=== PATIENT | female | born 1960 | race Caucasian/White ===

== ENCOUNTER 2016-11-27 16:55 | Emergency (ER) | payer SELFPAY ==
[~2016-11-27] VITALS: Ht 160 cm; Wt 77.1 kg
[~2016-11-27 16:55] MED LIST: CEPH500C PO; CIPR500T4 PO; CLIN300C11 PO; DULO60CA58; DULO60CA6 PO; HYDR1TAB86 PO; HYDR25TA4 PO; KETO-22 PO; LAMO200T14 PO; LAMO25TA13 PO; LISI-552 PO; LISI1TAB10 PO; LORA10TA7; NITR-65 PO; PROM25SU10 PO; VICTOZA
--- OUTSIDE RECORDS SUMMARY | 2016-11-27 17:01 | XMS REPORT | Continuity of Care Document ---
Author Author [facility] Organization [facility] Address Unknown Phone Unavailable Care Team Providers Care Housekeeper Caregiver Name Role Phone Self, Referral PCP Unavailable Source Comments Some departments are not documenting in the electronic medical record. If you do not see the information that you expected, contact Release of Information in the Health Information Management department at [phone] for further assistance in locating additional records.[facility] Active Allergies and Adverse Reactions Allergen Noted Date Severity Reactions Comments Fentanyl 02/09/2012 SEIZURES Anaphylaxis Latex 02/09/2012 RASH Mold 02/09/2012 ANAPHYLAXIS Penicillins 10/23/2007 ANAPHYLAXIS Sulfa (Sulfonamide 10/23/2007 Antibiotics) Current Medications Prescription Sig. Disp. Refills Start End Date Status Date LAMICTAL PO 200 mg daily. 10/23/[address] (CYMBALTA) 10/23/19 Active 60 mg PO CpDR 08 ALBUTEROL IN 10/23/19 Active 08 METFORMIN HCL (METFORMIN Take 1,000 mg by mouth Active PO) twice daily. aspirin 325 mg tablet Take 325 mg by mouth Active daily. lisinopril/hydrochlorothi Take 1 Tab by mouth 02/11/20 Active azide (ZESTORETIC) 20/25 daily. 12 tablet [address](+) Take 1 Cap by mouth 90 Cap 5 02/11/20 Active (NEXIUM) 40 mg capsule daily. 12 Potassium 99 mg Tab Take by mouth. Active fluticasone-salmeterol Inhale 1 Puff by mouth Active (ADVAIR DISKUS) 250-50 every 12 hours. mcg inhalation disk LOPERAMIDE HCL (IMODIUM Take by mouth. Active A-D PO) ibuprofen (MOTRIN) 800 mg Take 1 Tab by mouth every 60 Tab 2 02/27/20 Active tablet 8-12 hours as needed. 12 Active Problems Problem Noted Date Asthma 02/09/2012 DM (diabetes mellitus) (HCC) 02/09/2012 Depression 02/09/2012 Bipolar disorder ([facility]) 02/09/2012 HTN (hypertension) 02/09/2012 GERD (gastroesophageal reflux disease) 02/09/2012 Diverticulitis 02/09/2012 Immunizations Name Dates Previously Given Next Due Tdap Vaccine 02/27/2012 Social History Tobacco Use Types Packs/Day Years Used Date Current Every Day Smoker Cigarettes 0.5 28 Smokeless Tobacco: Never Used Alcohol Use Drinks/Week oz/Week Comments No Last Filed Vital Signs Vital Sign Reading Time Taken Blood Pressure 103/49 02/27/2012 10:31 AM CDT Pulse 75 02/27/2012 10:31 AM CDT Temperature 36.4 C (97.6 F) 02/27/2012 10:31 AM CDT Respiratory Rate 16 02/27/2012 10:31 AM CDT Height 1.619 m (5' 3.75") 02/27/2012 10:31 AM CDT Weight 136.079 kg (300 lb) 02/27/2012 10:31 AM CDT Body Mass Index 51.92 02/27/2012 10:31 AM CDT Oxygen Saturation 98% 02/11/2012 11:53 AM CDT Plan of Care Health Maintenance Due Date Last Done Comments Dilated Eye Exam 1977 Foot Exam 1977 Microalbumin 1977 Pneumonia Vaccine (Dm) 1977 Cervical Cancer Screening 1980 Breast Cancer Screening 1999 Colorectal Cancer 2009 Screening Hba1c 08/11/2012 02/10/2012 Physical (Comprehensive) 02/26/2013 02/27/2012 Exam Influenza Vaccine 06/21/2016 Tetanus Vaccine 02/26/2022 02/27/2012, 02/27/2012 Pertussis Vaccine Completed 02/27/2012 Results from Last 3 Months Not on file
[2016-11-27] MEDS ORDERED: NS IV 1000 ML 1,000 ML IV ONE (17:09)
[2016-11-27] MEDS ORDERED: RT-ALBUTEROL/IPRATROPIUM 3 ML (DUONEB) VIAL INH ONE ×2 (17:15→19:00)
[2016-11-27 18:04] LABS: BASOPHILS # (AUTO) 0.1 10^3/uL (0.0-0.1); BASOPHILS % (AUTO) 1 % (0-10); EOSINOPHILS # (AUTO) 0.2 10^3/uL (0.0-0.3); EOSINOPHILS % (AUTO) 1 % (0-10); LYMPHOCYTES # (AUTO) 3.8 X 10^3 (1.0-4.0); LYMPHOCYTES % (AUTO) 24 % (12-44); MEAN CORPUSCULAR HEMOGLOBIN 30 PG (25-34); MEAN CORPUSCULAR HGB CONC 34 G/DL (32-36); MEAN CORPUSCULAR VOLUME 88 FL (80-99); MEAN PLATELET VOLUME 8.7 FL (7.4-10.4); MONOCYTES # (AUTO) 1.5 X 10^3 (0.0-1.0); MONOCYTES % (AUTO) 9 % (0-12); NEUTROPHILS # (AUTO) 10.1 X 10^3 (1.8-7.8); NEUTROPHILS % (AUTO) 65 % (42-75); PLATELET COUNT 372 10^3/uL (130-400); RED BLOOD COUNT 4.71 10^6/uL (4.35-5.85); WHITE BLOOD COUNT 15.6 10^3/uL (4.3-11.0)
--- NOTE | 2016-11-27 18:17 | Diagnostic Imaging Report ---
INDICATION: Cough and shortness of breath with right rib pain. Two views were obtained. FINDINGS: The heart size, mediastinal configuration, and pulmonary vascularity are within normal limits. There is no pleural effusion, pneumothorax, or pneumonia. The osseous structures are unremarkable. IMPRESSION: No acute cardiopulmonary abnormality. Dictated by: Dictated on workstation # [id number]
--- NOTE | 2016-11-27 18:19 | Diagnostic Imaging Report ---
INDICATION: Rib pain after coughing. Three views were obtained. FINDINGS: The right lung is clear. There is no pleural effusion or pneumothorax. There is no evidence of a displaced rib fracture. IMPRESSION: No displaced rib fractures Dictated by: Dictated on workstation # [id number]
[2016-11-27 18:27] LABS: ALANINE AMINOTRANSFERASE 33 U/L (0-55); ALBUMIN 3.8 G/DL (3.2-4.5); ANION GAP 12 MMOL/L (5-14); ASPARTATE AMINO TRANSFERASE 30 U/L (5-34); BILIRUBIN,TOTAL 0.5 MG/DL (0.1-1.0); BLOOD UREA NITROGEN 6 MG/DL (7-18); BUN/CREATININE RATIO 9; CALCIUM 8.9 MG/DL (8.5-10.1); CARBON DIOXIDE 26 MMOL/L (21-32); CHLORIDE 102 MMOL/L (98-107); GFR ESTIMATED > 60; GLUCOSE 154 MG/DL (70-105); POTASSIUM 3.4 MMOL/L (3.6-5.0); SODIUM 140 MMOL/L (135-145); TOTAL PROTEIN 7.5 G/DL (6.4-8.2)
[2016-11-27 18:44] LABS: BAND NEUTROPHILS 1 %; NEUTROPHILS % (MANUAL) 68 %
[2016-11-27 18:45] LABS: BASOPHILS % (MANUAL) 0 %; EOSINOPHILS % (MANUAL) 4 %; LYMPHOCYTES % (MANUAL) 24 %
--- NOTE | 2016-11-27 18:47 | ED General ---
General Chief Complaint: Respiratory Problems Stated Complaint: SOA Nursing Triage Note: c/o progressive soa. Cough/congestion/fever reported. Hx of asthma. Nursing Sepsis Screen: No Definite Risk Source of Information: Patient Exam Limitations: No Limitations History of Present Illness Time Seen by Provider: 17:00 Initial Comments This 56-year-old woman presents to emergency room with cough, shortness of air, and reported fever for several days. She also has right-sided chest wall pain and tenderness and wonders if she has fractured a rib by coughing. She has had no blunt trauma. Patient has a history of asthma. She also has some erythema and irritation of the left eye with a little bit of drainage. She is afebrile at present. Allergies and Home Medications Allergies Coded Allergies: Penicillins (Unverified Allergy, Mild, 03/03/11) Sulfa (Sulfonamide Antibiotics) (Unverified Allergy, Mild, 03/03/11) fentanyl (Unverified Allergy, Mild, SZ, 03/03/11) latex (Unverified Allergy, Mild, 03/04/11) unsure/thinks a rash Home Medications (Reported) Azithromycin 250 Mg Tablet #4 250 MG PO DAILY Prescribed by: DEBRA GARNICA on 11/27/161901 Clindamycin HCl 300 Mg Capsule #40 300 MG PO QID Prescribed by: MARIVEL CHOI on 06/13/16 2333 Ipratropium/Albuterol Sulfate 3 Ml Ampul.neb #20 3 ML IH Q6H Prescribed by: DEBRA GARNICA on 11/27/161901 Prednisone 20 Mg Tab #3 20 MG PO DAILY Prescribed by: DEBRA GARNICA on 11/27/161901 Constitutional: see HPI EENTM: see HPI Respiratory: see HPI Cardiovascular: no symptoms reported Gastrointestinal: no symptoms reported Genitourinary: no symptoms reported Musculoskeletal: see HPI Skin: no symptoms reported Psychiatric/Neurological: No Symptoms Reported Hematologic/Lymphatic: No Symptoms Reported Past Bjewhkg-Wpalgv-Rmphje Hx Patient Social History Alcohol Use: Denies Use Recreational Drug Use: No Smoking Status: Former Smoker Recent Foreign Travel: No Contact w/Someone Who Travel: No Recent Infectious Disease Expo: No Recent Hopitalizations: No Surgeries HX Surgeries: Yes Surgeries: Gallbladder, Tonsillectomy Respiratory Hx Respiratory Disorders: Yes Respiratory Disorders: Asthma Cardiovascular Hx Cardiac Disorders: Yes Cardiac Disorders: Hypertension Neurological Hx Neurological Disorders: Yes Neurological Disorders: Headaches /Migraines Reproductive System : No Hx Reproductive Disorders: No DIRECT ENTRY MIDWIFE History: Menopausal Genitourinary Hx Genitourinary Disorders: No Gastrointestinal Hx Gastrointestinal Disorders: Yes Gastrointestinal Disorders: Gall Bladder Disease Musculoskeletal Hx Musculoskeletal Disorders: Yes Musculoskeletal Disorders: Arthritis Endocrine Hx Endocrine Disorders: Yes (MORBID OBESITY) Endocrine Disorders: Diabetes, Non-Insulin dep HEENT HX ENT Disorders: Yes (Ludwigs Angina) Cancer Hx Cancer: No Psychosocial Hx Psychiatric Problems: Yes Behavioral Health Disorders: Anxiety, Bipolar, Depression Integumentary HX Skin/Integumentary Disorder: No Blood Transfusions Hx Blood Disorders: No Physical Exam Vital Signs Capillary Refill : Less Than 3 Seconds General Appearance: WD/WN Mild Distress Obese HEENT: PERRL/EOMI Pharynx Normal Other (mild scleral and conjunctival erythema of the left eye) Neck: Normal Inspection Respiratory: No Accessory Muscle Use No Respiratory Distress Wheezing Other ( tenderness over the right lateral chest wall. 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 She has a nebulizer machine at home and DuoNeb was prescribed. Prednisone and azithromycin were initiated. Antibiotics were started due to the leukocytosis, significant symptoms and duration of symptoms. Patient was hydrated well with IV fluids. Chest x-ray revealed no evidence of pneumonia or rib fracture. Diagnostic Imaging Diagonstic Imaging: Xray Comments Rib x-rays viewed by me and report reviewed. See report below: NAME: MOODY DE LEÓN [facility] REC#: [id number] PT STATUS: REG ER : 1960 PHYSICIAN: DEBRA ARGUELLO MD ADMIT DATE: 11/27/16/ER Draft Date of Exam:11/27/16 RIBS, RIGHT 2-3 VIEWS INDICATION: Rib pain after coughing. Three views were obtained. FINDINGS: The right lung is clear. There is no pleural effusion or pneumothorax. There is no evidence of a displaced rib fracture. IMPRESSION: No displaced rib fractures Dictated on workstation # [id number] Dict: 11/27/161813 Trans: 11/27/161817 [facility] [id number] Interpreted by: ESTUARDO HOFFMAN Diagonstic Imaging: Xray Plain Films/CT/US/NM/MRI: chest Comments Chest x-ray viewed by me and report reviewed. See report below: NAME: MOODY DE LEÓN [facility] REC#: [id number] PT STATUS: REG ER : 1960 PHYSICIAN: DEBRA ARGUELLO MD ADMIT DATE: 11/27/16/ER Draft Date of Exam:11/27/16 CHEST PA/LAT (2 VIEW) INDICATION: Cough and shortness of breath with right rib pain. Two views were obtained. FINDINGS: The heart size, mediastinal configuration, and pulmonary vascularity are within normal limits. There is no pleural effusion, pneumothorax, or pneumonia. The osseous structures are unremarkable. IMPRESSION: No acute cardiopulmonary abnormality. Dictated on workstation # [id number] Dict: 11/27/161813 Trans: 11/27/161816 [facility] [id number] Interpreted by: ESTUARDO HOFFMAN Departure Impression Impression: Primary Impression: Acute bronchitis Qualified Code: J20.9 - Acute bronchitis, unspecified Additional Impressions: Leukocytosis Qualified Code: D72.829 - Elevated white blood cell count, unspecified Chest wall pain Conjunctivitis, left eye Qualified Code: H10.9 - Unspecified conjunctivitis Asthma exacerbation Disposition: 01 HOME, SELF-CARE Condition: Improved Departure-Patient Inst. Decision time for Depature: 19:00 Referrals: [facility] (PCP/Family) Primary Care Physician Patient Instructions: Acute Bronchitis, Adult (DC) Add. Discharge Instructions: Use the DuoNeb medication in the nebulizer machine every 6 hours scheduled for the next few days. If this is not affordable, use albuterol scheduled every 4 hours for the next few days. Complete your steroids and antibiotics as prescribed. Follow-up with your primary care provider within the week. Return to care if symptoms worsen. You may take Tylenol and/or ibuprofen for pain. All discharge instructions reviewed with patient and/or family. Voiced understanding. Scripts Ipratropium/Albuterol Sulfate (Iprat-Albut 0.5-3(2.5) mg/3 ml)3 Ml Ampul.neb3 Ml IH Q6H #20 EACH Prov:DEBRA ARGUELLO MD 11/27/16 Azithromycin 250 Mg [id number] Mg PO DAILY #4 TAB Prov:DEBRA ARGUELLO MD 11/27/16 Prednisone 20 Mg Tab20 Mg PO DAILY #3 TAB Prov:DEBRA ARGUELLO MD 11/27/16 Copy Copies To 1: ZHANG DURAN JOSHUA T MD Nov 27, 2016 18:47 Svn Sm Volume Nebulizer Rt-Rfs (11/27/16 18:57) Ketorolac Injection (Toradol Injection) (11/27/16 19:00) Medications Given in ED Current Medications Medications Dose Ordered Sig/Jose Route Start Time Stop Time Status Last Admin Dose Admin Albuterol/ Ipratropium 3 ml ONCE ONCE INH 11/27/16 19:00 11/27/16 19:01 DC 11/27/16 19:03 3 ML Albuterol/ Ipratropium 3 ml 3 ml ONCE ONCE INH 11/27/16 17:15 11/27/16 17:16 DC 11/27/16 17:23 3 ML Sodium Chloride 1,000 ml @ 0 mls/hr Q0M ONCE IV 11/27/16 17:09 11/27/16 17:16 DC 11/27/16 18:04 0 MLS/HR Vital Signs/I&O Vital Sign - Last 12Hours 11/27/16 11/27/16 11/27/16 16:55 17:23 19:03 Temp 97.5 Pulse 70 Resp 16 B/P 180/87 Pulse Ox 97 94 O2 Delivery Room Air O2 Flow Rate 2 2 Blood Pressure Mean: 118 Diagnostic Imaging Diagonstic Imaging: Xray Comments Rib x-rays viewed by me and report reviewed. See report below: NAME: MOODY DE LEÓN [facility] REC#: [id number] PT STATUS: REG ER : 1960 PHYSICIAN: DEBRA ARGUELLO MD ADMIT DATE: 11/27/16/ER Draft Date of Exam:11/27/16 RIBS, RIGHT 2-3 VIEWS INDICATION: Rib pain after coughing. Three views were obtained. FINDINGS: The right lung is clear. There is no pleural effusion or pneumothorax. There is no evidence of a displaced rib fracture. IMPRESSION: No displaced rib fractures Dictated on workstation # [id number] Dict: 11/27/161813 Trans: 11/27/161817 [facility] [id number] Interpreted by: ESTUARDO HOFFMAN Diagonstic Imaging: Xray Plain Films/CT/US/NM/MRI: chest Comments Chest x-ray viewed by me and report reviewed. See report below: NAME: MOODY DE LEÓN [facility] REC#: [id number] PT STATUS: REG ER : 1960 PHYSICIAN: DEBRA ARGUELLO MD ADMIT DATE: 11/27/16/ER Draft Date of Exam:11/27/16 CHEST PA/LAT (2 VIEW) INDICATION: Cough and shortness of breath with right rib pain. Two views were obtained. FINDINGS: The heart size, mediastinal configuration, and pulmonary vascularity are within normal limits. There is no pleural effusion, pneumothorax, or pneumonia. The osseous structures are unremarkable. IMPRESSION: No acute cardiopulmonary abnormality. Dictated on workstation # [id number] Dict: 11/27/161813 Trans: 11/27/161816 [facility] [id number] Interpreted by: ESTUARDO HOFFMAN Departure Impression Impression: Primary Impression: Acute bronchitis Qualified Code: J20.9 - Acute bronchitis, unspecified Additional Impressions: Leukocytosis Qualified Code: D72.829 - Elevated white blood cell count, unspecified Chest wall pain Conjunctivitis, left eye Qualified Code: H10.9 - Unspecified conjunctivitis Asthma exacerbation Disposition: 01 HOME, SELF-CARE Condition: Improved Departure-Patient Inst. Decision time for Depature: 19:00 Referrals: [facility] (PCP/Family) Primary Care Physician Patient Instructions: Acute Bronchitis, Adult (DC) Add. Discharge Instructions: Use the DuoNeb medication in the nebulizer machine every 6 hours scheduled for the next few days. If this is not affordable, use albuterol scheduled every 4 hours for the next few days. Complete your steroids and antibiotics as prescribed. Follow-up with your primary care provider within the week. Return to care if symptoms worsen. You may take Tylenol and/or ibuprofen for pain. All discharge instructions reviewed with patient and/or family. Voiced understanding. Scripts Ipratropium/Albuterol Sulfate (Iprat-Albut 0.5-3(2.5) mg/3 ml)3 Ml Ampul.neb3 Ml IH Q6H #20 EACH Prov:DEBRA ARGUELLO MD 11/27/16 Azithromycin 250 Mg [id number] Mg PO DAILY #4 TAB Prov:DEBRA ARGUELLO MD 11/27/16 Prednisone 20 Mg Tab20 Mg PO DAILY #3 TAB Prov:DEBRA ARGUELLO MD 11/27/16 Copy Copies To 1: ZHANG DURAN JOSHUA T MD Nov 27, 2016 18:47
[2016-11-27] MEDS ORDERED: AZITHROMYCIN 250 MG TAB (ZITHROMAX) PO ONE (19:00)
[2016-11-27] MEDS ORDERED: methylPREDNISolone 125 MG (Solu-MEDROL) VIAL IVP ONE (19:00)
[2016-11-27] MEDS ORDERED: KETOROLAC 30 MG/ML VIAL IVP PRN (19:00)
[2016-11-27] MEDS ORDERED: AZIT250T5 PO (19:02)
[2016-11-27] MEDS ORDERED: PRD20T PO (19:02)
[2016-11-27] MEDS ORDERED: IPRA3AMP IH (19:02)
[2016-11-27 19:39] VITALS: BP 181/81
== END 2016-11-27 19:38 | disposition home or self-care (01) ==
LOC: EDUNIT# 16:55 → ER 16:56
DX: J20.9 Acute bronchitis, unspecified (principal); D72.829 Elevated white blood cell count, unspecified; R07.89 Other chest pain; H10.32 Unspecified acute conjunctivitis, left eye; J45.901 Unspecified asthma with (acute) exacerbation; I10 Essential (primary) hypertension; E11.9 Type 2 diabetes mellitus without complications
CPT/HCPCS: 36415; 71020; 71100; 80053; 85007; 85027; 87804; 94640; 96361; 96374; 96375

== ENCOUNTER → 2019-05-14 | Outpatient (CLI) | payer OTHER ==
[~2019-05-14] MED LIST changes: +AZIT250T12 PO; +IPRA3AMP31 IH; +PRD20T PO
--- NOTE | 2019-05-14 12:46 | Diagnostic Imaging Report ---
Indication: Chronic back pain. 3 views were obtained. Findings: The alignment of the lumbar spine is normal. Vertebral body heights well-maintained. There is no spondylolysis or spondylolisthesis. No fractures are noted. There is multilevel degenerative disc disease most severe at L3-4 and L4-5. Impression: Diffuse lumbar spondylosis and multilevel degenerative disc disease as described. Dictated by: Dictated on workstation # [id number]
--- NOTE | 2019-05-14 12:47 | Diagnostic Imaging Report ---
Indication: Pain. Two views were obtained. Findings: There is moderately severe osteoarthritic change in the left knee particularly the medial knee joint compartment and patellofemoral joint. This is associated with subchondral sclerosis and marginal osteophytosis. There is no fracture or dislocation. Soft tissues are unremarkable. Impression: Moderately severe osteoarthritic change of the left knee as described. Dictated by: Dictated on workstation # [id number]
== END ==
LOC: RAD 09:59
PROVIDERS: ATTEND Family Medicine
DX: M17.12 Unilateral primary osteoarthritis, left knee (principal); M47.816 Spondylosis without myelopathy or radiculopathy, lumbar region; M51.36 Other intervertebral disc degeneration, lumbar region
CPT/HCPCS: 72100; 73560

== ENCOUNTER 2019-12-20 22:10 | Emergency (ER) | payer SELFPAY ==
[~2019-12-20] VITALS: Ht 162.5 cm; Wt 138.0 kg
[~2019-12-20 22:10] MED LIST changes: -DULO60CA58; +DULO60CA59
[2019-12-20] MEDS ORDERED: ONDANSETRON 4 MG/2 ML (SDV) Z0FRAN ONE (22:21)
[2019-12-20] MEDS ORDERED: LACTATED RINGERS 1,000 ML IV ONE (22:21)
[2019-12-20] MEDS ORDERED: FAMOTIDINE 20MG/2ML IV (PEPCID) IV STA (22:21)
[2019-12-20] MEDS ORDERED: ONDANSETRON 4 MG/2 ML (SDV) Z0FRAN IVP ONE (22:30)
[2019-12-20 22:37] LABS: BASOPHILS # (AUTO) 0.1 10^3/uL (0.0-0.1); BASOPHILS % (AUTO) 0 % (0-10); EOSINOPHILS # (AUTO) 0.2 10^3/uL (0.0-0.3); EOSINOPHILS % (AUTO) 1 % (0-10); HEMATOCRIT 46 % (35-52); HEMOGLOBIN 14.9 G/DL (11.5-16.0); LYMPHOCYTES % (AUTO) 16 % (12-44); MEAN CORPUSCULAR HEMOGLOBIN 30 PG (25-34); MEAN CORPUSCULAR HGB CONC 33 G/DL (32-36); MEAN CORPUSCULAR VOLUME 91 FL (80-99); MEAN PLATELET VOLUME 9.1 FL (7.4-10.4); MONOCYTES # (AUTO) 1.4 X 10^3 (0.0-1.0); MONOCYTES % (AUTO) 8 % (0-12); NEUTROPHILS # (AUTO) 13.7 X 10^3 (1.8-7.8); NEUTROPHILS % (AUTO) 75 % (42-75); PLATELET COUNT 438 10^3/uL (130-400); RED CELL DISTRIBUTION WIDTH 13.6 % (10.0-14.5); WHITE BLOOD COUNT 18.2 10^3/uL (4.3-11.0)
--- NOTE | 2019-12-20 23:03 | ED Abdominal Pain ---
General Chief Complaint: Abdominal/GI Problems Stated Complaint: N/V Nursing Triage Note: TO ED ROOM 5 [facility] WITH C/O NAUSEA SINCE YESTERDAY WITH VOMITING, "DRY HEAVES", AND ABDOMINAL PAIN TODAY. HX OF TYPE 2 DM, BLOOD GLUCOSE 160 MG/DL EN ROUTE WITH EMS. Sepsis Screen: No Definite Risk Source of Information: Patient, EMS Exam Limitations: No Limitations History of Present Illness Date Seen by Provider: Dec 20, 2019 Time Seen by Provider: 22:20 Initial Comments Here with report of nausea and vomiting with dry heaves today. Onset yesterday and has been persistent since. She has diabetes type 2 but has not taken any insulin today due to not eating. Complains of abdominal pain especially upper after dry heaving. Denies breathing problems. Does feel weak. Denies dysuria or diarrhea. Timing/Duration: 24 Hours Severity/Quality: Moderate, Aching, Cramping Location: RUQ, LUQ Radiation: RLQ, LLQ Activities at Onset: None Modifying Factors: Worsens With Eating, Worsens With Vomiting Associated Symptoms: No Back Pain, No Chest Pain, No Fever/Chills; Fatigue, Nausea/Vomiting; No Shortness of Air; Weakness Allergies and Home Medications Allergies Coded Allergies: Penicillins (Unverified Allergy, Mild, 03/03/11) Sulfa (Sulfonamide Antibiotics) (Unverified Allergy, Mild, 03/03/11) fentanyl (Unverified Allergy, Mild, SZ, 03/03/11) latex (Unverified Allergy, Mild, 03/04/11) unsure/thinks a rash Home Medications Azithromycin 250 Mg Tablet, 250 MG PO DAILY Prescribed by: DEBRA GARNICA on 11/27/161901 Clindamycin HCl 300 Mg Capsule, 300 MG PO QID Prescribed by: MARIVEL CHOI on 06/13/16 2333 Ipratropium/Albuterol Sulfate 3 Ml Ampul.neb, 3 ML IH Q6H Prescribed by: DEBRA GARNICA on 11/27/161901 Prednisone 20 Mg Tab, 20 MG PO DAILY Prescribed by: DEBRA GARNICA on 11/27/161901 Patient Home Medication List Home Medication List Reviewed: Yes Review of Systems Review of Systems Constitutional: see HPI; No chills, No fever EENTM: No Symptoms Reported Respiratory: No Symptoms Reported Cardiovascular: No Symptoms Reported Gastrointestinal: See HPI Genitourinary: No Symptoms Reported Musculoskeletal: no symptoms reported Skin: no symptoms reported All Other Systems Reviewed Negative Unless Noted: Yes Past Lhifymh-Uvdwis-Tahvly Hx Past Med/Social Hx: Reviewed Nursing Past Med/Soc Hx Patient Social History Alcohol Use: Denies Use Recreational Drug Use: Yes Drug of Choice: MARIJUANA Smoking Status: Current Everyday Smoker Former Smoker, Quit: May 22, 2013 Recent Foreign Travel: No Contact w/Someone Who Travel: No Recent Infectious Disease Expo: No Recent Hopitalizations: No Physical Abuse: No Sexual Abuse: No Mistreated: No Fear: No Immunizations Up To Date Date of Influenza Vaccine: Jun 22, 2019 Past Medical History Surgeries: Yes Gallbladder, Tonsillectomy Respiratory: Yes Asthma Cardiac: Yes Hypertension Neurological: Yes Headaches /Migraines 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 oz. 77.697194id; 52.00 BMI Method:Estimated General Appearance: WD/WN, no apparent distress, obese HEENT: PERRL/EOMI, pharynx normal Neck: full range of motion, supple Respiratory: lungs clear, normal breath sounds Cardiovascular: regular rate, rhythm, no murmur Peripheral Pulses: 2+ Dorsalis Pedis (R), 2+ Left Dors-Pedis (L), 2+ Radial Pulses (R), 2+ Radial Pulses (L) Gastrointestinal: soft; No guarding, No rebound; tenderness (left upper quadrant and to a lesser extent all other quadrants) Extremities: non-tender, normal inspection Back: normal inspection, no CVA tenderness, no vertebral tenderness Neurologic/Psychiatric: alert, oriented x 3 Skin: normal color, warm/dry Progress/Results/Core Measures Results/Orders Lab Results Laboratory Tests Test 12/20/19 22:22 12/20/19 23:51 Range/Units White Blood Count 18.2 H 4.3-11.0 10^3/uL Red Blood Count 5.04 4.35-5.85 10^6/uL Hemoglobin 14.9 11.5-16.0 G/DL Hematocrit 46 35-52 % Mean Corpuscular Volume 91 80-99 FL Mean Corpuscular Hemoglobin 30 25-34 PG Mean Corpuscular Hemoglobin Concent 33 32-36 G/DL Red Cell Distribution Width 13.6 10.0-14.5 % Platelet Count 438 H 130-400 10^3/uL Mean Platelet Volume 9.1 7.4-10.4 FL Neutrophils (%) (Auto) 75 42-75 % Lymphocytes (%) (Auto) 16 12-44 % Monocytes (%) (Auto) 8 0-12 % Eosinophils (%) (Auto) 1 0-10 % Basophils (%) (Auto) 0 0-10 % Neutrophils # (Auto) 13.7 H 1.8-7.8 X 10^3 Lymphocytes # (Auto) 3.0 1.0-4.0 X 10^3 Monocytes # (Auto) 1.4 H 0.0-1.0 X 10^3 Eosinophils # (Auto) 0.2 0.0-0.3 10^3/uL Basophils # (Auto) 0.1 0.0-0.1 10^3/uL Neutrophils % (Manual) 74 % Lymphocytes % (Manual) 17 % Monocytes % (Manual) 6 % Eosinophils % (Manual) 1 % Basophils % (Manual) 0 % Band Neutrophils 0 % Reactive Lymphocytes 2 % Blood Morphology Comment NORMAL Sodium Level 137 135-145 MMOL/L Potassium Level 4.8 3.6-5.0 MMOL/L Chloride Level 103 98-107 MMOL/L Carbon Dioxide Level 20 L 21-32 MMOL/L Anion Gap 14 5-14 MMOL/L Blood Urea Nitrogen 16 7-18 MG/DL Creatinine 1.04 0.60-1.30 MG/DL Estimat Glomerular Filtration Rate 54 BUN/Creatinine Ratio 15 Glucose Level 192 H 70-105 MG/DL Calcium Level 9.5 8.5-10.1 MG/DL Corrected Calcium 9.3 8.5-10.1 MG/DL Total Bilirubin 0.4 0.1-1.0 MG/DL Aspartate Amino Transf (AST/SGOT) 29 5-34 U/L Alanine Aminotransferase (ALT/SGPT) 33 0-55 U/L Alkaline Phosphatase 77 40-136 U/L C-Reactive Protein High Sensitivity 2.71 H 0.00-0.50 MG/DL Total Protein 8.1 6.4-8.2 GM/DL Albumin 4.3 3.2-4.5 GM/DL Urine Color DARK YELLOW Urine Clarity CLEAR Urine pH 5.5 5-9 Urine Specific [place] >=1.030 1.016-1.022 Urine Protein TRACE H NEGATIVE Urine Glucose (UA) NEGATIVE NEGATIVE Urine Ketones 1+ H NEGATIVE Urine Nitrite NEGATIVE NEGATIVE Urine Bilirubin 1+ H NEGATIVE Urine Urobilinogen 0.2 < = 1.0 MG/DL Urine Leukocyte Esterase TRACE H NEGATIVE Urine RBC (Auto) NEGATIVE NEGATIVE Urine RBC 0-2 /HPF Urine WBC 5-10 H /HPF Urine Squamous Epithelial Cells 5-10 /HPF Urine Crystals PRESENT H /LPF Urine Amorphous Sediment FEW NISHA URATES H /LPF Urine Bacteria FEW H /HPF Urine Casts NONE /LPF Urine Mucus MODERATE H /LPF Urine Culture Indicated YES Urine Opiates Screen NEGATIVE NEGATIVE Urine Oxycodone Screen NEGATIVE NEGATIVE Urine Methadone Screen NEGATIVE NEGATIVE Urine Propoxyphene Screen NEGATIVE NEGATIVE Urine Barbiturates Screen NEGATIVE NEGATIVE Ur Tricyclic Antidepressants Screen NEGATIVE NEGATIVE Urine Phencyclidine Screen NEGATIVE NEGATIVE Urine Amphetamines Screen NEGATIVE NEGATIVE Urine Methamphetamines Screen NEGATIVE NEGATIVE Urine Benzodiazepines Screen NEGATIVE NEGATIVE Urine Cocaine Screen NEGATIVE NEGATIVE Urine Cannabinoids Screen NEGATIVE NEGATIVE My Orders Orders - LENNY GREEN MD Cbc With Automated Diff (12/20/19 22:21) Comprehensive Metabolic Panel (12/20/19 22:21) Hs C Reactive Protein (12/20/19 22:21) Ua Culture If Indicated (12/20/19 22:21) Ed Iv/Invasive Line Start (12/20/19 22:21) Lactated Ringers (Lr 1000 Ml Iv Solution (12/20/19 22:21) Ondansetron Injection (Zofran Injectio (12/20/19 22:30) Famotidine Injection (Pepcid Injection) (12/20/19 22:21) Ondansetron Injection (Zofran Injectio (12/20/19 22:21) Manual Differential (12/20/19 22:22) Drug Screen Stat (Urine) (12/20/19 23:55) Urine Culture (12/20/19 23:51) Ketorolac Injection (Toradol Injection) (12/21/19 00:43) Ct Abdomen/Pelvis W (12/21/19 00:56) Iohexol Injection (Omnipaque 350 Mg/Ml 1 (12/21/19 01:30) Received Contrast (Hold Metformin- Contr (12/21/19 01:30) Ns (Ivpb) (Sodium Chloride 0.9% Ivpb Bag (12/21/19 01:30) Ns Iv 500 Ml (Sodium Chloride 0.9%) (12/21/19 01:55) Morphine Injection (Morphine Injection (12/21/19 02:15) Pantoprazole Injection (Protonix Injecti (12/21/19 03:30) Medications Given in ED Current Medications Medications Dose Ordered Sig/Jose Route Start Time Stop Time Status Last Admin Dose Admin Iohexol 100 ml ONCE ONCE IV 12/21/19 01:30 12/21/19 01:32 DC 12/21/19 01:31 100 ML Lactated Ringer's 1,000 ml @ 0 mls/hr Q0M ONCE IV 12/20/19 22:21 12/20/19 22:27 DC 12/20/19 22:30 999 MLS/HR Morphine Sulfate 4 mg ONCE ONCE IVP 12/21/19 02:15 12/21/19 02:16 DC 12/21/19 02:10 4 MG Ondansetron HCl 8 mg ONCE ONCE IVP 12/20/19 22:30 12/20/19 22:31 DC 12/20/19 22:29 8 MG Pantoprazole 40 mg ONCE ONCE IV 12/21/19 03:30 12/21/19 03:31 DC 12/21/19 03:44 40 MG Sodium Chloride 100 ml ONCE ONCE IV 12/21/19 01:30 12/21/19 01:32 DC 12/21/19 01:32 80 ML Sodium Chloride 500 ml @ 0 mls/hr Q0M ONCE IV 12/21/19 01:55 12/21/19 01:56 DC 12/21/19 02:04 999 MLS/HR Vital Signs/I&O 12/20/19 22:10 Temp 36.0 Pulse 56 Resp 18 B/P (MAP) 183/88 (119) O2 Delivery Room Air 12/21/19 00:00 Intake Total 1000 ml Balance 1000 ml Blood Pressure Mean: 119 Progress Progress Note : Progress Note Seen and evaluated. IV, labs, UA, LR 1 L bolus and Zofran 8 mg IV ordered. Monitor patient. CT abdomen pelvis with contrast ordered due to persistence of symptoms. Toradol 30 mg IV. Monitor patient. Normal saline [address] complete. 0250 Patient still reporting discomfort but better after morphine 4 mg IV that was given earlier. 0325: CT scan results noted. Probably acute enteritis based on CT scan. She is doing better now. Protonix 40 mg IV. Patient reports that she does have acid issues. Monitor patient. 0350: Doing better. She is okay with going home and will go home via taxi. Discharged home with return precautions. Patient verbalize understanding instructions and agreement with plan. Diagnostic Imaging Diagonstic Imaging: CT Plain Films/CT/US/NM/MRI: abdomen, pelvis Comments There are no acute findings involving the solid abdominal organs. The ga llbladder is absent. Negative for lower GI tract obstruction or pneumatosis. There are central loops of small bowel demonstrated mild to moderate wall thickening with mild adjacent inflammatory changes in that is icteric. Findings likely reflect acute enteritis. Negative for pneumoperitoneum or abdominal/pelvic fluid collection. Normal appendix. Reviewed: Reviewed Night [facility] Study Departure Impression Primary Impression: Epigastric abdominal pain Additional Impression: Nausea and vomiting Qualified Codes: R11.14 - Bilious vomiting Disposition: 01 HOME, SELF-CARE Condition: Improved Departure-Patient Inst. Decision time for Depature: 03:53 Referrals: [facility] (PCP) Primary Care Physician JOANNE CHUA (Family) Primary Care Physician Patient Instructions: Acute Abdomen (Belly Pain), Adult (DC), Nausea and Vomiting, Adult (DC) Add. Discharge Instructions: All discharge instructions reviewed with patient and/or family. Voiced understanding. Clear liquid or light diet for the next 24 hours and then advance as tolerated. Drink plenty of fluids but taking small sips frequently. You may take Tylenol or ibuprofen as needed for pain per package directions. You may take [id number] Pepcid or the generic famotidine 20 mg once or twice daily for the next several days and then as needed. Follow-up with your doctor and 2-3 days for recheck. Return for worse pain, fever, vomiting, weakness, breathing problems or other concerns as needed. Scripts Promethazine HCl (Promethazine Tablet) 25 Mg Tablet 25 MG PO Q8H PRN for NAUSEA/VOMITING, #14 TAB 0 Refills Prov: LENNY GREEN MD 12/21/19 LENNY GREEN MD Dec 20, 2019 23:03
[2019-12-20 23:08] LABS: BAND NEUTROPHILS 0 %; BASOPHILS % (MANUAL) 0 %; EOSINOPHILS % (MANUAL) 1 %; LYMPHOCYTES % (MANUAL) 17 %; MONOCYTES % (MANUAL) 6 %; NEUTROPHILS % (MANUAL) 74 %; RBC MORPH NORMAL; REACTIVE LYMPHOCYTES 2 %
[2019-12-20 23:09] LABS: ALBUMIN 4.3 GM/DL (3.2-4.5); BILIRUBIN,TOTAL 0.4 MG/DL (0.1-1.0); CALCIUM 9.5 MG/DL (8.5-10.1); CREATININE SERUM 1.04 MG/DL (0.60-1.30); POTASSIUM 4.8 MMOL/L (3.6-5.0); TOTAL PROTEIN 8.1 GM/DL (6.4-8.2)
[2019-12-21 00:15] LABS: CLARITY,URINE CLEAR; COLOR,URINE DARK YELLOW; GLUCOSE, URINE (UA) NEGATIVE (NEGATIVE); KETONES,URINE 1+ (NEGATIVE); LEUKOCYTE ESTERASE ,URINE TRACE (NEGATIVE); NITRITE,URINE NEGATIVE (NEGATIVE); PH,URINE 5.5 (5-9); PROTEIN,URINE TRACE (NEGATIVE)
[2019-12-21 00:28] LABS: AMPHETAMINE SCREEN, URINE NEGATIVE (NEGATIVE); BARBITURATE SCREEN URINE NEGATIVE (NEGATIVE); BENZODIAZEPINES SCREEN URINE NEGATIVE (NEGATIVE); CANNABINOID SCREEN, URINE NEGATIVE (NEGATIVE); COCAINE SCREEN URINE NEGATIVE (NEGATIVE); METHADONE STAT NEGATIVE (NEGATIVE); METHAMPHETAMINE SCREEN URINE S NEGATIVE (NEGATIVE); OPIATE SCREEN URINE NEGATIVE (NEGATIVE); OXYCODONE STAT NEGATIVE (NEGATIVE); PROPOXYPHENE STAT NEGATIVE (NEGATIVE); TRICYCLIC ANTIDEPRESSANTS SCRE NEGATIVE (NEGATIVE)
[2019-12-21 00:32] LABS: BILIRUBIN,URINE 1+ (NEGATIVE)
[2019-12-21 00:34] LABS: AMORPHOUS SEDIMENT,UR FEW AMOR URATES /LPF; BACTERIA,URINE FEW /HPF; RBC,URINE 0-2 /HPF
[2019-12-21] MEDS ORDERED: KETOROLAC 30 MG/ML VIAL IVP STA (00:43)
[2019-12-21] MEDS ORDERED: IOHEXOL 350 MG/ML 100 ML (OMNIPAQUE 350) VIAL IV ONE (01:30)
[2019-12-21] MEDS ORDERED: NS 100 ML (IVPB) BAG IV ONE (01:30)
[2019-12-21] MEDS ORDERED: HOLD METFORMIN - RECEIVED CONTRAST 20 ML VIAL IV SCH (01:30)
[2019-12-21] MEDS ORDERED: NS IV 500 ML 500 ML IV ONE (01:55)
[2019-12-21] MEDS ORDERED: morphine INJ 10 MG/ML 1ML (SYR OR VIAL) IVP ONE (02:15)
[2019-12-21] MEDS ORDERED: PANTOPRAZOLE 40 MG (PROTONIX) VIAL IV ONE (03:30)
[2019-12-21] MEDS ORDERED: PROM25TA14 PO (04:05)
[2019-12-21 04:06] VITALS: BP 183/64
--- NOTE | 2019-12-21 08:26 | Diagnostic Imaging Report ---
PROCEDURE: CT abdomen and pelvis with contrast. TECHNIQUE: Multiple contiguous axial images were obtained through the abdomen and pelvis after administration of intravenous contrast. Auto Exposure Controls were utilized during the CT exam to meet ALARA standards for radiation dose reduction. DATE: December 21, 2019. COMPARISON: None. INDICATION: 59-year-old female, nausea and vomiting. FINDINGS: The visualized portions of the lung bases are clear. The heart is not enlarged. There is no identified pericardial effusion. Liver appears diffusely low in attenuation suggesting diffuse fatty infiltration of the liver. The outer liver contours are not nodular. There is no identified focal liver lesion. The main, right, and left portal veins are patent. The patient is status post cholecystectomy. There is no biliary ductal dilation. The main pancreatic duct is not abnormally dilated. Unremarkable appearance of the pancreatic parenchyma. The spleen is normal in size. The adrenal glands are unremarkable. Unremarkable appearance of the renal parenchyma. The urinary collecting systems are not distended. There is no identified renal or ureteral stone. Urinary bladder is underdistended and not well evaluated. There is diverticulosis without evidence of acute diverticulitis. There is no free intraperitoneal air. There is no drainable fluid collection. There is no free pelvic fluid. There are atherosclerotic calcifications. There is a retroaortic left renal vein. There is no identified abnormally enlarged lymph node in the abdomen or pelvis which meets CT size criteria for adenopathy. There is a peripherally sclerotic lesion involving the right intertrochanteric femur measuring 12 mm in size. There are degenerative changes of the spine. There is no identified acute bony abnormality. IMPRESSION: CT ABDOMEN AND PELVIS. 1. Diffuse fatty infiltration of the liver. 2. No identified acute abnormality in the abdomen or pelvis. 3. Nonspecific sclerotic lesion in the right intertrochanteric femur with nonaggressive imaging appearance. Recommend comparison with earlier prior cross-sectional imaging if available to assess for potential long-term stability. Dictated by: Dictated on workstation # [id number]
== END 2019-12-21 04:06 | disposition home or self-care (01) ==
LOC: EDUNIT# 22:12 → ER 22:13
DX: R10.13 Epigastric pain (principal); R11.2 Nausea with vomiting, unspecified; E11.9 Type 2 diabetes mellitus without complications; J45.909 Unspecified asthma, uncomplicated; E66.01 Morbid (severe) obesity due to excess calories; F17.200 Nicotine dependence, unspecified, uncomplicated; Z91.14 Patient's other noncompliance with medication regimen; Z68.43 Body mass index [BMI] 50.0-59.9, adult; Z88.0 Allergy status to penicillin; Z88.2 Allergy status to sulfonamides; Z88.5 Allergy status to narcotic agent; Z91.040 Latex allergy status; Z79.52 Long term (current) use of systemic steroids
CPT/HCPCS: 36415; 74177; 80053; 80306; 81000; 85007; 85025; 85027; 86141; 87088; 96361; 96374; 96375

== ENCOUNTER 2020-02-01 08:36 | Observation (INO) | payer OTHER ==
[~2020-02-01] VITALS: Ht 162.6 cm; Wt 136.0 kg
[~2020-02-01 08:36] MED LIST changes: +PROM25TA14 PO
[2020-02-01] MEDS ORDERED: KETOROLAC 30 MG/ML VIAL IVP STA (08:54)
[2020-02-01] MEDS ORDERED: FAMOTIDINE 20MG/2ML IV (PEPCID) IV STA (08:54)
[2020-02-01] MEDS ORDERED: LACTATED RINGERS 1,000 ML IV ONE (08:54)
[2020-02-01] MEDS ORDERED: ONDANSETRON 4 MG/2 ML (SDV) Z0FRAN IVP ONE ×2 (09:00→10:00)
[2020-02-01 09:01] LABS: BASOPHILS % (AUTO) 0 % (0-10); EOSINOPHILS % (AUTO) 0 % (0-10); HEMATOCRIT 43 % (35-52); HEMOGLOBIN 14.5 G/DL (11.5-16.0); LYMPHOCYTES # (AUTO) 1.7 X 10^3 (1.0-4.0); LYMPHOCYTES % (AUTO) 5 % (12-44); MEAN CORPUSCULAR HEMOGLOBIN 30 PG (25-34); MEAN CORPUSCULAR HGB CONC 33 G/DL (32-36); MEAN CORPUSCULAR VOLUME 89 FL (80-99); MONOCYTES # (AUTO) 1.6 X 10^3 (0.0-1.0); MONOCYTES % (AUTO) 5 % (0-12); NEUTROPHILS # (AUTO) 28.7 X 10^3 (1.8-7.8); NEUTROPHILS % (AUTO) 90 % (42-75); PLATELET COUNT 543 10^3/uL (130-400); RED CELL DISTRIBUTION WIDTH 13.2 % (10.0-14.5)
[2020-02-01 09:11] LABS: ALBUMIN 4.2 GM/DL (3.2-4.5); POTASSIUM 5.2 MMOL/L (3.6-5.0)
[2020-02-01 09:12] LABS: CALCIUM 9.5 MG/DL (8.5-10.1)
[2020-02-01 09:14] LABS: TOTAL PROTEIN 8.3 GM/DL (6.4-8.2)
[2020-02-01 09:15] LABS: BILIRUBIN,TOTAL 0.3 MG/DL (0.1-1.0)
[2020-02-01] MEDS ORDERED: morphine INJ 10 MG/ML 1ML (SYR OR VIAL) IVP ONE (09:15)
[2020-02-01 09:17] LABS: CREATININE SERUM 1.03 MG/DL (0.60-1.30)
--- NOTE | 2020-02-01 09:17 | ED Abdominal Pain ---
General Chief Complaint: Abdominal/GI Problems Stated Complaint: THROWING UP Nursing Triage Note: Pt c/o abdominal pain and vomiting every 15 minutes since 1700 last night. Pt reports recetnly being treated for a UTI. Sepsis Screen: No Definite Risk Source of Information: Patient Exam Limitations: No Limitations History of Present Illness Date Seen by Provider: Feb 01, 2020 Time Seen by Provider: 08:58 Initial Comments Here with report of epigastric abdominal pain that radiates down towards her belly button and then out to the sides from the epigastric region. Onset at 5 PM last night and has had multiple episodes of nausea and vomiting. Was seen in early December for similar and had urinary tract infection. This was treated and patient did better until now. She does report that she had inpatient psychiatric stay at [facility] last week from Saturday through . They did change some meds at that point. She did not have a bowel movement throughout the psychiatric stay and has had a couple small bowel movements since being home. Reports that she has not been able to eat or drink anything overnight. She does have diabetes and states her blood sugars have been in the low 100s to 190s range. Timing/Duration: 12-24 Hours Severity/Quality: Moderate, Aching, Sharp Location: Epigastric Radiation: RUQ, LUQ, Periumbilical Activities at Onset: None Modifying Factors: Worsens With Eating, Worsens With Movement, Worsens With Palpation Associated Symptoms: Back Pain; No Chest Pain, No Fever/Chills, No Fatigue, No Headache; Heartburn, Nausea/Vomiting; No Shortness of Air; Weakness Allergies and Home Medications Allergies Coded Allergies: Penicillins (Unverified Allergy, Mild, 03/03/11) Sulfa (Sulfonamide Antibiotics) (Unverified Allergy, Mild, 03/03/11) fentanyl (Unverified Allergy, Mild, SZ, 03/03/11) latex (Unverified Allergy, Mild, 03/04/11) unsure/thinks a rash Home Medications Azithromycin 250 Mg Tablet, 250 MG PO DAILY Prescribed by: DEBRA GARNICA on 11/27/161901 Clindamycin HCl 300 Mg Capsule, 300 MG PO QID Prescribed by: MARIVEL CHOI on 06/13/16 2333 Ipratropium/Albuterol Sulfate 3 Ml Ampul.neb, 3 ML IH Q6H Prescribed by: DEBRA GARNICA on 11/27/161901 Prednisone 20 Mg Tab, 20 MG PO DAILY Prescribed by: DEBRA GARNICA on 11/27/161901 Promethazine HCl 25 Mg Tablet, 25 MG PO Q8H PRN for NAUSEA/VOMITING Prescribed by: LENNY GREEN on 12/21/19 0405 Patient Home Medication List Home Medication List Reviewed: Yes Review of Systems Review of Systems Constitutional: see HPI; No chills, No fever EENTM: No Symptoms Reported Respiratory: No Symptoms Reported Cardiovascular: No Symptoms Reported Gastrointestinal: See HPI, Constipated, Nausea, Vomiting Genitourinary: See HPI; Denies Burning, Denies Pain Musculoskeletal: back pain; No muscle pain, No neck pain Skin: no symptoms reported Psychiatric/Neurological: No Symptoms Reported All Other Systems Reviewed Negative Unless Noted: Yes Past Udkpgbv-Zquxsx-Wxqsjw Hx Past Med/Social Hx: Reviewed Nursing Past Med/Soc Hx Patient Social History Alcohol Use: Denies Use Recreational Drug Use: No Drug of Choice: MARIJUANA Smoking Status: Current Everyday Smoker Type Used: Cigarettes Former Smoker, Quit: May 22, 2013 2nd Hand Smoke Exposure: Yes Recent Foreign Travel: No Contact w/Someone Who Travel: No Recent Infectious Disease Expo: No Recent Hopitalizations: No Immunizations Up To Date Date of Influenza Vaccine: Jun 22, 2019 Past Medical History Surgeries: Yes Gallbladder, Tonsillectomy Respiratory: Yes Asthma Cardiac: Yes Hypertension Neurological: Yes Headaches /Migraines 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 oz. 77.738776dc; 52.00 BMI Method:Estimated General Appearance: WD/WN, mild distress HEENT: PERRL/EOMI, TMs normal, pharynx normal Neck: full range of motion, supple Respiratory: lungs clear, normal breath sounds Cardiovascular: regular rate, rhythm, no murmur Peripheral Pulses: 2+ Dorsalis Pedis (R), 2+ Left Dors-Pedis (L) ( without adenopathy), 2+ Radial Pulses (R), 2+ Radial Pulses (L) (of the head without) Gastrointestinal: soft, tenderness (epigastric into the lesser extent the periu mbilical region. Tender bilateral upper along the rib margin that she states is from vomiting so much.) Extremities: non-tender, normal inspection Back: normal inspection, no CVA tenderness, no vertebral tenderness Neurologic/Psychiatric: alert, normal mood/affect Skin: normal color Focused Exam Lactate Level 02/01/20 09:12: Lactic Acid Level 2.10*H Lactic Acid Level Laboratory Tests Test 02/01/20 09:12 Lactic Acid Level 2.10 MMOL/L (0.50-2.00) *H Progress/Results/Core Measures Results/Orders Lab Results Laboratory Tests Test 02/01/20 08:50 02/01/20 09:12 02/01/20 09:49 Range/Units White Blood Count 32.0 *H 4.3-11.0 10^3/uL Red Blood Count 4.88 4.35-5.85 10^6/uL Hemoglobin 14.5 11.5-16.0 G/DL Hematocrit 43 35-52 % Mean Corpuscular Volume 89 80-99 FL Mean Corpuscular Hemoglobin 30 25-34 PG Mean Corpuscular Hemoglobin Concent 33 32-36 G/DL Red Cell Distribution Width 13.2 10.0-14.5 % Platelet Count 543 H 130-400 10^3/uL Mean Platelet Volume 9.0 7.4-10.4 FL Neutrophils (%) (Auto) 90 H 42-75 % Lymphocytes (%) (Auto) 5 L 12-44 % Monocytes (%) (Auto) 5 0-12 % Eosinophils (%) (Auto) 0 0-10 % Basophils (%) (Auto) 0 0-10 % Neutrophils # (Auto) 28.7 H 1.8-7.8 X 10^3 Lymphocytes # (Auto) 1.7 1.0-4.0 X 10^3 Monocytes # (Auto) 1.6 H 0.0-1.0 X 10^3 Eosinophils # (Auto) 0.0 0.0-0.3 10^3/uL Basophils # (Auto) 0.0 0.0-0.1 10^3/uL Neutrophils % (Manual) 84 % Lymphocytes % (Manual) 8 % Monocytes % (Manual) 8 % Eosinophils % (Manual) 0 % Basophils % (Manual) 0 % Band Neutrophils 0 % Blood Morphology Comment NORMAL Prothrombin Time 13.4 12.2-14.7 SEC INR Comment 1.0 0.8-1.4 Activated Partial Thromboplast Time 34 24-35 SEC Sodium Level 135 135-145 MMOL/L Potassium Level 5.2 H 3.6-5.0 MMOL/L Chloride Level 101 98-107 MMOL/L Carbon Dioxide Level 20 L 21-32 MMOL/L Anion Gap 14 5-14 MMOL/L Blood Urea Nitrogen 17 7-18 MG/DL Creatinine 1.03 0.60-1.30 MG/DL Estimat Glomerular Filtration Rate 55 BUN/Creatinine Ratio 17 Glucose Level 234 H 70-105 MG/DL Calcium Level 9.5 8.5-10.1 MG/DL Corrected Calcium 9.3 8.5-10.1 MG/DL Magnesium Level 1.5 L 1.6-2.4 MG/DL Total Bilirubin 0.3 0.1-1.0 MG/DL Aspartate Amino Transf (AST/SGOT) 27 5-34 U/L Alanine Aminotransferase (ALT/SGPT) 28 0-55 U/L Alkaline Phosphatase 73 40-136 U/L C-Reactive Protein High Sensitivity 2.40 H 0.00-0.50 MG/DL Total Protein 8.3 H 6.4-8.2 GM/DL Albumin 4.2 3.2-4.5 GM/DL Lactic Acid Level 2.10 *H 0.50-2.00 MMOL/L Urine Color YELLOW Urine Clarity CLEAR Urine pH 5.5 5-9 Urine Specific [place] >=1.030 1.016-1.022 Urine Protein 2+ H NEGATIVE Urine Glucose (UA) NEGATIVE NEGATIVE Urine Ketones 1+ H NEGATIVE Urine Nitrite NEGATIVE NEGATIVE Urine Bilirubin 1+ H NEGATIVE Urine Urobilinogen 0.2 < = 1.0 MG/DL Urine Leukocyte Esterase NEGATIVE NEGATIVE Urine RBC (Auto) NEGATIVE NEGATIVE Urine RBC NONE /HPF Urine WBC 0-2 /HPF Urine Squamous Epithelial Cells 5-10 /HPF Urine Crystals NONE /LPF Urine Bacteria NEGATIVE /HPF Urine Casts PRESENT /LPF Urine Hyaline Casts 2-5 H /LPF Urine Mucus NEGATIVE /LPF Urine Culture Indicated NO My Orders Orders - LENNY GREEN MD Cbc With Automated Diff (02/01/20 08:54) Comprehensive Metabolic Panel (02/01/20 08:54) Hs C Reactive Protein (02/01/20 08:54) Magnesium (02/01/20 08:54) Ua Culture If Indicated (02/01/20 08:54) Ed Iv/Invasive Line Start (02/01/20 08:54) Lactated Ringers (Lr 1000 Ml Iv Solution (02/01/20 08:54) Famotidine Injection (Pepcid Injection) (02/01/20 08:54) Ketorolac Injection (Toradol Injection) (02/01/20 08:54) Ondansetron Injection (Zofran Injectio (02/01/20 09:00) Manual Differential (02/01/20 08:50) Blood Culture (02/01/20 09:09) Sputum Culture (02/01/20 09:09) Protime With Inr (02/01/20 09:09) Partial Thromboplastin Time (02/01/20 09:09) Chest 1 View, Ap/Pa Only (02/01/20 09:09) Ed Iv/Invasive Line Start (02/01/20 09:09) Vital Signs Adult Sepsis Patie Q15M (02/01/20 09:09) O2 (02/01/20 09:09) Remove Rings In Anticipation O (02/01/20 09:09) Lactic Acid Analyzer (02/01/20 09:09) Morphine Injection (Morphine Injection (02/01/20 09:15) Ct Abdomen/Pelvis W (02/01/20 09:27) Iohexol Injection (Omnipaque 350 Mg/Ml 1 (02/01/20 09:30) Received Contrast (Hold Metformin- Contr (02/01/20 09:30) Ns (Ivpb) (Sodium Chloride 0.9% Ivpb Bag (02/01/20 09:30) Ns Iv 1000 Ml (Sodium Chloride 0.9%) (02/01/20 09:39) Ondansetron Injection (Zofran Injectio (02/01/20 10:00) Promethazine Injection (Phenergan Injec (02/01/20 10:42) Pantoprazole Injection (Protonix Injecti (02/01/20 10:45) Lipase (02/01/20 10:46) Medications Given in ED Current Medications Medications Dose Ordered Sig/Jose Route Start Time Stop Time Status Last Admin Dose Admin Iohexol 100 ml ONCE ONCE IV 02/01/20 09:30 02/01/20 09:49 DC 02/01/20 10:08 100 ML Lactated Ringer's 1,000 ml @ 0 mls/hr Q0M ONCE IV 02/01/20 08:54 02/01/20 08:56 DC 02/01/20 09:14 1,000 MLS/HR Ondansetron HCl 4 mg ONCE ONCE IVP 02/01/20 09:00 02/01/20 09:01 DC 02/01/20 09:14 4 MG Ondansetron HCl 4 mg ONCE ONCE IVP 02/01/20 10:00 02/01/20 10:01 DC 02/01/20 09:49 4 MG Sodium Chloride 100 ml ONCE ONCE IV 02/01/20 09:30 02/01/20 09:49 DC 02/01/20 10:08 80 ML Vital Signs/I&O 02/01/20 08:43 Temp 37.2 Pulse 95 Resp 20 B/P (MAP) 203/95 (131) Pulse Ox 95 O2 Delivery Room Air Blood Pressure Mean: 131 Progress Progress Note : Progress Note Seen and evaluated. IV, labs, UA, LR 1 L bolus, Zofran 4 mg IV, Pepcid 20 mg IV, Toradol 30 mg IV and morphine 4 mg IV ordered. Have reviewed previous records of visit in early December with similar presentation. Monitor patient. 1027: Patient had CT scan ordered and this is now complete and we are awaiting results. Labs reviewed and she does have elevated lactic acid as well as markedly elevated white count. Normal saline 1 L bolus ordered. Patient declined morphine that was ordered earlier but has accepted additional dose of Zofran 4 mg IV for persistent nausea and vomiting. Currently still nauseated. Pending CT results. Monitor patient. 1046: CT complete. Phenergan 12.5 mg IV for persistent nausea and vomiting. I did discuss the case with Dr. Segura and she accepts patient for admission, observation status. This was discussed with the patient as well who agrees with plan. Patient does have a significant leukocytosis and should be monitored and Dr. Segura agrees. Protonix 40 mg IV ordered. We will continue insulin sliding scale. Diagnostic Imaging Diagonstic Imaging: Xray Plain Films/CT/US/NM/MRI: chest Comments [facility] [place] [place] NAME: MOODY DE LEÓN [facility] REC#: [id number] PT STATUS: REG ER : 1960 PHYSICIAN: LENNY GREEN MD ADMIT DATE: 02/01/20/ER Draft Date of Exam:02/01/20 CHEST 1 VIEW, AP/PA ONLY Indication: Abdominal pain and vomiting. Time of exam: 9:29 AM Correlation is made with prior chest from 11/27/2016. The heart size is normal. The pulmonary vascularity is unremarkable. The lungs are clear. No infiltrate, effusion or pneumothorax is detected. Impression: No acute cardiopulmonary process is detected. Dictated on workstation # [id number] Dict: 02/01/20926 Trans: 02/01/20 09 [facility] [id number] Interpreted by: LUANNE REYEZ MD Electronically signed by: Diagonstic Imaging: CT Plain Films/CT/US/NM/MRI: abdomen, pelvis Comments [facility] [place] NAME: MOODY DE LEÓN [facility] REC#: [id number] PT STATUS: REG ER : 1960 PHYSICIAN: LENNY GREEN MD ADMIT DATE: 02/01/20/ER Draft Date of Exam:02/01/20 CT ABDOMEN/PELVIS W PROCEDURE: CT abdomen and pelvis with contrast. TECHNIQUE: Multiple contiguous axial images were obtained through the abdomen and pelvis after administration of intravenous contrast. Auto Exposure Controls were utilized during the CT exam to meet ALARA standards for radiation dose reduction. INDICATION: Upper and mid abdominal pain with nausea and vomiting. Comparison made with prior examination of 12/21/2019. FINDINGS: The heart size is normal. Lung bases are clear. No pleural or pericardial fluid. The liver is normal in size without focal lesions. Gallbladder surgically absent. No biliary duct dilatation. Spleen is normal. Pancreas and adrenal glands are unremarkable. Kidneys normal in appearance. Aorta is nonaneurysmal. Bowel gas pattern is nonspecific. There is some diverticular disease without overt evidence of diverticulitis. Uterus is unremarkable. There is no free air. No ascites. There are no focal inflammatory changes. There is an unchanged benign-appearing sclerotic focus in the proximal femur. Otherwise mild degenerative changes in the spine. IMPRESSION: Mild fatty infiltration of liver unchanged. Diverticular disease without evidence of diverticulitis. No other acute abnormality in the abdomen or pelvis Dictated on workstation # [id number] Dict: 02/01/20 1022 Trans: 02/01/20 1027 [facility] [id number] Interpreted by: ESTUARDO HOFFMAN MD Electronically signed by: Departure Communication (Admissions) Time/Spoke to Admitting Phy: 10:46 Impression Primary Impression: Epigastric abdominal pain Additional Impressions: Nausea and vomiting Leukocytosis Disposition: ADMITTED INPATIENT Condition: Stable Admissions Decision to Admit Reason: Admit from ER (General) Decision to Admit/Date: Feb 01, 2020 Time/Decision to Admit Time: 10:46 Departure-Patient Inst. Referrals: [facility] (PCP) Primary Care Physician JOANNE CHUA (Family) Primary Care Physician LENNY GREEN MD Feb 01, 2020 09:17
[2020-02-01 09:20] LABS: MAGNESIUM 1.5 MG/DL (1.6-2.4)
[2020-02-01 09:21] LABS: PROTHROMBIN TIME PATIENT 13.4 SEC (12.2-14.7)
[2020-02-01 09:28] LABS: BAND NEUTROPHILS 0 %; BASOPHILS % (MANUAL) 0 %; EOSINOPHILS % (MANUAL) 0 %; LYMPHOCYTES % (MANUAL) 8 %; MONOCYTES % (MANUAL) 8 %; NEUTROPHILS % (MANUAL) 84 %; RBC MORPH NORMAL
[2020-02-01] MEDS ORDERED: IOHEXOL 350 MG/ML 100 ML (OMNIPAQUE 350) VIAL IV ONE (09:30)
[2020-02-01] MEDS ORDERED: NS 100 ML (IVPB) BAG IV ONE (09:30)
[2020-02-01] MEDS ORDERED: HOLD METFORMIN - RECEIVED CONTRAST 20 ML VIAL IV SCH (09:30)
--- NOTE | 2020-02-01 09:30 | Diagnostic Imaging Report ---
Indication: Abdominal pain and vomiting. Time of exam: 9:29 AM Correlation is made with prior chest from 11/27/2016. The heart size is normal. The pulmonary vascularity is unremarkable. The lungs are clear. No infiltrate, effusion or pneumothorax is detected. Impression: No acute cardiopulmonary process is detected. Dictated by: Dictated on workstation # [id number]
--- NOTE | 2020-02-01 09:32 | NUR ---
Pt wants to hold off on morphine at this time. Will continue to monitor pt's pain.
[2020-02-01] MEDS ORDERED: NS IV 1000 ML 1,000 ML IV SCH (09:39)
[2020-02-01 09:54] LABS: CLARITY,URINE CLEAR; COLOR,URINE YELLOW; GLUCOSE, URINE (UA) NEGATIVE (NEGATIVE); KETONES,URINE 1+ (NEGATIVE); LEUKOCYTE ESTERASE ,URINE NEGATIVE (NEGATIVE); NITRITE,URINE NEGATIVE (NEGATIVE); PH,URINE 5.5 (5-9); PROTEIN,URINE 2+ (NEGATIVE)
[2020-02-01 10:15] LABS: BACTERIA,URINE NEGATIVE /HPF; BILIRUBIN,URINE 1+ (NEGATIVE); WBC,URINE 0-2 /HPF
--- NOTE | 2020-02-01 10:28 | Diagnostic Imaging Report ---
PROCEDURE: CT abdomen and pelvis with contrast. TECHNIQUE: Multiple contiguous axial images were obtained through the abdomen and pelvis after administration of intravenous contrast. Auto Exposure Controls were utilized during the CT exam to meet ALARA standards for radiation dose reduction. INDICATION: Upper and mid abdominal pain with nausea and vomiting. Comparison made with prior examination of 12/21/2019. FINDINGS: The heart size is normal. Lung bases are clear. No pleural or pericardial fluid. The liver is normal in size without focal lesions. Gallbladder surgically absent. No biliary duct dilatation. Spleen is normal. Pancreas and adrenal glands are unremarkable. Kidneys normal in appearance. Aorta is nonaneurysmal. Bowel gas pattern is nonspecific. There is some diverticular disease without overt evidence of diverticulitis. Uterus is unremarkable. There is no free air. No ascites. There are no focal inflammatory changes. There is an unchanged benign-appearing sclerotic focus in the proximal femur. Otherwise mild degenerative changes in the spine. IMPRESSION: Mild fatty infiltration of liver unchanged. Diverticular disease without evidence of diverticulitis. No other acute abnormality in the abdomen or pelvis Dictated by: Dictated on workstation # [id number]
--- NOTE | 2020-02-01 10:30 | NUR ---
Taye from CT reports pt's left AC IV blew and Taye started 22g IV in R hand.
[2020-02-01] MEDS ORDERED: PROMETHAZINE INJ 25 MG/ML (PHENERGAN) AMP IVP STA (10:42)
[2020-02-01] MEDS ORDERED: PANTOPRAZOLE 40 MG (PROTONIX) VIAL IV ONE (10:45)
--- NOTE | 2020-02-01 11:28 | NUR ---
attempted to call for report. nurse to call when available.
--- NOTE | 2020-02-01 12:15 | NUR ---
MOODY DE LEÓN admitted to room 406-1, with an admitting diagnosis of NAUSEA , VOMITING, APIGASTRIC PAIN, on 02/01/20 from ER, accompanied by STAFF.MOODY DE LEÓN introduced to surroundings, call light, bed controls, phone, TV, temperature control, lights, meal times, smoking policy, visitor policy, side rail policy, bathrooms and showers. Patient Rights given to patient in the handbook. MOODY DE LEÓN verbalizes understanding that [facility] is not responsible for the loss or damage to any personal effects or valuables that are kept in the patients posession during their hospitalization. The following Patient Care Plans were discussed with the : Discharge Planning, DEHYDRATION,ELECTROLYTE IMBALANCE, and PAIN. MOODY DE LEÓN verbalizes understanding of Interdisciplinary Patient Education.
[2020-02-01] MEDS ORDERED: CATHETER FLUSH 10 ML SYR IV PRN (12:30)
[2020-02-01 13:38] VITALS: BP 146/65
[2020-02-01] MEDS: NS IV 1000 ML 1,000 ML IV SCH (13:43)
[2020-02-01] MEDS ORDERED: INSU100V5 SQ (14:01)
[2020-02-01] MEDS ORDERED: PANT40TA2 PO (14:01)
[2020-02-01 15:30] VITALS: BP_SYST 190; BP_SYST 200; BP_DIAS 76; BP_DIAS 84
--- NOTE | 2020-02-01 15:30 | NUR ---
NO I&OS WERE GIVEN ME BY PCT FOR THIS PATIENT
[2020-02-01] MEDS: ONDANSETRON 4 MG/2 ML (SDV) Z0FRAN IV PRN ×2 (16:13→20:33)
--- NOTE | 2020-02-01 16:38 | NUR ---
NOTIFIED PT'S SYSTOLIC BP WAS 190. PT'S MEDS BEING VERIFIED BY PHARMACY NOW.
[2020-02-01] MEDS ORDERED: LORA10TA76 PO ×2 (16:47→16:59)
[2020-02-01] MEDS ORDERED: DULO60CA6 PO (16:47)
[2020-02-01] MEDS ORDERED: LISI1TAB26 PO (16:47)
[2020-02-01] MEDS ORDERED: FLUT1DIS26 IH (16:47)
[2020-02-01] MEDS ORDERED: LAMO150T3 PO (16:47)
[2020-02-01] MEDS ORDERED: OLAN5TAB3 PO (16:51)
[2020-02-01] MEDS ORDERED: LORA-404 PO (16:51)
[2020-02-01] MEDS ORDERED: ASPI-789 PO (16:51)
[2020-02-01] MEDS ORDERED: METF-478 PO (16:51)
[2020-02-01] MEDS ORDERED: INSU100V SQ (16:52)
--- NOTE | 2020-02-01 16:53 | NUR ---
SPOKE WITH THE PT, WENT THRU THE EXT MED HISTORY, CALLED [facility] AND CALLED [facility] TO COMPLETE THE MED REC THE FOLLOWING ARE FILL DATES: 11-05-2019 LEVEMIR VIALS #5/90DS 11-05-2019 CYMBALTA 60MG #180/90DS 12-11-2019 ADVAIR 250/50 #3/90DS 01-04-2020 LAMICTAL 150MG #90/90DS 01-15-2020 LISINOPRIL/HCTZ 20/25MG #90/90DS 01-21-2020 PROTONIX 40MG #30/30DS ZYPREXA 5MG AND LORAZEPAM 0.5MG WERE GIVEN THRU A VOUCHER PROGRAM AT [facility]- WHEN I CALLED THE ART HISTORY INSTRUCTOR WAS ALREADY GONE FOR THE DAY. THE NURSE WAS ABLE TO VERIFY THE STRENGTH AND DIRECTIONS BUT THE ART HISTORY INSTRUCTOR WILL HAVE TO TELL ME WHAT DATE SHE GOT THEM AND A QTY( PT WAS IN [facility] LAST WEEK) HUMALOG VIAL- [facility] DOES HAVE A RECORD OF THIS BUT DOES NOT HAVE A SPECIFIC DATE OF WHEN IT WAS GIVEN THRU THE PALS PROGRAM (THE NURSE DOES THINK IT WAS "RECENT") ZOMIG SPRAY IS LISTED ON THE PTS MED LIST AND SHE SAID SHE GOT IT FROM [facility]- THEY DO HAVE HAVE AN ACTIVE RECORD OF THIS MED OTC MEDS: EXCEDRIN
[2020-02-01] MEDS: inSUlin ASPART (NovoLOG) 1 UNIT/0.01 ML (CHARGE PER UNIT) SC SCH (17:47)
[2020-02-01] MEDS ORDERED: morphine INJ 10 MG/ML 1ML (SYR OR VIAL) IVP PRN (18:00)
[2020-02-01] MEDS ORDERED: hydrALAZINE (APESOLINE) 20 MG/ML VIAL IV NR (18:15)
[2020-02-01] MEDS: PROMETHAZINE INJ 25 MG/ML (PHENERGAN) AMP IV PRN (18:33)
[2020-02-01 19:58] VITALS: BP 189/79
[2020-02-01] MEDS: morphine INJ 4 MG/ML 1 ML (VIAL/SYRINGE) IV PRN (20:33)
[2020-02-02] VITALS (7 sets, daily range): BP systolic 150–186; BP diastolic 69–92
[2020-02-02] MEDS: inSUlin ASPART (NovoLOG) 1 UNIT/0.01 ML (CHARGE PER UNIT) SC SCH ×4 (00:20→17:31)
[2020-02-02] MEDS: lisINopril 20 MG (PRINIVIL) TABLET PO SCH ×2 (01:24→09:20)
[2020-02-02] MEDS: HYDROCHLOROTHIAZIDE 25 MG (HCTZ) TAB PO SCH ×2 (01:24→09:20)
[2020-02-02] MEDS: ACETAMINOPHEN 500 MG TAB (TYLENOL) PO PRN ×2 (01:25→19:28)
--- NOTE | 2020-02-02 01:31 | NUR ---
0106-pt b/p 186/74- hr 89, pt complains about headache requesting Tylenol, pt states that she takes Lisinopril-Hydrochlorothiazide 20-25mg daily at home for HTN but vomited shortly after taking it on 02/01/[address] Segura notified-new orders received & read back-she agreed to the orders.
[2020-02-02 05:01] LABS: BASOPHILS % (AUTO) 0 % (0-10); EOSINOPHILS # (AUTO) 0.1 10^3/uL (0.0-0.3); EOSINOPHILS % (AUTO) 0 % (0-10); HEMATOCRIT 40 % (35-52); HEMOGLOBIN 13.3 G/DL (11.5-16.0); LYMPHOCYTES # (AUTO) 2.9 X 10^3 (1.0-4.0); LYMPHOCYTES % (AUTO) 15 % (12-44); MEAN CORPUSCULAR HEMOGLOBIN 30 PG (25-34); MEAN CORPUSCULAR HGB CONC 33 G/DL (32-36); MEAN CORPUSCULAR VOLUME 90 FL (80-99); MEAN PLATELET VOLUME 9.8 FL (7.4-10.4); MONOCYTES # (AUTO) 1.7 X 10^3 (0.0-1.0); MONOCYTES % (AUTO) 9 % (0-12); NEUTROPHILS # (AUTO) 15.4 X 10^3 (1.8-7.8); NEUTROPHILS % (AUTO) 76 % (42-75); PLATELET COUNT 329 10^3/uL (130-400); RED CELL DISTRIBUTION WIDTH 13.4 % (10.0-14.5); WHITE BLOOD COUNT 20.2 10^3/uL (4.3-11.0)
[2020-02-02 05:22] LABS: ALBUMIN 3.7 GM/DL (3.2-4.5); POTASSIUM 4.7 MMOL/L (3.6-5.0)
[2020-02-02 05:23] LABS: CALCIUM 8.1 MG/DL (8.5-10.1)
[2020-02-02 05:25] LABS: TOTAL PROTEIN 6.7 GM/DL (6.4-8.2)
[2020-02-02 05:26] LABS: BILIRUBIN,TOTAL 0.3 MG/DL (0.1-1.0)
[2020-02-02 05:28] LABS: CREATININE SERUM 0.98 MG/DL (0.60-1.30)
[2020-02-02] MEDS: ONDANSETRON 4 MG/2 ML (SDV) Z0FRAN IV PRN ×2 (05:55→13:56)
--- NOTE | 2020-02-02 06:07 | NUR ---
0550-pt reports nausea requesting prn zofran 0555-prn zofran given see mar
--- NOTE | 2020-02-02 07:26 | NUR ---
This RN discussed with Dinah vang RN the need to check vital signs & contact Dr. Segura prior to giving this (02/02/20) AM dose of lisinopril & hydrochlorothiazide because pt was started on lisinopril & hydrochlorothiazide around 0100. Dinah HENDRIX verbalized understanding of this order from Dr. Segura.
[2020-02-02] MEDS: PROMETHAZINE INJ 25 MG/ML (PHENERGAN) AMP IV PRN ×2 (07:46→23:58)
[2020-02-02] MEDS: morphine INJ 4 MG/ML 1 ML (VIAL/SYRINGE) IV PRN ×3 (07:46→22:00)
--- NOTE | 2020-02-02 09:00 | NUR ---
PJ=231/[id number] P-88 DR. COLEMAN NOTIFIED. BP MEDS GIVEN ORDERED.
[2020-02-02] MEDS: NS IV 1000 ML 1,000 ML IV SCH ×2 (09:08)
--- NOTE | 2020-02-02 09:10 | NUR ---
PT UNABLE TO TAKE SOLID FOOD BECAUSE NAUSEA. PT. PUT ON CLEAR LIQ DIET PER DR. COLEMAN ORDERS. IV SALINE LOCKED PER ORDER'S. MEDICATED FOR PAIN AND NAUSEA.
[2020-02-02] MEDS: CATHETER FLUSH 10 ML SYR IV SCH ×2 (12:10→21:05)
--- NOTE | 2020-02-02 12:13 | History & Physical ---
HPI History of Present Illness: 59 yo F that presented to ER with worsening epigastric abdominal pain and N/V. Patient states that nothing that she has tried at home has improved her pain. She has not had a bowel movement since last saturday and she has not tolerated much PO in the last 3-4 days. Denies any blood in her vomit. States that she is dry heaving mostly. Normal CT scan. Patient found to have leukocytosis in the ER w/o any signs of acute infection. 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 Patients Allergies have been reviewed. Allergies Coded Allergies: Penicillins (Unverified Allergy, Mild, 03/03/11) Sulfa (Sulfonamide Antibiotics) (Unverified Allergy, Mild, 03/03/11) fentanyl (Unverified Allergy, Mild, SZ, 03/03/11) latex (Unverified Allergy, Mild, 03/04/11) unsure/thinks a rash AGA-Ryfbrb-Cfkjtn Hx Patient Social History Alcohol Use: Denies Use Recreational Drug Use: No Drug of Choice: MARIJUANA Smoking Status: Current Everyday Smoker Type Used: Cigarettes 2nd Hand Smoke Exposure: Yes Recent Foreign Travel: No Contact w/other who traveled: No Recent Hopitalizations: Yes (psych) Recent Infectious Disease Expo: No Immunizations Up To Date Date of Pneumonia Vaccine: Jan 31, 2017 Date of Influenza Vaccine: Jun 22, 2019 Past Medical History IDDM Morbid Obesity HTN Review of Systems (CHC) Constitutional: No chills, No fever; malaise, weakness EENTM: mouth pain, throat pain; No nose congestion, No nose pain Respiratory: no symptoms reported; No cough, No dyspnea on exertion, No short of breath Cardiovascular: no symptoms reported; No chest pain, No edema, No palpitations Gastrointestinal: abdominal pain, loss of appetite, nausea, vomiting Genitourinary: no symptoms reported; No dysuria, No frequency, No hematuria Musculoskeletal: no symptoms reported; No back pain, No joint pain, No muscle pain Skin: no symptoms reported; No lesions, No rash Psychiatric/Neurological: Headache; Denies Weakness Reviewed Test Results Reviewed Test Results Lab Laboratory Tests Test 02/01/20 13:41 02/01/20 13:48 02/01/20 15:50 02/01/20 17:30 Range/Units Lactic Acid Level 2.69 *H 1.95 0.50-2.00 MMOL/L Glucometer 213 H 225 H 70-110 MG/DL Test 02/01/20 23:55 02/02/20 04:08 02/02/20 11:46 Range/Units Glucometer 149 H 163 H 70-110 MG/DL White Blood Count 20.2 H 4.3-11.0 10^3/uL Red Blood Count 4.44 4.35-5.85 10^6/uL Hemoglobin 13.3 11.5-16.0 G/DL Hematocrit 40 35-52 % Mean Corpuscular Volume 90 80-99 FL Mean Corpuscular Hemoglobin 30 25-34 PG Mean Corpuscular Hemoglobin Concent 33 32-36 G/DL Red Cell Distribution Width 13.4 10.0-14.5 % Platelet Count 329 130-400 10^3/uL Mean Platelet Volume 9.8 7.4-10.4 FL Neutrophils (%) (Auto) 76 H 42-75 % Lymphocytes (%) (Auto) 15 12-44 % Monocytes (%) (Auto) 9 0-12 % Eosinophils (%) (Auto) 0 0-10 % Basophils (%) (Auto) 0 0-10 % Neutrophils # (Auto) 15.4 H 1.8-7.8 X 10^3 Lymphocytes # (Auto) 2.9 1.0-4.0 X 10^3 Monocytes # (Auto) 1.7 H 0.0-1.0 X 10^3 Eosinophils # (Auto) 0.1 0.0-0.3 10^3/uL Basophils # (Auto) 0.0 0.0-0.1 10^3/uL Sodium Level 135 135-145 MMOL/L Potassium Level 4.7 3.6-5.0 MMOL/L Chloride Level 103 98-107 MMOL/L Carbon Dioxide Level 18 L 21-32 MMOL/L Anion Gap 14 5-14 MMOL/L Blood Urea Nitrogen 19 H 7-18 MG/DL Creatinine 0.98 0.60-1.30 MG/DL Estimat Glomerular Filtration Rate 58 BUN/Creatinine Ratio 19 Glucose Level 149 H 70-105 MG/DL Calcium Level 8.1 L 8.5-10.1 MG/DL Corrected Calcium 8.3 L 8.5-10.1 MG/DL Total Bilirubin 0.3 0.1-1.0 MG/DL Aspartate Amino Transf (AST/SGOT) 19 5-34 U/L Alanine Aminotransferase (ALT/SGPT) 23 0-55 U/L Alkaline Phosphatase 65 40-136 U/L Total Protein 6.7 6.4-8.2 GM/DL Albumin 3.7 3.2-4.5 GM/DL Physical Exam-(CHC) Physical Exam Vital Signs VS - Last 72 Hours, by Label 02/01/20 02/01/20 02/01/20 02/01/20 08:43 12:08 13:38 15:30 Temp 37.2 37.2 36.0 37.2 Pulse 95 89 80 82 Resp 20 18 20 20 B/P (MAP) 203/95 (131) 193/94 (131) 146/65 190/76 (114) Pulse Ox 95 95 98 96 O2 Delivery Room Air Room Air Room Air Room Air 02/01/20 02/01/20 02/02/20 02/02/20 19:58 20:30 00:00 04:13 Temp 37.2 37.6 36.8 Pulse 84 89 86 Resp 20 18 20 B/P (MAP) 189/79 (115) 186/74 (111) 150/78 (102) Pulse Ox 100 97 95 O2 Delivery Room Air Room Air Room Air Room Air 02/02/20 02/02/20 02/02/20 07:30 08:00 11:13 Temp 37.0 36.9 Pulse 77 74 Resp 20 20 B/P (MAP) 161/69 (99) 172/69 (103) Pulse Ox 96 99 O2 Delivery Room Air Room Air Room Air Capillary Refill : Less Than 3 SecondsLess Than 3 Seconds General Appearance: WD/WN, no apparent distress, obese HEENT: PERRL/EOMI Neck: non-tender, full range of motion, supple, normal inspection Respiratory: chest non-tender, lungs clear, normal breath sounds, no respiratory distress, no accessory muscle use Cardiovascular: normal peripheral pulses, regular rate, rhythm, no edema, no murmur Gastrointestinal: normal bowel sounds, soft, tenderness (epigastric ttp) Back: no CVA tenderness, no vertebral tenderness Extremities: normal range of motion, non-tender, normal inspection, no pedal edema, no calf tenderness, normal capillary refill Neurologic/Psychiatric: piecer up II-XII nml as tested, no motor/sensory deficits, alert, normal mood/affect, oriented x 3 Skin: normal color, warm/dry Lymphatic: no adenopathy Assessment/Plan Assessment/Plan Admission Status: Observation (1) Epigastric abdominal pain Status: Acute Assessment & Plan: - Mild improvement in pain, limit opiate medications due to constipation, consider surgery consult if not improving (2) Leukocytosis Status: Acute Qualifiers: Qualified Codes: D72.829 - Elevated white blood cell count, unspecified (3) Nausea and vomiting Status: Acute Assessment & Plan: - Zofran and Phenergen, CLD Qualifiers: Qualified Codes: R11.2 - Nausea with vomiting, unspecified (4) Insulin dependent diabetes mellitus with complications Status: Chronic Assessment & Plan: - Accuchecks q 6hrs, SSI (5) HTN (hypertension) Status: Chronic Assessment & Plan: - Continue home meds, added norvasc 5 mg daily due to elevated blood pressure Qualifiers: Qualified Codes: I10 - Essential (primary) hypertension (6) Morbid obesity with BMI of 50.0-59.9, adult Clinical Quality Measures DVT/VTE Risk/Contraindication: Risk Factor Score Per Nursin RFS Level Per Nursing on Admit: 4+=Very High RASHEEDA SEGURA MD Feb 02, 2020 12:13
[2020-02-02] MEDS: PANTOPRAZOLE 40 MG (PROTONIX) TAB PO SCH (13:50)
[2020-02-02] MEDS: amLODIPine 5 MG (NORVASC) TAB PO SCH (13:50)
[2020-02-02] MEDS: polyethylene glycoL POWDER 17 GM (MIRALAX) PACK PO SCH ×2 (13:54→21:04)
[2020-02-02] MEDS ORDERED: ENOXAPARIN 40 MG/0.4 ML (LOVENOX) SYR SQ SCH (16:00)
[2020-02-02] MEDS: ENOXAPARIN 60 MG/0.6 ML (LOVENOX) SYR SC SCH (17:11)
[2020-02-02] MEDS: ANTACID SUSP 30 ML UDC (MYLANTA) PO PRN (17:31)
[2020-02-02] MEDS: ADVAIR HFA 115/21 MCG INHALER 8 GM IH SCH (18:15)
[2020-02-02] MEDS ORDERED: NON-FORMULARY MEDICATION 1 EA EA (Duloxetine HCl (Cymbalta) 60 MG) PO SCH (21:00)
[2020-02-02] MEDS ORDERED: NON-FORMULARY MEDICATION 1 EA EA (Fluticasone/Salmeterol (Advair 250-50 Diskus) 1 EACH) IH SCH (21:00)
[2020-02-02] MEDS: OLANZapine 5 MG (ZyPREXA) TAB PO SCH (21:04)
[2020-02-02] MEDS: DULoxetine 30 MG (CYMBALTA) CAP PO SCH (21:05)
[2020-02-03] VITALS (8 sets, daily range): BP systolic 161–178; BP diastolic 72–80
[2020-02-03] MEDS: inSUlin ASPART (NovoLOG) 1 UNIT/0.01 ML (CHARGE PER UNIT) SC SCH ×4 (00:22→17:51)
[2020-02-03] MEDS: morphine INJ 4 MG/ML 1 ML (VIAL/SYRINGE) IV PRN ×2 (04:19→10:20)
[2020-02-03] MEDS: CATHETER FLUSH 10 ML SYR IV SCH ×3 (05:36→22:09)
[2020-02-03] MEDS: ENOXAPARIN 60 MG/0.6 ML (LOVENOX) SYR SC SCH ×2 (05:39→17:51)
[2020-02-03 05:48] LABS: BASOPHILS % (AUTO) 0 % (0-10); EOSINOPHILS # (AUTO) 0.3 10^3/uL (0.0-0.3); EOSINOPHILS % (AUTO) 2 % (0-10); HEMATOCRIT 39 % (35-52); LYMPHOCYTES # (AUTO) 2.7 X 10^3 (1.0-4.0); LYMPHOCYTES % (AUTO) 20 % (12-44); MEAN CORPUSCULAR HEMOGLOBIN 30 PG (25-34); MEAN CORPUSCULAR HGB CONC 34 G/DL (32-36); MEAN CORPUSCULAR VOLUME 89 FL (80-99); MEAN PLATELET VOLUME 9.5 FL (7.4-10.4); MONOCYTES # (AUTO) 1.8 X 10^3 (0.0-1.0); MONOCYTES % (AUTO) 13 % (0-12); NEUTROPHILS % (AUTO) 65 % (42-75); PLATELET COUNT 392 10^3/uL (130-400); RED CELL DISTRIBUTION WIDTH 13.2 % (10.0-14.5); WHITE BLOOD COUNT 13.8 10^3/uL (4.3-11.0)
[2020-02-03 06:02] LABS: CHLORIDE 99 MMOL/L (98-107); POTASSIUM 3.7 MMOL/L (3.6-5.0); SODIUM 135 MMOL/L (135-145)
[2020-02-03 06:03] LABS: CALCIUM 8.6 MG/DL (8.5-10.1); GLUCOSE 164 MG/DL (70-105)
[2020-02-03 06:05] LABS: CARBON DIOXIDE 22 MMOL/L (21-32)
[2020-02-03 06:07] LABS: CREATININE SERUM 0.79 MG/DL (0.60-1.30); GFR ESTIMATED > 60
[2020-02-03 06:08] LABS: BUN/CREATININE RATIO 10
[2020-02-03] MEDS: ADVAIR HFA 115/21 MCG INHALER 8 GM IH SCH ×2 (06:58→18:49)
[2020-02-03] MEDS ORDERED: LAMOTRIGINE 150 MG PO SCH (09:00)
[2020-02-03] MEDS: lisINopril 20 MG (PRINIVIL) TABLET PO SCH (10:18)
[2020-02-03] MEDS: PANTOPRAZOLE 40 MG (PROTONIX) TAB PO SCH (10:18)
[2020-02-03] MEDS: DULoxetine 30 MG (CYMBALTA) CAP PO SCH ×2 (10:18→22:08)
[2020-02-03] MEDS: ANTACID SUSP 30 ML UDC (MYLANTA) PO PRN (10:19)
[2020-02-03] MEDS: amLODIPine 5 MG (NORVASC) TAB PO SCH (10:19)
[2020-02-03] MEDS: polyethylene glycoL POWDER 17 GM (MIRALAX) PACK PO SCH ×2 (10:19→22:09)
[2020-02-03] MEDS: HYDROCHLOROTHIAZIDE 25 MG (HCTZ) TAB PO SCH (10:19)
--- NOTE | 2020-02-03 12:19 | Progress Note ---
Subjective Subjective/Events-last exam Patient states that she is keeping some CL down. She has still not had BM. She has not been up out of bed much since arriving. Review of Systems Pulmonary: No Dyspnea, No Cough Cardiovascular: No: Chest Pain Gastrointestinal: Abdominal Pain, Constipation; No: Nausea, Vomiting Genitourinary: No Dysuria; Frequency Neurological: Other (DIAZ) Focused Exam Lactate Level 02/01/20 11:10: Lactic Acid Level 3.00*H 02/01/20 13:41: Lactic Acid Level 2.69*H 02/01/20 15:50: Lactic Acid Level 1.95 Objective Exam Last Set of Vital Signs Vital Signs Date Time Temp Pulse Resp B/P (MAP) Pulse Ox O2 Delivery O2 Flow Rate FiO2 02/03/20 08:00 36.6 80 18 170/78 (108) 99 Room Air Capillary Refill : Less Than 3 SecondsLess Than 3 Seconds I&O Intake and Output 02/03/20 00:00 Intake Total 3380 ml Output Total 2550 ml Balance 830 ml Intake Oral 1380 ml IV Total 2000 ml Output Urine Total 2550 ml # Voids 1 General: Alert, Oriented X3, Cooperative, No Acute Distress HEENT: Mucous Memb Moist/[place] Lungs: Clear to Auscultation, Normal Air Movement Heart: Regular Rate, No Murmurs Abdomen: Normal Bowel Sounds, Other (LLQ ttp, mild distention with tympany) Extremities: No Edema, No Tenderness/Swelling Skin: No Rashes Neuro: Normal Speech Results/Procedures Lab Laboratory Tests 02/02/20 17:23: Glucometer 136H 02/03/20 00:02: Glucometer 167H 02/03/20 04:50: White Blood Count 13.8H, Red Blood Count 4.33L, Hemoglobin 13.0, Hematocrit 39, Mean Corpuscular Volume 89, Mean Corpuscular Hemoglobin 30, Mean Corpuscular Hemoglobin Concent 34, Red Cell Distribution Width 13.2, Platelet Count 392, Mean Platelet Volume 9.5, Neutrophils (%) (Auto) 65, Lymphocytes (%) (Auto) 20, Monocytes (%) (Auto) 13H, Eosinophils (%) (Auto) 2, Basophils (%) (Auto) 0, Neutrophils # (Auto) 9.0H, Lymphocytes # (Auto) 2.7, Monocytes # (Auto) 1.8H, Eosinophils # (Auto) 0.3, Basophils # (Auto) 0.0, Sodium Level 135, Potassium Level 3.7, Chloride Level 99, Carbon Dioxide Level 22, Anion Gap 14, Blood Urea Nitrogen 8, Creatinine 0.79, Estimat Glomerular Filtration Rate > 60, BUN/Creatinine Ratio 10, Glucose Level 164H, Calcium Level 8.6 02/03/20 05:31: Glucometer 189H Microbiology 02/01/20 Blood Culture - Preliminary, Resulted No growth Assessment/Plan Assessment/Plan (1) Epigastric abdominal pain Status: Acute Assessment & Plan: - Mild improvement in pain, limit opiate medications due to constipation, consider surgery consult if not improving 02/02: Leukocytosis trending down, pain improving slightly, start on bowel regimind as she has not had a BM since last saturday, encourage OOB (2) Leukocytosis Status: Acute Assessment & Plan: 02/02: Improving Qualifiers: Qualified Codes: D72.829 - Elevated white blood cell count, unspecified (3) Nausea and vomiting Status: Resolved Assessment & Plan: - Zofran and Phenergen, CLD Qualifiers: Qualified Codes: R11.2 - Nausea with vomiting, unspecified (4) Insulin dependent diabetes mellitus with complications Status: Chronic Assessment & Plan: - Accuchecks q 6hrs, SSI (5) HTN (hypertension) Status: Chronic Assessment & Plan: - Continue home meds, added norvasc 5 mg daily due to elevated blood pressure Qualifiers: Qualified Codes: I10 - Essential (primary) hypertension (6) Morbid obesity with BMI of 50.0-59.9, adult (7) Constipation Status: Acute Assessment & Plan: - Miralax BID and Glycerin Suppository today, encourage ambulation Clinical Quality Measures DVT/VTE Risk/Contraindication: Risk Factor Score Per Nursin RFS Level Per Nursing on Admit: 4+=Very High RASHEEDA COLEMAN MD Feb 03, 2020 12:19
[2020-02-03] MEDS ORDERED: GLYCERIN ADULT SUPPOSITORY PR NR (12:30)
--- NOTE | 2020-02-03 13:20 | NUR ---
RD ASSESSMENT PMHx: DM; HTN; obesity PT INTERACTION: Pt was awake and pleasant during nutrition assessment. Pt states current appetite is so-so and has been for the last 2w. Note avg PO intake of 38% x2d, per chart review. Pt states following a diabetic diet at home, and has no issues with chewing/swallowing food. Pt states recent issues with nausea/vomiting beginning on 01/28. Pt states recent issues with constipation and that her last BM was "about 3 weeks ago." Note no BM has been recorded and pt currently on bowel regimen of Miralax BID, per chart review. Pt states no recent wt changes. Note recent 4# wt loss x6w, per chart review. Pt states current DM management is pretty good, but she is unsure what her average blood glucose levels are. Note unable to determine recent HbA1c, per chart review. ABNORMAL NUTRITION-RELATED LAB VALUES LOW: HIGH: glu 164 Est. kcal needs: 7092-0877 kcal | 25-30 kcal/kg IBW, based on IBW of 54.5 kg (120#) Est. Pro needs: 55-65 g Pro | 1.0-1.2 g Pro/kg IBW, based on IBW of 54.5 kg (120#) PES STATEMENT: Inadequate oral intake (NI-2.1) related to loss of appetite | nausea | vomiting | constipation as evidenced by pt interview | avg PO intake 38% x2d INTERVENTION: Continue with current diet order of Clear Liquid diet. Would recommend advancing to consistent CHO diet when medically able and as tolerated. Pt may benefit from more aggressive bowel regimen as pt states not having a BM in 3 weeks. Will continue to follow and reassess as pt needs, intake, and status change. MONITOR/EVALUATE: PO Intake; Plan of Care; Hydration Status; Weight Status; Lab Values Tanesha Nathan, MS, RD, LD
--- NOTE | 2020-02-03 13:45 | NUR ---
CM/SS: Visited with pt as to her plan for discharge Plan: Pt reports she will return home after her hospital stay Summary: Pt reports she does not have family as she is the only one left, and just friends that check on her from time to time. Pt reports she lives at her home and does not have help in the home at this time. Pt reports having applied for disability and was denied once. Pt reports her disability to be having issues with her knees - bone on bone, and that she has other health issues as well as mental health issues, pt reports being Bipolar and on medications, and is medication compliant and they are monitored through [facility]. Pt reports have gotten out of [facility] until a day or two before coming here. Pt was feeling depressed and hopeless. She is feeling better at this time. Pt just needs to be able to have a bowel movement and she can return home. Pt does acknowledge that she does not have insurance and that she has not applied for [facility] Medicaid. Pt will be here at least one more day until she is able to have a bowel movement. This worker will follow up.
[2020-02-03] MEDS: PROMETHAZINE INJ 25 MG/ML (PHENERGAN) AMP IV PRN ×2 (14:01→22:14)
[2020-02-03] MEDS: OLANZapine 5 MG (ZyPREXA) TAB PO SCH (22:08)
[2020-02-04] MEDS: inSUlin ASPART (NovoLOG) 1 UNIT/0.01 ML (CHARGE PER UNIT) SC SCH ×3 (01:10→12:09)
[2020-02-04 04:58] VITALS: BP 168/71
[2020-02-04] MEDS: CATHETER FLUSH 10 ML SYR IV SCH (05:55)
[2020-02-04] MEDS: ENOXAPARIN 60 MG/0.6 ML (LOVENOX) SYR SC SCH (05:55)
[2020-02-04 05:59] LABS: BASOPHILS % (AUTO) 0 % (0-10); EOSINOPHILS # (AUTO) 0.3 10^3/uL (0.0-0.3); EOSINOPHILS % (AUTO) 2 % (0-10); HEMATOCRIT 41 % (35-52); HEMOGLOBIN 13.6 G/DL (11.5-16.0); LYMPHOCYTES # (AUTO) 2.9 X 10^3 (1.0-4.0); LYMPHOCYTES % (AUTO) 20 % (12-44); MEAN CORPUSCULAR HEMOGLOBIN 30 PG (25-34); MEAN CORPUSCULAR HGB CONC 33 G/DL (32-36); MEAN CORPUSCULAR VOLUME 89 FL (80-99); MEAN PLATELET VOLUME 8.9 FL (7.4-10.4); MONOCYTES # (AUTO) 1.9 X 10^3 (0.0-1.0); MONOCYTES % (AUTO) 13 % (0-12); NEUTROPHILS # (AUTO) 9.7 X 10^3 (1.8-7.8); NEUTROPHILS % (AUTO) 66 % (42-75); PLATELET COUNT 383 10^3/uL (130-400); RED CELL DISTRIBUTION WIDTH 12.9 % (10.0-14.5); WHITE BLOOD COUNT 14.8 10^3/uL (4.3-11.0)
[2020-02-04 06:13] LABS: CHLORIDE 94 MMOL/L (98-107); POTASSIUM 4.6 MMOL/L (3.6-5.0); SODIUM 131 MMOL/L (135-145)
[2020-02-04 06:14] LABS: CALCIUM 9.2 MG/DL (8.5-10.1); GLUCOSE 155 MG/DL (70-105)
[2020-02-04 06:16] LABS: CARBON DIOXIDE 25 MMOL/L (21-32)
[2020-02-04 06:18] LABS: CREATININE SERUM 0.83 MG/DL (0.60-1.30); GFR ESTIMATED > 60
[2020-02-04 06:19] LABS: BUN/CREATININE RATIO 7
[2020-02-04 08:00] VITALS: BP 180/90
[2020-02-04] MEDS: ADVAIR HFA 115/21 MCG INHALER 8 GM IH SCH (08:08)
[2020-02-04] MEDS: amLODIPine 5 MG (NORVASC) TAB PO SCH (08:42)
[2020-02-04] MEDS: PANTOPRAZOLE 40 MG (PROTONIX) TAB PO SCH (08:42)
[2020-02-04] MEDS: lisINopril 20 MG (PRINIVIL) TABLET PO SCH (08:42)
[2020-02-04] MEDS: DULoxetine 30 MG (CYMBALTA) CAP PO SCH (08:42)
[2020-02-04] MEDS: HYDROCHLOROTHIAZIDE 25 MG (HCTZ) TAB PO SCH (08:42)
[2020-02-04] MEDS: polyethylene glycoL POWDER 17 GM (MIRALAX) PACK PO SCH (08:42)
--- NOTE | 2020-02-04 11:42 | Discharge Summary ---
Diagnosis/Chief Complaint Date of Admission Feb 01, 2020 at 10:52 Date of Discharge 02/04/2020 Admission Diagnosis Admission Diagnosis See problem list Discharge Diagnosis See below Problems/Diagnosis: (1) Epigastric abdominal pain Assessment & Plan: - Mild improvement in pain, limit opiate medications due to constipation, consider surgery consult if not improving 02/02: Leukocytosis trending down, pain improving slightly, start on bowel regimind as she has not had a BM since last saturday, encourage OOB 02/03: Several BM O/N and this AM, pain is improving, if pain returns would recommend scope vs gastric emptying study given uncontrolled DM Status: Acute (2) Leukocytosis Assessment & Plan: 02/02: Improving Qualifiers: Qualified Codes: D72.829 - Elevated white blood cell count, unspecified Status: Resolved Resolution Date/Time: 02/04/20 @ 21:56 (3) Nausea and vomiting Assessment & Plan: - Zofran and Phenergen, CLD Qualifiers: Qualified Codes: R11.2 - Nausea with vomiting, unspecified Status: Resolved Resolution Date/Time: 02/03/20 @ 12:18 (4) Insulin dependent diabetes mellitus with complications Assessment & Plan: - Accuchecks q 6hrs, SSI Status: Chronic (5) HTN (hypertension) Assessment & Plan: - Continue home meds, added norvasc 5 mg daily due to elevated blood pressure Qualifiers: Qualified Codes: I10 - Essential (primary) hypertension Status: Chronic (6) Morbid obesity with BMI of 50.0-59.9, adult (7) Constipation Assessment & Plan: - Miralax BID and Glycerin Suppository today, encourage ambulation Status: Acute Chief Complaint/HPI Chief Complaint/HPI 59 yo F that presented to ER with worsening epigastric abdominal pain and N/V. Patient states that nothing that she has tried at home has improved her pain. She has not had a bowel movement since last saturday and she has not tolerated much PO in the last 3-4 days. Denies any blood in her vomit. States that she is dry heaving mostly. Normal CT scan. Patient found to have leukocytosis in the ER w/o any signs of acute infection. Discharge Summary-Simple/Stand Consultations Discharge Physical Examination Allergies: Coded Allergies: Penicillins (Unverified Allergy, Mild, 03/03/11) Sulfa (Sulfonamide Antibiotics) (Unverified Allergy, Mild, 03/03/11) fentanyl (Unverified Allergy, Mild, SZ, 03/03/11) latex (Unverified Allergy, Mild, 03/04/11) unsure/thinks a rash Vitals & I&Os Vital Sign - Last 12Hours Date Time Temp Pulse Resp B/P (MAP) Pulse Ox O2 Delivery O2 Flow Rate FiO2 02/04/20 08:47 Room Air 02/04/20 08:08 96 02/04/20 08:00 36.3 113 20 180/90 (120) Intake and Output 02/04/20 00:00 Intake Total 2220 ml Balance 2220 ml General Appearance: Alert, Oriented X3, Cooperative, No Acute Distress, Other (morbidly obese adult female) HEENT: Mucous Memb Moist/[place] Respiratory: Clear to Auscultation, Normal Air Movement Cardiovascular: Regular Rate, No Murmurs Abdominal: Normal Bowel Sounds, Soft, Other (mild LLQ ttp, no rebound or guarding) Extremities: No Edema, No Tenderness/Swelling Skin: No Rashes, No Breakdown Neuro: Normal Speech, Strength at 5/5 X4 Ext, Sensation Intact, Cranial Nerves 3-12 NL Psych/Mental Status: Mental Status NL, Mood NL Hospital Course Was the Problem List Reviewed?: Yes See final discharge diagnosis. Discussion & Recommendations 59 yo F with IDDM that presented with N/V and abdominal pain. Patient did not have any signs of DKA. Patient had not had a BM in over a week. She was started on aggressive bowel regimen and had several BMs and pain improved. Patient to continue bowel clean out at home. If pain returns would recommend colonoscopy vs gastric emptying study depending on symptoms. Patient to continue bland and easy to digest diet for 1 week post discharge. Will have close f.u with PCP Piedad Verduzco. Discharge Condition at discharge stable Instructions to patient/family Please see electronic discharge instructions given to patient. Discharge Medications Reviewed and agree with Discharge Medication list on patient's Discharge Instruction sheet Clinical Quality Measures DVT/VTE Risk/Contraindication: Risk Factor Score Per Nursin RFS Level Per Nursing on Admit: 4+=Very High Copy Copies To 1: SCOUT Crook HOLLY R MD Feb 04, 2020 11:42
[2020-02-04] MEDS ORDERED: ONDA8TAB6 PO (11:48)
[2020-02-04] MEDS ORDERED: AMLO5TAB9 PO (11:48)
[2020-02-04] MEDS ORDERED: POLY17PO31 PO (11:48)
--- NOTE | 2020-02-04 11:54 | Discharge Summary ---
Discharge [facility] Reconcile Patient Problems Problems Reviewed?: Yes Discharge Medications New, Converted or Re-Newed RX: Call to Patients Pharmacy New Medications: Ondansetron HCl (Zofran) 8 Mg Tablet 8 MG PO TID, #30 TAB Amlodipine Besylate (Amlodipine Besylate) 5 Mg Tablet 5 MG PO DAILY, #30 TAB Polyethylene Glycol 3350 (Polyethylene Glycol 3350) 17 Gm Powd.pack 17 GM PO TID for 14 Days, Continued Medications: Aspirin/Acetaminophen/Caffeine (Excedrin Migraine Caplet) 1 Each Tablet 2 EACH PO Q6-8HR PRN for Headache, TAB Duloxetine HCl (Cymbalta) 60 Mg Capsule.dr 60 MG PO BID, CAP Fluticasone/Salmeterol (Advair 250-50 Diskus) 1 Each Blst.w.dev 1 EACH IH BID Insulin Determir (Levemir) 1,000 Units/10 Ml Soln 20 UNITS SQ BID, EA Insulin Lispro (Humalog) 100 Unit/1 Ml Vial 20 UNIT SQ TID PRN for HYPERGLYCEMIA, VIAL Lamotrigine (Lamictal) 150 Mg Tablet 150 MG PO DAILY, TAB Lisinopril/Hydrochlorothiazide (Lisinopril-Hctz 20-25 mg Tab) 1 Each Tablet 1 EACH PO DAILY, TAB Loratadine (Claritin) 10 Mg Tablet 10 MG PO DAILY, TAB Lorazepam (Ativan) 0.5 Mg Tablet 0.5 MG PO DAILY PRN for ANXIETY, TAB MED WAS GIVEN THRU A VOUCHER PROGRAM Metformin HCl (Metformin HCl ER) 500 Mg Tab.er.24 1000 MG PO BID, TAB Olanzapine (Zyprexa) 5 Mg Tablet 5 MG PO HS, TAB WAS GIVEN THRU A VOUCHER PROGRAM Pantoprazole Sodium (Protonix) 40 Mg Tablet.dr 40 MG PO DAILY, TAB Patient Instructions Goal/Follow Up Appt: F.u with Piedad Verduzco on February 08 @ 1PM Activity & Diet Discharge Diet: ADA Diet, Cardiac Diet Activity as Tolerated: Yes Copy Copies To 1: [facility] RASHEEDA Arrington MD Feb 04, 2020 11:54
[2020-02-04 12:00] VITALS: BP 152/80
[2020-02-04 13:31] VITALS: BP 168/72
== END 2020-02-04 13:36 | disposition home or self-care (01) ==
LOC: EDUNIT# 08:36 → ER 08:38 → 4TH 10:52
PROVIDERS: ADMIT Family Medicine; ATTEND Family Medicine
DX: R10.13 Epigastric pain (principal); R11.2 Nausea with vomiting, unspecified; K59.00 Constipation, unspecified; E11.9 Type 2 diabetes mellitus without complications; J45.909 Unspecified asthma, uncomplicated; G43.909 Migraine, unspecified, not intractable, without status migrainosus; M19.90 Unspecified osteoarthritis, unspecified site; D72.829 Elevated white blood cell count, unspecified; I10 Essential (primary) hypertension; E66.01 Morbid (severe) obesity due to excess calories; F17.210 Nicotine dependence, cigarettes, uncomplicated; F41.9 Anxiety disorder, unspecified; F31.9 Bipolar disorder, unspecified; Z88.0 Allergy status to penicillin; Z88.8 Allergy status to other drugs, medicaments and biological substances; Z91.040 Latex allergy status; Z88.2 Allergy status to sulfonamides; Z79.899 Other long term (current) drug therapy; Z90.89 Acquired absence of other organs; Z68.43 Body mass index [BMI] 50.0-59.9, adult; Z79.4 Long term (current) use of insulin
CPT/HCPCS: 36415; 71045; 74177; 80048; 80053; 81000; 82962; 83605; 83690; 83735; 85007; 85025; 85027; 85610; 85730; 86141; 87040; 94640; 94760; 96361; 96374; 96375; 96376; G0378

== ENCOUNTER 2020-02-20 08:12 | Emergency (ER) | payer SELFPAY ==
[~2020-02-20] VITALS: Ht 162 cm; Wt 137.4 kg
[~2020-02-20 08:12] MED LIST changes: +AMLO5TAB9 PO; +ASPI-789 PO; +FLUT1DIS26 IH; +HYOS0.1283 SL; +INSU100V SQ; +INSU100V5 SQ; +LAMO150T3 PO; +LEVO500T2 PO; +LISI1TAB26 PO; +LORA-404 PO; +LORA10TA76 PO; +METF-478 PO; +OLAN5TAB3 PO; +ONDA8TAB6 PO; +PANT40TA2 PO; +POLY17PO31 PO; +PRED10TA22 PO
[2020-02-20] MEDS ORDERED: LACTATED RINGERS 1,000 ML IV ONE (08:23)
[2020-02-20] MEDS ORDERED: ONDANSETRON 4 MG/2 ML (SDV) Z0FRAN IVP ONE ×2 (08:30→11:30)
[2020-02-20] MEDS ORDERED: SCOPOLAMINE 1.5 MG (TRANSDERM-SCOP) PATCH ONE (08:36)
[2020-02-20] MEDS ORDERED: SCOPOLAMINE 1.5 MG (TRANSDERM-SCOP) PATCH TD ONE (08:45)
[2020-02-20] MEDS ORDERED: NS IV 1000 ML 1,000 ML IV SCH (08:57)
--- NOTE | 2020-02-20 08:57 | ED GI ---
General Chief Complaint: Abdominal/GI Problems Stated Complaint: VOMITING / DIARRHEA Nursing Triage Note: ARRIVED VIA WC TO ROOM 08. COMPLAINS OF N/V/D STARTING YESTERDAY. RECENT DISHCHARGE FROM HOSPITAL WITH DIVERTICULITIS. Sepsis Screen: No Definite Risk Source of Information: Patient, Old Records History of Present Illness Date Seen by Provider: February 20, 2020 Time Seen by Provider: 08:23 Initial Comments PT ARRIVES VIA POV FROM HOME C/O ABDOMINAL PAIN WITH NAUSEA/VOMITING AND DIARRHEA SINCE YESTERDAY AFTERNOON STATES SHE HAS VOMITED "BILE" AT LEAST 10 TIMES AND NOW IS JUST DRY HEAVES--NO HEMATEMESIS OR COFFEE-GROUND EMESIS HAS HAD 4-5 EPISODES OF DIARRHEA--NO BLACK/BLOODY/TARRY STOOLS PAIN IS ALL OVER ABDOMEN BUT IS WORST IN EPIGASTRIC AREA NO PROBLEMS URINATING AND VOIDED JUST PRIOR TO ARRIVAL NO FEVER--HAS NOT CHECKED TEMP, BUT HAS HAD SWEATS AND CHILLS PT HAS CONTINUED TO EAT AND DRINK--LAST FOOD INTAKE WAS AT 2230 LAST PM--ATE B OWL OF OATMEAL AND A BOWL OF CHEX CEREAL. PT IS INSULIN DEPENDENT DIABETIC, HAS NOT CHECKED HER BLOOD SUGAR RECENTLY AND HAS NOT TAKEN HER MORNING MEDICATIONS PT HAS HAD MULTIPLE RECENT ADMITS/ER VISITS FOR SAME 12/20/19--TREATED IN ER AND SENT HOME, ALSO DX WITH UTI AT THAT TIME ADMITTED 02/01/20-02/04/20 FOR SAME-N/V/D/ABDOMINAL PAIN ADMITTED AGAIN 02/05/20-02/11/20 FOR SAME AND DX WITH DIVERTICULITIS HAS NOT HAD EGD OR COLONOSCOPY PT ALSO HAS LONGSTANDING HISTORY OF CONSTIPATION WITH IMPACTIONS PCP: [facility], [facility]-HAS APPOINTMENT 02/23/20 Allergies and Home Medications Allergies Coded Allergies: Penicillins (Unverified Allergy, Mild, 03/03/11) Sulfa (Sulfonamide Antibiotics) (Unverified Allergy, Mild, 03/03/11) fentanyl (Unverified Allergy, Mild, SZ, 03/03/11) latex (Unverified Allergy, Mild, 03/04/11) unsure/thinks a rash Home Medications Amlodipine Besylate 5 Mg Tablet, 5 MG PO DAILY Prescribed by: FRANSISCO ALVAREZ on 02/11/20 1218 Aspirin/Acetaminophen/Caffeine 1 Each Tablet, 2 EACH PO Q6-8HR PRN for Headache, (Reported) Ciprofloxacin HCl 500 Mg Tablet, 500 MG PO BID Prescribed by: MARIVEL CHOI on 02/20/20 112 Duloxetine HCl 60 Mg Capsule.dr, 60 MG PO BID, (Reported) Fluticasone/Salmeterol 1 Each Blst.w.dev, 1 EACH IH BID, (Reported) Hyoscyamine Sulfate 0.125 Mg Tab.subl, 0.125 MG SL Q4H PRN for abdominal pain Prescribed by: FRANSISCO ALVAREZ on 02/11/20 1219 Hyoscyamine Sulfate 0.125 Mg Tab.subl, 0.25 MG SL Q4H Prescribed by: MARIVEL CHOI on 02/20/20 112 Insulin Determir 1,000 Units/10 Ml Soln, 20 UNITS SQ BID, (Reported) Insulin Lispro 100 Unit/1 Ml Vial, 20 UNIT SQ TID PRN for HYPERGLYCEMIA, (Reported) L. Acidophilus/Pectin, [place] 1 Each Capsule, 2 EACH PO QID Prescribed by: MARIVEL CHOI on 02/20/201126 Lamotrigine 150 Mg Tablet, 150 MG PO DAILY, (Reported) Levofloxacin 500 Mg Tablet, 500 MG PO DAILY Prescribed by: FRANSISCO ALVAREZ on 02/11/20 121 Lisinopril/Hydrochlorothiazide 1 Each Tablet, 1 EACH PO DAILY, (Reported) Loratadine 10 Mg Tablet, 10 MG PO DAILY, (Reported) Lorazepam 0.5 Mg Tablet, 0.5 MG PO DAILY PRN for ANXIETY, (Reported) MED WAS GIVEN THRU A VOUCHER PROGRAM Metformin HCl 500 Mg Tab.er.24, 1,000 MG PO BID, (Reported) Metronidazole 500 Mg Tablet, 500 MG PO QID Prescribed by: MARIVEL CHOI on 02/20/20 112 Olanzapine 5 Mg Tablet, 5 MG PO HS, (Reported) WAS GIVEN THRU A VOUCHER PROGRAM Ondansetron 8 Mg Tab.rapdis, 8 MG PO Q4H PRN for NAUSEA/VOMITING Prescribed by: MARIVEL CHOI on 02/20/20 112 Ondansetron HCl 8 Mg Tablet, 8 MG PO TID Prescribed by: RASHEEDA COLEMAN on 02/04/20 1148 Pantoprazole Sodium 40 Mg Tablet.dr, 40 MG PO DAILY, (Reported) Polyethylene Glycol 3350 17 Gm Powd.pack, 17 GM PO TID Prescribed by: RASHEEDA COLEMAN on 02/04/20 1148 Prednisone 10 Mg Tab.ds.pk, 10 MG PO DAILY Prescribed by: FRANSISCO ALVAREZ on 02/11/20 1218 Promethazine HCl 25 Mg Tablet, 25 MG PO Q6H PRN for NAUSEA/VOMITING Prescribed by: FRANSISCO ALVAREZ on 02/11/20 1219 Scopolamine 1 Each Patch.td72, 1 EACH TD Q72H Prescribed by: MARIVEL CHOI on 02/20/20 1127 Patient Home Medication List Home Medication List Reviewed: Yes Review of Systems Review of Systems Constitutional: see HPI, chills, diaphoresis; No dizziness EENTM: No Symptoms Reported Respiratory: No Symptoms Reported; Denies Cough, Denies Shortness of Air Cardiovascular: No Symptoms Reported Gastrointestinal: See HPI, Abdominal Pain, Diarrhea, Nausea, Vomiting Genitourinary: No Symptoms Reported Musculoskeletal: no symptoms reported Skin: no symptoms reported Psychiatric/Neurological: No Symptoms Reported Endocrine: See HPI Hematologic/Lymphatic: No Symptoms Reported Past Hdvtwbh-Wxmxvt-Zpusde Hx Past Med/Social Hx: Reviewed and Corrections made Patient Social History Alcohol Use: Denies Use Recreational Drug Use: Yes (THC) Drug of Choice: MARIJUANA Smoking Status: Current Everyday Smoker Type Used: Cigarettes 2nd Hand Smoke Exposure: Yes Recent Foreign Travel: No Contact w/Someone Who Travel: No Recent Infectious Disease Expo: No Recent Hopitalizations: Yes Immunizations Up To Date Date of Pneumonia Vaccine: Jan 31, 2017 Date of Influenza Vaccine: Jun 22, 2019 Past Medical History Surgeries: Yes Gallbladder, Tonsillectomy Respiratory: Yes Asthma Cardiac: Yes Hypertension Neurological: Yes Headaches /Migraines Reproductive Disorders: No [employer] History: Menopausal Genitourinary: No Gastrointestinal: Yes Gastrointestinal Bleed, Chronic Constipation, Diverticulosis, Gall Bladder Disease Musculoskeletal: Yes Arthritis Endocrine: Yes (MORBID OBESITY) Diabetes, Insulin dep HEENT: No Cancer: No Psychosocial: Yes (EXTENSIVE PSYCH ISSUES) Anxiety, Bipolar, Depression Integumentary: No Blood Disorders: No Physical Exam Vital Signs Vital Signs - First Documented 02/20/20 08:15 Temp 36.4 Pulse 78 Resp 16 B/P (MAP) 199/81 (120) Pulse Ox 97 O2 Delivery Room Air Capillary Refill : Less Than 3 Seconds Height/Weight/BMI Height: 5'3" Weight: 170lbs. oz. 77.584561zm; 52.00 BMI Method:Estimated General Appearance: no apparent distress, obese (MORBIDLY OBESE) HEENT: PERRL/EOMI, other (POOR DENTITION, MULTIPLE MISSING TEETH) Respiratory: normal breath sounds, no respiratory distress, no accessory muscle use Cardiovascular: regular rate, rhythm, no murmur Gastrointestinal: soft; No guarding, No rebound; tenderness (EPIGASTRIC AND INFRA-UMBILICAL TENDERNESS.), other (EXTENSIVE BRUISING ABDOMEN-RECENT ADMITS WITH LOVENOX INJECTIONS, WELL INSULIN INJECTIONS--NO SIGNS OF INFECTION TO SITES) Extremities: normal capillary refill, pedal edema (1+ BILATERALLY) Back: no CVA tenderness Neurologic/Psychiatric: processing lead II-XII nml as tested, no motor/sensory deficits, alert, normal mood/affect, oriented x 3 Skin: normal color, warm/dry, ecchymosis ( ABOVE) Progress/Results/Core Measures Results/Orders Lab Results Laboratory Tests Test 02/20/20 08:50 02/20/20 08:51 02/20/20 10:30 02/20/20 11:30 Range/Units White Blood Count 17.1 H 4.3-11.0 10^3/uL Red Blood Count 4.45 4.35-5.85 10^6/uL Hemoglobin 13.2 11.5-16.0 G/DL Hematocrit 40 35-52 % Mean Corpuscular Volume 90 80-99 FL Mean Corpuscular Hemoglobin 30 25-34 PG Mean Corpuscular Hemoglobin Concent 33 32-36 G/DL Red Cell Distribution Width 13.7 10.0-14.5 % Platelet Count 411 H 130-400 10^3/uL Mean Platelet Volume 8.4 7.4-10.4 FL Neutrophils (%) (Auto) 86 H 42-75 % Lymphocytes (%) (Auto) 8 L 12-44 % Monocytes (%) (Auto) 5 0-12 % Eosinophils (%) (Auto) 1 0-10 % Basophils (%) (Auto) 0 0-10 % Neutrophils # (Auto) 14.7 H 1.8-7.8 X 10^3 Lymphocytes # (Auto) 1.4 1.0-4.0 X 10^3 Monocytes # (Auto) 0.8 0.0-1.0 X 10^3 Eosinophils # (Auto) 0.1 0.0-0.3 10^3/uL Basophils # (Auto) 0.0 0.0-0.1 10^3/uL Neutrophils % (Manual) 82 % Lymphocytes % (Manual) 7 % Monocytes % (Manual) 10 % Band Neutrophils 1 % Blood Morphology Comment NORMAL Sodium Level 136 135-145 MMOL/L Potassium Level 4.2 3.6-5.0 MMOL/L Chloride Level 102 98-107 MMOL/L Carbon Dioxide Level 20 L 21-32 MMOL/L Anion Gap 14 5-14 MMOL/L Blood Urea Nitrogen 13 7-18 MG/DL Creatinine 0.88 0.60-1.30 MG/DL Estimat Glomerular Filtration Rate > 60 BUN/Creatinine Ratio 15 Glucose Level 218 H 70-105 MG/DL Calcium Level 9.4 8.5-10.1 MG/DL Corrected Calcium 9.5 8.5-10.1 MG/DL Magnesium Level 1.3 L 1.6-2.4 MG/DL Total Bilirubin 0.3 0.1-1.0 MG/DL Aspartate Amino Transf (AST/SGOT) 15 5-34 U/L Alanine Aminotransferase (ALT/SGPT) 17 0-55 U/L Alkaline Phosphatase 79 40-136 U/L Total Protein 7.4 6.4-8.2 GM/DL Albumin 3.9 3.2-4.5 GM/DL Amylase Level 68 25-125 U/L Lipase 20 8-78 U/L Serum Alcohol < 10 <10 MG/DL Glucometer 216 H 70-110 MG/DL Urine Color YELLOW Urine Clarity CLEAR Urine pH 7.0 5-9 Urine Specific [place] 1.010 L 1.016-1.022 Urine Protein NEGATIVE NEGATIVE Urine Glucose (UA) 1+ H NEGATIVE Urine Ketones NEGATIVE NEGATIVE Urine Nitrite NEGATIVE NEGATIVE Urine Bilirubin NEGATIVE NEGATIVE Urine Urobilinogen 0.2 < = 1.0 MG/DL Urine Leukocyte Esterase NEGATIVE NEGATIVE Urine RBC (Auto) TRACE-I NEGATIVE Urine RBC 0-2 /HPF Urine WBC NONE /HPF Urine Squamous Epithelial Cells 0-2 /HPF Urine Crystals NONE /LPF Urine Bacteria NEGATIVE /HPF Urine Casts NONE /LPF Urine Mucus NEGATIVE /LPF Urine Culture Indicated NO Urine Opiates Screen NEGATIVE NEGATIVE Urine Oxycodone Screen NEGATIVE NEGATIVE Urine Methadone Screen NEGATIVE NEGATIVE Urine Propoxyphene Screen NEGATIVE NEGATIVE Urine Barbiturates Screen NEGATIVE NEGATIVE Ur Tricyclic Antidepressants Screen NEGATIVE NEGATIVE Urine Phencyclidine Screen NEGATIVE NEGATIVE Urine Amphetamines Screen NEGATIVE NEGATIVE Urine Methamphetamines Screen NEGATIVE NEGATIVE Urine Benzodiazepines Screen NEGATIVE NEGATIVE Urine Cocaine Screen NEGATIVE NEGATIVE Urine Cannabinoids Screen NEGATIVE NEGATIVE Stool Occult Blood Immunoassay POSITIVE H NEGATIVE Micro Results Microbiology 02/20/20 C. difficile GDH Antigen & Toxins - Final, Complete My Orders Orders - MARIVEL CHOI DO Ed Iv/Invasive Line Start (02/20/20 08:23) Monitor-Rhythm Ecg Trace Only (02/20/20 08:23) Amylase (02/20/20 08:23) Cbc With Automated Diff (02/20/20 08:23) Comprehensive Metabolic Panel (02/20/20 08:23) Lipase (02/20/20 08:23) Magnesium (02/20/20 08:23) Ua Culture If Indicated (02/20/20 08:23) Ed Iv/Invasive Line Start (02/20/20 08:23) Lactated Ringers (Lr 1000 Ml Iv Solution (02/20/20 08:23) Ondansetron Injection (Zofran Injectio (02/20/20 08:30) Scopolamine Patch (Transderm-Scop Patch) (02/20/20 08:45) Scopolamine Patch (Transderm-Scop Patch) (02/20/20 08:36) Accucheck Stat ONCE (02/20/20 08:43) Ed Iv/Invasive Line Start (02/20/20 08:57) Ns Iv 1000 Ml (Sodium Chloride 0.9%) (02/20/20 08:57) Manual Differential (02/20/20 08:50) Alcohol (02/20/20 09:08) Drug Screen Stat (Urine) (02/20/20 09:08) Ct Abdomen/Pelvis W (02/20/20 09:26) Acute Abd Series (02/20/20 09:26) Iohexol Injection (Omnipaque 350 Mg/Ml 1 (02/20/20 10:00) Received Contrast (Hold Metformin- Contr (02/20/20 10:00) Ns (Ivpb) (Sodium Chloride 0.9% Ivpb Bag (02/20/20 10:00) Ondansetron Injection (Zofran Injectio (02/20/20 11:30) Hyoscyamine Sl Tablet (Levsin Sl Tablet) (02/20/20 11:30) Stool Culture (02/20/20 11:33) Fecal Wbc (02/20/20 11:33) C Difficile Ag + Toxin A/B. (02/20/20 11:33) Parasite Scrn Stool Giard Cryp (02/20/20 11:33) Parasite Complete Exam Stool (02/20/20 11:33) Isolation Central Supply Req (02/20/20 11:33) Occult Blood Stool (02/20/20 11:33) Medications Given in ED Current Medications Medications Dose Ordered Sig/Jose Route Start Time Stop Time Status Last Admin Dose Admin Hyoscyamine Sulfate 0.25 mg ONCE ONCE PO 02/20/20 11:30 02/20/20 11:31 DC 02/20/20 11:34 0.25 MG Iohexol 100 ml ONCE ONCE IV 02/20/20 10:00 02/20/20 10:01 DC 02/20/20 10:16 100 ML Ondansetron HCl 4 mg ONCE ONCE IVP 02/20/20 08:30 02/20/20 08:31 DC 02/20/20 08:58 4 MG Ondansetron HCl 8 mg ONCE ONCE IVP 02/20/20 11:30 02/20/20 11:31 DC 02/20/20 11:34 8 MG Scopolamine 1.5 mg ONCE ONCE TD 02/20/20 08:45 02/20/20 08:46 DC 02/20/20 08:58 1.5 MG Sodium Chloride 100 ml ONCE ONCE IV 02/20/20 10:00 02/20/20 10:01 DC 02/20/20 10:17 80 ML Vital Signs/I&O 02/20/20 02/20/20 08:15 11:51 Temp 36.4 Pulse 78 71 Resp 16 18 B/P (MAP) 199/81 (120) 191/78 Pulse Ox 97 97 O2 Delivery Room Air Room Air Blood Pressure Mean: 120 FSBG Bedside Testing Finger Stick Blood Glucose: 216 Progress Progress Note : Progress Note NO VOMITING DURING ER STAY DID PASS SMALL AMOUNT OF SOFT FORMED STOOL X 2 DURING ER STAY,SENT TO LAB FOR ANALYSIS. UNEVENTFUL ER STAY Diagnostic Imaging Comments CT ABDOMEN/PELVIS--PER RADIOLOGIST REPORT AT 1054 FINDINGS: Limited views of the lower thorax are unremarkable. The liver is normal without focal lesion. There is no biliary ductal dilation. Gallbladder is absent. Pancreas is normal. Spleen is normal. Adrenal glands are normal. The kidneys are normal. There is no hydronephrosis. Urinary bladder is normal. Visualized bowel is normal in caliber without obstruction or inflammation. There is diverticulosis without diverticulitis. No free fluid or air. No abdominal or pelvic lymphadenopathy. Aorta is normal in caliber without aneurysm. There are no suspicious osseus lesions. IMPRESSION: 1. No acute abnormality in the abdomen or pelvis. Reviewed: Reviewed by Me Departure Impression Primary Impression: Nausea vomiting and diarrhea Additional Impressions: Epigastric abdominal pain Leukocytosis HEMOCCULT POSITIVE STOOL Disposition: 01 HOME, SELF-CARE Condition: Stable Departure-Patient Inst. Referrals: [facility] Patient Instructions: Acute Abdomen (Belly Pain), Adult (DC), Viral Gastroenteritis, Adult (DC) Add. Discharge Instructions: CLEAR LIQUIDS--WATER, BROTH, JELLO, GATORADE TOMORROW IF YOU ARE BETTER, ADD BRATS DIET TO CLEAR LIQUIDS--BANANAS, RICE, APPLESAUCE, TOAST, SALTINES. LEAVE SCOPOLAMINE PATCH IN PLACE FOR 3 DAYS AND REPLACE WITH A NEW ONE, IF NAUSEA PERSISTS TAKE YOUR REGULAR MEDICATIONS PRESCRIBED FOLLOW UP WITH [facility] IN 2-3 DAYS FOR FURTHER CARE All discharge instructions reviewed with patient and/or family. Voiced understanding. Scripts L. Acidophilus/Pectin, [place] (Acidophilus Capsule) 1 Each Capsule 2 EACH PO QID, #40 CAP Prov: JIMBO,MARIVEL K DO 5/2/20 Hyoscyamine Sulfate (Levsin-Sl) 0.125 Mg Tab.subl 0.25 MG SL Q4H, #20 TAB Prov: JIMBO,MARIVEL K DO 5/2/20 Ondansetron (Ondansetron Odt) 8 Mg Tab.rapdis 8 MG PO Q4H PRN for NAUSEA/VOMITING, #20 TAB Prov: JIMBO,MARIVEL K DO 5/2/20 Scopolamine (Transderm-Scop) 1 Each Patch.td72 1 EACH TD Q72H, #3 PATCH Prov: JIMBO,MARIVEL K DO 5/2/20 Metronidazole (Flagyl) 500 Mg Tablet 500 MG PO QID, #40 TAB Prov: JIMBO,MARIVEL K DO 5/2/20 Ciprofloxacin HCl (Ciprofloxacin HCl) 500 Mg Tablet 500 MG PO BID, #14 TAB Prov: MARIVEL CHOI DO 02/20/20 MARIVEL CHOI DO February 20, 2020 08:57
[2020-02-20 09:04] LABS: BASOPHILS % (AUTO) 0 % (0-10); EOSINOPHILS # (AUTO) 0.1 10^3/uL (0.0-0.3); EOSINOPHILS % (AUTO) 1 % (0-10); HEMATOCRIT 40 % (35-52); HEMOGLOBIN 13.2 G/DL (11.5-16.0); LYMPHOCYTES # (AUTO) 1.4 X 10^3 (1.0-4.0); LYMPHOCYTES % (AUTO) 8 % (12-44); MEAN CORPUSCULAR HEMOGLOBIN 30 PG (25-34); MEAN CORPUSCULAR HGB CONC 33 G/DL (32-36); MEAN CORPUSCULAR VOLUME 90 FL (80-99); MEAN PLATELET VOLUME 8.4 FL (7.4-10.4); MONOCYTES # (AUTO) 0.8 X 10^3 (0.0-1.0); MONOCYTES % (AUTO) 5 % (0-12); NEUTROPHILS # (AUTO) 14.7 X 10^3 (1.8-7.8); NEUTROPHILS % (AUTO) 86 % (42-75); PLATELET COUNT 411 10^3/uL (130-400); RED CELL DISTRIBUTION WIDTH 13.7 % (10.0-14.5); WHITE BLOOD COUNT 17.1 10^3/uL (4.3-11.0)
[2020-02-20 09:23] LABS: ALANINE AMINOTRANSFERASE 17 U/L (0-55); ALBUMIN 3.9 GM/DL (3.2-4.5); ALKALINE PHOSPHATASE 79 U/L (40-136); AMYLASE 68 U/L (25-125); BILIRUBIN,TOTAL 0.3 MG/DL (0.1-1.0); BUN/CREATININE RATIO 15; CALCIUM 9.4 MG/DL (8.5-10.1); CARBON DIOXIDE 20 MMOL/L (21-32); CHLORIDE 102 MMOL/L (98-107); CREATININE SERUM 0.88 MG/DL (0.60-1.30); GFR ESTIMATED > 60; GLUCOSE 218 MG/DL (70-105); LIPASE 20 U/L (8-78); MAGNESIUM 1.3 MG/DL (1.6-2.4); POTASSIUM 4.2 MMOL/L (3.6-5.0); SODIUM 136 MMOL/L (135-145); TOTAL PROTEIN 7.4 GM/DL (6.4-8.2)
[2020-02-20 09:49] LABS: BAND NEUTROPHILS 1 %; LYMPHOCYTES % (MANUAL) 7 %; MONOCYTES % (MANUAL) 10 %; NEUTROPHILS % (MANUAL) 82 %; RBC MORPH NORMAL
[2020-02-20] MEDS ORDERED: HOLD METFORMIN - RECEIVED CONTRAST 20 ML VIAL IV SCH (10:00)
[2020-02-20] MEDS ORDERED: IOHEXOL 350 MG/ML 100 ML (OMNIPAQUE 350) VIAL IV ONE (10:00)
[2020-02-20] MEDS ORDERED: NS 100 ML (IVPB) BAG IV ONE (10:00)
[2020-02-20 10:36] LABS: BILIRUBIN,URINE NEGATIVE (NEGATIVE); CLARITY,URINE CLEAR; COLOR,URINE YELLOW; GLUCOSE, URINE (UA) 1+ (NEGATIVE); KETONES,URINE NEGATIVE (NEGATIVE); LEUKOCYTE ESTERASE ,URINE NEGATIVE (NEGATIVE); NITRITE,URINE NEGATIVE (NEGATIVE); PROTEIN,URINE NEGATIVE (NEGATIVE)
--- NOTE | 2020-02-20 10:41 | Diagnostic Imaging Report ---
EXAMINATION: CT Abdomen and Pelvis with intravenous contrast. TECHNIQUE: Multiple contiguous axial images were obtained through the abdomen and pelvis after the uneventful administration of intravenous contrast. All CT scans use one or more of the following dose optimizing techniques: automated exposure control, MA and/or KvP adjustment based on a patient size and exam type, or iterative reconstruction. HISTORY: Nausea and vomiting COMPARISON: 02/09/2020 FINDINGS: Limited views of the lower thorax are unremarkable. The liver is normal without focal lesion. There is no biliary ductal dilation. Gallbladder is absent. Pancreas is normal. Spleen is normal. Adrenal glands are normal. The kidneys are normal. There is no hydronephrosis. Urinary bladder is normal. Visualized bowel is normal in caliber without obstruction or inflammation. There is diverticulosis without diverticulitis. No free fluid or air. No abdominal or pelvic lymphadenopathy. Aorta is normal in caliber without aneurysm. There are no suspicious osseus lesions. IMPRESSION: 1. No acute abnormality in the abdomen or pelvis. Dictated by: Dictated on workstation # [id number]
--- NOTE | 2020-02-20 10:42 | Diagnostic Imaging Report ---
EXAM: Acute abdomen series INDICATION: Abdominal pain FINDINGS: The accompanying PA chest shows the heart size to be within normal limits and stable when compared to 02/05/2020. The lungs are clear. The long-standing displaced fracture left clavicle seen previously is again evident and no different.. There is no sign of a pneumoperitoneum. Supine and erect views of the abdomen were obtained. There is some gas in both the large and small bowel in a nonspecific fashion. There is no evidence for a bowel obstruction. There is no mass, organomegaly or pathological calcification evident. Surgical clips are again seen in the right upper quadrant. The osseous structures are intact. IMPRESSION: 1. The bowel gas pattern is nonspecific. There is no acute abnormality identified. 2. Reportedly, CT of the abdomen and pelvis is pending for further study. Dictated by: Dictated on workstation # [id number]
[2020-02-20 10:51] LABS: AMPHETAMINE SCREEN, URINE NEGATIVE (NEGATIVE); BARBITURATE SCREEN URINE NEGATIVE (NEGATIVE); BENZODIAZEPINES SCREEN URINE NEGATIVE (NEGATIVE); CANNABINOID SCREEN, URINE NEGATIVE (NEGATIVE); COCAINE SCREEN URINE NEGATIVE (NEGATIVE); METHADONE STAT NEGATIVE (NEGATIVE); METHAMPHETAMINE SCREEN URINE S NEGATIVE (NEGATIVE); OPIATE SCREEN URINE NEGATIVE (NEGATIVE); OXYCODONE STAT NEGATIVE (NEGATIVE); PROPOXYPHENE STAT NEGATIVE (NEGATIVE); TRICYCLIC ANTIDEPRESSANTS SCRE NEGATIVE (NEGATIVE)
[2020-02-20 11:19] LABS: BACTERIA,URINE NEGATIVE /HPF; RBC,URINE 0-2 /HPF; SQUAMOUS EPITHELIAL CELL,UR 0-2 /HPF
[2020-02-20] MEDS ORDERED: METR500T PO (11:26)
[2020-02-20] MEDS ORDERED: CIPR500T4 PO (11:26)
[2020-02-20] MEDS ORDERED: ONDA8TAB13 PO (11:27)
[2020-02-20] MEDS ORDERED: SCOP1PAT11 TD (11:27)
[2020-02-20] MEDS ORDERED: HYOS0.1283 SL (11:27)
[2020-02-20] MEDS ORDERED: L. A1CAP11 PO (11:27)
[2020-02-20] MEDS ORDERED: HYOSCYAMINE 0.125 MG (LEVSIN) TAB PO ONE (11:30)
[2020-02-20 11:51] VITALS: BP 191/78
== END 2020-02-20 11:50 | disposition home or self-care (01) ==
LOC: EDUNIT# 08:12 → ER 08:13
DX: R11.2 Nausea with vomiting, unspecified (principal); R19.7 Diarrhea, unspecified; R10.13 Epigastric pain; D72.829 Elevated white blood cell count, unspecified; R19.5 Other fecal abnormalities; E11.9 Type 2 diabetes mellitus without complications; J45.909 Unspecified asthma, uncomplicated; I10 Essential (primary) hypertension; G43.909 Migraine, unspecified, not intractable, without status migrainosus; K59.09 Other constipation; E66.01 Morbid (severe) obesity due to excess calories; F31.9 Bipolar disorder, unspecified; F41.9 Anxiety disorder, unspecified; F17.210 Nicotine dependence, cigarettes, uncomplicated; Z79.4 Long term (current) use of insulin; Z88.0 Allergy status to penicillin; Z88.2 Allergy status to sulfonamides; Z91.040 Latex allergy status; Z88.5 Allergy status to narcotic agent; Z79.82 Long term (current) use of aspirin; Z68.43 Body mass index [BMI] 50.0-59.9, adult
CPT/HCPCS: 36415; 74022; 74177; 80053; 80306; 80320; 81000; 82150; 82274; 82962; 83690; 83735; 85007; 85027; 87015; 87045; 87046; 87177; 87324; 87328; 87329; 87449; 87899

== ENCOUNTER 2020-03-14 16:15 | Emergency (ER) | payer MEDICAID, OTHER ==
[~2020-03-14] VITALS: Ht 162.6 cm; Wt 139.7 kg
[~2020-03-14 16:15] MED LIST changes: +L. A1CAP11 PO; +METR500T PO; +ONDA8TAB13 PO; +SCOP1PAT11 TD
--- OUTSIDE RECORDS SUMMARY | 2020-03-14 16:22 | XMS REPORT | Clinical Summary ---
Author Author [facility] Organization [facility] Address Unknown Phone Unavailable Care Team Providers Care Can Tender Name Role Phone PCP Unavailable Allergies Not on File Medications Not on file Active Problems Not on file Social History Date Tobacco Use Types Packs/Day Years Used Never Assessed Sex Assigned at Date Recorded Not on file Industry Job Start Date Occupation Not on file Not on file Not on file Travel End Travel History Travel Start No recent travel history available. Last Filed Vital Signs Not on file Plan of Treatment Not on file Results Not on filefrom Last 3 Months
--- OUTSIDE RECORDS SUMMARY | 2020-03-14 16:22 | XMS REPORT | Encounter Summary ---
Author Author [facility] Address Unknown Phone Unavailable Care Team Providers Care Supervisor [employer] Name Role Phone PCP Unavailable Encounter Details Care Team Description Date Type Department Lawrence Izaguirre DO [address] [place] [address] [phone] 01/18/2003 [facility] Social History Date Tobacco Use Types Packs/Day Years Used Never Assessed Sex Assigned at Date Recorded Not on file Industry Job Start Date Occupation Not on file Not on file Not on file Travel End Travel History Travel Start No recent travel history available. documented as of this encounter Plan of Treatment Not on filedocumented as of this encounter Visit Diagnoses Not on filedocumented in this encounter
--- OUTSIDE RECORDS SUMMARY | 2020-03-14 16:22 | XMS REPORT | Clinical Summary ---
Author Author [facility] Organization [facility] Address Unknown Phone Unavailable Care Team Providers Care Extraction Machine Operator Name Role Phone Juanis Fontenot RN Unavailable Unavailable Brittany Resendez RN Unavailable Unavailable Supriya Flores SMOKING PIPE MOUNTER Unavailable Self, Referral PCP Unavailable Jairon Martinez MD Unavailable Source Comments Some departments are not documenting in the electronic medical record. 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 [address] (CYMBALTA) 0 60 mg PO CpDR 8 Active ALBUTEROL IN 0 8 Active METFORMIN HCL (METFORMIN Take 1,000 mg 0 PO) by mouth twice daily. Active aspirin 325 mg tablet Take 325 mg 0 by mouth daily. Active lisinopril/hydrochlorothi Take 1 Tab by 0 01/20 azide (ZESTORETIC) 20/25 mouth daily. 2 tablet [address] Tab [address]omep[address]ole DR(+) Take 1 Cap by 90 Cap 5 02/10 (NEXIUM) 40 mg capsule mouth daily. 2 Active Potassium 99 mg Tab Take by 0 mouth. Active fluticasone-salmeterol Inhale 1 Puff 0 (ADVAIR DISKUS) 250-50 by mouth mcg inhalation disk every 12 hours. Active LOPERAMIDE HCL (IMODIUM Take by 0 A-D PO) mouth. Active ibuprofen (MOTRIN) 800 mg Take 1 Tab by 60 Tab 2 tablet mouth every 2 8-12 hours as needed. Active Problems Problem Noted Date Asthma 02/09/2012 DM (diabetes mellitus) 02/09/2012 Depression 02/09/2012 Bipolar disorder 02/09/2012 HTN (hypertension) 02/09/2012 GERD (gastroesophageal reflux disease) 02/09/2012 Diverticulitis 02/09/2012 Immunizations Name Administration Dates Next Due Tdap Vaccine 02/27/2012 Family History Medical History Relation Name Comments Cancer Father Diabetes Father Heart Disease Father Hypertension Father Stroke Father COPD Maternal Grandfather Hypertension Maternal Grandfather Arthritis Maternal Grandmother Heart Disease Maternal Grandmother Hypertension Maternal Grandmother Stroke Maternal Grandmother Arthritis Mother Vision Loss Mother Relation Name Status Comments Father Maternal Grandfather Maternal Grandmother Mother Social History Date Tobacco Use Types Packs/Day Years Used Current Every Day Smoker Cigarettes 0.5 28 Smokeless Tobacco: Never Used Drinks/Week oz/Week Comments Alcohol Use No Sex Assigned at Date Recorded Not on file Industry Job Start Date Occupation Not on file Not on file Not on file Travel End Travel History Travel Start No recent travel history available. Last Filed Vital Signs Reading Time Taken Comments Vital Sign 103/49 02/27/2012 10:31 AM CDT Blood Pressure 75 02/27/2012 10:31 AM CDT Pulse 36.4 C (97.6 F) 02/27/2012 10:31 AM CDT Temperature 16 02/27/2012 10:31 AM CDT Respiratory Rate 98% 02/11/2012 11:53 AM CDT Oxygen Saturation - - Inhaled Oxygen Concentration 136.1 kg (300 lb) 02/27/2012 10:31 AM CDT Weight 161.9 cm (5' 3.75") 02/27/2012 10:31 AM CDT Height 51.9 02/27/2012 10:31 AM CDT Body Mass Index Plan of Treatment Health Maintenance Due Date Last Done Comments HIV SCREENING 1974 DILATED EYE EXAM 1977 FOOT EXAM 1977 HEPATITIS C SCREENING 1977 MICROALBUMIN 1977 PNEUMONIA VACCINE (DM) 1977 CERVICAL CANCER SCREENING 1980 BREAST CANCER SCREENING 1999 COLORECTAL CANCER 2009 SCREENING SHINGLES RECOMBINANT 2009 VACCINE (1 of 2) HBA1C 08/11/2012 02/10/2012 PHYSICAL (COMPREHENSIVE) 02/26/2013 02/27/2012 EXAM INFLUENZA VACCINE 07/21/2020 DTAP/TDAP VACCINES (2 - 02/26/2022 02/27/2012 Td) Results Not on filefrom Last 3 Months Advance Directives Date Inactivated Comments Code Status Date Activated 02/11/2012 11:27 PM Full Code 02/09/2012 8:57 PM Provider has discussed Code Status Yes w/Patient or Family?
--- OUTSIDE RECORDS SUMMARY | 2020-03-14 16:25 | XMS REPORT ---
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 12 Active 566004069 Problem Compulsive skin picking L98.1 Active 155271879 Problem Body mass index (BMI) of 50-59.9 in adult Z68.43 Active 732306323 Problem Gastroesophageal reflux disease, esophagitis pre sence not specified K21.9 Active 396075948 Problem Morbid (severe) obesity due to excess calories E66 .01 Active 508318725 Problem Morbid obesity E66.01 Active 00683 6002 Problem Psychophysiological insomnia F51.04 A ctive 042797399 Problem Type 2 diabetes mellitus wit h complication, without long-term current use of insulin E11.8 Active 06362279 Problem Seasonal allergic rhinitis due to pollen J30.1 Active 00629160 Problem Rhinosinusitis J32.9 Active 73580 4004 Problem Mixed hyperlipidemia E78.2 Active 198124138 ALLERGIES No Information ENCOUNTERS Encounter Location Date Diagnosis [facility] [address] [facility] [id number] [address] [place] [phone] Apr, [facility] [address] [facility] [id number] [address] [place] [id number] Mar, [facility] [address] [id number] [address] [place] [phone] February, [facility] [address] [facility] [id number] [address] [place] [phone] February, [facility] [address] [facility] [id number] [address] [place] [phone] February, [facility] [address] [facility] [id number] [address] [place] [id number] 14 Feb, 2020 Gastroesophageal reflux dise ase, esophagitis presence not specified K21.9 [facility] [address] [facility] [id number] [address] [place] [id number] 30 Jan, 2020 Bipolar disorder with depres kirsten F31.30 ; Chronic post-traumatic stress disorder (PTSD) F43.12 ; Morbid obesity E66.01 and Compulsive skin picking L98.1 [facility] [address] [facility] [id number] [address] [place] [phone] Jan, [facility] [address] [facility] [id number] [address] [place] [phone] Jan, [facility] [address] [facility] [id number] [address] [place] [id number] 16 Jan, 2020 [facility] [address] [facility] [id number] [address] [place] [phone] 13 Jan, 2020 [facility] [address] [facility] [id number] [address] [place] [phone] Jan, Non-intractable vomiting wit h nausea, unspecified vomiting type R11.2 [facility] [address] [facility] [id number] [address] [place] [id number] 10 Jan, 2020 [facility] [address] [facility] [id number] [address] [place] [id number] 07 Jan, 2020 [facility] [address] [facility] [id number] [address] [place] [id number] 06 Jan, 2020 [facility] [address] [facility] [id number] [address] [place] [id number] 06 Jan, 2020 [facility] [id number] [place] [id number] 04 Jan, 2020 Type 2 diabetes mellitus wit hout complications E11.9 [facility] [address] [facility] [id number] [address] [place] [id number] 02 Jan, 2020 Dog scratch W54.8XXA [facility] [address] [address] 27 Dec, 2019 Essential hypertension I10 [facility] [address] [place] [address] 16 Dec, 2019 Bipolar disorder with depres kirsten F31.30 [place] [address] [address] 12 Dec, 2019 [facility] [address] [address] 10 Dec, 2019 Bipolar disorder with depres kirsten F31.30 ; Chronic post-traumatic stress disorder (PTSD) F43.12 ; Morbid obesity E66.01 and Compulsive skin picking L98.1 [facility] [address] [address] 05 Dec, 2019 [place] [address] [address] 03 Dec, 2019 Gastroesophageal reflux dise ase, esophagitis presence not specified K21.9 and Epigastric abdominal pain R10.13 [facility] [address] [address] 02 Dec, 2019 Mixed hyperlipidemia E78.2 a nd Serum potassium elevated E87.5 [place] [address] [address] Nov, Mild persistent asthma witho ut complication J45.30 [place] [address] [place] [id number] [address] [place] [address] Nov, Mild persistent asthma witho ut complication J45.30 ; Essential hypertension I10 ; Migraine without aura and without status migrainosus, not intractable G43.009 ; Type 2 diabetes mellitus with complication, without long- term current use of insulin E11.8 and Rhinosinusitis J32.9 [facility] [address] [place] [id number] [address] [place] [id number] 14 Oct, 2019 [facility] [address] [place] [id number] [address] [place] [id number] 07 Oct, 2019 Bipolar disorder with depres kirsten F31.30 ; Chronic post-traumatic stress disorder (PTSD) F43.12 ; Morbid obesity E66.01 and Compulsive skin picking L98.1 [place] [address] [address] 06 Oct, 2019 [facility] [address] [place] [id number] [address] [place] [id number] Sep, Simple chronic bronchitis J4 1.0 [facility] [address] [place] [id number] [place] [phone] Sep, Bronchitis J40 [facility] [address] [place] [address] Aug, Bronchitis J40 [facility] [address] [place] [id number] [address] [place] [phone] Jul, [place] [address] [place] [id number] [address] [place] [phone] Jul, [facility] [address] [place] [id number] [address] [place] [phone] Jul, [place] [address] [place] [id number] [address] [place] [id number] 25 Jun, 2019 Compulsive skin picking L98. 1 and Essential hypertension I10 [place] [address] [place] [id number] [address] [place] [id number] 24 Jun, 2019 Encounter for immunization Z 23 [place] [address] [place] [id number] [place] [phone] 18 Jun, 2019 [place] [address] [address] 05 Jun, 2019 Psychophysiological insomnia F51.04 ; Bipolar disorder with depression F31.30 ; Chronic post-traumatic stress disorder (PTSD) F43.12 and Morbid obesity E66.01 [place] [address] [address] 04 Jun, 2019 Psychophysiological insomnia F51.04 [place] [address] [place] [id number] [place] [address] 15 May, 2019 Migraine without aura and wi thout status migrainosus, not intractable G43.009 [place] [address] [address] May, Migraine without aura and wi thout status migrainosus, not intractable G43.009 [place] [address] [address] Apr, Daily headache R51 ; Seasona l allergic rhinitis due to pollen J30.1 ; Type 2 diabetes mellitus without complications E11.9 and Morbid obesity E66.01 [place] [address] [address] Apr, [place] [address] [address] Apr, [facility] [place] [address] [address] Mar, Encounter for immunization Z 23 [facility] [address] [place], [place] [id number] [place] [address] Mar, Skin infection L08.9 and Mor bid obesity E66.01 [facility] [place] [address] [place] [id number] [place] [address] Mar, Morbid obesity E66.01 [place] [address] [address] Mar, [facility] [address] [id number] [address] [place] [id number] Mar, Type 2 diabetes mellitus wit h complication, without long-term current use of insulin E11.8 [facility] [address] [id number] [address] [place] [id number] 18 Mar, 2019 [facility] [address] [id number] [address] [place] [phone] Mar, [facility] [address] [id number] [address] [place] [id number] Mar, [facility] [address] [id number] [address] [place] [address] Mar, Essential hypertension I10 [facility] [address] [facility] [id number] [address] [place] [address] Mar, Migraine without aura and wi thout status migrainosus, not intractable G43.009 [facility] [address] [id number] [address] [place] [address] 12 Mar, 2019 [facility] [address] [id number] [address] [place] [address] Mar, Psychophysiological insomnia F51.04 [facility] [address] [facility] [id number] [address] [place] [id number] February, [facility] [address] [id number] [address] [place] [phone] February, Type 2 diabetes mellitus wit hout complications E11.9 [facility] [address] [id number] [address] [place] [address] February, Migraine without aura and wi thout status migrainosus, not intractable G43.009 [facility] [address] [id number] [address] [place] [address] February, Type 2 diabetes mellitus wit hout complications E11.9 [facility] [address] [id number] [address] [place] [id number] February, Bipolar disorder with depres kirsten F31.30 ; Compulsive skin picking L98.1 ; Chronic post-traumatic stress disorder (PTSD) F43.12 and Morbid obesity E66.01 [facility] [address] [facility] [id number] [address] [place] [address] February, Mild persistent asthma witho ut complication J45.30 and Bipolar disorder with depression F31.30 [place] [address] [facility] [id number] [address] [place] [phone] Jan, [place] [address] [facility] [id number] [address] [place] [phone] Jan, Type 2 diabetes mellitus wit hout complications E11.9 ; Essential hypertension I10 ; Hyperglycemia R73.9 and Morbid obesity E66.01 [place] [address] [place] [id number] [address] [place] [address] Jan, Bipolar disorder with depres kirsten F31.30 ; Compulsive skin picking L98.1 ; Chronic post-traumatic stress disorder (PTSD) F43.12 ; Body mass index (BMI) of 50-59.9 in adult Z68.43 and Morbid (severe) obesity due to excess calories E66.01 [place] [address] [facility] [id number] [address] [place] [address] Dec, [facility] [address] [facility] [id number] [address] [place] [phone] 18 Nov, 2018 Type 2 diabetes mellitus wit hout complications E11.9 [facility] [address] [facility] [id number] [address] [place] [phone] Nov, [place] [address] [facility] [id number] [address] [place] [address] 13 Nov, 2018 Type 2 diabetes mellitus wit hout complications E11.9 [facility] [address] [facility] [id number] [address] [place] [phone] 06 Nov, 2018 [facility] [address] [facility] [id number] [address] [place] [address] Nov, Type 2 diabetes mellitus wit hout complications E11.9 ; Depression, unspecified depression type F32.9 ; Essential hypertension I10 ; Hyperglycemia R73.9 ; Psychophysiological insomnia F51.04 and BMI 50.0-59.9, adult Z68.43 [facility] [address] [place] [id number] [place] [address] Sep, [facility] [address] [address] Aug, [facility] [address] [place] [id number] [place] [address] Jul, [place] [address] [address] Jul, Type 2 diabetes mellitus wit hout complications E11.9 ; Hyperglycemia R73.9 ; History of venomous spider bite Z91.89 and BMI 50.0-59.9, adult Z68.43 [facility] [address] [place] [id number] [address] [place] [phone] Jun, [facility] [address] [place] [id number] [place] [address] Apr, Migraine without aura and wi thout status migrainosus, not intractable G43.009 [facility] [address] [place] [id number] [address] [place] [address] Apr, Essential hypertension I10 [facility] [address] [place] [id number] [place] [address] Apr, Type 2 diabetes mellitus wit hout complications E11.9 and Migraine without aura and without status migrainosus, not intractable G43.009 [facility] [address] [place] [id number] [address] [place] [phone] Mar, [facility] [address] [place] [id number] [address] [place] [id number] Mar, [facility] [address] [place] [id number] [address] [place] [address] February, [facility] [address] [address] February, Intractable migraine with au ra with status migrainosus G43.111 and BMI 50.0-59.9, adult Z68.43 [facility] [address] [address] Jan, Type 2 diabetes mellitus wit hout complications E11.9 ; Mild persistent asthma without complication J45.30 ; Depression, unspecified depression type F32.9 and Bipolar disorder with depression F31.30 [place] [address] [address] Jan, [place] [address] [address] Jan, Type 2 diabetes mellitus wit hout complications E11.9 ; Essential hypertension I10 ; Depression, unspecified depression type F32.9 ; Mild persistent asthma without complication J45.30 and BMI 50.0-59.9, adult Z68.43 [facility] [address] [address] Nov, Viral illness B34.9 and BMI 50.0-59.9, adult Z68.43 [place] [address] [place] [id number] [address] [place] [address] Mar, Depression, unspecified depr ession type F32.9 ; Type 2 diabetes mellitus without complications E11.9 ; Essential hypertension I10 and Seasonal allergies J30.2 [place] [address] [place] [id number] [address] [place] [address] Mar, Uncontrolled type 2 diabetes mellitus with hypoglycemia and coma, without long-term current use of insulin E11.641 ; Type 2 diabetes mellitus without complications E11.9 and Depression, unspecified depression type F32.9 [facility] [address] [address] February, [place] [address] [id number] [address] [place] [address] February, [facility] [address] [facility] [id number] [address] [place] [id number] February, [facility] [address] [id number] [address] [place] [address] February, [facility] [address] [facility] [id number] [address] [place] [phone] February, Depression, unspecified depr ession type F32.9 and Bipolar disorder with depression F31.30 [facility] [address] [facility] [id number] [address] [place] [address] February, Dysthymia 300.4 and Type 2 d iabetes mellitus without complications E11.9 [place] [address] [facility] [id number] [address] [place] [address] February, [facility] [address] [facility] [id number] [address] [place] [address] February, Type 2 diabetes mellitus wit hout complications E11.9 and Pain of right hip joint M25.551 [place] [address] [facility] [id number] [address] [place] [address] February, [facility] [address] [facility] [id number] [address] [place] [address] Jan, Uncontrolled type 2 diabetes mellitus with hypoglycemia and coma, without long-term current use of insulin E11.641 ; Essential hypertension I10 and Depression, unspecified depression type F32.9 [facility] [address] [facility] [id number] [address] [place] [address] 14 Nov, 2016 Mild persistent asthma witho ut complication J45.30 [facility] [address] [facility] [id number] [address] [place] [address] Aug, [facility] [address] [facility] [id number] [address] [place] [phone] Aug, Essential hypertension I10 [place] [address] [facility] [id number] [address] [place] [phone] Jun, [place] [address] [facility] [id number] [address] [place] [address] Jun, [place] [address] [facility] [id number] [address] [place] [phone] Jun, Type 2 diabetes mellitus wit h complication, without long-term current use of insulin E11.8 and Diarrhea, unspecified type R19.7 [place] [address] [facility] [id number] [address] [place] [address] Jun, [place] [address] [facility] [id number] [address] [place] [phone] Jun, [place] [address] [facility] [id number] [address] [place] [id number] Jun, Type 2 diabetes mellitus wit hout complications E11.9 and Mild persistent asthma without complication J45.30 [place] [address] [facility] [id number] [address] [place] [address] May, Mild persistent asthma witho ut complication J45.30 and Uncontrolled type 2 diabetes mellitus with hypoglycemia and coma, without long-term current use of insulin E11.641 [place] [address] [facility] [id number] [address] [place] [address] May, [place] [address] [facility] [id number] [address] [place] [phone] May, [place] [address] [facility] [id number] [address] [place] [address] May, Uncontrolled type 2 diabetes mellitus with hypoglycemia and coma, without long-term current use of insulin E11.641 ; Headache, unspecified headache type R51 ; Hypoglycemia E16.2 ; Hyperglycemia R73.9 ; Urinary tract infection without hematuria, site unspecified N39.0 and Financial difficulties Z59.8 [facility] [address] [id number] [address] [place] [id number] Apr, Dental examination Z01.20 [place] [address] [address] 21 Mar, 2016 Type 2 diabetes mellitus wit hout complication, without long-term current use of insulin E11.9 ; Rash R21 ; Mild persistent asthma without complication J45.30 ; Seasonal allergies J30.2 ; Depression, unspecified depression type F32.9 ; GERD with esophagitis K21.0 ; Financial difficulties Z59.8 and Essential hypertension I10 [address] [address] Mar, Bipolar affective disorder 2 96.80 and No condition on [place] V71.[address] [address] Mar, [address] [address] Mar, Screening for tuberculosis V 74.1 ; Type 2 diabetes mellitus 250.00 ; Hypertension 401.9 ; Arthralgia 719.40 ; Dysthymia 300.4 ; GERD (gastroesophageal reflux disease) 530.81 and Exposure to viral disease V01.[address] [address] Mar, [place] [address] [address] Jan, [address] [address] Jan, [place] [address] [address] Sep, [place] [address] [address] Sep, [place] [address] [address] Sep, [place] [address] [address] Sep, [facility] [address] [id number] [address] [place] [address], [place] [address] Aug, [facility] [address] [id number] [address] [place] [address], [place] [address] Aug, [facility] [address] [id number] [address] [place] [address], [place] [address] Apr, [facility] [address] [id number] [address] [place] [address], [place] [address] Apr, [facility] [address] [id number] [address] [place] [address], [place] [address] Apr, [facility] [address] [id number] [address] [place] [address], [place] [address] Apr, [facility] [address] [id number] [address] [place] [address], [place] [address] Mar, [facility] [address] [id number] [address] [place] [address], [place] [address] Mar, [facility] [address] [id number] [address] [place] [address], [place] [address] Oct, [facility] [address] [id number] [address] [place] [address], [place] [address] Oct, [facility] [address] [id number] [address] [place] [address], [place] [address] Sep, [facility] [address] [id number] [address] [place] [address], [place] [address] Sep, [facility] [address] [id number] [address] [place] [address], [place] [address] Jul, [facility] [address] [id number] [address] [place] [address], [place] [address] Jul, [facility] [address] [id number] [address] [place] [address], [place] [address] Jul, [facility] [address] [id number] [address] [place] [address], [place] [id number] Jul, [facility] [address] [id number] [address] [place] [address], [place] [id number] Jul, [facility] [address] [id number] [address] [place] [address], [place] [address] Jun, [facility] [address] [id number] [address] [place] [address], [place] [address] May, [facility] [address] [id number] [address] [place] [address], [place] [id number] Mar, [facility] [address] [id number] [address] [place] [address], [place] [address] Mar, [facility] [address] [id number] [address] [place] [address], [place] [address] Mar, [facility] [address] [id number] [address] [place] [address] [place] [address] February, [facility] [address] [id number] [address] [place] [address], [place] [address] February, [facility] [address] [id number] [address] [place] [address], [place] [address] February, [facility] [address] [id number] [address] [place] [address], [place] [address] February, [facility] [address] [id number] [address] [place] [address], [place] [address] February, [facility] [address] [id number] [address] [place] [address], [place] [address] February, [facility] [address] [id number] [address] [place] [address], [place] [address] February, [facility] [address] [id number] [address] [place] [address], [place] [address] February, [facility] [address] [id number] [address] [place] [address], [place] [address] February, [facility] [address] [id number] [address] [place] [address], [place] [address] February, [facility] [address] [id number] [address] [place] [address], [place] [address] February, [facility] [address] [id number] [address] [place] [address], [place] [address] 18 Nov, 2012 [facility] [address] [id number] [address] [place] [address], [place] [address] 08 Nov, 2012 [facility] [address] [id number] [address] [place] [address], [place] [address] Nov, [facility] [address] [id number] [address] [place] [address], [place] [address] Sep, [facility] [address] [id number] [address] [place] [address], [place] [address] Sep, [facility] [address] [id number] [address] [place] [address], [place] [address] Sep, [facility] [address] [id number] [address] [place] [address], [place] [address] Sep, [facility] [address] [id number] [address] [place] [address], [place] [address] Sep, [facility] [address] [id number] [address] [place] [address], [place] [address] Sep, [facility] [address] [id number] [address] [place] [address], [place] [address] Aug, [facility] [address] [id number] [address] [place] [address], [place] [address] Aug, [facility] [address] [id number] [address] [place] [address], [place] [address] Aug, [facility] [address] [id number] [address] [place] [address], [place] [address] Aug, [facility] [address] [id number] [address] [place] [address], [place] [address] Jul, [facility] [address] [id number] [address] [place] [address], [place] [address] Jul, [facility] [address] [id number] [address] [place] [address], [place] [address] Jul, [facility] [address] [id number] [address] [place] [address], [place] [address] Jul, [facility] [address] [id number] [address] [place] [address], [place] [address] Jul, [facility] [address] [id number] [address] [place] [address], [place] [address] Jul, [facility] [address] [id number] [address] [place] [address], [place] [address] Jul, [facility] [address] [id number] [address] [place] [address], [place] [address] Jul, [facility] [address] [id number] [address] [place] [address], [place] [address] Jun, [facility] [address] [id number] [address] [place] [address], [place] [address] Apr, [facility] [address] [id number] [address] [place] [address], [place] [address] Apr, [facility] [address] [id number] [address] [place] [address], [place] [address] Apr, [facility] [address] [id number] [address] [place] [address], [place] [address] Apr, [facility] [address] [id number] [address] [place] [address], [place] [address] Mar, [facility] [address] [id number] [address] [place] [address], [place] [address] Mar, [facility] [address] [id number] [address] [place] [address], [place] [address] Mar, [facility] [address] [id number] [address] [place] [id number] Mar, [facility] [address] [id number] [address] [place] [id number] Mar, [facility] [address] [id number] [address] [place] [id number] February, [facility] [address] [id number] [address] [place] [id number] Oct, [facility] [address] [id number] [address] [place] [id number] Oct, [facility] [address] [id number] [address] [place] [id number] Aug, [facility] [address] [facility] [id number] [address] [place] [id number] Aug, [facility] [address] [facility] [id number] [address] [place] [id number] Jul, [facility] [address] [facility] [id number] [address] [place] [id number] Mar, [facility] [address] [facility] [id number] [address] [place] [id number] Sep, IMMUNIZATIONS No Known Immunizations SOCIAL HISTORY Never Assessed REASON FOR VISIT PLAN OF CARE VITAL SIGNS MEDICATIONS Unknown Medications RESULTS No Results PROCEDURES No Known procedures INSTRUCTIONS MEDICATIONS ADMINISTERED No Known Medications MEDICAL (GENERAL) HISTORY Type Description Date Medical History hypertension Medical History chronic bronchitis Medical History asthma-triggers are heat and pet dander, pollens, mold Medical History diverticulitis Medical History irritable bowel syndrome Medical History urinary tract infection Medical History Arthritis Medical History headache Medical History depression Medical History gallbladder disease Medical History backache Medical History Type II diabetes Medical History Miscarriages - 9 pregnancies ; 2 pregnancies carried to 6 months. Medical History Diverticulitis / Diverticulosis Medical History PTSD Surgical History tonsillectomy Surgical History cholecystectomy Hospitalization History Hospitalization for surgery only Hospitalization History ER visit for headache. She had a 40 0 blood sugar. 05/2016 Hospitalization History [facility] 01/25/2020-2019 Hospitalization History Via January 2020 Hospitalization History via February 2020
--- OUTSIDE RECORDS SUMMARY | 2020-03-14 16:26 | XMS REPORT ---
Author Author Estefani Vincent Doctor Organization [facility] Address Unknown Phone Unavailable Care Team Providers Care Nitriles Lab Technician Name Role Phone Migration, Doctor Unavailable Unavailable PROBLEMS Type Condition ICD9-CM Code EAW49-[place] Code Onset Dates Condition S tatus SNOMED Code Problem Mild persistent asthma without complication J45.30 Active 148459919 Problem Essential hypertension I10 Active 40586404 Problem Bipolar disorder with depression F31.30 Active 47844641 Problem Migraine without aura and without status migrain osus, not intractable G43.009 Active 828011847 Problem GERD with esophagitis K21.0 Active 533604086 Problem Chronic post-traumatic stress disorder (PTSD) F43. 12 Active 988845562 Problem Compulsive skin picking L98.1 Active 983353861 Problem Body mass index (BMI) of 50-59.9 in adult Z68.43 Active 217367432 Problem Gastroesophageal reflux disease, esophagitis pre sence not specified K21.9 Active 373891416 Problem Morbid (severe) obesity due to excess calories E66 .01 Active 074674291 Problem Morbid obesity E66.01 Active 34175 6002 Problem Psychophysiological insomnia F51.04 A ctive 174050822 Problem Type 2 diabetes mellitus wit h complication, without long-term current use of insulin E11.8 Active 75935646 Problem Seasonal allergic rhinitis due to pollen J30.1 Active 61264192 Problem Rhinosinusitis J32.9 Active 89543 4004 Problem Mixed hyperlipidemia E78.2 Active 053262475 ALLERGIES No Information ENCOUNTERS Encounter Location Date Diagnosis [facility] [address] [facility] [id number] [address] [place] [address] Apr, [facility] [address] [facility] [id number] [address] [place] [address] Mar, [facility] [address] [facility] [id number] [address] [place] [address] February, [facility] [address] [address] 14 Feb, 2020 Gastroesophageal reflux dise ase, esophagitis presence not specified K21.9 [facility] [address] [address] 30 Jan, 2020 Bipolar disorder with depres kirsten F31.30 ; Chronic post-traumatic stress disorder (PTSD) F43.12 ; Morbid obesity E66.01 and Compulsive skin picking L98.1 [facility] [address] [address] 29 Jan, 2020 [facility] [address] [address] 20 Jan, 2020 [place] [address] [address] 16 Jan, 2020 [place] [address] [address] 13 Jan, 2020 [facility] [address] [address] 12 Jan, 2020 Non-intractable vomiting wit h nausea, unspecified vomiting type R11.2 [facility] [address] [address] 10 Jan, 2020 [facility] [address] [address] 07 Jan, 2020 [facility] [address] [address] Jan, [facility] [address] [address] Jan, [facility] [address] [address] 04 Jan, 2020 Type 2 diabetes mellitus wit hout complications E11.9 [facility] [address] [address] 02 Jan, 2020 Dog scratch W54.8XXA [place] [id number] [place] [address] 27 Dec, 2019 Essential hypertension I10 [place] [address] [address] 16 Dec, 2019 Bipolar disorder with depres kirsten F31.30 [place] [address] [place] [id number] [place] [address] 12 Dec, 2019 [place] [address] [address] 10 Dec, 2019 Bipolar disorder with depres kirsten F31.30 ; Chronic post-traumatic stress disorder (PTSD) F43.12 ; Morbid obesity E66.01 and Compulsive skin picking L98.1 [place] [address] [address] 05 Dec, 2019 [place] [address] [address] 03 Dec, 2019 Gastroesophageal reflux dise ase, esophagitis presence not specified K21.9 and Epigastric abdominal pain R10.13 [place] [address] [address] 02 Dec, 2019 Mixed hyperlipidemia E78.2 a nd Serum potassium elevated E87.5 [place] [address] [address] Nov, Mild persistent asthma witho ut complication J45.30 [place] [address] [place] [id number] [place] [address] 21 Nov, 2019 Mild persistent asthma witho ut complication J45.30 ; Essential hypertension I10 ; Migraine without aura and without status migrainosus, not intractable G43.009 ; Type 2 diabetes mellitus with complication, without long- term current use of insulin E11.8 and Rhinosinusitis J32.9 [place] [address] [place] [id number] [address] [place] [address] 14 Oct, 2019 [place] [address] [place] [address] [place] [address] Oct, Bipolar disorder with depres kirsten F31.30 ; Chronic post-traumatic stress disorder (PTSD) F43.12 ; Morbid obesity E66.01 and Compulsive skin picking L98.1 [facility] [address] [facility] [id number] [address] [place] [address] Oct, [facility] [address] [facility] [id number] [address] [place] [address] Sep, Simple chronic bronchitis J4 1.0 [facility] [address] [facility] [id number] [address] [place] [address] Sep, Bronchitis J40 [facility] [address] [facility] [id number] [address] [place] [address] Aug, Bronchitis J40 [facility] [address] [place] [id number] [address] [place] [address] Jul, [facility] [address] [place] [id number] [address] [place] [address] Jul, [facility] [address] [address] Jul, [facility] [address] [place] [id number] [address] [place] [address] Jun, Compulsive skin picking L98. 1 and Essential hypertension I10 [facility] [address] [facility] [id number] [address] [place] [address] Jun, Encounter for immunization Z 23 [facility] [address] [facility] [id number] [address] [place] [address] Jun, [facility] [address] [place] [id number] [address] [place] [address] 05 Jun, 2019 Psychophysiological insomnia F51.04 ; Bipolar disorder with depression F31.30 ; Chronic post-traumatic stress disorder (PTSD) F43.12 and Morbid obesity E66.01 [facility] [address] [place] [id number] [address] [place] [address] 04 Jun, 2019 Psychophysiological insomnia F51.04 [place] [address] [place] [id number] [place] [address] 15 May, 2019 Migraine without aura and wi thout status migrainosus, not intractable G43.009 [facility] [address] [place] [id number] [place] [address] 02 May, 2019 Migraine without aura and wi thout status migrainosus, not intractable G43.009 [place] [address] [place] [id number] [place] [address] Apr, Daily headache R51 ; Seasona l allergic rhinitis due to pollen J30.1 ; Type 2 diabetes mellitus without complications E11.9 and Morbid obesity E66.01 [place] [address] [address] Apr, [place] [address] [address] Apr, [facility] [address] [address] Mar, Encounter for immunization Z 23 [facility] [address] [address] Mar, Skin infection L08.9 and Mor bid obesity E66.01 [facility] [address] [address] Mar, Morbid obesity E66.01 [place] [address] [address] Mar, [place] [address] [address] Mar, Type 2 diabetes mellitus wit h complication, without long-term current use of insulin E11.8 [place] [address] [address] Mar, [place] [address] [id number] [address] [place] [address] 18 Mar, 2019 [facility] [address] [id number] [address] [place] [address] Mar, [facility] [address] [id number] [address] [place] [address] Mar, Essential hypertension I10 [facility] [address] [id number] [address] [place] [address] 13 Mar, 2019 Migraine without aura and wi thout status migrainosus, not intractable G43.009 [facility] [address] [id number] [address] [place] [address] Mar, [facility] [address] [id number] [address] [place] [address] Mar, Psychophysiological insomnia F51.04 [facility] [address] [facility] [id number] [address] [place] [address] February, [facility] [address] [id number] [address] [place] [address] February, Type 2 diabetes mellitus wit hout complications E11.9 [facility] [address] [facility] [id number] [address] [place] [address] February, Migraine without aura and wi thout status migrainosus, not intractable G43.009 [facility] [address] [facility] [id number] [address] [place] [address] February, Type 2 diabetes mellitus wit hout complications E11.9 [facility] [address] [facility] [id number] [address] [place] [address] February, Bipolar disorder with depres kirsten F31.30 ; Compulsive skin picking L98.1 ; Chronic post-traumatic stress disorder (PTSD) F43.12 and Morbid obesity E66.01 [facility] [address] [facility] [id number] [address] [place] [address] February, Mild persistent asthma witho ut complication J45.30 and Bipolar disorder with depression F31.30 [facility] [address] [address] Jan, [place] [address] [address] Jan, Type 2 diabetes mellitus wit hout complications E11.9 ; Essential hypertension I10 ; Hyperglycemia R73.9 and Morbid obesity E66.01 [place] [address] [address] 09 Jan, 2019 Bipolar disorder with depres kirsten F31.30 ; Compulsive skin picking L98.1 ; Chronic post-traumatic stress disorder (PTSD) F43.12 ; Body mass index (BMI) of 50-59.9 in adult Z68.43 and Morbid (severe) obesity due to excess calories E66.01 [place] [address] [address] Dec, [place] [address] [address] 18 Nov, 2018 Type 2 diabetes mellitus wit hout complications E11.9 [place] [address] [address] 14 Nov, 2018 [place] [address] [address] 13 Nov, 2018 Type 2 diabetes mellitus wit hout complications E11.9 [place] [address] [place] [id number] [place] [address] 06 Nov, 2018 [place] [address] [address] 06 Nov, 2018 Type 2 diabetes mellitus wit hout complications E11.9 ; Depression, unspecified depression type F32.9 ; Essential hypertension I10 ; Hyperglycemia R73.9 ; Psychophysiological insomnia F51.04 and BMI 50.0-59.9, adult Z68.43 [place] [address] [address] Sep, [facility] [address] [facility] [id number] [address] [place] [address] Aug, [facility] [address] [facility] [id number] [address] [place] [address] Jul, [facility] [address] [place] [id number] [address] [place] [address] Jul, Type 2 diabetes mellitus wit hout complications E11.9 ; Hyperglycemia R73.9 ; History of venomous spider bite Z91.89 and BMI 50.0-59.9, adult Z68.43 [facility] [address] [place] [id number] [address] [place] [address] Jun, [facility] [address] [place] [id number] [address] [place] [address] Apr, Migraine without aura and wi thout status migrainosus, not intractable G43.009 [facility] [address] [place] [id number] [address] [place] [address] Apr, Essential hypertension I10 [facility] [address] [facility] [id number] [address] [place] [address] Apr, Type 2 diabetes mellitus wit hout complications E11.9 and Migraine without aura and without status migrainosus, not intractable G43.009 [facility] [address] [place] [id number] [address] [place] [address] Mar, [facility] [address] [place] [id number] [address] [place] [address] Mar, [facility] [address] [facility] [id number] [address] [place] [address] February, [facility] [address] [place] [id number] [address] [place] [address] February, Intractable migraine with au ra with status migrainosus G43.111 and BMI 50.0-59.9, adult Z68.43 [facility] [address] [place] [id number] [address] [place] [address] Jan, Type 2 diabetes mellitus wit hout complications E11.9 ; Mild persistent asthma without complication J45.30 ; Depression, unspecified depression type F32.9 and Bipolar disorder with depression F31.30 [facility] [address] [address] Jan, [facility] [address] [address] Jan, Type 2 diabetes mellitus wit hout complications E11.9 ; Essential hypertension I10 ; Depression, unspecified depression type F32.9 ; Mild persistent asthma without complication J45.30 and BMI 50.0-59.9, adult Z68.43 [facility] [address] [address] Nov, Viral illness B34.9 and BMI 50.0-59.9, adult Z68.43 [facility] [address] [address] Mar, Depression, unspecified depr ession type F32.9 ; Type 2 diabetes mellitus without complications E11.9 ; Essential hypertension I10 and Seasonal allergies J30.2 [place] [address] [address] Mar, Uncontrolled type 2 diabetes mellitus with hypoglycemia and coma, without long-term current use of insulin E11.641 ; Type 2 diabetes mellitus without complications E11.9 and Depression, unspecified depression type F32.9 [facility] [address] [place] [id number] [address] [place] [address] February, [place] [address] [address] February, [place] [address] [address] February, [facility] [address] [address] February, [facility] [address] [id number] [address] [place] [address] February, Depression, unspecified depr ession type F32.9 and Bipolar disorder with depression F31.30 [facility] [address] [id number] [address] [place] [address] February, Dysthymia 300.4 and Type 2 d iabetes mellitus without complications E11.9 [place] [address] [facility] [id number] [address] [place] [address] February, [place] [address] [facility] [id number] [address] [place] [address] February, Type 2 diabetes mellitus wit hout complications E11.9 and Pain of right hip joint M25.551 [place] [address] [place] [id number] [address] [place] [address] February, [place] [address] [facility] [id number] [address] [place] [address] Jan, Uncontrolled type 2 diabetes mellitus with hypoglycemia and coma, without long-term current use of insulin E11.641 ; Essential hypertension I10 and Depression, unspecified depression type F32.9 [place] [address] [facility] [id number] [address] [place] [address] 14 Nov, 2016 Mild persistent asthma witho ut complication J45.30 [place] [address] [facility] [id number] [address] [place] [address] Aug, [place] [address] [facility] [id number] [address] [place] [address] Aug, Essential hypertension I10 [place] [address] [facility] [id number] [address] [place] [address] Jun, [place] [address] [facility] [id number] [address] [place] [address] Jun, [place] [address] [facility] [id number] [address] [place] [address] Jun, Type 2 diabetes mellitus wit h complication, without long-term current use of insulin E11.8 and Diarrhea, unspecified type R19.7 [place] [address] [facility] [id number] [address] [place] [address] Jun, [place] [address] [facility] [id number] [address] [place] [address] Jun, [place] [address] [address] Jun, Type 2 diabetes mellitus wit hout complications E11.9 and Mild persistent asthma without complication J45.30 [place] [address] [facility] [id number] [address] [place] [address] May, Mild persistent asthma witho ut complication J45.30 and Uncontrolled type 2 diabetes mellitus with hypoglycemia and coma, without long-term current use of insulin E11.641 [place] [address] [place] [id number] [address] [place] [address] May, [place] [address] [place] [id number] [address] [place] [address] May, [place] [address] [address] May, Uncontrolled type 2 diabetes mellitus with hypoglycemia and coma, without long-term current use of insulin E11.641 ; Headache, unspecified headache type R51 ; Hypoglycemia E16.2 ; Hyperglycemia R73.9 ; Urinary tract infection without hematuria, site unspecified N39.0 and Financial difficulties Z59.8 [facility] [address] [place] [id number] [address] [place] [id number] Apr, Dental examination Z01.20 [facility] [address] [facility] [id number] [address] [place] [address] Mar, Type 2 diabetes mellitus wit hout complication, without long-term current use of insulin E11.9 ; Rash R21 ; Mild persistent asthma without complication J45.30 ; Seasonal allergies J30.2 ; Depression, unspecified depression type F32.9 ; GERD with esophagitis K21.0 ; Financial difficulties Z59.8 and Essential hypertension I10 [facility] [address] [address] Mar, Bipolar affective disorder 2 96.80 and No condition on Gordon II V71.09 [facility] [address] [address] Mar, [facility] [address] [address] Mar, Screening for tuberculosis V 74.1 ; Type 2 diabetes mellitus 250.00 ; Hypertension 401.9 ; Arthralgia 719.40 ; Dysthymia 300.4 ; GERD (gastroesophageal reflux disease) 530.81 and Exposure to viral disease V01.79 [facility] [address] [address] 16 Mar, 2015 [facility] [address] [address] Jan, [facility] [address] [address] Jan, [facility] [address] [address] Sep, [facility] [address] [address] Sep, [facility] [address] [address] Sep, [facility] [address] [place] [id number] [address] [place] [address] Sep, [facility] [address] [address] Aug, [facility] [address] [place] [id number] [address] [place] [address] Aug, [facility] [address] [address] Apr, [facility] [place] [facility] [address] [id number] [address] [place] [address], [place] [address] Apr, 2013 [facility] [address] [id number] [address] [place] [address], [place] [address] Apr, [facility] [address] [id number] [address] [place] [address], [place] [address] Apr, [facility] [address] [id number] [address] [place] [address], [place] [address] Mar, [facility] [address] [id number] [address] [place] [address], [place] [address] Mar, [facility] [address] [id number] [address] [place] [address], [place] [address] Oct, [facility] [address] [id number] [address] [place] [address], [place] [address] Oct, [facility] [address] [id number] [address] [place] [address], [place] [address] Sep, [facility] [address] [id number] [address] [place] [address], [place] [address] Sep, [facility] [address] [id number] [address] [place] [address], [place] [address] Jul, [facility] [address] [id number] [address] [place] [address], [place] [address] Jul, [facility] [address] [id number] [address] [place] [address], [place] [address] Jul, [facility] [address] [id number] [address] [place] [address], [place] [address] Jul, [facility] [address] [id number] [address] [place] [address], [place] [address] Jul, [facility] [address] [id number] [address] [place] [address], [place] [address] Jun, [facility] [address] [id number] [address] [place] [address], [place] [address] May, [facility] [address] [id number] [address] [place] [address], [place] [address] Mar, [facility] [address] [id number] [address] [place] [address], [place] [address] Mar, [facility] [address] [id number] [address] [place] [address], [place] [address] Mar, [facility] [address] [id number] [address] [place] [address], [place] [address] February, [facility] [address] [id number] [address] [place] [address], [place] [address] February, [facility] [address] [id number] [address] [place] [address], [place] [address] February, [facility] [address] [id number] [address] [place] [address], [place] [address] February, [facility] [address] [id number] [address] [place] [address], [place] [address] February, [facility] [address] [id number] [address] [place] [address], [place] [address] February, [facility] [address] [id number] [address] [place] [address], [place] [address] February, [facility] [address] [id number] [address] [place] [address], [place] [address] February, [facility] [address] [id number] [address] [place] [address], [place] [address] February, [facility] [address] [id number] [address] [place] [address], [place] [address] February, [facility] [address] [id number] [address] [place] [address], [place] [address] February, [facility] [address] [id number] [address] [place] [address], [place] [address] Nov, [facility] [address] [id number] [address] [place] [address], [place] [address] 08 Nov, 2012 [facility] [address] [id number] [address] [place] [address], [place] [address] 07 Nov, 2012 [facility] [address] [id number] [address] [place] [address], [place] [address] Sep, [facility] [address] [id number] [address] [place] [address], [place] [address] Sep, [facility] [address] [id number] [address] [place] [address], [place] [address] Sep, [facility] [address] [id number] [address] [place] [address], [place] [address] Sep, [facility] [address] [id number] [address] [place] [address], [place] [address] Sep, [facility] [address] [id number] [address] [place] [address], [place] [address] Sep, [facility] [address] [id number] [address] [place] [address], [place] [address] Aug, [facility] [address] [id number] [address] [place] [address], [place] [address] Aug, [facility] [address] [id number] [address] [place] [address], [place] [address] Aug, [facility] [address] [id number] [address] [place] [address], [place] [address] Aug, [facility] [address] [id number] [address] [place] [address], [place] [address] Jul, [facility] [address] [id number] [address] [place] [address], [place] [address] Jul, [facility] [address] [id number] [address] [place] [address], [place] [address] Jul, [facility] [address] [id number] [address] [place] [address], [place] [address] Jul, [facility] [address] [id number] [address] [place] [address], [place] [address] Jul, [facility] [address] [id number] [address] [place] [address], [place] [address] Jul, [facility] [address] [id number] [address] [place] [address], [place] [address] Jul, [facility] [address] [id number] [address] [place] [address], [place] [address] Jul, [facility] [address] [id number] [address] [place] [address], [place] [address] Jun, [facility] [address] [id number] [address] [place] [address], [place] [address] Apr, [facility] [address] [id number] [address] [place] [address], [place] [address] Apr, [facility] [address] [id number] [address] [place] [address], [place] [address] Apr, [facility] [address] [id number] [address] [place] [address], [place] [address] Apr, [facility] [address] [id number] [address] [place] [address], [place] [address] Mar, [facility] [address] [id number] [address] [place] [address], [place] [address] Mar, [facility] [address] [id number] [address] [place] [address] Mar, [facility] [address] [id number] [address] [place] [address], [place] [address] Mar, [facility] [address] [id number] [address] [place] [address], [place] [address] Mar, [facility] [address] [id number] [address] [place] [address], [place] [address] February, [facility] [address] [id number] [address] [place] [address] Oct, [facility] [address] [facility] [id number] [address] [place] [address] Oct, [facility] [address] [facility] [id number] [address] [place] [address] Aug, [facility] [address] [facility] [id number] [address] [place] [address] Aug, [facility] [address] [facility] [id number] [address] [place] [address] Jul, [facility] [address] [facility] [id number] [address] [place] [address] Mar, [facility] [address] [facility] [id number] [address] [place] [address] Sep, IMMUNIZATIONS No Known Immunizations SOCIAL HISTORY [...] 40 0 blood sugar. 05/2016 Hospitalization History [facility] 01/25/2020-2019 Hospitalization History Via January 2020 Hospitalization History via February 2020
--- OUTSIDE RECORDS SUMMARY | 2020-03-14 16:26 | XMS REPORT ---
Author Author Estefani CHUA Organization [facility] Address [address] [place] [address] Care Team Providers Care Patient Resource Coordinator Name Role Phone JOANNE CHUA Unavailable PROBLEMS Type Condition ICD9-CM Code [id number] Code Onset Dates Condition S tatus SNOMED Code Problem Mild persistent asthma without complication J45.30 Active 672865908 Problem Essential hypertension I10 Active 58956769 Problem Bipolar disorder with depression F31.30 Active 97243230 Problem Migraine without aura and without status migrain osus, not intractable G43.009 Active 952418012 Problem GERD with esophagitis K21.0 Active 312914127 Problem Chronic post-traumatic stress disorder (PTSD) F43. 12 Active 520339035 Problem Compulsive skin picking L98.1 Active 334867541 Problem Body mass index (BMI) of 50-59.9 in adult Z68.43 Active 662690574 Problem Gastroesophageal reflux disease, esophagitis pre sence not specified K21.9 Active 861946416 Problem Morbid (severe) obesity due to excess calories E66 .01 Active 667772333 Problem Morbid obesity E66.01 Active 01355 6002 Problem Psychophysiological insomnia F51.04 A ctive 392892123 Problem Type 2 diabetes mellitus wit h complication, without long-term current use of insulin E11.8 Active 14577758 Problem Seasonal allergic rhinitis due to pollen J30.1 Active 89432818 Problem Rhinosinusitis J32.9 Active 68380 4004 Problem Mixed hyperlipidemia E78.2 Active 887931656 ALLERGIES No Information ENCOUNTERS Encounter Location Date Diagnosis [facility] [address] [facility] [id number] [address] [place] [phone] Apr, [facility] [address] [facility] [id number] [address] [place] [address] February, [facility] [address] [facility] [id number] [address] [place] [phone] 14 Feb, 2020 [facility] [address] [facility] [id number] [address] [place] [address] February, [facility] [address] [facility] [id number] [address] [place] [address] 30 Jan, 2020 Bipolar disorder with depres kirsten F31.30 ; Chronic post-traumatic stress disorder (PTSD) F43.12 ; Morbid obesity E66.01 and Compulsive skin picking L98.1 [facility] [address] [facility] [id number] [address] [place] [address] 29 Jan, 2020 [facility] [address] [facility] [id number] [address] [place] [phone] 20 Jan, 2020 [facility] [address] [place] [id number] [address] [place] [phone] 16 Jan, 2020 [facility] [address] [facility] [id number] [address] [place] [address] 13 Jan, 2020 [facility] [address] [facility] [id number] [address] [place] [phone] 12 Jan, 2020 Non-intractable vomiting wit h nausea, unspecified vomiting type R11.2 [facility] [address] [facility] [id number] [address] [place] [address] 10 Jan, 2020 [facility] [address] [facility] [id number] [address] [place] [phone] 07 Jan, 2020 [facility] [address] [facility] [id number] [address] [place] [address] Jan, [facility] [address] [facility] [id number] [address] [place] [phone] 06 Jan, 2020 [facility] [address] [facility] [id number] [address] [place] [id number] 04 Jan, 2020 Type 2 diabetes mellitus wit hout complications E11.9 [facility] [address] [facility] [id number] [address] [place] [address] Jan, Dog scratch W54.8XXA [place] [address] [id number] 27 Dec, 2019 Essential hypertension I10 [place] [address] [place] [id number] 16 Dec, 2019 Bipolar disorder with depres kirsten F31.30 [place] [address] [place] [id number] 12 Dec, 2019 [place] [address] [address] 10 Dec, 2019 Bipolar disorder with depres kirsten F31.30 ; Chronic post-traumatic stress disorder (PTSD) F43.12 ; Morbid obesity E66.01 and Compulsive skin picking L98.1 [place] [address] [address] 05 Dec, 2019 [place] [address] [id number] 03 Dec, 2019 Gastroesophageal reflux dise ase, esophagitis presence not specified K21.9 and Epigastric abdominal pain R10.[address] [address] 02 Dec, 2019 Mixed hyperlipidemia E78.2 a nd Serum potassium elevated E87.[address] [address] Nov, Mild persistent asthma witho ut complication J45.30 [place] [address] [address] 21 Nov, 2019 Mild persistent asthma witho ut complication J45.30 ; Essential hypertension I10 ; Migraine without aura and without status migrainosus, not intractable G43.009 ; Type 2 diabetes mellitus with complication, without long- term current use of insulin E11.8 and Rhinosinusitis J32.[address] [address] Oct, [facility] [address] [facility] [id number] [address] [place] [address] 07 Oct, 2019 Bipolar disorder with depres kirsten F31.30 ; Chronic post-traumatic stress disorder (PTSD) F43.12 ; Morbid obesity E66.01 and Compulsive skin picking L98.1 [facility] [address] [facility] [id number] [address] [place] [address] 06 Oct, 2019 [facility] [address] [facility] [id number] [address] [place] [address] Sep, Simple chronic bronchitis J4 1.0 [facility] [address] [place] [id number] [place] [address] Sep, Bronchitis J40 [facility] [address] [facility] [id number] [address] [place] [address] Aug, Bronchitis J40 [facility] [address] [place] [id number] [address] [place] [address] Jul, [facility] [id number] [place] [address] Jul, [facility] [address] [place] [id number] [address] [place] [address] Jul, [facility] [address] [place] [id number] [address] [place] [address] Jun, Compulsive skin picking L98. 1 and Essential hypertension I10 [facility] [address] [facility] [id number] [address] [place] [address] 24 Jun, 2019 Encounter for immunization Z 23 [place] [address] [facility] [id number] [address] [place] [address] 18 Jun, 2019 [facility] [address] [facility] [id number] [address] [place] [address] 05 Jun, 2019 Psychophysiological insomnia F51.04 ; Bipolar disorder with depression F31.30 ; Chronic post-traumatic stress disorder (PTSD) F43.12 and Morbid obesity E66.01 [place] [address] [facility] [id number] [address] [place] [id number] 04 Jun, 2019 Psychophysiological insomnia F51.04 [place] [address] [facility] [id number] [address] [place] [address] 15 May, 2019 Migraine without aura and wi thout status migrainosus, not intractable G43.009 [place] [address] [place] [id number] [address] [place] [address] May, Migraine without aura and wi thout status migrainosus, not intractable G43.009 [place] [address] [facility] [id number] [address] [place] [address] Apr, Daily headache R51 ; Seasona l allergic rhinitis due to pollen J30.1 ; Type 2 diabetes mellitus without complications E11.9 and Morbid obesity E66.01 [place] [address] [place] [address] Apr, [place] [address] [address] Apr, [facility] [address] [address] Mar, Encounter for immunization Z 23 [facility] [address] [place] [id number] [place] [address] Mar, Skin infection L08.9 and Mor bid obesity E66.01 [facility] [address] [place] [id number] [address] [place] [address] Mar, Morbid obesity E66.01 [place] [address] [place] [id number] [address] [place] [address] Mar, [place] [address] [place] [id number] [place] [address] Mar, Type 2 diabetes mellitus wit h complication, without long-term current use of insulin E11.8 [place] [address] [place] [id number] [place] [address] Mar, [facility] [address] [id number] [address] [place] [address] Mar, [facility] [address] [facility] [id number] [address] [place] [address] Mar, [facility] [address] [facility] [id number] [address] [place] [address] 18 Mar, 2019 Essential hypertension I10 [facility] [address] [id number] [address] [place] [address] 13 Mar, 2019 Migraine without aura and wi thout status migrainosus, not intractable G43.009 [facility] [address] [facility] [id number] [address] [place] [address] Mar, [facility] [address] [facility] [id number] [address] [place] [address] Mar, Psychophysiological insomnia F51.04 [facility] [address] [facility] [id number] [address] [place] [address] February, [facility] [address] [facility] [id number] [address] [place] [phone] February, Type 2 diabetes mellitus wit hout complications E11.9 [facility] [address] [facility] [id number] [address] [place] [address] February, Migraine without aura and wi thout status migrainosus, not intractable G43.009 [facility] [address] [facility] [id number] [address] [place] [address] February, Type 2 diabetes mellitus wit hout complications E11.9 [facility] [address] [facility] [id number] [address] [place] [address] February, Bipolar disorder with depres kirsten F31.30 ; Compulsive skin picking L98.1 ; Chronic post-traumatic stress disorder (PTSD) F43.12 and Morbid obesity E66.01 [facility] [address] [facility] [id number] [address] [place] [address] February, Mild persistent asthma witho ut complication J45.30 and Bipolar disorder with depression F31.30 [place] [address] [address] Jan, [place] [address] [address] Jan, Type 2 diabetes mellitus wit hout complications E11.9 ; Essential hypertension I10 ; Hyperglycemia R73.9 and Morbid obesity E66.01 [place] [address] [address] Jan, Bipolar disorder with depres kirsten F31.30 ; Compulsive skin picking L98.1 ; Chronic post-traumatic stress disorder (PTSD) F43.12 ; Body mass index (BMI) of 50-59.9 in adult Z68.43 and Morbid (severe) obesity due to excess calories E66.01 [place] [address] [address] Dec, [place] [address] [address] Nov, Type 2 diabetes mellitus wit hout complications E11.9 [place] [address] [address] Nov, [place] [address] [address] Nov, Type 2 diabetes mellitus wit hout complications E11.9 [place] [address] [place] [id number] [address] [place] [address] Nov, [place] [address] [address] Nov, Type 2 diabetes mellitus wit hout complications E11.9 ; Depression, unspecified depression type F32.9 ; Essential hypertension I10 ; Hyperglycemia R73.9 ; Psychophysiological insomnia F51.04 and BMI 50.0-59.9, adult Z68.43 [place] [address] [facility] [id number] [address] [place] [address] Sep, [facility] [address] [facility] [id number] [address] [place] [address] Aug, [facility] [address] [facility] [id number] [address] [place] [address] Jul, [facility] [address] [place] [id number] [place] [address] Jul, Type 2 diabetes mellitus wit hout complications E11.9 ; Hyperglycemia R73.9 ; History of venomous spider bite Z91.89 and BMI 50.0-59.9, adult Z68.43 [facility] [address] [facility] [id number] [address] [place] [address] Jun, [facility] [address] [place] [id number] [address] [place] [address] Apr, Migraine without aura and wi thout status migrainosus, not intractable G43.009 [facility] [address] [facility] [id number] [address] [place] [address] Apr, Essential hypertension I10 [facility] [address] [facility] [id number] [address] [place] [address] Apr, Type 2 diabetes mellitus wit hout complications E11.9 and Migraine without aura and without status migrainosus, not intractable G43.009 [facility] [address] [facility] [id number] [address] [place] [address] Mar, [facility] [address] [facility] [id number] [address] [place] [address] Mar, [facility] [address] [facility] [id number] [address] [place] [phone] February, [facility] [address] [facility] [id number] [address] [place] [address] February, Intractable migraine with au ra with status migrainosus G43.111 and BMI 50.0-59.9, adult Z68.43 [facility] [address] [place] [id number] [address] [place] [address] Jan, Type 2 diabetes mellitus wit hout complications E11.9 ; Mild persistent asthma without complication J45.30 ; Depression, unspecified depression type F32.9 and Bipolar disorder with depression F31.30 [facility] [address] [place] [id number] [address] [place] [address] Jan, [facility] [address] [address] Jan, Type 2 diabetes mellitus wit hout complications E11.9 ; Essential hypertension I10 ; Depression, unspecified depression type F32.9 ; Mild persistent asthma without complication J45.30 and BMI 50.0-59.9, adult Z68.43 [facility] [address] [address] Nov, 2018 Viral illness B34.9 and BMI 50.0-59.9, adult Z68.43 [facility] [address] [address] Mar, Depression, unspecified depr ession type F32.9 ; Type 2 diabetes mellitus without complications E11.9 ; Essential hypertension I10 and Seasonal allergies J30.2 [place] [address] [address] Mar, Uncontrolled type 2 diabetes mellitus with hypoglycemia and coma, without long-term current use of insulin E11.641 ; Type 2 diabetes mellitus without complications E11.9 and Depression, unspecified depression type F32.9 [facility] [address] [place] [id number] [address] [place] [address] February, [facility] [address] [place] [address] February, [place] [address] [place] [id number] [address] [place] [address] February, [facility] [address] [address] February, [facility] [address] [id number] [address] [place] [address] February, Depression, unspecified depr ession type F32.9 and Bipolar disorder with depression F31.30 [place] [address] [facility] [id number] [address] [place] [address] February, Dysthymia 300.4 and Type 2 d iabetes mellitus without complications E11.9 [facility] [address] [facility] [id number] [address] [place] [address] February, [place] [address] [facility] [id number] [address] [place] [address] February, Type 2 diabetes mellitus wit hout complications E11.9 and Pain of right hip joint M25.551 [place] [address] [facility] [id number] [address] [place] [address] February, [place] [address] [facility] [id number] [address] [place] [address] Jan, Uncontrolled type 2 diabetes mellitus with hypoglycemia and coma, without long-term current use of insulin E11.641 ; Essential hypertension I10 and Depression, unspecified depression type F32.9 [place] [address] [facility] [id number] [address] [place] [address] 14 Nov, 2016 Mild persistent asthma witho ut complication J45.30 [place] [address] [facility] [id number] [address] [place] [address] Aug, [place] [address] [facility] [id number] [address] [place] [address] Aug, Essential hypertension I10 [place] [address] [facility] [id number] [address] [place] [address] Jun, [place] [address] [facility] [id number] [address] [place] [address] Jun, [place] [address] [facility] [id number] [address] [place] [address] Jun, Type 2 diabetes mellitus wit h complication, without long-term current use of insulin E11.8 and Diarrhea, unspecified type R19.7 [place] [address] [place] [address] Jun, [place] [address] [address] Jun, [place] [address] [address] Jun, Type 2 diabetes mellitus wit hout complications E11.9 and Mild persistent asthma without complication J45.30 [place] [address] [address] May, Mild persistent asthma witho ut complication J45.30 and Uncontrolled type 2 diabetes mellitus with hypoglycemia and coma, without long-term current use of insulin E11.641 [place] [address] [place] [id number] [address] [place] [address] May, [place] [address] [place] [id number] [address] [place] [address] May, [place] [address] [place] [id number] [address] [place] [address] May, Uncontrolled type 2 diabetes mellitus with hypoglycemia and coma, without long-term current use of insulin E11.641 ; Headache, unspecified headache type R51 ; Hypoglycemia E16.2 ; Hyperglycemia R73.9 ; Urinary tract infection without hematuria, site unspecified N39.0 and Financial difficulties Z59.8 [facility] [address] [facility] [id number] [address] [place] [id number] Apr, Dental examination Z01.20 [place] [address] [place] [id number] [address] [place] [address] Mar, Type 2 diabetes mellitus wit hout complication, without long-term current use of insulin E11.9 ; Rash R21 ; Mild persistent asthma without complication J45.30 ; Seasonal allergies J30.2 ; Depression, unspecified depression type F32.9 ; GERD with esophagitis K21.0 ; Financial difficulties Z59.8 and Essential hypertension I10 [facility] [address] [address] Mar, Bipolar affective disorder 2 96.80 and No condition on [place] II V71.09 [facility] [address] [address] Mar, [facility] [address] [address] Mar, Screening for tuberculosis V 74.1 ; Type 2 diabetes mellitus 250.00 ; Hypertension 401.9 ; Arthralgia 719.40 ; Dysthymia 300.4 ; GERD (gastroesophageal reflux disease) 530.81 and Exposure to viral disease V01.79 [facility] [address] [address] Mar, [facility] [address] [address] Jan, [facility] [address] [address] Jan, [facility] [address] [address] Sep, [facility] [address] [place] [id number] [address] [place] [address] Sep, [facility] [address] [place] [id number] [address] [place] [address] Sep, [facility] [address] [place] [id number] [address] [place] [address] Sep, [facility] [address] [address] Aug, [facility] [address] [place] [id number] [address] [place] [address] Aug, [facility] [address] [address] 07 Apr, 2014 [facility] [address] [id number] [address] [place] [address], [place] [address] Apr, 2013 [facility] [address] [id number] [address] [place] [address], [place] [address] Apr, [facility] [address] [id number] [address] [place] [address], [place] [address] Apr, [facility] [address] [id number] [address] [place] [address], [place] [address] Mar, [facility] [address] [id number] [address] [place] [address], [place] [address] Mar, [facility] [address] [id number] [address] [place] [address], [place] [address] Oct, [facility] [address] [id number] [address] [place] [address], [place] [address] Oct, [facility] [address] [id number] [address] [place] [address], [place] [address] Sep, [facility] [address] [id number] [address] [place] [address] Sep, [facility] [address] [id number] [address] [place] [address] Jul, [facility] [address] [id number] [address] [place] [address] Jul, [facility] [address] [id number] [address] [place] [id number] Jul, [facility] [address] [id number] [address] [place] [id number] Jul, [facility] [address] [id number] [address] [place] [id number] Jul, [facility] [address] [id number] [address] [place] [address], [place] [id number] Jun, [facility] [address] [id number] [address] [place] [address], [place] [id number] May, [facility] [address] [id number] [address] [place] [address], [place] [id number] Mar, [facility] [address] [id number] [address] [place] [address], [place] [id number] Mar, [facility] [address] [id number] [address] [place] [address], [place] [id number] Mar, [facility] [address] [id number] [address] [place] [address], [place] [id number] February, [facility] [facility] [address] [id number] [address] [place] [address], [place] [address] February, [facility] [address] [id number] [address] [place] [address], [place] [address] February, [facility] [address] [id number] [address] [place] [address], [place] [address] February, [facility] [address] [id number] [address] [place] [address], [place] [address] February, [facility] [address] [id number] [address] [place] [address], [place] [address] February, [facility] [address] [id number] [address] [place] [address], [place] [address] February, [facility] [address] [id number] [address] [place] [address], [place] [address] February, [facility] [address] [id number] [address] [place] [address], [place] [address] February, [facility] [address] [id number] [address] [place] [address], [place] [address] February, [facility] [address] [id number] [address] [place] [address], [place] [address] February, [facility] [address] [id number] [address] [place] [address], [place] [address] 18 Nov, 2012 [facility] [address] [id number] [address] [place] [address], [place] [address] 08 Nov, 2012 [facility] [address] [id number] [address] [place] [address], [place] [address] Nov, [facility] [address] [id number] [address] [place] [address], [place] [address] Sep, [facility] [address] [id number] [address] [place] [address], [place] [address] Sep, [facility] [address] [id number] [address] [place] [address], [place] [address] Sep, [facility] [address] [id number] [address] [place] [address], [place] [address] Sep, [facility] [address] [id number] [address] [place] [address], [place] [address] Sep, [facility] [address] [id number] [address] [place] [address], [place] [address] Sep, [facility] [address] [id number] [address] [place] [address], [place] [address] Aug, [facility] [address] [id number] [address] [place] [address], [place] [address] Aug, [facility] [address] [id number] [address] [place] [address], [place] [address] Aug, [facility] [address] [id number] [address] [place] [address], [place] [address] Aug, [facility] [address] [id number] [address] [place] [address], [place] [address] Jul, [facility] [address] [id number] [address] [place] [address], [place] [address] Jul, [facility] [address] [id number] [address] [place] [address], [place] [address] Jul, [facility] [address] [id number] [address] [place] [address], [place] [address] 17 Jul, 2012 [facility] [address] [id number] [address] [place] [address], [place] [address] Jul, [facility] [address] [id number] [address] [place] [address], [place] [address] 16 Jul, 2012 [facility] [address] [id number] [address] [place] [address], [place] [address] Jul, [facility] [address] [id number] [address] [place] [address], [place] [address] Jul, [facility] [address] [id number] [address] [place] [address], [place] [address] Jun, [facility] [address] [id number] [address] [place] [address], [place] [address] Apr, [facility] [address] [id number] [address] [place] [address], [place] [address] Apr, [facility] [address] [id number] [address] [place] [address], [place] [address] Apr, [facility] [address] [id number] [address] [place] [address], [place] [address] Apr, [facility] [address] [id number] [address] [place] [address], [place] [address] Mar, [facility] [address] [id number] [address] [place] [address], [place] [address] Mar, [facility] [address] [id number] [address] [place] [address], [place] [address] Mar, [facility] [address] [id number] [address] [place] [address], [place] [address] Mar, [facility] [address] [id number] [address] [place] [address], [place] [address] Mar, [facility] [address] [id number] [address] [place] [address], [place] [address] February, [facility] [address] [facility] [id number] [address] [place] [address] Oct, [facility] [address] [facility] [id number] [address] [place] [address] Oct, [facility] [address] [facility] [id number] [address] [place] [address] Aug, [facility] [address] [facility] [id number] [address] [place] [address] Aug, [facility] [address] [facility] [id number] [address] [place] [address] Jul, [facility] [address] [facility] [id number] [address] [place] [address] Mar, [facility] [address] [facility] [id number] [address] [place] [address] Sep, IMMUNIZATIONS No Known Immunizations SOCIAL HISTORY [...] 6 months. Medical History Diverticulitis / Diverticulosis Surgical History tonsillectomy Surgical History cholecystectomy Hospitalization History Hospitalization for surgery only Hospitalization History ER visit for headache. She had a 40 0 blood sugar. 05/2016 Hospitalization History [facility] 01/25/2020-2019 Hospitalization History [facility] January 2020
--- OUTSIDE RECORDS SUMMARY | 2020-03-14 16:26 | XMS REPORT ---
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 12 Active 438646941 Problem Compulsive skin picking L98.1 Active 582978889 Problem Body mass index (BMI) of 50-59.9 in adult Z68.43 Active 499564598 Problem Gastroesophageal reflux disease, esophagitis pre sence not specified K21.9 Active 957765998 Problem Morbid (severe) obesity due to excess calories E66 .01 Active 267588489 Problem Morbid obesity E66.01 Active 78094 6002 Problem Psychophysiological insomnia F51.04 A ctive 477573346 Problem Type 2 diabetes mellitus wit h complication, without long-term current use of insulin E11.8 Active 48923978 Problem Seasonal allergic rhinitis due to pollen J30.1 Active 93002187 Problem Rhinosinusitis J32.9 Active 57653 4004 Problem Mixed hyperlipidemia E78.2 Active 810819594 ALLERGIES No Information ENCOUNTERS Encounter Location Date Diagnosis [facility] [address] [facility] [id number] [address] [place] [address] Apr, [facility] [address] [facility] [id number] [address] [place] [address] Mar, [facility] [address] [facility] [id number] [address] [place] [address] February, [facility] [address] [facility] [id number] [address] [place] [phone] 14 Feb, 2020 Gastroesophageal reflux dise ase, esophagitis presence not specified K21.9 [facility] [address] [facility] [id number] [address] [place] [phone] 30 Jan, 2020 Bipolar disorder with depres kirsten F31.30 ; Chronic post-traumatic stress disorder (PTSD) F43.12 ; Morbid obesity E66.01 and Compulsive skin picking L98.1 [facility] [address] [facility] [id number] [address] [place] [address] 29 Jan, 2020 [facility] [address] [facility] [id number] [address] [place] [address] 20 Jan, 2020 [facility] [address] [place] [id number] [address] [place] [phone] 16 Jan, 2020 [facility] [address] [facility] [id number] [address] [place] [phone] 13 Jan, 2020 [facility] [address] [place] [id number] [address] [place] [address] 12 Jan, 2020 Non-intractable vomiting wit h nausea, unspecified vomiting type R11.2 [facility] [address] [place] [id number] [address] [place] [address] 10 Jan, 2020 [facility] [address] [facility] [id number] [address] [place] [address] 07 Jan, 2020 [facility] [address] [facility] [id number] [address] [place] [address] 06 Jan, 2020 [facility] [address] [facility] [id number] [address] [place] [address] 06 Jan, 2020 [facility] [address] [facility] [id number] [address] [place] [address] 04 Jan, 2020 Type 2 diabetes mellitus wit hout complications E11.9 [facility] [address] [address] 02 Jan, 2020 Dog scratch W54.8XXA [place] [address] [place] [id number] 27 Dec, 2019 Essential hypertension I10 [place] [address] [address] 16 Dec, 2019 Bipolar disorder with depres kirsten F31.30 [place] [address] [address] 12 Dec, 2019 [place] [address] [address] 10 Dec, 2019 Bipolar disorder with depres kirsten F31.30 ; Chronic post-traumatic stress disorder (PTSD) F43.12 ; Morbid obesity E66.01 and Compulsive skin picking L98.1 [place] [address] [address] 05 Dec, 2019 [place] [address] [address] 03 Dec, 2019 Gastroesophageal reflux dise ase, esophagitis presence not specified K21.9 and Epigastric abdominal pain R10.13 [place] [address] [address] 02 Dec, 2019 Mixed hyperlipidemia E78.2 a nd Serum potassium elevated E87.5 [place] [address] [address] Nov, Mild persistent asthma witho ut complication J45.30 [place] [address] [address] Nov, Mild persistent asthma witho ut complication J45.30 ; Essential hypertension I10 ; Migraine without aura and without status migrainosus, not intractable G43.009 ; Type 2 diabetes mellitus with complication, without long- term current use of insulin E11.8 and Rhinosinusitis J32.9 [place] [address] [place] [address] 14 Oct, 2019 [facility] [address] [facility] [id number] [address] [place] [address] 07 Oct, 2019 Bipolar disorder with depres kirsten F31.30 ; Chronic post-traumatic stress disorder (PTSD) F43.12 ; Morbid obesity E66.01 and Compulsive skin picking L98.1 [facility] [address] [place] [id number] [address] [place] [address] 06 Oct, 2019 [facility] [address] [facility] [id number] [address] [place] [phone] Sep, Simple chronic bronchitis J4 1.0 [facility] [address] [place] [id number] [place] [address] Sep, Bronchitis J40 [facility] [address] [place] [id number] [place] [phone] Aug, Bronchitis J40 [facility] [address] [place] [id number] [place] [address] Jul, [facility] [address] [address] Jul, [facility] [address] [place] [id number] [place] [address] Jul, [facility] [address] [place] [id number] [place] [address] Jun, Compulsive skin picking L98. 1 and Essential hypertension I10 [facility] [address] [facility] [id number] [address] [place] [phone] 24 Jun, 2019 Encounter for immunization Z 23 [facility] [address] [place] [id number] [address] [place] [phone] 18 Jun, 2019 [facility] [address] [place] [id number] [address] [place] [address] 05 Jun, 2019 Psychophysiological insomnia F51.04 ; Bipolar disorder with depression F31.30 ; Chronic post-traumatic stress disorder (PTSD) F43.12 and Morbid obesity E66.01 [facility] [address] [facility] [id number] [address] [place] [phone] 04 Jun, 2019 Psychophysiological insomnia F51.04 [facility] [address] [facility] [id number] [address] [place] [address] 15 May, 2019 Migraine without aura and wi thout status migrainosus, not intractable G43.009 [place] [address] [facility] [id number] [address] [place] [address] May, Migraine without aura and wi thout status migrainosus, not intractable G43.009 [place] [address] [facility] [id number] [address] [place] [address] Apr, Daily headache R51 ; Seasona l allergic rhinitis due to pollen J30.1 ; Type 2 diabetes mellitus without complications E11.9 and Morbid obesity E66.01 [place] [id number] [place] [address] Apr, [place] [address] [place] [id number] [address] [place] [address] Apr, [facility] [address] [address] Mar, Encounter for immunization Z 23 [facility] [address] [place] [id number] [address] [place] [address] Mar, Skin infection L08.9 and Mor bid obesity E66.01 [facility] [address] [facility] [id number] [address] [place] [address] Mar, Morbid obesity E66.01 [place] [address] [place] [id number] [address] [place] [phone] Mar, [place] [address] [place] [id number] [address] [place] [address] Mar, Type 2 diabetes mellitus wit h complication, without long-term current use of insulin E11.8 [place] [address] [id number] [address] [place] [phone] 18 Mar, 2019 [facility] [address] [id number] [address] [place] [address] Mar, [facility] [address] [facility] [id number] [address] [place] [address] Mar, [facility] [address] [facility] [id number] [address] [place] [address] Mar, Essential hypertension I10 [facility] [address] [id number] [address] [place] [phone] 13 Mar, 2019 Migraine without aura and wi thout status migrainosus, not intractable G43.009 [facility] [address] [facility] [id number] [address] [place] [phone] Mar, [facility] [address] [facility] [id number] [address] [place] [address] Mar, Psychophysiological insomnia F51.04 [facility] [address] [id number] [address] [place] [phone] February, [facility] [address] [facility] [id number] [address] [place] [phone] February, Type 2 diabetes mellitus wit hout complications E11.9 [facility] [address] [facility] [id number] [address] [place] [address] February, Migraine without aura and wi thout status migrainosus, not intractable G43.009 [facility] [address] [facility] [id number] [address] [place] [address] February, Type 2 diabetes mellitus wit hout complications E11.9 [facility] [address] [facility] [id number] [address] [place] [address] February, Bipolar disorder with depres kirsten F31.30 ; Compulsive skin picking L98.1 ; Chronic post-traumatic stress disorder (PTSD) F43.12 and Morbid obesity E66.01 [facility] [address] [place] [id number] [address] [place] [address] February, Mild persistent asthma witho ut complication J45.30 and Bipolar disorder with depression F31.30 [place] [address] [address] Jan, [place] [address] [address] Jan, Type 2 diabetes mellitus wit hout complications E11.9 ; Essential hypertension I10 ; Hyperglycemia R73.9 and Morbid obesity E66.01 [place] [address] [address] Jan, Bipolar disorder with depres kirsten F31.30 ; Compulsive skin picking L98.1 ; Chronic post-traumatic stress disorder (PTSD) F43.12 ; Body mass index (BMI) of 50-59.9 in adult Z68.43 and Morbid (severe) obesity due to excess calories E66.01 [place] [address] [place] [id number] [address] [place] [address] Dec, [place] [address] [address] 18 Nov, 2018 Type 2 diabetes mellitus wit hout complications E11.9 [place] [address] [place] [id number] [address] [place] [address] 14 Nov, 2018 [place] [address] [place] [id number] [address] [place] [address] Nov, Type 2 diabetes mellitus wit hout complications E11.9 [place] [address] [place] [id number] [address] [place] [phone] Nov, [place] [address] [place] [id number] [address] [place] [address] 06 Nov, 2018 Type 2 diabetes mellitus wit hout complications E11.9 ; Depression, unspecified depression type F32.9 ; Essential hypertension I10 ; Hyperglycemia R73.9 ; Psychophysiological insomnia F51.04 and BMI 50.0-59.9, adult Z68.43 [facility] [address] [facility] [id number] [address] [place] [address] Sep, [facility] [address] [facility] [id number] [address] [place] [address] Aug, [facility] [address] [facility] [id number] [address] [place] [address] Jul, [facility] [address] [facility] [id number] [address] [place] [address] Jul, Type 2 diabetes mellitus wit hout complications E11.9 ; Hyperglycemia R73.9 ; History of venomous spider bite Z91.89 and BMI 50.0-59.9, adult Z68.43 [facility] [address] [facility] [id number] [address] [place] [phone] Jun, [facility] [address] [place] [id number] [address] [place] [address] Apr, Migraine without aura and wi thout status migrainosus, not intractable G43.009 [facility] [address] [facility] [id number] [address] [place] [address] Apr, Essential hypertension I10 [facility] [address] [facility] [id number] [address] [place] [phone] Apr, Type 2 diabetes mellitus wit hout complications E11.9 and Migraine without aura and without status migrainosus, not intractable G43.009 [facility] [address] [facility] [id number] [address] [place] [phone] Mar, [facility] [address] [facility] [id number] [address] [place] [address] Mar, [facility] [address] [facility] [id number] [address] [place] [phone] February, [facility] [address] [facility] [id number] [address] [place] [address] February, Intractable migraine with au ra with status migrainosus G43.111 and BMI 50.0-59.9, adult Z68.43 [facility] [address] [place] [id number] [address] [place] [address] Jan, Type 2 diabetes mellitus wit hout complications E11.9 ; Mild persistent asthma without complication J45.30 ; Depression, unspecified depression type F32.9 and Bipolar disorder with depression F31.30 [place] [address] [address] Jan, [facility] [address] [address] Jan, Type 2 diabetes mellitus wit hout complications E11.9 ; Essential hypertension I10 ; Depression, unspecified depression type F32.9 ; Mild persistent asthma without complication J45.30 and BMI 50.0-59.9, adult Z68.43 [facility] [address] [address] Nov, Viral illness B34.9 and BMI 50.0-59.9, adult Z68.43 [place] [address] [address] Mar, Depression, unspecified depr ession type F32.9 ; Type 2 diabetes mellitus without complications E11.9 ; Essential hypertension I10 and Seasonal allergies J30.2 [place] [address] [place] [id number] [place] [address] Mar, Uncontrolled type 2 diabetes mellitus with hypoglycemia and coma, without long-term current use of insulin E11.641 ; Type 2 diabetes mellitus without complications E11.9 and Depression, unspecified depression type F32.9 [place] [address] [place] [id number] [place] [address] February, [place] [address] [place] [id number] [place] [address] February, [place] [address] [address] February, [place] [id number] [id number] [address] [place] [address] February, [facility] [address] [facility] [id number] [address] [place] [address] February, Depression, unspecified depr ession type F32.9 and Bipolar disorder with depression F31.30 [place] [address] [facility] [id number] [address] [place] [address] February, Dysthymia 300.4 and Type 2 d iabetes mellitus without complications E11.9 [place] [address] [facility] [id number] [address] [place] [address] February, [place] [address] [facility] [id number] [address] [place] [address] February, Type 2 diabetes mellitus wit hout complications E11.9 and Pain of right hip joint M25.551 [place] [address] [place] [id number] [address] [place] [id number] February, [place] [address] [place] [id number] [address] [place] [address] Jan, Uncontrolled type 2 diabetes mellitus with hypoglycemia and coma, without long-term current use of insulin E11.641 ; Essential hypertension I10 and Depression, unspecified depression type F32.9 [place] [address] [facility] [id number] [address] [place] [address] 14 Nov, 2016 Mild persistent asthma witho ut complication J45.30 [place] [address] [facility] [id number] [address] [place] [address] Aug, [place] [address] [facility] [id number] [address] [place] [address] Aug, Essential hypertension I10 [place] [address] [facility] [id number] [address] [place] [address] Jun, [place] [address] [facility] [id number] [address] [place] [address] Jun, [place] [address] [facility] [id number] [address] [place] [address] Jun, Type 2 diabetes mellitus wit h complication, without long-term current use of insulin E11.8 and Diarrhea, unspecified type R19.7 [place] [address] [facility] [id number] [address] [place] [address] Jun, [place] [id number] [place] [address] Jun, [place] [address] [facility] [id number] [address] [place] [address] Jun, Type 2 diabetes mellitus wit hout complications E11.9 and Mild persistent asthma without complication J45.30 [place] [address] [facility] [id number] [address] [place] [address] May, Mild persistent asthma witho ut complication J45.30 and Uncontrolled type 2 diabetes mellitus with hypoglycemia and coma, without long-term current use of insulin E11.641 [place] [address] [facility] [id number] [address] [place] [address] May, [place] [address] [place] [id number] [address] [place] [address] May, [place] [address] [facility] [id number] [address] [place] [address] May, Uncontrolled type 2 diabetes mellitus with hypoglycemia and coma, without long-term current use of insulin E11.641 ; Headache, unspecified headache type R51 ; Hypoglycemia E16.2 ; Hyperglycemia R73.9 ; Urinary tract infection without hematuria, site unspecified N39.0 and Financial difficulties Z59.8 [facility] [address] [facility] [id number] [address] [place] [id number] Apr, Dental examination Z01.20 [facility] [address] [facility] [id number] [address] [place] [address] Mar, Type 2 diabetes mellitus wit hout complication, without long-term current use of insulin E11.9 ; Rash R21 ; Mild persistent asthma without complication J45.30 ; Seasonal allergies J30.2 ; Depression, unspecified depression type F32.9 ; GERD with esophagitis K21.0 ; Financial difficulties Z59.8 and Essential hypertension I10 [place] [address] [address] Mar, Bipolar affective disorder 2 96.80 and No condition on [place] V71.[address] [address] Mar, [facility] [address] [address] Mar, Screening for tuberculosis V 74.1 ; Type 2 diabetes mellitus 250.00 ; Hypertension 401.9 ; Arthralgia 719.40 ; Dysthymia 300.4 ; GERD (gastroesophageal reflux disease) 530.81 and Exposure to viral disease V01.[address] [address] Mar, [facility] [address] [address] Jan, [place] [address] [address] Jan, [facility] [address] [address] Sep, [place] [address] [address] Sep, [facility] [address] [address] Sep, [facility] [address] [address] Sep, [facility] [address] [address] Aug, [facility] [address] [address] Aug, [facility] [address] [id number] [address] [place] [address], [place] [address] Apr, 2013 [facility] [address] [id number] [address] [place] [address], [place] [address] Apr, 2013 [facility] [address] [id number] [address] [place] [address], [place] [address] Apr, 2013 [facility] [address] [id number] [address] [place] [address], [place] [address] Apr, [facility] [address] [id number] [address] [place] [address], [place] [address] Mar, [facility] [address] [id number] [address] [place] [address], [place] [address] Mar, [facility] [address] [id number] [address] [place] [address], [place] [address] Oct, [facility] [address] [id number] [address] [place] [address], [place] [address] Oct, [facility] [address] [id number] [address] [place] [address], [place] [address] Sep, [facility] [address] [id number] [address] [place] [address], [place] [address] Sep, [facility] [address] [id number] [address] [place] [address], [place] [address] Jul, [facility] [address] [id number] [address] [place] [address], [place] [address] Jul, [facility] [address] [id number] [address] [place] [address], [place] [address] Jul, [facility] [address] [id number] [address] [place] [address], [place] [address] Jul, [facility] [address] [id number] [address] [place] [address], [place] [address] Jul, [facility] [address] [id number] [address] [place] [address], [place] [id number] Jun, [facility] [address] [id number] [address] [place] [address], [place] [address] May, [facility] [address] [id number] [address] [place] [address], [place] [address] Mar, [facility] [address] [id number] [address] [place] [address], [place] [address] Mar, [facility] [address] [id number] [address] [place] [address], [place] [address] Mar, [facility] [address] [id number] [address] [place] [address], [place] [address] February, [facility] [address] [id number] [address] [place] [address], [place] [address] February, [facility] [address] [id number] [address] [place] [address], [place] [address] February, [facility] [address] [id number] [address] [place] [address], [place] [address] February, [facility] [address] [id number] [address] [place] [address], [place] [address] February, [facility] [address] [id number] [address] [place] [address], [place] [address] February, [facility] [address] [id number] [address] [place] [address], [place] [address] February, [facility] [address] [id number] [address] [place] [address], [place] [address] February, [facility] [address] [id number] [address] [place] [address], [place] [address] February, [facility] [address] [id number] [address] [place] [address], [place] [address] February, [facility] [address] [id number] [address] [place] [address], [place] [address] February, [facility] [address] [id number] [address] [place] [address], [place] [address] 18 Nov, 2012 [facility] [address] [id number] [address] [place] [address], [place] [address] 08 Nov, 2012 [facility] [address] [id number] [address] [place] [address], [place] [address] 07 Nov, 2012 [facility] [address] [id number] [address] [place] [address], [place] [address] Sep, [facility] [address] [id number] [address] [place] [address], [place] [address] Sep, [facility] [address] [id number] [address] [place] [address], [place] [address] Sep, [facility] [address] [id number] [address] [place] [address], [place] [address] Sep, [facility] [address] [id number] [address] [place] [address], [place] [address] Sep, [facility] [address] [id number] [address] [place] [address], [place] [address] Sep, [facility] [address] [id number] [address] [place] [address], [place] [address] Aug, [facility] [address] [id number] [address] [place] [address], [place] [address] Aug, [facility] [address] [id number] [address] [place] [address], [place] [address] Aug, [facility] [address] [id number] [address] [place] [address], [place] [address] Aug, [facility] [address] [id number] [address] [place] [address], [place] [address] Jul, [facility] [address] [id number] [address] [place] [address], [place] [address] Jul, [facility] [address] [id number] [address] [place] [address], [place] [address] Jul, [facility] [address] [id number] [address] [place] [address], [place] [address] 17 Jul, 2012 [facility] [address] [id number] [address] [place] [address], [place] [address] Jul, [facility] [address] [id number] [address] [place] [address], [place] [address] Jul, [facility] [address] [id number] [address] [place] [address], [place] [address] Jul, [facility] [address] [id number] [address] [place] [address], [place] [address] Jul, [facility] [address] [id number] [address] [place] [address], [place] [address] Jun, [facility] [address] [id number] [address] [place] [address], [place] [address] Apr, [facility] [address] [id number] [address] [place] [address], [place] [address] Apr, [facility] [address] [id number] [address] [place] [address], [place] [address] Apr, [facility] [address] [id number] [address] [place] [address], [place] [address] Apr, [facility] [address] [id number] [address] [place] [address], [place] [address] Mar, [facility] [address] [id number] [address] [place] [address], [place] [address] Mar, [facility] [address] [id number] [address] [place] [address], [place] [address] Mar, [facility] [address] [id number] [address] [place] [address], [place] [address] Mar, [facility] [address] [id number] [address] [place] [address], [place] [address] Mar, [facility] [address] [id number] [address] [place] [address] February, [facility] [address] [facility] [id number] [address] [place] [address] Oct, [facility] [address] [facility] [id number] [address] [place] [address] Oct, [facility] [address] [facility] [id number] [address] [place] [address] Aug, [facility] [address] [facility] [id number] [address] [place] [address] Aug, [facility] [address] [facility] [id number] [address] [place] [address] Jul, [facility] [address] [facility] [id number] [address] [place] [address] Mar, [facility] [address] [facility] [id number] [address] [place] [address] Sep, IMMUNIZATIONS Vaccine Route Administration Date Status influenza IIV3 (history) Unknown Jul 27, 2013 Adminis tered SOCIAL HISTORY Never Assessed REASON FOR VISIT [...] 40 0 blood sugar. 05/2016 Hospitalization History [facility] 01/25/2020-2019 Hospitalization History Via January 2020 Hospitalization History via February 2020
--- OUTSIDE RECORDS SUMMARY | 2020-03-14 16:26 | XMS REPORT ---
Author Author Estefani CHUA Organization [facility] Address [address] [place] [address] Care Team Providers Care Instructor Programmable Controllers Name Role Phone JOANNE CHUA Unavailable PROBLEMS Type Condition ICD9-CM Code URI32-WK Code Onset Dates Condition S tatus SNOMED Code Problem Mild persistent asthma without complication J45.30 Active 088409999 Problem Essential hypertension I10 Active 62608443 Problem Bipolar disorder with depression F31.30 Active 09041678 Problem Migraine without aura and without status migrain osus, not intractable G43.009 Active 627524400 Problem GERD with esophagitis K21.0 Active 849236566 Problem Chronic post-traumatic stress disorder (PTSD) F43. 12 Active 914646083 Problem Compulsive skin picking L98.1 Active 281763547 Problem Body mass index (BMI) of 50-59.9 in adult Z68.43 Active 892173235 Problem Gastroesophageal reflux disease, esophagitis pre sence not specified K21.9 Active 188081558 Problem Morbid (severe) obesity due to excess calories E66 .01 Active 331327275 Problem Morbid obesity E66.01 Active 87834 6002 Problem Psychophysiological insomnia F51.04 A ctive 999756498 Problem Type 2 diabetes mellitus wit h complication, without long-term current use of insulin E11.8 Active 14298456 Problem Seasonal allergic rhinitis due to pollen J30.1 Active 97509652 Problem Rhinosinusitis J32.9 Active 97635 4004 Problem Mixed hyperlipidemia E78.2 Active 528285950 ALLERGIES No Information ENCOUNTERS Encounter Location Date Diagnosis [facility] [address] [facility] [id number] [address] [place] [address] Apr, [facility] [address] [facility] [id number] [address] [place] [phone] February, [facility] [address] [facility] [id number] [address] [place] [id number] 14 Feb, 2020 [facility] [address] [facility] [id number] [address] [place] [phone] February, [facility] [address] [facility] [id number] [address] [place] [address] 30 Jan, 2020 Bipolar disorder with depres kirsten F31.30 ; Chronic post-traumatic stress disorder (PTSD) F43.12 ; Morbid obesity E66.01 and Compulsive skin picking L98.1 [facility] [address] [facility] [id number] [address] [place] [phone] 29 Jan, 2020 [facility] [address] [facility] [id number] [address] [place] [phone] 20 Jan, 2020 [facility] [address] [place] [id number] [address] [place] [phone] 16 Jan, 2020 [facility] [address] [facility] [id number] [address] [place] [phone] 13 Jan, 2020 [facility] [address] [facility] [id number] [address] [place] [phone] 12 Jan, 2020 Non-intractable vomiting wit h nausea, unspecified vomiting type R11.2 [facility] [address] [facility] [id number] [address] [place] [phone] 10 Jan, 2020 [facility] [address] [facility] [id number] [address] [place] [phone] 07 Jan, 2020 [facility] [address] [facility] [id number] [address] [place] [phone] Jan, [facility] [address] [facility] [id number] [address] [place] [phone] 06 Jan, 2020 [facility] [address] [facility] [id number] [address] [place] [phone] 04 Jan, 2020 Type 2 diabetes mellitus wit hout complications E11.9 [facility] [address] [facility] [id number] [address] [place] [address] Jan, Dog scratch W54.8XXA [place] [address] [address] 27 Dec, 2019 Essential hypertension I10 [place] [address] [place] [id number] 16 Dec, 2019 Bipolar disorder with depres kirsten F31.30 [place] [address] [place] [id number] 12 Dec, 2019 [place] [address] [address] 10 Dec, 2019 Bipolar disorder with depres kirsten F31.30 ; Chronic post-traumatic stress disorder (PTSD) F43.12 ; Morbid obesity E66.01 and Compulsive skin picking L98.1 [place] [address] [address] 05 Dec, 2019 [place] [address] [address] 03 Dec, 2019 Gastroesophageal reflux dise ase, esophagitis presence not specified K21.9 and Epigastric abdominal pain R10.[address] [address] 02 Dec, 2019 Mixed hyperlipidemia E78.2 a nd Serum potassium elevated E87.[address] [address] Nov, Mild persistent asthma witho ut complication J45.30 [place] [address] [address] 21 Nov, 2019 Mild persistent asthma witho ut complication J45.30 ; Essential hypertension I10 ; Migraine without aura and without status migrainosus, not intractable G43.009 ; Type 2 diabetes mellitus with complication, without long- term current use of insulin E11.8 and Rhinosinusitis J32.[address] [address] Oct, [facility] [address] [facility] [id number] [address] [place] [address] 07 Oct, 2019 Bipolar disorder with depres kirsten F31.30 ; Chronic post-traumatic stress disorder (PTSD) F43.12 ; Morbid obesity E66.01 and Compulsive skin picking L98.1 [facility] [address] [facility] [id number] [address] [place] [id number] 06 Oct, 2019 [facility] [address] [facility] [id number] [address] [place] [address] Sep, Simple chronic bronchitis J4 1.0 [facility] [address] [place] [id number] [place] [phone] Sep, Bronchitis J40 [facility] [address] [facility] [id number] [address] [place] [address] Aug, Bronchitis J40 [facility] [address] [place] [id number] [address] [place] [address] Jul, [facility] [id number] [place] [phone] Jul, [facility] [address] [place] [id number] [address] [place] [phone] Jul, [facility] [address] [place] [id number] [address] [place] [phone] Jun, Compulsive skin picking L98. 1 and Essential hypertension I10 [facility] [address] [facility] [id number] [address] [place] [id number] 24 Jun, 2019 Encounter for immunization Z 23 [place] [address] [facility] [id number] [address] [place] [phone] 18 Jun, 2019 [facility] [address] [facility] [id number] [address] [place] [address] 05 Jun, 2019 Psychophysiological insomnia F51.04 ; Bipolar disorder with depression F31.30 ; Chronic post-traumatic stress disorder (PTSD) F43.12 and Morbid obesity E66.01 [place] [address] [facility] [id number] [address] [place] [phone] 04 Jun, 2019 Psychophysiological insomnia F51.04 [place] [address] [facility] [id number] [address] [place] [address] 15 May, 2019 Migraine without aura and wi thout status migrainosus, not intractable G43.009 [place] [address] [place] [id number] [address] [place] [address] May, Migraine without aura and wi thout status migrainosus, not intractable G43.009 [place] [address] [facility] [id number] [address] [place] [phone] Apr, Daily headache R51 ; Seasona l allergic rhinitis due to pollen J30.1 ; Type 2 diabetes mellitus without complications E11.9 and Morbid obesity E66.01 [place] [address] [place] [address] Apr, [place] [address] [address] Apr, [facility] [address] [address] Mar, Encounter for immunization Z 23 [facility] [address] [place] [id number] [place] [phone] Mar, Skin infection L08.9 and Mor bid obesity E66.01 [facility] [address] [place] [id number] [address] [place] [address] Mar, Morbid obesity E66.01 [place] [address] [place] [id number] [address] [place] [address] Mar, [place] [address] [place] [id number] [place] [phone] Mar, Type 2 diabetes mellitus wit h complication, without long-term current use of insulin E11.8 [place] [address] [place] [id number] [place] [phone] Mar, [facility] [address] [id number] [address] [place] [id number] Mar, [facility] [address] [facility] [id number] [address] [place] [address] Mar, [facility] [address] [facility] [id number] [address] [place] [phone] 18 Mar, 2019 Essential hypertension I10 [facility] [address] [id number] [address] [place] [address] 13 Mar, 2019 Migraine without aura and wi thout status migrainosus, not intractable G43.009 [facility] [address] [facility] [id number] [address] [place] [address] Mar, [facility] [address] [facility] [id number] [address] [place] [id number] Mar, Psychophysiological insomnia F51.04 [facility] [address] [facility] [id number] [address] [place] [phone] February, [facility] [address] [facility] [id number] [address] [place] [address] February, Type 2 diabetes mellitus wit hout complications E11.9 [facility] [address] [facility] [id number] [address] [place] [address] February, Migraine without aura and wi thout status migrainosus, not intractable G43.009 [facility] [address] [facility] [id number] [address] [place] [address] February, Type 2 diabetes mellitus wit hout complications E11.9 [facility] [address] [facility] [id number] [address] [place] [address] February, Bipolar disorder with depres kirsten F31.30 ; Compulsive skin picking L98.1 ; Chronic post-traumatic stress disorder (PTSD) F43.12 and Morbid obesity E66.01 [facility] [address] [facility] [id number] [address] [place] [phone] February, Mild persistent asthma witho ut complication J45.30 and Bipolar disorder with depression F31.30 [place] [address] [address] Jan, [place] [address] [address] Jan, Type 2 diabetes mellitus wit hout complications E11.9 ; Essential hypertension I10 ; Hyperglycemia R73.9 and Morbid obesity E66.01 [place] [address] [address] Jan, Bipolar disorder with depres kirsten F31.30 ; Compulsive skin picking L98.1 ; Chronic post-traumatic stress disorder (PTSD) F43.12 ; Body mass index (BMI) of 50-59.9 in adult Z68.43 and Morbid (severe) obesity due to excess calories E66.01 [place] [address] [address] Dec, [place] [address] [address] Nov, Type 2 diabetes mellitus wit hout complications E11.9 [place] [address] [address] Nov, [place] [address] [address] Nov, Type 2 diabetes mellitus wit hout complications E11.9 [place] [address] [place] [id number] [address] [place] [address] Nov, [place] [address] [address] Nov, Type 2 diabetes mellitus wit hout complications E11.9 ; Depression, unspecified depression type F32.9 ; Essential hypertension I10 ; Hyperglycemia R73.9 ; Psychophysiological insomnia F51.04 and BMI 50.0-59.9, adult Z68.43 [place] [address] [facility] [id number] [address] [place] [address] Sep, [facility] [address] [facility] [id number] [address] [place] [phone] Aug, [facility] [address] [facility] [id number] [address] [place] [address] Jul, [facility] [address] [place] [id number] [place] [id number] Jul, Type 2 diabetes mellitus wit hout complications E11.9 ; Hyperglycemia R73.9 ; History of venomous spider bite Z91.89 and BMI 50.0-59.9, adult Z68.43 [facility] [address] [facility] [id number] [address] [place] [id number] Jun, [facility] [address] [place] [id number] [address] [place] [address] Apr, Migraine without aura and wi thout status migrainosus, not intractable G43.009 [facility] [address] [facility] [id number] [address] [place] [address] Apr, Essential hypertension I10 [facility] [address] [facility] [id number] [address] [place] [address] Apr, Type 2 diabetes mellitus wit hout complications E11.9 and Migraine without aura and without status migrainosus, not intractable G43.009 [facility] [address] [facility] [id number] [address] [place] [phone] Mar, [facility] [address] [facility] [id number] [address] [place] [id number] Mar, [facility] [address] [facility] [id number] [address] [place] [address] February, [facility] [address] [facility] [id number] [address] [place] [address] February, Intractable migraine with au ra with status migrainosus G43.111 and BMI 50.0-59.9, adult Z68.43 [facility] [address] [place] [id number] [address] [place] [address] Jan, Type 2 diabetes mellitus wit hout complications E11.9 ; Mild persistent asthma without complication J45.30 ; Depression, unspecified depression type F32.9 and Bipolar disorder with depression F31.30 [facility] [address] [place] [id number] [address] [place] [address] Jan, [facility] [address] [address] Jan, Type 2 diabetes mellitus wit hout complications E11.9 ; Essential hypertension I10 ; Depression, unspecified depression type F32.9 ; Mild persistent asthma without complication J45.30 and BMI 50.0-59.9, adult Z68.43 [facility] [address] [address] Nov, 2018 Viral illness B34.9 and BMI 50.0-59.9, adult Z68.43 [facility] [address] [address] Mar, Depression, unspecified depr ession type F32.9 ; Type 2 diabetes mellitus without complications E11.9 ; Essential hypertension I10 and Seasonal allergies J30.2 [place] [address] [address] Mar, Uncontrolled type 2 diabetes mellitus with hypoglycemia and coma, without long-term current use of insulin E11.641 ; Type 2 diabetes mellitus without complications E11.9 and Depression, unspecified depression type F32.9 [facility] [address] [place] [id number] [address] [place] [address] February, [facility] [address] [place] [address] February, [place] [address] [place] [id number] [address] [place] [address] February, [facility] [address] [address] February, [facility] [address] [id number] [address] [place] [address] February, Depression, unspecified depr ession type F32.9 and Bipolar disorder with depression F31.30 [place] [id number] [facility] [id number] [address] [place] [address] February, Dysthymia 300.4 and Type 2 d iabetes mellitus without complications E11.9 [facility] [address] [facility] [id number] [address] [place] [address] February, [place] [address] [address] [facility] [id number] [address] [place] [address] February, Type 2 diabetes mellitus wit hout complications E11.9 and Pain of right hip joint M25.551 [place] [address] [address] [facility] [id number] [address] [place] [address] February, [place] [address] [facility] [id number] [address] [place] [address] Jan, Uncontrolled type 2 diabetes mellitus with hypoglycemia and coma, without long-term current use of insulin E11.641 ; Essential hypertension I10 and Depression, unspecified depression type F32.9 [place] [id number] [facility] [id number] [address] [place] [address] 14 Nov, 2016 Mild persistent asthma witho ut complication J45.30 [place] [address] [facility] [id number] [address] [place] [address] Aug, [place] [address] [facility] [id number] [address] [place] [address] Aug, Essential hypertension I10 [place] [address] [facility] [id number] [address] [place] [address] Jun, [place] [address] [facility] [id number] [address] [place] [address] Jun, [place] [address] [address] [facility] [id number] [address] [place] [address] Jun, Type 2 diabetes mellitus wit h complication, without long-term current use of insulin E11.8 and Diarrhea, unspecified type R19.7 [place] [address] [place] [address] Jun, [place] [address] [address] Jun, [place] [address] [address] Jun, Type 2 diabetes mellitus wit hout complications E11.9 and Mild persistent asthma without complication J45.30 [place] [address] [address] May, Mild persistent asthma witho ut complication J45.30 and Uncontrolled type 2 diabetes mellitus with hypoglycemia and coma, without long-term current use of insulin E11.641 [place] [address] [place] [id number] [address] [place] [address] May, [place] [address] [place] [id number] [address] [place] [address] May, [place] [address] [address] [place] [id number] [address] [place] [address] May, Uncontrolled type 2 diabetes mellitus with hypoglycemia and coma, without long-term current use of insulin E11.641 ; Headache, unspecified headache type R51 ; Hypoglycemia E16.2 ; Hyperglycemia R73.9 ; Urinary tract infection without hematuria, site unspecified N39.0 and Financial difficulties Z59.8 [facility] [address] [facility] [id number] [address] [place] [id number] Apr, Dental examination Z01.20 [place] [address] [address] [place] [id number] [address] [place] [address] Mar, Type 2 diabetes mellitus wit hout complication, without long-term current use of insulin E11.9 ; Rash R21 ; Mild persistent asthma without complication J45.30 ; Seasonal allergies J30.2 ; Depression, unspecified depression type F32.9 ; GERD with esophagitis K21.0 ; Financial difficulties Z59.8 and Essential hypertension I10 [facility] [address] [address] Mar, Bipolar affective disorder 2 96.80 and No condition on [place] II V71.09 [facility] [address] [address] Mar, [facility] [address] [address] Mar, Screening for tuberculosis V 74.1 ; Type 2 diabetes mellitus 250.00 ; Hypertension 401.9 ; Arthralgia 719.40 ; Dysthymia 300.4 ; GERD (gastroesophageal reflux disease) 530.81 and Exposure to viral disease V01.79 [facility] [address] [address] Mar, [facility] [address] [address] Jan, [facility] [address] [address] Jan, [facility] [address] [id number] Sep, [facility] [address] [place] [id number] [address] [place] [id number] Sep, [facility] [address] [place] [address] [id number] [address] [place] [id number] Sep, [facility] [address] [place] [id number] [address] [place] [id number] Sep, [facility] [address] [id number] Aug, [facility] [address] [place] [id number] [address] [place] [id number] Aug, [facility] [address] [id number] 07 Apr, 2014 [facility] [address] [id number] [address] [place] [address], [place] [id number] Apr, 2013 [facility] [address] [id number] [address] [place] [address], [place] [address] Apr, [facility] [address] [id number] [address] [place] [address], [place] [id number] Apr, [facility] [address] [id number] [address] [place] [address], [place] [id number] Mar, [facility] [address] [id number] [address] [place] [address], [place] [id number] Mar, [facility] [address] [id number] [address] [place] [address], [place] [id number] Oct, [facility] [address] [id number] [address] [place] [address], [place] [address] Oct, [facility] [address] [id number] [address] [place] [address], [place] [address] Sep, [facility] [address] [id number] [address] [place] [id number] Sep, [facility] [address] [id number] [address] [place] [id number] Jul, [facility] [address] [id number] [address] [place] [id number] Jul, [facility] [address] [id number] [address] [place] [id number] Jul, [facility] [address] [id number] [address] [place] [id number] Jul, [facility] [address] [id number] [address] [place] [id number] Jul, [facility] [address] [id number] [address] [place] [address], [place] [address] Jun, [facility] [address] [id number] [address] [place] [address], [place] [address] May, [facility] [address] [id number] [address] [place] [address], [place] [address] Mar, [facility] [address] [id number] [address] [place] [address], [place] [address] Mar, [facility] [address] [id number] [address] [place] [address], [place] [address] Mar, [facility] [address] [id number] [address] [place] [address], [place] [address] February, [facility] [address] [id number] [address] [place] [address], [place] [address] February, [facility] [address] [id number] [address] [place] [address], [place] [address] February, [facility] [address] [id number] [address] [place] [address], [place] [address] February, [facility] [address] [id number] [address] [place] [address], [place] [address] February, [facility] [address] [id number] [address] [place] [address], [place] [address] February, [facility] [address] [id number] [address] [place] [address], [place] [address] February, [facility] [address] [id number] [address] [place] [address], [place] [address] February, [facility] [address] [id number] [address] [place] [address], [place] [address] February, [facility] [address] [id number] [address] [place] [address], [place] [address] February, [facility] [address] [id number] [address] [place] [address], [place] [address] February, [facility] [address] [id number] [address] [place] [address], [place] [address] 18 Nov, 2012 [facility] [address] [id number] [address] [place] [address], [place] [address] 08 Nov, 2012 [facility] [address] [id number] [address] [place] [address], [place] [address] Nov, [facility] [address] [id number] [address] [place] [address], [place] [address] Sep, [facility] [address] [id number] [address] [place] [address], [place] [address] Sep, [facility] [address] [id number] [address] [place] [address], [place] [address] Sep, [facility] [address] [id number] [address] [place] [address], [place] [address] Sep, [facility] [address] [id number] [address] [place] [address], [place] [address] Sep, [facility] [address] [id number] [address] [place] [address], [place] [address] Sep, [facility] [address] [id number] [address] [place] [address], [place] [address] Aug, [facility] [address] [id number] [address] [place] [address], [place] [address] Aug, [facility] [address] [id number] [address] [place] [address], [place] [address] Aug, [facility] [address] [id number] [address] [place] [address], [place] [address] Aug, [facility] [address] [id number] [address] [place] [address], [place] [address] Jul, [facility] [address] [id number] [address] [place] [address], [place] [address] Jul, [facility] [address] [id number] [address] [place] [address], [place] [address] Jul, [facility] [address] [id number] [address] [place] [address], [place] [address] 17 Jul, 2012 [facility] [address] [id number] [address] [place] [address], [place] [address] Jul, [facility] [address] [id number] [address] [place] [address], [place] [address] 16 Jul, 2012 [facility] [address] [id number] [address] [place] [address], [place] [address] Jul, [facility] [address] [id number] [address] [place] [address], [place] [address] Jul, [facility] [address] [id number] [address] [place] [address], [place] [address] Jun, [facility] [address] [id number] [address] [place] [address], [place] [address] Apr, [facility] [address] [id number] [address] [place] [address], [place] [address] Apr, [facility] [address] [id number] [address] [place] [address], [place] [address] Apr, [facility] [address] [id number] [address] [place] [address], [place] [address] Apr, [facility] [address] [id number] [address] [place] [address], [place] [address] Mar, [facility] [address] [id number] [address] [place] [address], [place] [address] Mar, [facility] [address] [id number] [address] [place] [address], [place] [address] Mar, [facility] [address] [id number] [address] [place] [address], [place] [address] Mar, [facility] [address] [id number] [address] [place] [address], [place] [address] Mar, [facility] [address] [id number] [address] [place] [address], [place] [address] February, [facility] [address] [id number] [address] [place] [id number] Oct, [facility] [address] [facility] [id number] [address] [place] [id number] Oct, [facility] [address] [id number] [address] [place] [id number] Aug, [facility] [address] [facility] [id number] [address] [place] [id number] Aug, [facility] [address] [facility] [id number] [address] [place] [address] Jul, [facility] [address] [facility] [id number] [address] [place] [id number] Mar, [facility] [address] [facility] [id number] [address] [place] [id number] Sep, IMMUNIZATIONS No Known Immunizations SOCIAL HISTORY Never Assessed REASON FOR VISIT PLAN OF CARE VITAL SIGNS Height 64 in 2012-04-08 Weight 303.1 lbs 2012-04-08 Temperature 98.4 degrees Fahrenheit 2012-04-08 Heart Rate 88 bpm 2012-04-08 Respiratory Rate 18 2012-04-08 Blood pressure systolic 123 mmHg 2012-04-08 Blood pressure diastolic 70 mmHg 2012-04-08 MEDICATIONS Unknown Medications RESULTS No Results PROCEDURES Procedure Date Ordered Result Body Site GLYCATED HEMOGLOBIN TEST April 08, 2012 INSTRUCTIONS MEDICATIONS ADMINISTERED No Known Medications MEDICAL [...] 40 0 blood sugar. 05/2016 Hospitalization History [facility] 01/25/2020-2019 Hospitalization History [facility] January 2020
--- OUTSIDE RECORDS SUMMARY | 2020-03-14 16:27 | XMS REPORT ---
Author Author Estefani CHUA Organization [facility] Address [address] [place] [address] Care Team Providers Care Tire Service Technician Name Role Phone JOANNE CHUA Unavailable PROBLEMS Type Condition ICD9-CM Code UAS96-IP Code Onset Dates Condition S tatus SNOMED Code Problem Bipolar disorder with depression F31.30 Active 49674393 Problem Mild persistent asthma without complication J45.30 Active 897451550 Problem GERD with esophagitis K21.0 Active 510951155 Problem Essential hypertension I10 Active 69458963 Problem Morbid (severe) obesity due to excess calories E66 .01 Active 187216795 Problem Chronic post-traumatic stress disorder (PTSD) F43. 12 Active 547423849 Problem Compulsive skin picking L98.1 Active 606911862 Problem Mixed hyperlipidemia E78.2 Active 100031077 Problem Psychophysiological insomnia F51.04 A ctive 006034990 Problem Gastroesophageal reflux disease, esophagitis pre sence not specified K21.9 Active 042613704 Problem Migraine without aura and without status migrain osus, not intractable G43.009 Active 919085895 Problem Body mass index (BMI) of 50-59.9 in adult Z68.43 Active 479848065 Problem Type 2 diabetes mellitus wit h complication, without long-term current use of insulin E11.8 Active 04467010 Problem Seasonal allergic rhinitis due to pollen J30.1 Active 13330767 Problem Rhinosinusitis J32.9 Active 09972 4004 ALLERGIES No Information ENCOUNTERS Encounter Location Date Diagnosis [facility] [address] [facility] [id number] [place] [phone] Apr, [facility] [address] [facility] [id number] [place] [address] February, [facility] [address] [facility] [id number] [place] [id number] 20 Jan, 2020 [facility] [address] [facility] [id number] [place] [id number] 16 Jan, 2020 [facility] [address] [facility] [id number] [place] [id number] 13 Jan, 2020 [facility] [address] [facility] [id number] [place] [id number] 12 Jan, 2020 Non-intractable vomiting wit h nausea, unspecified vomiting type R11.2 [facility] [address] [facility] [id number] [place] [phone] 10 Jan, 2020 [facility] [address] [facility] [id number] [place] [id number] 07 Jan, 2020 [facility] [address] [facility] [id number] [place] [id number] 06 Jan, 2020 [facility] [address] [facility] [id number] [place] [id number] 06 Jan, 2020 [facility] [address] [facility] [id number] [place] [id number] 04 Jan, 2020 Type 2 diabetes mellitus wit hout complications E11.9 [facility] [address] [facility] [id number] [place] [address] 02 Jan, 2020 Dog scratch W54.8XXA [facility] [address] [facility] [id number] [place] [id number] 27 Dec, 2019 Essential hypertension I10 [facility] [address] [facility] [id number] [place] [id number] 16 Dec, 2019 Bipolar disorder with depres kirsten F31.30 [facility] [address] [facility] [id number] [place] [address] Dec, [facility] [address] [facility] [id number] [place] [address] 10 Dec, 2019 Bipolar disorder with depres kirsten F31.30 ; Chronic post-traumatic stress disorder (PTSD) F43.12 ; Morbid obesity E66.01 and Compulsive skin picking L98.1 [place] [address] [address] 05 Dec, 2019 [place] [address] [address] 03 Dec, 2019 Gastroesophageal reflux dise ase, esophagitis presence not specified K21.9 and Epigastric abdominal pain R10.13 [place] [address] [address] 02 Dec, 2019 Mixed hyperlipidemia E78.2 a nd Serum potassium elevated E87.[address] [address] Nov, Mild persistent asthma witho ut complication J45.30 [place] [address] [address] Nov, Mild persistent asthma witho ut complication J45.30 ; Essential hypertension I10 ; Migraine without aura and without status migrainosus, not intractable G43.009 ; Type 2 diabetes mellitus with complication, without long- term current use of insulin E11.8 and Rhinosinusitis J32.9 [place] [address] [address] 14 Oct, 2019 [place] [address] [address] 07 Oct, 2019 Bipolar disorder with depres kirsten F31.30 ; Chronic post-traumatic stress disorder (PTSD) F43.12 ; Morbid obesity E66.01 and Compulsive skin picking L98.1 [place] [address] [address] 06 Oct, 2019 [facility] [place] [address] [address] Sep, Simple chronic bronchitis J4 1.0 [facility] [place] [address] [address] Sep, Bronchitis J40 [facility] [address] [facility] [id number] [place] [address] Aug, Bronchitis J40 [facility] [address] [facility] [id number] [place] [phone] Jul, [facility] [address] [place] [id number] [address] [place] [phone] Jul, [facility] [address] [facility] [id number] [place] [phone] Jul, [facility] [address] [facility] [id number] [place] [id number] 25 Jun, 2019 Compulsive skin picking L98. 1 and Essential hypertension I10 [facility] [address] [facility] [id number] [place] [id number] 24 Jun, 2019 Encounter for immunization Z 23 [facility] [address] [place] [id number] [address] [place] [address] 18 Jun, 2019 [facility] [address] [place] [id number] [address] [place] [address] 05 Jun, 2019 Psychophysiological insomnia F51.04 ; Bipolar disorder with depression F31.30 ; Chronic post-traumatic stress disorder (PTSD) F43.12 and Morbid obesity E66.01 [facility] [address] [place] [address] Jun, Psychophysiological insomnia F51.04 [facility] [address] [place] [id number] [address] [place] [address] May, Migraine without aura and wi thout status migrainosus, not intractable G43.009 [facility] [address] [place] [id number] [address] [place] [address] May, Migraine without aura and wi thout status migrainosus, not intractable G43.009 [facility] [address] [place] [id number] [address] [place] [address] Apr, Daily headache R51 ; Seasona l allergic rhinitis due to pollen J30.1 ; Type 2 diabetes mellitus without complications E11.9 and Morbid obesity E66.01 [facility] [address] [address] Apr, [place] [address] [place] [id number] [place] [address] Apr, [facility] [address] [address] Mar, Encounter for immunization Z 23 [facility] [address] [address] Mar, Skin infection L08.9 and Mor bid obesity E66.01 [facility] [address] [address] Mar, Morbid obesity E66.01 [place] [address] [address] Mar, [place] [address] [address] Mar, Type 2 diabetes mellitus wit h complication, without long-term current use of insulin E11.8 [place] [address] [address] Mar, [place] [address] [address] Mar, [place] [address] [address] Mar, [place] [address] [address] Mar, Essential hypertension I10 [place] [address] [place] [id number] [place] [address] 13 Mar, 2019 Migraine without aura and wi thout status migrainosus, not intractable G43.009 [place] [address] [place] [id number] [address] [place] [address] Mar, [place] [address] [facility] [id number] [place] [address] Mar, Psychophysiological insomnia F51.04 [place] [address] [facility] [id number] [place] [address] February, [place] [address] [place] [id number] [address] [place] [address] February, Type 2 diabetes mellitus wit hout complications E11.9 [place] [address] [place] [id number] [address] [place] [address] February, Migraine without aura and wi thout status migrainosus, not intractable G43.009 [place] [address] [place] [id number] [address] [place] [address] February, Type 2 diabetes mellitus wit hout complications E11.9 [place] [address] [place] [address] February, Bipolar disorder with depres kirsten F31.30 ; Compulsive skin picking L98.1 ; Chronic post-traumatic stress disorder (PTSD) F43.12 and Morbid obesity E66.01 [place] [address] [place] [address] February, Mild persistent asthma witho ut complication J45.30 and Bipolar disorder with depression F31.30 [place] [address] [place] [address] Jan, [place] [address] [place] [id number] [address] [place] [address] Jan, Type 2 diabetes mellitus wit hout complications E11.9 ; Essential hypertension I10 ; Hyperglycemia R73.9 and Morbid obesity E66.01 [place] [address] [facility] [id number] [place] [address] Jan, Bipolar disorder with depres kirsten F31.30 ; Compulsive skin picking L98.1 ; Chronic post-traumatic stress disorder (PTSD) F43.12 ; Body mass index (BMI) of 50-59.9 in adult Z68.43 and Morbid (severe) obesity due to excess calories E66.01 [place] [address] [address] Dec, [place] [address] [address] 18 Nov, 2018 Type 2 diabetes mellitus wit hout complications E11.9 [place] [address] [address] 14 Nov, 2018 [place] [address] [address] Nov, Type 2 diabetes mellitus wit hout complications E11.9 [place] [address] [address] Nov, [place] [address] [address] Nov, Type 2 diabetes mellitus wit hout complications E11.9 ; Depression, unspecified depression type F32.9 ; Essential hypertension I10 ; Hyperglycemia R73.9 ; Psychophysiological insomnia F51.04 and BMI 50.0-59.9, adult Z68.43 [place] [address] [address] 18 Sep, 2018 [place] [address] [address] Aug, [place] [address] [address] Jul, [place] [address] [address] Jul, Type 2 diabetes mellitus wit hout complications E11.9 ; Hyperglycemia R73.9 ; History of venomous spider bite Z91.89 and BMI 50.0-59.9, adult Z68.43 [place] [address] [place] [address] Jun, [facility] [address] [facility] [id number] [place] [address] Apr, Migraine without aura and wi thout status migrainosus, not intractable G43.009 [facility] [address] [facility] [id number] [place] [address] Apr, Essential hypertension I10 [place] [address] [place] [id number] [place] [address] Apr, Type 2 diabetes mellitus wit hout complications E11.9 and Migraine without aura and without status migrainosus, not intractable G43.009 [place] [address] [facility] [id number] [place] [address] Mar, [place] [address] [place] [id number] [place] [address] Mar, [place] [address] [place] [id number] [place] [address] February, [place] [address] [place] [id number] [place] [address] February, Intractable migraine with au ra with status migrainosus G43.111 and BMI 50.0-59.9, adult Z68.43 [place] [address] [place] [id number] [address] [place] [address] Jan, Type 2 diabetes mellitus wit hout complications E11.9 ; Mild persistent asthma without complication J45.30 ; Depression, unspecified depression type F32.9 and Bipolar disorder with depression F31.30 [place] [address] [place] [id number] [address] [place] [address] Jan, [place] [address] [place] [id number] [place] [address] Jan, Type 2 diabetes mellitus wit hout complications E11.9 ; Essential hypertension I10 ; Depression, unspecified depression type F32.9 ; Mild persistent asthma without complication J45.30 and BMI 50.0-59.9, adult Z68.43 [facility] [address] [facility] [id number] [place] [address] 20 Nov, 2017 Viral illness B34.9 and BMI 50.0-59.9, adult Z68.43 [facility] [address] [facility] [id number] [place] [address] 14 Mar, 2017 Depression, unspecified depr ession type F32.9 ; Type 2 diabetes mellitus without complications E11.9 ; Essential hypertension I10 and Seasonal allergies J30.2 [facility] [address] [facility] [id number] [place] [address] 09 Mar, 2017 Uncontrolled type 2 diabetes mellitus with hypoglycemia and coma, without long-term current use of insulin E11.641 ; Type 2 diabetes mellitus without complications E11.9 and Depression, unspecified depression type F32.9 [facility] [address] [facility] [id number] [place] [address] February, [facility] [address] [facility] [id number] [place] [address] February, [facility] [address] [facility] [id number] [place] [address] February, [facility] [address] [facility] [id number] [place] [address] February, [facility] [address] [facility] [id number] [place] [address] February, Depression, unspecified depr ession type F32.9 and Bipolar disorder with depression F31.30 [facility] [address] [facility] [id number] [place] [address] February, Dysthymia 300.4 and Type 2 d iabetes mellitus without complications E11.9 [facility] [address] [facility] [id number] [place] [address] February, [facility] [address] [place] [id number] [address] [place] [address] February, Type 2 diabetes mellitus wit hout complications E11.9 and Pain of right hip joint M25.551 [facility] [address] [facility] [id number] [place] [address] February, [facility] [address] [facility] [id number] [place] [address] Jan, Uncontrolled type 2 diabetes mellitus with hypoglycemia and coma, without long-term current use of insulin E11.641 ; Essential hypertension I10 and Depression, unspecified depression type F32.9 [place] [address] [id number] [address] [place] [address] 14 Nov, 2016 Mild persistent asthma witho ut complication J45.30 [place] [address] [facility] [id number] [place] [address] Aug, [place] [address] [place] [id number] [address] [place] [address] Aug, Essential hypertension I10 [place] [address] [facility] [id number] [place] [address] Jun, [facility] [address] [facility] [id number] [place] [address] Jun, [place] [address] [facility] [id number] [place] [address] 08 Jun, 2016 Type 2 diabetes mellitus wit h complication, without long-term current use of insulin E11.8 and Diarrhea, unspecified type R19.7 [place] [address] [facility] [id number] [place] [address] Jun, [facility] [address] [facility] [id number] [place] [address] Jun, [place] [address] [facility] [id number] [place] [address] Jun, Type 2 diabetes mellitus wit hout complications E11.9 and Mild persistent asthma without complication J45.30 [place] [address] [facility] [id number] [place] [address] May, Mild persistent asthma witho ut complication J45.30 and Uncontrolled type 2 diabetes mellitus with hypoglycemia and coma, without long-term current use of insulin E11.641 [place] [address] [place] [id number] [address] [place] [address] May, [place] [address] [address] May, [place] [address] [address] May, Uncontrolled type 2 diabetes mellitus with hypoglycemia and coma, without long-term current use of insulin E11.641 ; Headache, unspecified headache type R51 ; Hypoglycemia E16.2 ; Hyperglycemia R73.9 ; Urinary tract infection without hematuria, site unspecified N39.0 and Financial difficulties Z59.8 [facility] [address] [place] [id number] [place] [id number] Apr, Dental examination Z01.20 [place] [id number] [address] [place] [address] Mar, Type 2 diabetes mellitus wit hout complication, without long-term current use of insulin E11.9 ; Rash R21 ; Mild persistent asthma without complication J45.30 ; Seasonal allergies J30.2 ; Depression, unspecified depression type F32.9 ; GERD with esophagitis K21.0 ; Financial difficulties Z59.8 and Essential hypertension I10 [address] [address] Mar, Bipolar affective disorder 2 96.80 and No condition on [place] V71.[address] [address] Mar, [address] [address] Mar, Screening for tuberculosis V 74.1 ; Type 2 diabetes mellitus 250.00 ; Hypertension 401.9 ; Arthralgia 719.40 ; Dysthymia 300.4 ; GERD (gastroesophageal reflux disease) 530.81 and Exposure to viral disease V01.79 [facility] [address] [id number] [address] [place] [address], [place] [address] 16 Mar, 2015 [facility] [address] [id number] [address] [place] [address] 14 Jan, 2015 [facility] [address] [id number] [address] [place] [address], [place] [address] Jan, [facility] [address] [id number] [address] [place] [address] Sep, [facility] [address] [id number] [address] [place] [address], [place] [address] Sep, [facility] [address] [id number] [address] [place] [address], [place] [address] Sep, [facility] [address] [id number] [address] [place] [address] Sep, [facility] [address] [id number] [address] [place] [phone] Aug, [facility] [address] [id number] [address] [place] [address] Aug, [facility] [address] [id number] [address] [place] [address] Apr, [facility] [address] [id number] [address] [place] [phone] Apr, [facility] [address] [id number] [address] [place] [address] Apr, [facility] [address] [id number] [address] [place] [address] Apr, [facility] [address] [id number] [address] [place] [address] Mar, [facility] [address] [id number] [address] [place] [address] Mar, [facility] [address] [id number] [address] [place] [address], [place] [address] Oct, [facility] [address] [id number] [address] [place] [address], [place] [address] Oct, [facility] [address] [id number] [address] [place] [address], [place] [address] Sep, [facility] [address] [id number] [address] [place] [address], [place] [address] Sep, [facility] [address] [id number] [address] [place] [address], [place] [address] Jul, [facility] [address] [id number] [address] [place] [address], [place] [address] Jul, [facility] [address] [id number] [address] [place] [address], [place] [address] Jul, [facility] [address] [id number] [address] [place] [address], [place] [address] Jul, [facility] [address] [id number] [address] [place] [address], [place] [address] Jul, [facility] [address] [id number] [address] [place] [address], [place] [address] Jun, [facility] [address] [id number] [address] [place] [address], [place] [address] May, [facility] [address] [id number] [address] [place] [address], [place] [address] Mar, [facility] [address] [id number] [address] [place] [address], [place] [address] Mar, [facility] [address] [id number] [address] [place] [address], [place] [address] Mar, [facility] [address] [id number] [address] [place] [address], [place] [address] February, [facility] [address] [id number] [address] [place] [address], [place] [address] February, [facility] [address] [id number] [address] [place] [address], [place] [address] February, [facility] [address] [id number] [address] [place] [address], [place] [address] February, [facility] [address] [id number] [address] [place] [address], [place] [address] February, [facility] [address] [id number] [address] [place] [address], [place] [address] February, [facility] [address] [id number] [address] [place] [address], [place] [address] February, [facility] [address] [id number] [address] [place] [address], [place] [address] February, [facility] [address] [id number] [address] [place] [address], [place] [address] February, [facility] [address] [id number] [address] [place] [address], [place] [address] February, [facility] [address] [id number] [address] [place] [address], [place] [address] February, [facility] [address] [id number] [address] [place] [address], [place] [address] Nov, [facility] [address] [id number] [address] [place] [address], [place] [address] 08 Nov, 2012 [facility] [address] [id number] [address] [place] [address], [place] [address] Nov, [facility] [address] [id number] [address] [place] [address], [place] [address] Sep, [facility] [address] [id number] [address] [place] [address], [place] [address] Sep, [facility] [address] [id number] [address] [place] [address], [place] [address] Sep, [facility] [address] [id number] [address] [place] [address], [place] [address] Sep, [facility] [address] [id number] [address] [place] [address], [place] [address] Sep, [facility] [address] [id number] [address] [place] [address], [place] [address] Sep, [facility] [address] [id number] [address] [place] [address], [place] [address] Aug, [facility] [address] [id number] [address] [place] [address], [place] [address] Aug, [facility] [address] [id number] [address] [place] [address], [place] [address] Aug, [facility] [address] [id number] [address] [place] [address], [place] [address] Aug, [facility] [address] [id number] [address] [place] [address], [place] [address] Jul, [facility] [address] [id number] [address] [place] [address], [place] [address] Jul, [facility] [address] [id number] [address] [place] [address], [place] [address] Jul, [facility] [address] [id number] [address] [place] [address], [place] [address] Jul, [facility] [address] [id number] [address] [place] [address], [place] [address] Jul, [facility] [address] [id number] [address] [place] [address], [place] [address] Jul, [facility] [address] [id number] [address] [place] [address], [place] [address] Jul, [facility] [address] [id number] [address] [place] [address], [place] [address] Jul, [facility] [address] [id number] [address] [place] [address], [place] [address] Jun, [facility] [address] [id number] [address] [place] [address], [place] [address] Apr, [facility] [address] [id number] [address] [place] [address], [place] [address] Apr, [facility] [address] [id number] [address] [place] [address], [place] [address] Apr, [facility] [address] [id number] [address] [place] [address], [place] [address] Apr, [facility] [address] [id number] [address] [place] [address], [place] [address] Mar, [facility] [address] [id number] [address] [place] [address], [place] [address] Mar, [facility] [address] [id number] [address] [place] [address], [place] [address] Mar, [facility] [address] [id number] [address] [place] [address], [place] [address] Mar, [facility] [address] [id number] [address] [place] [address], [place] [address] Mar, [facility] [address] [id number] [address] [place] [address], [place] [address] February, [facility] [address] [id number] [address] [place] [address], [place] [address] Oct, [facility] [address] [id number] [address] [place] [address] Oct, [facility] [address] [id number] [address] [place] [address], [place] [address] Aug, [facility] [address] [id number] [address] [place] [address], [place] [address] Aug, [facility] [address] [id number] [address] [place] [address], [place] [address] Jul, [facility] [address] [id number] [address] [place] [address] Mar, [facility] [address] [facility] [id number] [place] [address] Sep, IMMUNIZATIONS No Known Immunizations SOCIAL HISTORY Never Assessed REASON FOR VISIT PLAN OF CARE VITAL SIGNS Height 64 in 2014-09-20 Weight 303.4 lbs 2014-09-20 Temperature 97.1 degrees Fahrenheit 2014-09-20 Heart Rate 88 bpm 2014-09-20 Respiratory Rate 18 2014-09-20 Blood pressure systolic 120 mmHg 2014-09-20 Blood pressure diastolic 70 mmHg 2014-09-20 MEDICATIONS Unknown Medications RESULTS No Results PROCEDURES Procedure Date Ordered Result Body Site GLYCATED HEMOGLOBIN TEST Sep 20, 2014 LIPID PANEL Sep 20, 2014 COMPREHEN METABOLIC PANEL Sep 20, 2014 VENIPUNCT, ROUTINE* Sep 20, 2014 INSTRUCTIONS MEDICATIONS ADMINISTERED No Known Medications MEDICAL [...] ; 2 pregnancies carried to 6 months. Surgical History tonsillectomy Surgical History cholecystectomy Hospitalization History Hospitalization for surgery only Hospitalization History ER visit for headache. She had a 40 0 blood sugar. 05/2016
--- OUTSIDE RECORDS SUMMARY | 2020-03-14 16:27 | XMS REPORT ---
Author Author Estefani CHUA Organization [facility] Address [address] [place] [address] Care Team Providers Care Garment Liner Name Role Phone JOANNE CHUA Unavailable PROBLEMS Type Condition ICD9-CM Code ZBB84-LU Code Onset Dates Condition S tatus SNOMED Code Problem Mild persistent asthma without complication J45.30 Active 859151027 Problem Essential hypertension I10 Active 20106731 Problem Bipolar disorder with depression F31.30 Active 48188990 Problem Migraine without aura and without status migrain osus, not intractable G43.009 Active 771958601 Problem GERD with esophagitis K21.0 Active 195930866 Problem Chronic post-traumatic stress disorder (PTSD) F43. 12 Active 012433232 Problem Compulsive skin picking L98.1 Active 217599625 Problem Body mass index (BMI) of 50-59.9 in adult Z68.43 Active 797596654 Problem Gastroesophageal reflux disease, esophagitis pre sence not specified K21.9 Active 891630979 Problem Morbid (severe) obesity due to excess calories E66 .01 Active 562490004 Problem Morbid obesity E66.01 Active 66797 6002 Problem Psychophysiological insomnia F51.04 A ctive 832325332 Problem Type 2 diabetes mellitus wit h complication, without long-term current use of insulin E11.8 Active 16071310 Problem Seasonal allergic rhinitis due to pollen J30.1 Active 06286552 Problem Rhinosinusitis J32.9 Active 05569 4004 Problem Mixed hyperlipidemia E78.2 Active 284625469 ALLERGIES No Information ENCOUNTERS Encounter Location Date Diagnosis [facility] [address] [facility] [id number] [address] [place] [phone] Apr, [facility] [address] [facility] [id number] [address] [place] [phone] February, [facility] [address] [facility] [id number] [address] [place] [id number] 14 Feb, 2020 [facility] [address] [facility] [id number] [address] [place] [phone] February, [facility] [address] [facility] [id number] [address] [place] [id number] 30 Jan, 2020 Bipolar disorder with depres kirsten F31.30 ; Chronic post-traumatic stress disorder (PTSD) F43.12 ; Morbid obesity E66.01 and Compulsive skin picking L98.1 [facility] [address] [facility] [id number] [address] [place] [id number] 29 Jan, 2020 [facility] [address] [facility] [id number] [address] [place] [id number] 20 Jan, 2020 [facility] [address] [place] [id number] [address] [place] [phone] 16 Jan, 2020 [facility] [address] [facility] [id number] [address] [place] [phone] 13 Jan, 2020 [facility] [address] [facility] [id number] [address] [place] [id number] 12 Jan, 2020 Non-intractable vomiting wit h nausea, unspecified vomiting type R11.2 [facility] [address] [facility] [id number] [address] [place] [id number] 10 Jan, 2020 [facility] [address] [facility] [id number] [address] [place] [id number] 07 Jan, 2020 [facility] [address] [facility] [id number] [address] [place] [phone] Jan, [facility] [address] [facility] [id number] [address] [place] [id number] 06 Jan, 2020 [facility] [address] [facility] [id number] [address] [place] [id number] 04 Jan, 2020 Type 2 diabetes mellitus wit hout complications E11.9 [facility] [address] [facility] [id number] [address] [place] [address] Jan, Dog scratch W54.8XXA [place] [address] [address] 27 Dec, 2019 Essential hypertension I10 [place] [address] [place] [id number] 16 Dec, 2019 Bipolar disorder with depres kirsten F31.30 [place] [address] [place] [id number] 12 Dec, 2019 [place] [address] [address] 10 Dec, 2019 Bipolar disorder with depres kirsten F31.30 ; Chronic post-traumatic stress disorder (PTSD) F43.12 ; Morbid obesity E66.01 and Compulsive skin picking L98.1 [place] [address] [address] 05 Dec, 2019 [place] [address] [address] 03 Dec, 2019 Gastroesophageal reflux dise ase, esophagitis presence not specified K21.9 and Epigastric abdominal pain R10.[address] [address] 02 Dec, 2019 Mixed hyperlipidemia E78.2 a nd Serum potassium elevated E87.[address] [address] Nov, Mild persistent asthma witho ut complication J45.30 [place] [address] [address] 21 Nov, 2019 Mild persistent asthma witho ut complication J45.30 ; Essential hypertension I10 ; Migraine without aura and without status migrainosus, not intractable G43.009 ; Type 2 diabetes mellitus with complication, without long- term current use of insulin E11.8 and Rhinosinusitis J32.[address] [address] Oct, [facility] [address] [facility] [id number] [address] [place] [id number] 07 Oct, 2019 Bipolar disorder with depres kirsten F31.30 ; Chronic post-traumatic stress disorder (PTSD) F43.12 ; Morbid obesity E66.01 and Compulsive skin picking L98.1 [facility] [address] [facility] [id number] [address] [place] [id number] 06 Oct, 2019 [facility] [address] [facility] [id number] [address] [place] [phone] Sep, Simple chronic bronchitis J4 1.0 [facility] [address] [place] [id number] [place] [phone] Sep, Bronchitis J40 [facility] [address] [facility] [id number] [address] [place] [phone] Aug, Bronchitis J40 [facility] [address] [place] [id number] [address] [place] [phone] Jul, [facility] [id number] [place] [address] Jul, [facility] [address] [place] [id number] [address] [place] [phone] Jul, [facility] [address] [place] [id number] [address] [place] [phone] Jun, Compulsive skin picking L98. 1 and Essential hypertension I10 [facility] [address] [facility] [id number] [address] [place] [phone] 24 Jun, 2019 Encounter for immunization Z 23 [place] [address] [facility] [id number] [address] [place] [id number] 18 Jun, 2019 [facility] [address] [facility] [id number] [address] [place] [id number] 05 Jun, 2019 Psychophysiological insomnia F51.04 ; Bipolar disorder with depression F31.30 ; Chronic post-traumatic stress disorder (PTSD) F43.12 and Morbid obesity E66.01 [place] [address] [facility] [id number] [address] [place] [id number] 04 Jun, 2019 Psychophysiological insomnia F51.04 [place] [address] [facility] [id number] [address] [place] [id number] 15 May, 2019 Migraine without aura and wi thout status migrainosus, not intractable G43.009 [place] [address] [place] [id number] [address] [place] [phone] May, Migraine without aura and wi thout status migrainosus, not intractable G43.009 [place] [address] [facility] [id number] [address] [place] [phone] Apr, Daily headache R51 ; Seasona l allergic rhinitis due to pollen J30.1 ; Type 2 diabetes mellitus without complications E11.9 and Morbid obesity E66.01 [place] [address] [place] [phone] Apr, [place] [address] [address] Apr, [facility] [address] [address] Mar, Encounter for immunization Z 23 [facility] [address] [place] [id number] [place] [address] Mar, Skin infection L08.9 and Mor bid obesity E66.01 [facility] [address] [place] [id number] [address] [place] [phone] Mar, Morbid obesity E66.01 [place] [address] [place] [id number] [address] [place] [id number] Mar, [place] [address] [place] [id number] [place] [address] Mar, Type 2 diabetes mellitus wit h complication, without long-term current use of insulin E11.8 [place] [address] [place] [id number] [place] [address] Mar, [facility] [address] [id number] [address] [place] [phone] Mar, [facility] [address] [facility] [id number] [address] [place] [phone] Mar, [facility] [address] [facility] [id number] [address] [place] [phone] 18 Mar, 2019 Essential hypertension I10 [facility] [address] [id number] [address] [place] [phone] 13 Mar, 2019 Migraine without aura and wi thout status migrainosus, not intractable G43.009 [facility] [address] [facility] [id number] [address] [place] [address] Mar, [facility] [address] [facility] [id number] [address] [place] [id number] Mar, Psychophysiological insomnia F51.04 [facility] [address] [facility] [id number] [address] [place] [phone] February, [facility] [address] [facility] [id number] [address] [place] [phone] February, Type 2 diabetes mellitus wit hout complications E11.9 [facility] [address] [facility] [id number] [address] [place] [address] February, Migraine without aura and wi thout status migrainosus, not intractable G43.009 [facility] [address] [facility] [id number] [address] [place] [phone] February, Type 2 diabetes mellitus wit hout complications E11.9 [facility] [address] [facility] [id number] [address] [place] [phone] February, Bipolar disorder with depres kirsten F31.30 ; Compulsive skin picking L98.1 ; Chronic post-traumatic stress disorder (PTSD) F43.12 and Morbid obesity E66.01 [facility] [address] [facility] [id number] [address] [place] [address] February, Mild persistent asthma witho ut complication J45.30 and Bipolar disorder with depression F31.30 [place] [address] [address] Jan, [place] [address] [address] Jan, Type 2 diabetes mellitus wit hout complications E11.9 ; Essential hypertension I10 ; Hyperglycemia R73.9 and Morbid obesity E66.01 [place] [address] [address] Jan, Bipolar disorder with depres kirsten F31.30 ; Compulsive skin picking L98.1 ; Chronic post-traumatic stress disorder (PTSD) F43.12 ; Body mass index (BMI) of 50-59.9 in adult Z68.43 and Morbid (severe) obesity due to excess calories E66.01 [place] [address] [address] Dec, [place] [address] [address] Nov, Type 2 diabetes mellitus wit hout complications E11.9 [place] [address] [address] Nov, [place] [address] [address] Nov, Type 2 diabetes mellitus wit hout complications E11.9 [place] [address] [place] [id number] [address] [place] [address] Nov, [place] [address] [address] Nov, Type 2 diabetes mellitus wit hout complications E11.9 ; Depression, unspecified depression type F32.9 ; Essential hypertension I10 ; Hyperglycemia R73.9 ; Psychophysiological insomnia F51.04 and BMI 50.0-59.9, adult Z68.43 [place] [address] [facility] [id number] [address] [place] [phone] Sep, [facility] [address] [facility] [id number] [address] [place] [phone] Aug, [facility] [address] [facility] [id number] [address] [place] [phone] Jul, [facility] [address] [place] [id number] [place] [address] Jul, Type 2 diabetes mellitus wit hout complications E11.9 ; Hyperglycemia R73.9 ; History of venomous spider bite Z91.89 and BMI 50.0-59.9, adult Z68.43 [facility] [address] [facility] [id number] [address] [place] [address] Jun, [facility] [address] [place] [id number] [address] [place] [id number] Apr, Migraine without aura and wi thout status migrainosus, not intractable G43.009 [facility] [address] [facility] [id number] [address] [place] [phone] Apr, Essential hypertension I10 [facility] [address] [facility] [id number] [address] [place] [address] Apr, Type 2 diabetes mellitus wit hout complications E11.9 and Migraine without aura and without status migrainosus, not intractable G43.009 [facility] [address] [facility] [id number] [address] [place] [id number] Mar, [facility] [address] [facility] [id number] [address] [place] [phone] Mar, [facility] [address] [facility] [id number] [address] [place] [id number] February, [facility] [address] [facility] [id number] [address] [place] [phone] February, Intractable migraine with au ra with status migrainosus G43.111 and BMI 50.0-59.9, adult Z68.43 [facility] [address] [place] [id number] [address] [place] [phone] Jan, Type 2 diabetes mellitus wit hout complications E11.9 ; Mild persistent asthma without complication J45.30 ; Depression, unspecified depression type F32.9 and Bipolar disorder with depression F31.30 [facility] [address] [place] [id number] [address] [place] [address] Jan, [facility] [address] [address] Jan, Type 2 diabetes mellitus wit hout complications E11.9 ; Essential hypertension I10 ; Depression, unspecified depression type F32.9 ; Mild persistent asthma without complication J45.30 and BMI 50.0-59.9, adult Z68.43 [facility] [address] [address] Nov, 2018 Viral illness B34.9 and BMI 50.0-59.9, adult Z68.43 [facility] [address] [address] Mar, Depression, unspecified depr ession type F32.9 ; Type 2 diabetes mellitus without complications E11.9 ; Essential hypertension I10 and Seasonal allergies J30.2 [place] [address] [address] Mar, Uncontrolled type 2 diabetes mellitus with hypoglycemia and coma, without long-term current use of insulin E11.641 ; Type 2 diabetes mellitus without complications E11.9 and Depression, unspecified depression type F32.9 [facility] [address] [place] [id number] [address] [place] [address] February, [facility] [address] [place] [address] February, [place] [address] [place] [id number] [address] [place] [address] February, [facility] [address] [address] February, [facility] [address] [id number] [address] [place] [address] February, Depression, unspecified depr ession type F32.9 and Bipolar disorder with depression F31.30 [place] [address] [facility] [id number] [address] [place] [address] February, Dysthymia 300.4 and Type 2 d iabetes mellitus without complications E11.9 [facility] [address] [facility] [id number] [address] [place] [address] February, [place] [address] [facility] [id number] [address] [place] [address] February, Type 2 diabetes mellitus wit hout complications E11.9 and Pain of right hip joint M25.551 [place] [address] [facility] [id number] [address] [place] [address] February, [place] [address] [facility] [id number] [address] [place] [address] Jan, Uncontrolled type 2 diabetes mellitus with hypoglycemia and coma, without long-term current use of insulin E11.641 ; Essential hypertension I10 and Depression, unspecified depression type F32.9 [place] [id number] [facility] [id number] [address] [place] [address] 14 Nov, 2016 Mild persistent asthma witho ut complication J45.30 [place] [address] [facility] [id number] [address] [place] [address] Aug, [place] [address] [facility] [id number] [address] [place] [address] Aug, Essential hypertension I10 [place] [address] [facility] [id number] [address] [place] [phone] Jun, [place] [address] [facility] [id number] [address] [place] [phone] Jun, [place] [address] [facility] [id number] [address] [place] [address] Jun, Type 2 diabetes mellitus wit h complication, without long-term current use of insulin E11.8 and Diarrhea, unspecified type R19.7 [place] [address] [place] [phone] Jun, [place] [address] [address] Jun, [place] [address] [address] Jun, Type 2 diabetes mellitus wit hout complications E11.9 and Mild persistent asthma without complication J45.30 [place] [address] [address] May, Mild persistent asthma witho ut complication J45.30 and Uncontrolled type 2 diabetes mellitus with hypoglycemia and coma, without long-term current use of insulin E11.641 [place] [address] [place] [id number] [address] [place] [address] May, [place] [address] [place] [id number] [address] [place] [address] May, [place] [address] [place] [id number] [address] [place] [address] May, Uncontrolled type 2 diabetes mellitus with hypoglycemia and coma, without long-term current use of insulin E11.641 ; Headache, unspecified headache type R51 ; Hypoglycemia E16.2 ; Hyperglycemia R73.9 ; Urinary tract infection without hematuria, site unspecified N39.0 and Financial difficulties Z59.8 [facility] [address] [facility] [id number] [address] [place] [id number] Apr, Dental examination Z01.20 [place] [address] [place] [id number] [address] [place] [address] Mar, Type 2 diabetes mellitus wit hout complication, without long-term current use of insulin E11.9 ; Rash R21 ; Mild persistent asthma without complication J45.30 ; Seasonal allergies J30.2 ; Depression, unspecified depression type F32.9 ; GERD with esophagitis K21.0 ; Financial difficulties Z59.8 and Essential hypertension I10 [facility] [address] [address] Mar, Bipolar affective disorder 2 96.80 and No condition on Center II V71.09 [facility] [address] [address] Mar, [facility] [address] [address] Mar, Screening for tuberculosis V 74.1 ; Type 2 diabetes mellitus 250.00 ; Hypertension 401.9 ; Arthralgia 719.40 ; Dysthymia 300.4 ; GERD (gastroesophageal reflux disease) 530.81 and Exposure to viral disease V01.79 [facility] [address] [address] Mar, [facility] [address] [address] Jan, [facility] [address] [address] Jan, [facility] [address] [address] Sep, [facility] [address] [place] [id number] [address] [place] [address] Sep, [facility] [address] [place] [id number] [address] [place] [phone] Sep, [facility] [address] [place] [id number] [address] [place] [phone] Sep, [facility] [address] [address] Aug, [facility] [address] [place] [id number] [address] [place] [address] Aug, [facility] [address] [address] 07 Apr, 2014 [facility] [address] [id number] [address] [place] [address], [place] [address] Apr, 2013 [facility] [address] [id number] [address] [place] [address], [place] [address] Apr, [facility] [address] [id number] [address] [place] [address], [place] [address] Apr, [facility] [address] [id number] [address] [place] [address], [place] [address] Mar, [facility] [address] [id number] [address] [place] [address], [place] [address] Mar, [facility] [address] [id number] [address] [place] [address], [place] [address] Oct, [facility] [address] [id number] [address] [place] [address], [place] [address] Oct, [facility] [address] [id number] [address] [place] [address], [place] [address] Sep, [facility] [address] [id number] [address] [place] [phone] Sep, [facility] [address] [id number] [address] [place] [id number] Jul, [facility] [address] [id number] [address] [place] [id number] Jul, [facility] [address] [id number] [address] [place] [id number] Jul, [facility] [address] [id number] [address] [place] [id number] Jul, [facility] [address] [id number] [address] [place] [id number] Jul, [facility] [address] [id number] [address] [place] [address], [place] [id number] Jun, [facility] [address] [id number] [address] [place] [address], [place] [id number] May, [facility] [address] [id number] [address] [place] [address], [place] [id number] Mar, [facility] [address] [id number] [address] [place] [address], [place] [id number] Mar, [facility] [address] [id number] [address] [place] [address], [place] [id number] Mar, [facility] [address] [id number] [address] [place] [address], [place] [id number] February, [facility] [address] [id number] [address] [place] [address], [place] [id number] February, [facility] [facility] [address] [id number] [address] [place] [address], [place] [address] February, [facility] [address] [id number] [address] [place] [address], [place] [address] February, [facility] [address] [id number] [address] [place] [address], [place] [address] February, [facility] [address] [id number] [address] [place] [address], [place] [address] February, [facility] [address] [id number] [address] [place] [address], [place] [address] February, [facility] [address] [id number] [address] [place] [address], [place] [address] February, [facility] [address] [id number] [address] [place] [address], [place] [address] February, [facility] [address] [id number] [address] [place] [address], [place] [address] February, [facility] [address] [id number] [address] [place] [address], [place] [address] February, [facility] [address] [id number] [address] [place] [address], [place] [address] 18 Nov, 2012 [facility] [address] [id number] [address] [place] [address], [place] [address] 08 Nov, 2012 [facility] [address] [id number] [address] [place] [address], [place] [address] Nov, [facility] [address] [id number] [address] [place] [address], [place] [address] Sep, [facility] [address] [id number] [address] [place] [address], [place] [address] Sep, [facility] [address] [id number] [address] [place] [address], [place] [address] Sep, [facility] [address] [id number] [address] [place] [address], [place] [address] Sep, [facility] [address] [id number] [address] [place] [address], [place] [address] Sep, [facility] [address] [id number] [address] [place] [address], [place] [address] Sep, [facility] [address] [id number] [address] [place] [address], [place] [address] Aug, [facility] [address] [id number] [address] [place] [address], [place] [address] Aug, [facility] [address] [id number] [address] [place] [address], [place] [address] Aug, [facility] [address] [id number] [address] [place] [address], [place] [address] Aug, [facility] [address] [id number] [address] [place] [address], [place] [address] Jul, [facility] [address] [id number] [address] [place] [address], [place] [address] Jul, [facility] [address] [id number] [address] [place] [address], [place] [address] Jul, [facility] [address] [id number] [address] [place] [address], [place] [address] 17 Jul, 2012 [facility] [address] [id number] [address] [place] [address], [place] [address] Jul, [facility] [address] [id number] [address] [place] [address], [place] [address] 16 Jul, 2012 [facility] [address] [id number] [address] [place] [address], [place] [address] Jul, [facility] [address] [id number] [address] [place] [address], [place] [address] Jul, [facility] [address] [id number] [address] [place] [address], [place] [address] Jun, [facility] [address] [id number] [address] [place] [address], [place] [address] Apr, [facility] [address] [id number] [address] [place] [address], [place] [address] Apr, [facility] [address] [id number] [address] [place] [address], [place] [address] Apr, [facility] [address] [id number] [address] [place] [address], [place] [address] Apr, [facility] [address] [id number] [address] [place] [address], [place] [address] Mar, [facility] [address] [id number] [address] [place] [address], [place] [address] Mar, [facility] [address] [id number] [address] [place] [address], [place] [address] Mar, [facility] [address] [id number] [address] [place] [address], [place] [address] Mar, [facility] [address] [id number] [address] [place] [address], [place] [address] Mar, [facility] [address] [id number] [address] [place] [address], [place] [address] February, [facility] [address] [facility] [id number] [address] [place] [id number] Oct, [facility] [address] [facility] [id number] [address] [place] [id number] Oct, [facility] [address] [facility] [id number] [address] [place] [id number] Aug, [facility] [address] [facility] [id number] [address] [place] [id number] Aug, [facility] [address] [facility] [id number] [address] [place] [id number] Jul, [facility] [address] [facility] [id number] [address] [place] [id number] Mar, [facility] [address] [facility] [id number] [address] [place] [id number] Sep, IMMUNIZATIONS No Known Immunizations SOCIAL HISTORY [...] 40 0 blood sugar. 05/2016 Hospitalization History [facility] 01/25/2020-2019 Hospitalization History [facility] January 2020
--- OUTSIDE RECORDS SUMMARY | 2020-03-14 16:27 | XMS REPORT ---
Author Author Estefani Vincent Doctor Organization [facility] Address Unknown Phone Unavailable Care Team Providers Care Spike Machine Heater Name Role Phone Migration, Doctor Unavailable Unavailable PROBLEMS Type Condition ICD9-CM Code [id number] Code Onset Dates Condition S tatus SNOMED Code Problem Mild persistent asthma without complication J45.30 Active 249441783 Problem Essential hypertension I10 Active 62701191 Problem Bipolar disorder with depression F31.30 Active 32043355 Problem Migraine without aura and without status migrain osus, not intractable G43.009 Active 586998921 Problem GERD with esophagitis K21.0 Active 298231953 Problem Chronic post-traumatic stress disorder (PTSD) F43. 12 Active 282940502 Problem Compulsive skin picking L98.1 Active 872758295 Problem Body mass index (BMI) of 50-59.9 in adult Z68.43 Active 681796453 Problem Gastroesophageal reflux disease, esophagitis pre sence not specified K21.9 Active 446952061 Problem Morbid (severe) obesity due to excess calories E66 .01 Active 267884865 Problem Morbid obesity E66.01 Active 30238 6002 Problem Psychophysiological insomnia F51.04 A ctive 296830453 Problem Type 2 diabetes mellitus wit h complication, without long-term current use of insulin E11.8 Active 58200212 Problem Seasonal allergic rhinitis due to pollen J30.1 Active 45507028 Problem Rhinosinusitis J32.9 Active 81340 4004 Problem Mixed hyperlipidemia E78.2 Active 043261273 ALLERGIES No Information ENCOUNTERS Encounter Location Date Diagnosis [facility] [address] [facility] [id number] [address] [place] [phone] Apr, [facility] [address] [facility] [id number] [address] [place] [phone] February, [facility] [address] [facility] [id number] [address] [place] [phone] February, [facility] [address] [address] February, [facility] [address] [address] Jan, Bipolar disorder with depres kirsten F31.30 ; Chronic post-traumatic stress disorder (PTSD) F43.12 ; Morbid obesity E66.01 and Compulsive skin picking L98.1 [facility] [address] [address] Jan, [facility] [address] [place] [id number] [place] [address] Jan, [facility] [address] [address] Jan, [facility] [address] [address] Jan, [facility] [address] [address] Jan, Non-intractable vomiting wit h nausea, unspecified vomiting type R11.2 [facility] [address] [address] Jan, [facility] [address] [address] Jan, [facility] [address] [address] Jan, [facility] [address] [place] [id number] [place] [address] Jan, [facility] [address] [address] 04 Jan, 2020 Type 2 diabetes mellitus wit hout complications E11.9 [facility] [address] [place] [id number] [address] [place] [address] 02 Jan, 2020 Dog scratch W54.8XXA [facility] [address] [address] 27 Dec, 2019 Essential hypertension I10 [place] [address] [address] 16 Dec, 2019 Bipolar disorder with depres kirsten F31.30 [place] [address] [address] 12 Dec, 2019 [place] [address] [address] 10 Dec, 2019 Bipolar disorder with depres kirsten F31.30 ; Chronic post-traumatic stress disorder (PTSD) F43.12 ; Morbid obesity E66.01 and Compulsive skin picking L98.1 [place] [address] [address] 05 Dec, 2019 [place] [address] [address] 03 Dec, 2019 Gastroesophageal reflux dise ase, esophagitis presence not specified K21.9 and Epigastric abdominal pain R10.13 [place] [address] [address] 02 Dec, 2019 Mixed hyperlipidemia E78.2 a nd Serum potassium elevated E87.5 [place] [address] [address] Nov, Mild persistent asthma witho ut complication J45.30 [place] [address] [address] 21 Nov, 2019 Mild persistent asthma witho ut complication J45.30 ; Essential hypertension I10 ; Migraine without aura and without status migrainosus, not intractable G43.009 ; Type 2 diabetes mellitus with complication, without long- term current use of insulin E11.8 and Rhinosinusitis J32.9 [place] [address] [address] 14 Oct, 2019 [place] [address] [address] Oct, Bipolar disorder with depres kirsten F31.30 ; Chronic post-traumatic stress disorder (PTSD) F43.12 ; Morbid obesity E66.01 and Compulsive skin picking L98.1 [facility] [address] [facility] [id number] [address] [place] [phone] Oct, [facility] [address] [facility] [id number] [address] [place] [phone] Sep, Simple chronic bronchitis J4 1.0 [facility] [address] [facility] [id number] [address] [place] [phone] Sep, Bronchitis J40 [facility] [address] [facility] [id number] [place] [address] Aug, Bronchitis J40 [facility] [address] [facility] [id number] [address] [place] [phone] Jul, [facility] [address] [facility] [id number] [address] [place] [address] Jul, [facility] [address] [place] [id number] [address] [place] [phone] Jul, [place] [address] [place] [id number] [place] [address] Jun, Compulsive skin picking L98. 1 and Essential hypertension I10 [place] [address] [facility] [id number] [address] [place] [phone] Jun, Encounter for immunization Z 23 [facility] [address] [facility] [id number] [address] [place] [address] Jun, [place] [address] [facility] [id number] [address] [place] [id number] 05 Jun, 2019 Psychophysiological insomnia F51.04 ; Bipolar disorder with depression F31.30 ; Chronic post-traumatic stress disorder (PTSD) F43.12 and Morbid obesity E66.01 [place] [address] [place] [id number] [place] [address] Jun, Psychophysiological insomnia F51.04 [facility] [address] [facility] [id number] [address] [place] [address] 15 May, 2019 Migraine without aura and wi thout status migrainosus, not intractable G43.009 [facility] [address] [facility] [id number] [address] [place] [address] 02 May, 2019 Migraine without aura and wi thout status migrainosus, not intractable G43.009 [facility] [address] [facility] [id number] [address] [place] [phone] Apr, Daily headache R51 ; Seasona l allergic rhinitis due to pollen J30.1 ; Type 2 diabetes mellitus without complications E11.9 and Morbid obesity E66.01 [place] [address] [facility] [id number] [address] [place] [phone] Apr, [place] [address] [address] Apr, [facility] [address] [place] [id number] [address] [place] [id number] Mar, Encounter for immunization Z 23 [facility] [address] [place] [id number] [place] [address] Mar, Skin infection L08.9 and Mor bid obesity E66.01 [facility] [id number] [place] [address] Mar, Morbid obesity E66.01 [facility] [address] [place] [id number] [address] [place] [phone] Mar, [place] [address] [address] Mar, Type 2 diabetes mellitus wit h complication, without long-term current use of insulin E11.8 [facility] [address] [place] [id number] [address] [place] [address] Mar, [facility] [address] [address] Mar, [facility] [address] [id number] [address] [place] [phone] Mar, [facility] [address] [id number] [address] [place] [address] Mar, Essential hypertension I10 [facility] [address] [id number] [address] [place] [id number] 13 Mar, 2019 Migraine without aura and wi thout status migrainosus, not intractable G43.009 [facility] [address] [id number] [address] [place] [id number] 12 Mar, 2019 [facility] [address] [id number] [address] [place] [id number] Mar, Psychophysiological insomnia F51.04 [facility] [address] [facility] [id number] [address] [place] [phone] February, [facility] [address] [id number] [address] [place] [phone] February, Type 2 diabetes mellitus wit hout complications E11.9 [facility] [address] [facility] [id number] [address] [place] [address] February, Migraine without aura and wi thout status migrainosus, not intractable G43.009 [facility] [address] [facility] [id number] [address] [place] [phone] February, Type 2 diabetes mellitus wit hout complications E11.9 [facility] [address] [id number] [address] [place] [phone] February, Bipolar disorder with depres kirsten F31.30 ; Compulsive skin picking L98.1 ; Chronic post-traumatic stress disorder (PTSD) F43.12 and Morbid obesity E66.01 [facility] [address] [facility] [id number] [address] [place] [phone] February, Mild persistent asthma witho ut complication J45.30 and Bipolar disorder with depression F31.30 [place] [id number] [place] [id number] [place] [id number] 17 Jan, 2019 [place] [address] [id number] 17 Jan, 2019 Type 2 diabetes mellitus wit hout complications E11.9 ; Essential hypertension I10 ; Hyperglycemia R73.9 and Morbid obesity E66.01 [place] [address] [address] 09 Jan, 2019 Bipolar disorder with depres kirsten F31.30 ; Compulsive skin picking L98.1 ; Chronic post-traumatic stress disorder (PTSD) F43.12 ; Body mass index (BMI) of 50-59.9 in adult Z68.43 and Morbid (severe) obesity due to excess calories E66.01 [place] [address] [place] [id number] [address] [place] [phone] Dec, [place] [address] [address] 18 Nov, 2018 Type 2 diabetes mellitus wit hout complications E11.9 [place] [address] [id number] 14 Nov, 2018 [place] [address] [place] [id number] [address] [place] [phone] 13 Nov, 2018 Type 2 diabetes mellitus wit hout complications E11.9 [place] [address] [place] [id number] [address] [place] [id number] 06 Nov, 2018 [place] [address] [place] [id number] [place] [id number] 06 Nov, 2018 Type 2 diabetes mellitus wit hout complications E11.9 ; Depression, unspecified depression type F32.9 ; Essential hypertension I10 ; Hyperglycemia R73.9 ; Psychophysiological insomnia F51.04 and BMI 50.0-59.9, adult Z68.43 [facility] [address] [place] [id number] [place] [id number] Sep, [place] [address] [facility] [id number] [address] [place] [phone] Aug, [facility] [address] [facility] [id number] [address] [place] [phone] Jul, [facility] [address] [facility] [id number] [address] [place] [phone] Jul, Type 2 diabetes mellitus wit hout complications E11.9 ; Hyperglycemia R73.9 ; History of venomous spider bite Z91.89 and BMI 50.0-59.9, adult Z68.43 [facility] [address] [place] [id number] [address] [place] [phone] Jun, [facility] [address] [place] [id number] [address] [place] [phone] Apr, Migraine without aura and wi thout status migrainosus, not intractable G43.009 [facility] [address] [place] [id number] [address] [place] [address] Apr, Essential hypertension I10 [facility] [address] [place] [id number] [place] [address] Apr, Type 2 diabetes mellitus wit hout complications E11.9 and Migraine without aura and without status migrainosus, not intractable G43.009 [facility] [address] [place] [id number] [address] [place] [id number] Mar, [facility] [address] [place] [id number] [place] [phone] Mar, [facility] [address] [place] [id number] [place] [phone] February, [facility] [address] [place] [id number] [place] [phone] February, Intractable migraine with au ra with status migrainosus G43.111 and BMI 50.0-59.9, adult Z68.43 [facility] [address] [place] [id number] [place] [address] Jan, Type 2 diabetes mellitus wit hout complications E11.9 ; Mild persistent asthma without complication J45.30 ; Depression, unspecified depression type F32.9 and Bipolar disorder with depression F31.30 [facility] [address] [place] [id number] [address] [place] [address] Jan, [facility] [address] [place] [id number] [address] [place] [address] Jan, Type 2 diabetes mellitus wit hout complications E11.9 ; Essential hypertension I10 ; Depression, unspecified depression type F32.9 ; Mild persistent asthma without complication J45.30 and BMI 50.0-59.9, adult Z68.43 [facility] [address] [address] Nov, Viral illness B34.9 and BMI 50.0-59.9, adult Z68.43 [place] [address] [address] Mar, Depression, unspecified depr ession type F32.9 ; Type 2 diabetes mellitus without complications E11.9 ; Essential hypertension I10 and Seasonal allergies J30.2 [place] [address] [address] Mar, Uncontrolled type 2 diabetes mellitus with hypoglycemia and coma, without long-term current use of insulin E11.641 ; Type 2 diabetes mellitus without complications E11.9 and Depression, unspecified depression type F32.9 [facility] [id number] [place] [phone] February, [place] [address] [place] [id number] [place] [id number] February, [place] [address] [address] February, [facility] [address] [place] [id number] [address] [place] [address] February, [place] [address] [place] [address] February, Depression, unspecified depr ession type F32.9 and Bipolar disorder with depression F31.30 [place] [address] [place] [id number] [place] [id number] February, Dysthymia 300.4 and Type 2 d iabetes mellitus without complications E11.9 [place] [address] [address] February, [place] [address] [address] February, Type 2 diabetes mellitus wit hout complications E11.9 and Pain of right hip joint M25.551 [place] [address] [place] [id number] [place] [address] February, [place] [address] [address] Jan, Uncontrolled type 2 diabetes mellitus with hypoglycemia and coma, without long-term current use of insulin E11.641 ; Essential hypertension I10 and Depression, unspecified depression type F32.9 [place] [address] [place] [id number] [place] [address] 14 Nov, 2016 Mild persistent asthma witho ut complication J45.30 [place] [address] [place] [id number] [place] [address] Aug, [place] [address] [place] [id number] [place] [address] Aug, Essential hypertension I10 [place] [address] [place] [id number] [place] [phone] Jun, [place] [address] [place] [id number] [place] [address] Jun, [place] [address] [place] [id number] [place] [address] Jun, Type 2 diabetes mellitus wit h complication, without long-term current use of insulin E11.8 and Diarrhea, unspecified type R19.7 [place] [id number] [facility] [id number] [address] [place] [phone] Jun, [place] [address] [facility] [id number] [address] [place] [phone] Jun, [place] [address] [facility] [id number] [address] [place] [phone] Jun, Type 2 diabetes mellitus wit hout complications E11.9 and Mild persistent asthma without complication J45.30 [place] [address] [facility] [id number] [address] [place] [address] May, Mild persistent asthma witho ut complication J45.30 and Uncontrolled type 2 diabetes mellitus with hypoglycemia and coma, without long-term current use of insulin E11.641 [place] [address] [place] [id number] [place] [address] May, [place] [address] [place] [id number] [address] [place] [address] May, [place] [address] [facility] [id number] [address] [place] [address] May, Uncontrolled type 2 diabetes mellitus with hypoglycemia and coma, without long-term current use of insulin E11.641 ; Headache, unspecified headache type R51 ; Hypoglycemia E16.2 ; Hyperglycemia R73.9 ; Urinary tract infection without hematuria, site unspecified N39.0 and Financial difficulties Z59.8 [facility] [address] [facility] [id number] [address] [place] [id number] Apr, Dental examination Z01.20 [facility] [address] [facility] [id number] [address] [place] [id number] Mar, Type 2 diabetes mellitus wit hout complication, without long-term current use of insulin E11.9 ; Rash R21 ; Mild persistent asthma without complication J45.30 ; Seasonal allergies J30.2 ; Depression, unspecified depression type F32.9 ; GERD with esophagitis K21.0 ; Financial difficulties Z59.8 and Essential hypertension I10 [facility] [address] [facility] [id number] [address] [place] [phone] Mar, Bipolar affective disorder 2 96.80 and No condition on [place] II V71.09 [facility] [address] [facility] [id number] [address] [place] [address] Mar, [facility] [address] [place] [id number] [place] [address] Mar, Screening for tuberculosis V 74.1 ; Type 2 diabetes mellitus 250.00 ; Hypertension 401.9 ; Arthralgia 719.40 ; Dysthymia 300.4 ; GERD (gastroesophageal reflux disease) 530.81 and Exposure to viral disease V01.79 [facility] [address] [facility] [id number] [address] [place] [id number] 16 Mar, 2015 [facility] [address] [place] [id number] [place] [address] Jan, [facility] [address] [place] [id number] [address] [place] [phone] Jan, [facility] [address] [facility] [id number] [address] [place] [id number] Sep, [facility] [address] [place] [id number] [address] [place] [phone] Sep, [facility] [address] [facility] [id number] [address] [place] [phone] Sep, [facility] [address] [facility] [id number] [address] [place] [id number] Sep, [facility] [address] [facility] [id number] [address] [place] [phone] Aug, [facility] [address] [facility] [id number] [address] [place] [phone] Aug, [facility] [address] [facility] [id number] [address] [place] [phone] Apr, [facility] [address] [id number] [address] [place] [address], [place] [address] 07 Apr, 2014 [facility] [address] [id number] [address] [place] [address], [place] [address] Apr, [facility] [address] [id number] [address] [place] [address], [place] [address] Apr, [facility] [address] [id number] [address] [place] [address], [place] [address] Mar, [facility] [address] [id number] [address] [place] [address], [place] [address] Mar, [facility] [address] [id number] [address] [place] [address], [place] [address] Oct, [facility] [address] [id number] [address] [place] [address], [place] [address] Oct, [facility] [address] [id number] [address] [place] [address], [place] [address] Sep, [facility] [address] [id number] [address] [place] [address], [place] [address] Sep, [facility] [address] [id number] [address] [place] [address], [place] [address] Jul, [facility] [address] [id number] [address] [place] [address], [place] [address] Jul, [facility] [address] [id number] [address] [place] [address], [place] [address] Jul, [facility] [address] [id number] [address] [place] [address], [place] [address] Jul, [facility] [address] [id number] [address] [place] [address], [place] [address] Jul, [facility] [address] [id number] [address] [place] [address], [place] [address] Jun, [facility] [address] [id number] [address] [place] [address], [place] [address] May, [facility] [address] [id number] [address] [place] [address], [place] [address] Mar, [facility] [address] [id number] [address] [place] [address], [place] [address] Mar, [facility] [address] [id number] [address] [place] [address], [place] [address] Mar, [facility] [address] [id number] [address] [place] [address], [place] [address] February, [facility] [address] [id number] [address] [place] [address], [place] [address] February, [facility] [address] [id number] [address] [place] [address], [place] [address] February, [facility] [address] [id number] [address] [place] [address], [place] [address] February, [facility] [address] [id number] [address] [place] [address], [place] [address] February, [facility] [address] [id number] [address] [place] [address], [place] [address] February, [facility] [address] [id number] [address] [place] [address], [place] [address] February, [facility] [address] [id number] [address] [place] [address], [place] [address] February, [facility] [address] [id number] [address] [place] [address], [place] [address] February, [facility] [address] [id number] [address] [place] [address], [place] [address] February, [facility] [address] [id number] [address] [place] [address], [place] [address] February, [facility] [address] [id number] [address] [place] [address], [place] [address] Nov, [facility] [address] [id number] [address] [place] [address], [place] [address] 08 Nov, 2012 [facility] [address] [id number] [address] [place] [address], [place] [address] Nov, [facility] [address] [id number] [address] [place] [address], [place] [address] Sep, [facility] [address] [id number] [address] [place] [address], [place] [address] Sep, [facility] [address] [id number] [address] [place] [address], [place] [address] Sep, [facility] [address] [id number] [address] [place] [address], [place] [address] Sep, [facility] [address] [id number] [address] [place] [address], [place] [address] Sep, [facility] [address] [id number] [address] [place] [address], [place] [address] Sep, [facility] [address] [id number] [address] [place] [address], [place] [address] Aug, [facility] [address] [id number] [address] [place] [address], [place] [address] Aug, [facility] [address] [id number] [address] [place] [address], [place] [address] Aug, [facility] [address] [id number] [address] [place] [address], [place] [address] Aug, [facility] [address] [id number] [address] [place] [address], [place] [address] Jul, [facility] [address] [id number] [address] [place] [address], [place] [address] Jul, [facility] [address] [id number] [address] [place] [address], [place] [address] Jul, [facility] [address] [id number] [address] [place] [address], [place] [address] Jul, [facility] [address] [id number] [address] [place] [address], [place] [address] 16 Jul, 2012 [facility] [address] [id number] [address] [place] [address], [place] [address] 16 Jul, 2012 [facility] [address] [id number] [address] [place] [address], [place] [address] Jul, [facility] [address] [id number] [address] [place] [address], [place] [address] Jul, [facility] [address] [id number] [address] [place] [address], [place] [address] Jun, [facility] [address] [id number] [address] [place] [address], [place] [address] Apr, [facility] [address] [id number] [address] [place] [address], [place] [address] Apr, [facility] [address] [id number] [address] [place] [address], [place] [address] Apr, [facility] [address] [id number] [address] [place] [address], [place] [address] Apr, [facility] [address] [id number] [address] [place] [address], [place] [address] Mar, [facility] [address] [id number] [address] [place] [address], [place] [address] Mar, [facility] [address] [id number] [address] [place] [address], [place] [address] Mar, [facility] [address] [id number] [address] [place] [address], [place] [address] Mar, [facility] [address] [id number] [address] [place] [address], [place] [address] Mar, [facility] [address] [id number] [address] [place] [address], [place] [address] February, [facility] [address] [id number] [address] [place] [address], [place] [address] Oct, [facility] [address] [facility] [id number] [address] [place] [id number] Oct, [facility] [address] [facility] [id number] [address] [place] [id number] Aug, [facility] [address] [facility] [id number] [address] [place] [phone] Aug, [facility] [address] [facility] [id number] [address] [place] [address] Jul, [facility] [address] [facility] [id number] [address] [place] [id number] Mar, [facility] [address] [facility] [id number] [address] [place] [id number] Sep, IMMUNIZATIONS No Known Immunizations SOCIAL HISTORY [...] 40 0 blood sugar. 05/2016 Hospitalization History [facility] 01/25/2020-2019 Hospitalization History [facility] January 2020
--- OUTSIDE RECORDS SUMMARY | 2020-03-14 16:31 | XMS REPORT | Continuity of Care Document ---
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 ALVAREZ DO, FRANSISCO Ot F31.9 BIPOLAR DISORDER, UNSPECIFIED 02/11/2020 ALVAREZ DO, FRANSISCO Ot F41.9 ANXIETY DISORDER, UNSPECIFIED 02/11/2020 ALVAREZ DO, FRANSISCO Ot G43.90 9 MIGRAINE, UNSP, NOT INTRACTABLE, WITHOUT 02/11/2020 ALVAREZ DO, FRANSISCO Ot I10 ESSENTIAL (PRIMARY) HYPERTENSION 02/11/2020 ALVAREZ DO, FRANSISCO Ot I95.9 HYPOTENSION, UNSPECIFIED 02/11/2020 ALVAREZ DO, FRANSISCO Ot J45.90 9 UNSPECIFIED ASTHMA, UNCOMPLICATED 02/11/2020 ALVAREZ DO, FRANSISCO Ot K57.32 DVTRCLI OF LG INT W/O PERFORATION OR ABS 02/11/2020 ALVAREZ DO, FRANSISCO Ot K59.00 CONSTIPATION, UNSPECIFIED 02/11/2020 ALVAREZ DO, FRANSISCO Ot K76.0 FATTY (CHANGE OF) LIVER, NOT ELSEWHERE C 02/11/2020 ALVAREZ DO, FRANSISCO Ot M10.9 GOUT, UNSPECIFIED 02/11/2020 ALVAREZ DO, FRANSISCO Ot M19.91 PRIMARY OSTEOARTHRITIS, UNSPECIFIED SITE 02/11/2020 ALVAREZ DO, FRANSISCO Ot N17.9 ACUTE KIDNEY FAILURE, UNSPECIFIED 02/11/2020 ALVAREZ DO, FRANSISCO Ot R53.1 WEAKNESS 02/11/2020 ALVAREZ DO, FRANSISCO Ot R74.0 NONSPEC ELEV OF LEVELS OF TRANSAMNS LA 02/11/2020 ALVAREZ DO, FRANSISCO Ot W19.XX XA UNSPECIFIED FALL, INITIAL ENCOUNTER 02/11/2020 KIM DO, FRANSISCO Ot Z68.43 BODY MASS INDEX (BMI) 50.0-59.9, ADULT 02/11/2020 ALVAREZ DO, FRANSISCO Ot Z79.84 COT ASSEMBLER (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) USE OF ORAL HYPOGLYC 02/11/2020 ALVAREZ DO, FRANSISCO Ot Z87.89 1 PERSONAL HISTORY OF NICOTINE DEPENDENCE 02/11/2020 KIM DO, FRANSISCO Ot Z90.49 ACQUIRED ABSENCE OF OTHER SPECIFIED PART 02/11/2020 ALVAREZ DO, FRANSISCO Ot A41.9 SEPSIS, UNSPECIFIED ORGANISM 02/11/2020 ALVAREZ DO, FRANSISCO Ot E11.9 TYPE 2 DIABETES MELLITUS WITHOUT COMPLIC 02/11/2020 ALVAREZ DO, FRANSISCO Ot E66.01 MORBID (SEVERE) OBESITY DUE TO EXCESS CA 02/11/2020 ALVAREZ DO, FRANSISCO Ot F31.9 BIPOLAR DISORDER, UNSPECIFIED 02/11/2020 ALVAREZ DO, FRANSISCO Ot F41.9 ANXIETY DISORDER, UNSPECIFIED 02/11/2020 ALVAREZ DO, FRANSISCO Ot G43.90 9 MIGRAINE, UNSP, NOT INTRACTABLE, WITHOUT 02/11/2020 ALVAREZ DO, FRANSISCO Ot I10 ESSENTIAL (PRIMARY) HYPERTENSION 02/11/2020 ALVAREZ DO, FRANSISCO Ot I95.9 HYPOTENSION, UNSPECIFIED 02/11/2020 ALVAREZ DO, FRANSISCO Ot J45.90 9 UNSPECIFIED ASTHMA, UNCOMPLICATED 02/11/2020 ALVAREZ DO, FRANSISCO Ot K57.32 DVTRCLI OF LG INT W/O PERFORATION OR ABS 02/11/2020 ALVAREZ DO, FRANSISCO Ot K59.00 CONSTIPATION, UNSPECIFIED 02/11/2020 ALVAREZ DO, FRANSISCO Ot K76.0 FATTY (CHANGE OF) LIVER, NOT ELSEWHERE C 02/11/2020 ALVAREZ DO, FRANSISCO Ot M10.9 GOUT, UNSPECIFIED 02/11/2020 ALVAREZ DO, FRANSISCO Ot M19.91 PRIMARY OSTEOARTHRITIS, UNSPECIFIED SITE 02/11/2020 KIM CHAUHAN FRANSISCO Ot N17.9 ACUTE KIDNEY FAILURE, UNSPECIFIED 02/11/2020 ALVAREZ DO FRANSISCO Ot R53.1 WEAKNESS 02/11/2020 KIM CHAUHAN FRANSISCO Ot R74.0 NONSPEC ELEV OF LEVELS OF TRANSAMNS LA 02/11/2020 KIM CHAUHAN FRANSISCO Ot W19.XX XA UNSPECIFIED FALL, INITIAL ENCOUNTER 02/11/2020 ALVAREZLENADRO CHAUHAN FRANSISCO Ot Z68.43 BODY MASS INDEX (BMI) 50.0-59.9, ADULT 02/11/2020 KIM CHAUHAN FRANSISCO Ot Z79.84 COT 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 (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) USE OF ORAL 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 02/11/2020 ALVAREZLEANDRO CHAUHAN FRANSISCO Ot Z87.89 1 PERSONAL HISTORY OF NICOTINE DEPENDENCE 02/11/2020 ALVAREZLEANDRO CHAUHAN FRANSISCO Ot Z90.49 ACQUIRED ABSENCE OF OTHER SPECIFIED PART 02/20/2020 JIMBO DO MARIVEL K Ot D72.829 ELEVATED WHITE BLOOD CELL COUNT, UNSPECI 02/20/2020 JIMBO DO, MARIVEL K Ot E11.9 TYPE 2 DIABETES MELLITUS WITHOUT COMPLIC 02/20/2020 JIMBO DO, MARIVEL K Ot E66.01 MORBID (SEVERE) OBESITY DUE TO EXCESS CA 02/20/2020 JIMBO DO, MARIVEL K Ot F17.210 NICOTINE DEPENDENCE, CIGARETTES, UNCOMPL 02/20/2020 JIMBO DO, MARIVEL K Ot F31.9 BIPOLAR DISORDER, UNSPECIFIED 02/20/2020 JIMBO DO, MARIVEL K Ot F41.9 ANXIETY DISORDER, UNSPECIFIED 02/20/2020 JIMBO DO, MARIVEL K Ot G43.909 MIGRAINE, UNSP, NOT INTRACTABLE, WITHOUT 02/20/2020 JIMBO DO, MARIVEL K Ot I10 ESSENTIAL (PRIMARY) HYPERTENSION 02/20/2020 JIMBO DO, MARIVEL K Ot J45.909 UNSPECIFIED ASTHMA, UNCOMPLICATED 02/20/2020 JIMBO DO, MARIVEL K Ot K59.09 OTHER CONSTIPATION 02/20/2020 JIMBO DO, MARIVEL K Ot R10.13 EPIGASTRIC PAIN 02/20/2020 JIMBO DO, MARIVEL K Ot R11.2 NAUSEA WITH VOMITING, UNSPECIFIED 02/20/2020 JIMBO DO, MARIVEL K Ot R19.5 OTHER FECAL ABNORMALITIES 02/20/2020 JIMBO DO, MARIVEL K Ot R19.7 DIARRHEA, UNSPECIFIED 02/20/2020 JIMBO DO, MARIVEL K Ot Z68.43 BODY MASS INDEX (BMI) 50.0-59.9, ADULT 02/20/2020 JIMBO DO, MARIVEL K Ot Z79.4 COT ASSEMBLER (CURRENT) USE OF INSULIN 02/20/2020 JIMBO DO, MARIVEL K Ot Z79.82 HALFWAY (CURRENT) USE OF ASPIRIN 02/20/2020 JIMBO DO, MARIVEL K Ot Z88.0 ALLERGY STATUS TO PENICILLIN 02/20/2020 JIMBO DO, MARIVEL K Ot Z88.2 ALLERGY STATUS TO SULFONAMIDES STATUS 02/20/2020 JIMBO DO, MARIVEL K Ot Z88.5 ALLERGY STATUS TO NARCOTIC AGENT STATUS 02/20/2020 JIMBO DO, MARIVEL K Ot Z91.040 LATEX ALLERGY STATUS 02/22/2020 JIMBO DO, MARIVEL K Ot D72.829 ELEVATED WHITE BLOOD CELL COUNT, UNSPECI 02/22/2020 JIMBO DO, MARIVEL K Ot E11.9 TYPE 2 DIABETES MELLITUS WITHOUT COMPLIC 02/22/2020 JIMBO DO, MARIVEL K Ot E66.01 MORBID (SEVERE) OBESITY DUE TO EXCESS CA 02/22/2020 JIMBO DO, MARIVEL K Ot F17.210 NICOTINE DEPENDENCE, CIGARETTES, UNCOMPL 02/22/2020 JIMBO DO, MARIVEL K Ot F31.9 BIPOLAR DISORDER, UNSPECIFIED 02/22/2020 JIMBO DO, MARIVEL K Ot F41.9 ANXIETY DISORDER, UNSPECIFIED 02/22/2020 JIMBO DO, MARIVEL K Ot G43.909 MIGRAINE, UNSP, NOT INTRACTABLE, WITHOUT 02/22/2020 JIMBO DO, MARIVEL K Ot I10 ESSENTIAL (PRIMARY) HYPERTENSION 02/22/2020 JIMBO DO, MARIVEL K Ot J45.909 UNSPECIFIED ASTHMA, UNCOMPLICATED 02/22/2020 JIMBO DO, MARIVEL K Ot K59.09 OTHER CONSTIPATION 02/22/2020 JIMBO DO, MARIVEL K Ot R10.13 EPIGASTRIC PAIN 02/22/2020 JIMBO DO, MARIVEL K Ot R11.2 NAUSEA WITH VOMITING, UNSPECIFIED 02/22/2020 JIMBO DO, MARIVEL K Ot R19.5 OTHER FECAL ABNORMALITIES 02/22/2020 JIMBO DO, MARIVEL K Ot R19.7 DIARRHEA, UNSPECIFIED 02/22/2020 JIMBO , MARIVEL K Ot Z68.43 BODY MASS INDEX (BMI) 50.0-59.9, ADULT 02/22/2020 JIMBO , MARIVEL K Ot Z79.4 COT ASSEMBLER (CURRENT) USE OF INSULIN 02/22/2020 JIMBO , MARIVEL K Ot Z79.82 HALFWAY (CURRENT) USE OF ASPIRIN 02/22/2020 JIMBO DO, MARIVEL K Ot Z88.0 ALLERGY STATUS TO PENICILLIN 02/22/2020 JIMBO DO, MARIVEL K Ot Z88.2 ALLERGY STATUS TO SULFONAMIDES STATUS 02/22/2020 JIMBO DO, MARIVEL K Ot Z88.5 ALLERGY STATUS TO NARCOTIC AGENT STATUS 02/22/2020 JIMBO , MARIVEL K Ot Z91.040 LATEX ALLERGY STATUS 03/01/2020 DONNAARIC ISRRAEL CHAUHAN Ot M17.1 2 UNILATERAL PRIMARY OSTEOARTHRITIS, LEFT 03/01/2020 ISRRAEL ALBERTO DO Ot 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 03/01/2020 ISRRAEL ALBERTO DO Ot 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, Procedures Code Description [place] [address] ROUT INE VENIPUNCTURE 08/05/2012 00915 A1C (IN-HOUSE) 08/05/2012 54244 MICR O ALBUMIN-IN HOUSE 08/05/2012 24664 CMP 08/05/2012 50042 LIPI D PANEL 08/05/2012 [id number] GF R CALC (RESULT ONLY) 08/05/2012 29729 MICR OALBUMIN 08/06/2012 11781 A1C (IN-HOUSE) 03/18/2013 98995 MICR O ALBUMIN-IN HOUSE 03/18/2013 62979 ROUT INE VENIPUNCTURE 07/27/2013 02655 MICR O ALBUMIN-IN HOUSE 07/27/2013 46559 A1C (IN-HOUSE) 07/27/2013 92233 CBC 07/27/2013 93151 MICR OALBUMIN 07/27/2013 12224 CMP 07/27/2013 84713 LIPI D PANEL 07/27/2013 [id number] GF R CALC (RESULT ONLY) 07/27/2013 56300 A1C (IN-HOUSE) 11/17/2013 23322 ROUT INE VENIPUNCTURE 04/21/2014 34787 A1C (IN-HOUSE) 04/21/2014 20484 CBC 04/21/[id number] GF R CALC (RESULT ONLY) 04/21/2014 47228 BMP 04/21/2014 53851 MAGNESIUM 04/21/2014 89281 ROUT INE VENIPUNCTURE 09/20/2014 89711 A1C (IN-HOUSE) 09/20/[id number] GF R CALC (RESULT ONLY) 09/20/2014 85039 CMP 09/20/2014 62920 LIPI D PANEL 09/20/[id number] SPTYPE 09/20/2014 Results Test Result Range Complete blood count (CBC) with automate d white blood cell (WBC) differential - 05/30/16 16:49 Blood leukocytes automated count (number/volume) 14.9 10*3/uL 4.3-11.0 Blood erythrocytes automated count (number/volume) 4.92 10*6/uL 4.35-5.85 Venous blood hemoglobin measurement (mass/volume) 14.7 g/dL 11.5-16.0 Blood hematocrit (volume fraction) 43 % 35-52 Automated erythrocyte mean corpuscular volume 88 [ foz_us] 80-99 Automated erythrocyte mean corpuscular h emoglobin (mass per erythrocyte) 30 pg 25-34 Automated erythrocyte mean corpuscular h emoglobin concentration measurement (mass/volume) 34 g/dL 32-36 Automated erythrocyte distribution width ratio 13. 2 % 10.0- 14.5 Automated blood platelet count (count/volume) 339 10*3/uL 130-400 Automated blood platelet mean volume measurement 9.6 [foz_us] 7.4-10.4 Automated blood neutrophils/100 leukocytes 71 % 42-75 Automated blood lymphocytes/100 leukocytes 20 % 12-44 Blood monocytes/100 leukocytes 7 % 0-12 Automated blood eosinophils/100 leukocytes 2 % 0-10 Automated blood basophils/100 leukocytes 0 % 0-10 Blood neutrophils automated count (number/volume) 10.5 10*3 1.8-7.8 Blood lymphocytes automated count (number/volume) 3.0 10*3 1.0-4.0 Blood monocytes automated count (number/volume) 1. 0 10*3 0.0-1.0 Automated eosinophil count 0.4 10*3/uL 0 .0-0.3 Automated blood basophil count (count/volume) 0.1 10*3/uL 0.0-0.1 Complete urinalysis with reflex to cultu re - 05/30/16 16:49 Urine color determination JOSE NRG Urine clarity determination SLIGHTLY CLOUDY NRG Urine pH measurement by test strip 5 5-9 Specific gravity of urine by test strip 1.020 1.016-1.022 Urine protein assay by test strip, semi-quantitative 2+ NEGATIVE Urine glucose detection by automated test strip 3+ NEGATIVE Erythrocytes detection in urine sediment by light micr oscopy 2+ NEGATIVE Urine ketones detection by automated test strip 1+ NEGATIVE Urine nitrite detection by test strip NEGATIVE NEGATIVE Urine total bilirubin detection by test strip NEGA TIVE NEGATIVE Urine urobilinogen measurement by automated test strip (mass/volume) 1 mg/dL NORMAL Urine leukocyte esterase detection by dipstick 2+ NEGATIVE Automated urine sediment erythrocyte cou nt by microscopy (number/high power field) NONE NRG Automated urine sediment leukocyte count by microscopy (number/high power field) [HPF] NRG Bacteria detection in urine sediment by light microsco py FEW NRG Squamous epithelial cells detection in u rine sediment by light microscopy 5-10 NRG Crystals detection in urine sediment by light microsco py NONE NRG Casts detection in urine sediment by light microscopy NONE NRG Mucus detection in urine sediment by light microscopy NEGATIVE NRG Complete urinalysis with reflex to culture YES NRG Blood manual differential performed dete ction - 05/30/16 16:49 Blood monocytes/100 leukocytes 0 % NRG Manual blood segmented neutrophils/100 leukocytes 68 % NRG Blood band neutrophils/100 leukocytes 0 % NRG Manual blood lymphocytes/100 leukocytes 26 % NRG Manual eosinophils/100 leukocytes in nose 5 % NRG Manual blood basophils/100 leukocytes 1 % NRG Blood erythrocyte morphology finding identification NORMAL NRG Comprehensive metabolic panel - 05/30/16 16:49 Serum or plasma sodium measurement (moles/volume) 138 mmol/L 135-145 Serum or plasma potassium measurement (moles/volume) 4.6 mmol/L 3.6-5.0 Serum or plasma chloride measurement (moles/volume) 103 mmol/L 98-107 Carbon dioxide 25 mmol/L 21-32 Serum or plasma anion gap determination (moles/volume) 10 mmol/L 5-14 Serum or plasma urea nitrogen measurement (mass/volume ) 10 mg/dL 7-18 Serum or plasma creatinine measurement (mass/volume) 0.77 mg/dL 0.60-1.30 Serum or plasma urea nitrogen/creatinine mass ratio 13 NRG Serum or plasma creatinine measurement w ith calculation of estimated glomerular filtration rate > NRG Serum or plasma glucose measurement (mass/volume) 280 mg/dL 70-105 Serum or plasma calcium measurement (mass/volume) 9.2 mg/dL 8.5-10.1 Serum or plasma total bilirubin measurement (mass/volu me) 0.6 mg/dL 0.1-1.0 Serum or plasma alkaline phosphatase shin surement (enzymatic activity/volume) 101 U/L 40-136 Serum or plasma aspartate aminotransfera se measurement (enzymatic activity/volume) 80 U/L 5-34 Serum or plasma alanine aminotransferase measurement (enzymatic activity/volume) 116 U/L 0-55 Serum or plasma protein measurement (mass/volume) 7.4 g/dL 6.4-8.2 Serum or plasma albumin measurement (mass/volume) 3.9 g/dL 3.2-4.5 Bacterial urine culture - 05/30/16 16:49 URINE CULTURE RESULTS <10,000/ML NRG Capillary blood glucose measurement by g lucometer (mass/volume) - 05/30/16 17:16 Capillary blood glucose measurement by glucometer (mas s/volume) 252 mg/dL 70-110 Capillary blood glucose measurement by g lucometer (mass/volume) - 06/13/16 22:24 Capillary blood glucose measurement by glucometer (mas s/volume) 249 mg/dL 70-110 Complete urinalysis with reflex to cultu re - 06/13/16 22:25 Urine color determination YELLOW NRG Urine clarity determination CLEAR NR G Urine pH measurement by test strip 6 5-9 Specific gravity of urine by test strip 1.015 1.016-1.022 Urine protein assay by test strip, semi-quantitative 1+ NEGATIVE Urine glucose detection by automated test strip 1+ NEGATIVE Erythrocytes detection in urine sediment by light micr oscopy 1+ NEGATIVE Urine ketones detection by automated test strip NE GATIVE NEGATIVE Urine nitrite detection by test strip NEGATIVE NEGATIVE Urine total bilirubin detection by test strip NEGA TIVE NEGATIVE Urine urobilinogen measurement by automated test strip (mass/volume) NORMAL NORMAL Urine leukocyte esterase detection by dipstick 2+ NEGATIVE Automated urine sediment erythrocyte cou nt by microscopy (number/high power field) [HPF] NRG Automated urine sediment leukocyte count by microscopy (number/high power field) [HPF] NRG Bacteria detection in urine sediment by light microsco py FEW NRG Squamous epithelial cells detection in u rine sediment by light microscopy 5-10 NRG Crystals detection in urine sediment by light microsco py NONE NRG Casts detection in urine sediment by light microscopy NONE NRG Mucus detection in urine sediment by light microscopy NEGATIVE NRG Complete urinalysis with reflex to culture YES NRG Bacterial urine culture - 06/13/16 22:25 URINE CULTURE RESULTS <10,000/ML NRG Complete blood count (CBC) with automate d white blood cell (WBC) differential - 06/13/16 22:30 Blood leukocytes automated count (number/volume) 13.7 10*3/uL 4.3-11.0 Blood erythrocytes automated count (number/volume) 4.84 10*6/uL 4.35-5.85 Venous blood hemoglobin measurement (mass/volume) 14.3 g/dL 11.5-16.0 Blood hematocrit (volume fraction) 42 % 35-52 Automated erythrocyte mean corpuscular volume 87 [ foz_us] 80-99 Automated erythrocyte mean corpuscular h emoglobin (mass per erythrocyte) 30 pg 25-34 Automated erythrocyte mean corpuscular h emoglobin concentration measurement (mass/volume) 34 g/dL 32-36 Automated erythrocyte distribution width ratio 13. 2 % 10.0- 14.5 Automated blood platelet count (count/volume) 357 10*3/uL 130-400 Automated blood platelet mean volume measurement 9.3 [foz_us] 7.4-10.4 Automated blood neutrophils/100 leukocytes 69 % 42-75 Automated blood lymphocytes/100 leukocytes 23 % 12-44 Blood monocytes/100 leukocytes 7 % 0-12 Automated blood eosinophils/100 leukocytes 2 % 0-10 Automated blood basophils/100 leukocytes 0 % 0-10 Blood neutrophils automated count (number/volume) 9.4 10*3 1.8-7.8 Blood lymphocytes automated count (number/volume) 3.1 10*3 1.0-4.0 Blood monocytes automated count (number/volume) 0. 9 10*3 0.0-1.0 Automated eosinophil count 0.2 10*3/uL 0 .0-0.3 Automated blood basophil count (count/volume) 0.1 10*3/uL 0.0-0.1 Comprehensive metabolic panel - 06/13/16 22:30 Serum or plasma sodium measurement (moles/volume) 137 mmol/L 135-145 Serum or plasma potassium measurement (moles/volume) 3.8 mmol/L 3.6-5.0 Serum or plasma chloride measurement (moles/volume) 103 mmol/L 98-107 Carbon dioxide 20 mmol/L 21-32 Serum or plasma anion gap determination (moles/volume) 14 mmol/L 5-14 Serum or plasma urea nitrogen measurement (mass/volume ) 11 mg/dL 7-18 Serum or plasma creatinine measurement (mass/volume) 0.76 mg/dL 0.60-1.30 Serum or plasma urea nitrogen/creatinine mass ratio 14 NRG Serum or plasma creatinine measurement w ith calculation of estimated glomerular filtration rate > NRG Serum or plasma glucose measurement (mass/volume) 266 mg/dL 70-105 Serum or plasma calcium measurement (mass/volume) 9.3 mg/dL 8.5-10.1 Serum or plasma total bilirubin measurement (mass/volu me) 0.5 mg/dL 0.1-1.0 Serum or plasma alkaline phosphatase shin surement (enzymatic activity/volume) 99 U/L 40-136 Serum or plasma aspartate aminotransfera se measurement (enzymatic activity/volume) 60 U/L 5-34 Serum or plasma alanine aminotransferase measurement (enzymatic activity/volume) 78 U/L 0-55 Serum or plasma protein measurement (mass/volume) 7.3 g/dL 6.4-8.2 Serum or plasma albumin measurement (mass/volume) 3.9 g/dL 3.2-4.5 Serum or plasma amylase measurement (enz ymatic activity/volume) - 06/13/16 22:30 Serum or plasma amylase measurement (enzymatic activit y/volume) 75 U/L 25-125 Lipase - 06/13/16 22:30 Lipase 56 U/L 8-78 Serum or plasma thyrotropin measurement by detection limit <=0.05 miu/l (units/volume) - 06/13/16 22:30 Serum or plasma thyrotropin measurement by detection limit <=0.05 miu/l (units/volume) 1.29 u[iU]/mL 0.35-4.94 Acute hepatitis panel - 06/13/16 22:30 Confirmatory quantitative serum or plasm a hepatitis B virus surface antigen measurement Non-Reactive Non-Reactive Hepatitis A virus IgM antibody assay Non-Reactive Non- Reactive Hepatitis B virus core IgM antibody assay Non-Reac tive Non- Reactive Serum hepatitis C virus antibody detection Non-[place] ctive Non-Reactive Capillary blood glucose measurement by g lucometer (mass/volume) - 06/13/16 23:39 Capillary blood glucose measurement by glucometer (mas s/volume) 205 mg/dL 70-110 Complete blood count (CBC) with automate d white blood cell (WBC) differential - 11/27/16 17:50 Blood leukocytes automated count (number/volume) 15.6 10*3/uL 4.3-11.0 Blood erythrocytes automated count (number/volume) 4.71 10*6/uL 4.35-5.85 Venous blood hemoglobin measurement (mass/volume) 13.9 g/dL 11.5-16.0 Blood hematocrit (volume fraction) 41 % 35-52 Automated erythrocyte mean corpuscular volume 88 [ foz_us] 80-99 Automated erythrocyte mean corpuscular h emoglobin (mass per erythrocyte) 30 pg 25-34 Automated erythrocyte mean corpuscular h emoglobin concentration measurement (mass/volume) 34 g/dL 32-36 Automated erythrocyte distribution width ratio 13. 0 % 10.0- 14.5 Automated blood platelet count (count/volume) 372 10*3/uL 130-400 Automated blood platelet mean volume measurement 8.7 [foz_us] 7.4-10.4 Automated blood neutrophils/100 leukocytes 65 % 42-75 Automated blood lymphocytes/100 leukocytes 24 % 12-44 Blood monocytes/100 leukocytes 9 % 0-12 Automated blood eosinophils/100 leukocytes 1 % 0-10 Automated blood basophils/100 leukocytes 1 % 0-10 Blood neutrophils automated count (number/volume) 10.1 10*3 1.8-7.8 Blood lymphocytes automated count (number/volume) 3.8 10*3 1.0-4.0 Blood monocytes automated count (number/volume) 1. 5 10*3 0.0-1.0 Automated eosinophil count 0.2 10*3/uL 0 .0-0.3 Automated blood basophil count (count/volume) 0.1 10*3/uL 0.0-0.1 Comprehensive metabolic panel - 11/27/16 17:50 Serum or plasma sodium measurement (moles/volume) 140 mmol/L 135-145 Serum or plasma potassium measurement (moles/volume) 3.4 mmol/L 3.6-5.0 Serum or plasma chloride measurement (moles/volume) 102 mmol/L 98-107 Carbon dioxide 26 mmol/L 21-32 Serum or plasma anion gap determination (moles/volume) 12 mmol/L 5-14 Serum or plasma urea nitrogen measurement (mass/volume ) 6 mg/dL 7-18 Serum or plasma creatinine measurement (mass/volume) 0.70 mg/dL 0.60-1.30 Serum or plasma urea nitrogen/creatinine mass ratio 9 NRG Serum or plasma creatinine measurement w ith calculation of estimated glomerular filtration rate > NRG Serum or plasma glucose measurement (mass/volume) 154 mg/dL 70-105 Serum or plasma calcium measurement (mass/volume) 8.9 mg/dL 8.5-10.1 Serum or plasma total bilirubin measurement (mass/volu me) 0.5 mg/dL 0.1-1.0 Serum or plasma alkaline phosphatase shin surement (enzymatic activity/volume) 87 U/L 40-136 Serum or plasma aspartate aminotransfera se measurement (enzymatic activity/volume) 30 U/L 5-34 Serum or plasma alanine aminotransferase measurement (enzymatic activity/volume) 33 U/L 0-55 Serum or plasma protein measurement (mass/volume) 7.5 g/dL 6.4-8.2 Serum or plasma albumin measurement (mass/volume) 3.8 g/dL 3.2-4.5 Influenza virus A and B antigen detectio n - 11/27/16 17:50 FLU RESULT NEGATIVE FOR INFLUENZA A AND B ANTIGENS BY IA NR Blood manual differential performed dete ction - 11/27/16 17:50 Blood monocytes/100 leukocytes 3 % NRG Manual blood segmented neutrophils/100 leukocytes 68 % NRG Blood band neutrophils/100 leukocytes 1 % NRG Manual blood lymphocytes/100 leukocytes 24 % NRG Manual eosinophils/100 leukocytes in nose 4 % NRG Manual blood basophils/100 leukocytes 0 % NR Blood erythrocyte morphology finding identification NORMAL [facility] LIPID PANEL - 01/27/18 14:05 CHOLESTEROL, TOTAL 203 mg/dL <200 HDL CHOLESTEROL 40 mg/dL >50 TRIGLYCERIDES 151 mg/dL <150 LDL-CHOLESTEROL 135 mg/dL (calc) NRG CHOL/HDLC RATIO 5.1 (calc) <5.0 NON HDL CHOLESTEROL 163 mg/dL (calc) <13 0 CMP - 01/27/18 14:05 GLUCOSE 122 mg/dL 65-139 UREA NITROGEN (BUN) 20 mg/dL 7-25 CREATININE 0.72 mg/dL 0.50-1.05 eGFR NON-AFR. BULGARIAN 92 mL/min/1.73m2 > OR = 60 eGFR 107 mL/min/1.73m2 > OR = 60 BUN/CREATININE RATIO NOT APPLICABLE (calc) 6-22 SODIUM 141 mmol/L 135-146 POTASSIUM 5.4 mmol/L 3.5-5.3 CHLORIDE 108 mmol/L 98-110 CARBON DIOXIDE 26 mmol/L 20-31 CALCIUM 9.2 mg/dL 8.6-10.4 PROTEIN, TOTAL 7.0 g/dL 6.1-8.1 ALBUMIN 3.9 g/dL 3.6-5.1 GLOBULIN 3.1 g/dL (calc) 1.9-3.7 ALBUMIN/GLOBULIN RATIO 1.3 (calc) 1.0-2. 5 BILIRUBIN, TOTAL 0.3 mg/dL 0.2-1.2 ALKALINE PHOSPHATASE 68 U/L 33-130 AST 25 U/L 10-35 ALT 22 U/L 6-29 CULTURE, URINE - 07/28/18 10:50 CULTURE, URINE, ROUTINE SEE NOTE NRG TSH - 12/11/19 11:38 TSH 1.21 mIU/L 0.40-4.50 Complete blood count (CBC) with automate d white blood cell (WBC) differential - 12/20/19 22:22 Blood leukocytes automated count (number/volume) 18.2 10*3/uL 4.3-11.0 Blood erythrocytes automated count (number/volume) 5.04 10*6/uL 4.35-5.85 Venous blood hemoglobin measurement (mass/volume) 14.9 g/dL 11.5-16.0 Blood hematocrit (volume fraction) 46 % 35-52 Automated erythrocyte mean corpuscular volume 91 [ foz_us] 80-99 Automated erythrocyte mean corpuscular h emoglobin (mass per erythrocyte) 30 pg 25-34 Automated erythrocyte mean corpuscular h emoglobin concentration measurement (mass/volume) 33 g/dL 32-36 Automated erythrocyte distribution width ratio 13. 6 % 10.0- 14.5 Automated blood platelet count (count/volume) 438 10*3/uL 130-400 Automated blood platelet mean volume measurement 9.1 [foz_us] 7.4-10.4 Automated blood neutrophils/100 leukocytes 75 % 42-75 Automated blood lymphocytes/100 leukocytes 16 % 12-44 Blood monocytes/100 leukocytes 8 % 0-12 Automated blood eosinophils/100 leukocytes 1 % 0-10 Automated blood basophils/100 leukocytes 0 % 0-10 Blood neutrophils automated count (number/volume) 13.7 10*3 1.8-7.8 Blood lymphocytes automated count (number/volume) 3.0 10*3 1.0-4.0 Blood monocytes automated count (number/volume) 1. 4 10*3 0.0-1.0 Automated eosinophil count 0.2 10*3/uL 0 .0-0.3 Automated blood basophil count (count/volume) 0.1 10*3/uL 0.0-0.1 Manual absolute plasma cell count - 11/09 22:22 Blood monocytes/100 leukocytes 6 % NRG Manual blood segmented neutrophils/100 leukocytes 74 % NRG Blood band neutrophils/100 leukocytes 0 % NRG Manual blood lymphocytes/100 leukocytes 17 % NRG Manual eosinophils/100 leukocytes in nose 1 % NRG Manual blood basophils/100 leukocytes 0 % NRG Blood lymphocytes variant/100 leukocytes 2 % NRG Blood erythrocyte morphology finding identification [facility] Comprehensive metabolic panel - 12/20/19 22:22 Serum or plasma sodium measurement (moles/volume) 137 mmol/L 135-145 Serum or plasma potassium measurement (moles/volume) 4.8 mmol/L 3.6-5.0 Serum or plasma chloride measurement (moles/volume) 103 mmol/L 98-107 Carbon dioxide 20 mmol/L 21-32 Serum or plasma anion gap determination (moles/volume) 14 mmol/L 5-14 Serum or plasma urea nitrogen measurement (mass/volume ) 16 mg/dL 7-18 Serum or plasma creatinine measurement (mass/volume) 1.04 mg/dL 0.60-1.30 Serum or plasma urea nitrogen/creatinine mass ratio 15 NRG Serum or plasma creatinine measurement w ith calculation of estimated glomerular filtration rate 54 NRG Serum or plasma glucose measurement (mass/volume) 192 mg/dL 70-105 Serum or plasma calcium measurement (mass/volume) 9.5 mg/dL 8.5-10.1 Serum or plasma total bilirubin measurement (mass/volu me) 0.4 mg/dL 0.1-1.0 Serum or plasma alkaline phosphatase shin surement (enzymatic activity/volume) 77 U/L 40-136 Serum or plasma aspartate aminotransfera se measurement (enzymatic activity/volume) 29 U/L 5-34 Serum or plasma alanine aminotransferase measurement (enzymatic activity/volume) 33 U/L 0-55 Serum or plasma protein measurement (mass/volume) 8.1 g/dL 6.4-8.2 Serum or plasma albumin measurement (mass/volume) 4.3 g/dL 3.2-4.5 CALCIUM CORRECTED 9.3 mg/dL 8.5-10.1 Serum or plasma C reactive protein measu rement (mass/volume) - 12/20/19 22:22 Serum or plasma C reactive protein measurement (mass/v olume) 2.71 mg/dL 0.00-0.50 Urine drug screening test - 12/20/19 23: 51 Urine phencyclidine detection by screening method NEGATIVE NEGATIVE Urine benzodiazepines detection by screening method NEGATIVE NEGATIVE Urine cocaine detection NEGATIVE NEGATI VE Urine amphetamines detection by screening method N EGATIVE NEGATIVE Urine methamphetamine detection by screening method NEGATIVE NEGATIVE Urine cannabinoids detection by screening method N EGATIVE NEGATIVE Urine opiates detection by screening method NEGATI VE NEGATIVE Urine barbiturates detection NEGATIVE N EGATIVE Screening urine tricyclic antidepressants detection NEGATIVE NEGATIVE Urine methadone detection by screening method NEGA TIVE NEGATIVE Urine oxycodone detection NEGATIVE NEGA TIVE Urine propoxyphene detection NEGATIVE N EGATIVE Complete urinalysis with reflex to cultu re - 12/20/19 23:51 Urine color determination DARK YELLOW N RG Urine clarity determination CLEAR NR G Urine pH measurement by test strip 5.5 5-9 Specific gravity of urine by test strip >= 1.016-1.022 Urine protein assay by test strip, semi-quantitative TRACE NEGATIVE Urine glucose detection by automated test strip NE GATIVE NEGATIVE Erythrocytes detection in urine sediment by light micr oscopy NEGATIVE NEGATIVE Urine ketones detection by automated test strip 1+ NEGATIVE Urine nitrite detection by test strip NEGATIVE NEGATIVE Urine total bilirubin detection by test strip 1+ NEGATIVE Urine urobilinogen measurement by automated test strip (mass/volume) 0.2 mg/dL < = 1.0 Urine leukocyte esterase detection by dipstick TRA CE NEGATIVE Automated urine sediment erythrocyte cou nt by microscopy (number/high power field) [HPF] NRG Automated urine sediment leukocyte count by microscopy (number/high power field) [HPF] NRG Bacteria detection in urine sediment by light microsco py FEW NRG Squamous epithelial cells detection in u rine sediment by light microscopy 5-10 NRG Crystals detection in urine sediment by light microsco py PRESENT NRG Casts detection in urine sediment by light microscopy NONE NRG Mucus detection in urine sediment by light microscopy MODERATE NRG Complete urinalysis with reflex to culture YES NRG Amorphous sediment detection in urine sediment by ligh t microscopy FEW NISHA URATES NRG Bacterial urine culture - 12/20/19 23:51 Bacterial urine culture 3 OR MORE NRG COLONY COUNT 30,000 CFU/ML NRG FTX;REPORTABLE GRAM POSITIVES SUGGESTING PROBABLE NRG FREE TEXT ENTRY 2 COLLECTION CONTAMINATION WITH SK IN SADE NRG FREE TEXT ENTRY 3 NO SUSCEPTIBILITY PERFORMED NRG Complete blood count (CBC) with automate d white blood cell (WBC) differential - 02/01/20 08:50 Blood leukocytes automated count (number/volume) 32.0 10*3/uL 4.3-11.0 Blood erythrocytes automated count (number/volume) 4.88 10*6/uL 4.35-5.85 Venous blood hemoglobin measurement (mass/volume) 14.5 g/dL 11.5-16.0 Blood hematocrit (volume fraction) 43 % 35-52 Automated erythrocyte mean corpuscular volume 89 [ foz_us] 80-99 Automated erythrocyte mean corpuscular h emoglobin (mass per erythrocyte) 30 pg 25-34 Automated erythrocyte mean corpuscular h emoglobin concentration measurement (mass/volume) 33 g/dL 32-36 Automated erythrocyte distribution width ratio 13. 2 % 10.0- 14.5 Automated blood platelet count (count/volume) 543 10*3/uL 130-400 Automated blood platelet mean volume measurement 9.0 [foz_us] 7.4-10.4 Automated blood neutrophils/100 leukocytes 90 % 42-75 Automated blood lymphocytes/100 leukocytes 5 % 12-44 Blood monocytes/100 leukocytes 5 % 0-12 Automated blood eosinophils/100 leukocytes 0 % 0-10 Automated blood basophils/100 leukocytes 0 % 0-10 Blood neutrophils automated count (number/volume) 28.7 10*3 1.8-7.8 Blood lymphocytes automated count (number/volume) 1.7 10*3 1.0-4.0 Blood monocytes automated count (number/volume) 1. 6 10*3 0.0-1.0 Automated eosinophil count 0.0 10*3/uL 0 .0-0.3 Automated blood basophil count (count/volume) 0.0 10*3/uL 0.0-0.1 Comprehensive metabolic panel - 02/01/20 08:50 Serum or plasma sodium measurement (moles/volume) 135 mmol/L 135-145 Serum or plasma potassium measurement (moles/volume) 5.2 mmol/L 3.6-5.0 Serum or plasma chloride measurement (moles/volume) 101 mmol/L 98-107 Carbon dioxide 20 mmol/L 21-32 Serum or plasma anion gap determination (moles/volume) 14 mmol/L 5-14 Serum or plasma urea nitrogen measurement (mass/volume ) 17 mg/dL 7-18 Serum or plasma creatinine measurement (mass/volume) 1.03 mg/dL 0.60-1.30 Serum or plasma urea nitrogen/creatinine mass ratio 17 NRG Serum or plasma creatinine measurement w ith calculation of estimated glomerular filtration rate 55 NRG Serum or plasma glucose measurement (mass/volume) 234 mg/dL 70-105 Serum or plasma calcium measurement (mass/volume) 9.5 mg/dL 8.5-10.1 Serum or plasma total bilirubin measurement (mass/volu me) 0.3 mg/dL 0.1-1.0 Serum or plasma alkaline phosphatase shin surement (enzymatic activity/volume) 73 U/L 40-136 Serum or plasma aspartate aminotransfera se measurement (enzymatic activity/volume) 27 U/L 5-34 Serum or plasma alanine aminotransferase measurement (enzymatic activity/volume) 28 U/L 0-55 Serum or plasma protein measurement (mass/volume) 8.3 g/dL 6.4-8.2 Serum or plasma albumin measurement (mass/volume) 4.2 g/dL 3.2-4.5 CALCIUM CORRECTED 9.3 mg/dL 8.5-10.1 Magnesium - 02/01/20 08:50 Magnesium 1.5 mg/dL 1.6-2.4 Serum or plasma C reactive protein measu rement (mass/volume) - 02/01/20 08:50 Serum or plasma C reactive protein measurement (mass/v olume) 2.40 mg/dL 0.00-0.50 PT panel in platelet poor plasma by coag ulation assay - 02/01/20 08:50 Prothrombin time (PT) in platelet poor plasma by coagu lation assay 13.4 s 12.2-14.7 INR in platelet poor plasma or blood by coagulation as say 1.0 0.8-1.4 Activated partial thromboplastin time (a PTT) in platelet poor plasma bycoagulation assay - 02/01/20 08:50 Activated partial thromboplastin time (a PTT) in platelet poor plasma bycoagulation assay 34 s 24-35 Manual absolute plasma cell count - 01/19 01/07 08:50 Blood monocytes/100 leukocytes 8 % NRG Manual blood segmented neutrophils/100 leukocytes 84 % NRG Blood band neutrophils/100 leukocytes 0 % NRG Manual blood lymphocytes/100 leukocytes 8 % NRG Manual eosinophils/100 leukocytes in nose 0 % NRG Manual blood basophils/100 leukocytes 0 % NRG Blood erythrocyte morphology finding identification NORMAL NRG Lipase - 02/01/20 08:50 Lipase 19 U/L 8-78 Blood lactic acid measurement (moles/vol ume) - 02/01/20 09:12 Blood lactic acid measurement (moles/volume) 2.10 mmol/L 0.50-2.00 Bacterial blood culture - 02/01/20 09:12 Bacterial blood culture NG NRG Bacterial blood culture - 02/01/20 09:40 Bacterial blood culture NG NRG Complete urinalysis with reflex to cultu re - 02/01/20 09:49 Urine color determination YELLOW NRG Urine clarity determination CLEAR NR G Urine pH measurement by test strip 5.5 5-9 Specific gravity of urine by test strip >= 1.016-1.022 Urine protein assay by test strip, semi-quantitative 2+ NEGATIVE Urine glucose detection by automated test strip NE GATIVE NEGATIVE Erythrocytes detection in urine sediment by light micr oscopy NEGATIVE NEGATIVE Urine ketones detection by automated test strip 1+ NEGATIVE Urine nitrite detection by test strip NEGATIVE NEGATIVE Urine total bilirubin detection by test strip 1+ NEGATIVE Urine urobilinogen measurement by automated test strip (mass/volume) 0.2 mg/dL < = 1.0 Urine leukocyte esterase detection by dipstick NEG ATIVE NEGATIVE Automated urine sediment erythrocyte cou nt by microscopy (number/high power field) NONE NRG Automated urine sediment leukocyte count by microscopy (number/high power field) [HPF] NRG Bacteria detection in urine sediment by light microsco py NEGATIVE NRG Squamous epithelial cells detection in u rine sediment by light microscopy 5-10 NRG Crystals detection in urine sediment by light microsco py NONE NRG Casts detection in urine sediment by light microscopy PRESENT NRG Mucus detection in urine sediment by light microscopy NEGATIVE NRG Complete urinalysis with reflex to culture NO NRG Hyaline casts detection in urine sediment by light manasa roscopy 2-5 NRG Serum or plasma lactate measurement (mol es/volume) - 02/01/20 11:10 Serum or plasma lactate measurement (moles/volume) 3.00 mmol/L 0.50-2.00 Serum or plasma lactate measurement (mol es/volume) - 02/01/20 13:41 Serum or plasma lactate measurement (moles/volume) 2.69 mmol/L 0.50-2.00 Capillary blood glucose measurement by g lucometer (mass/volume) - 02/01/20 13:48 Capillary blood glucose measurement by glucometer (mas s/volume) 213 mg/dL 70-110 Serum or plasma lactate measurement (mol es/volume) - 02/01/20 15:50 Serum or plasma lactate measurement (moles/volume) 1.95 mmol/L 0.50-2.00 Capillary blood glucose measurement by g lucometer (mass/volume) - 02/01/20 17:30 Capillary blood glucose measurement by glucometer (mas s/volume) 225 mg/dL 70-110 Capillary blood glucose measurement by g lucometer (mass/volume) - 02/01/20 23:55 Capillary blood glucose measurement by glucometer (mas s/volume) 149 mg/dL 70-110 Complete blood count (CBC) with automate d white blood cell (WBC) differential - 02/02/20 04:08 Blood leukocytes automated count (number/volume) 20.2 10*3/uL 4.3-11.0 Blood erythrocytes automated count (number/volume) 4.44 10*6/uL 4.35-5.85 Venous blood hemoglobin measurement (mass/volume) 13.3 g/dL 11.5-16.0 Blood hematocrit (volume fraction) 40 % 35-52 Automated erythrocyte mean corpuscular volume 90 [ foz_us] 80-99 Automated erythrocyte mean corpuscular h emoglobin (mass per erythrocyte) 30 pg 25-34 Automated erythrocyte mean corpuscular h emoglobin concentration measurement (mass/volume) 33 g/dL 32-36 Automated erythrocyte distribution width ratio 13. 4 % 10.0- 14.5 Automated blood platelet count (count/volume) 329 10*3/uL 130-400 Automated blood platelet mean volume measurement 9.8 [foz_us] 7.4-10.4 Automated blood neutrophils/100 leukocytes 76 % 42-75 Automated blood lymphocytes/100 leukocytes 15 % 12-44 Blood monocytes/100 leukocytes 9 % 0-12 Automated blood eosinophils/100 leukocytes 0 % 0-10 Automated blood basophils/100 leukocytes 0 % 0-10 Blood neutrophils automated count (number/volume) 15.4 10*3 1.8-7.8 Blood lymphocytes automated count (number/volume) 2.9 10*3 1.0-4.0 Blood monocytes automated count (number/volume) 1. 7 10*3 0.0-1.0 Automated eosinophil count 0.1 10*3/uL 0 .0-0.3 Automated blood basophil count (count/volume) 0.0 10*3/uL 0.0-0.1 Comprehensive metabolic panel - 02/02/20 04:08 Serum or plasma sodium measurement (moles/volume) 135 mmol/L 135-145 Serum or plasma potassium measurement (moles/volume) 4.7 mmol/L 3.6-5.0 Serum or plasma chloride measurement (moles/volume) 103 mmol/L 98-107 Carbon dioxide 18 mmol/L 21-32 Serum or plasma anion gap determination (moles/volume) 14 mmol/L 5-14 Serum or plasma urea nitrogen measurement (mass/volume ) 19 mg/dL 7-18 Serum or plasma creatinine measurement (mass/volume) 0.98 mg/dL 0.60-1.30 Serum or plasma urea nitrogen/creatinine mass ratio 19 NRG Serum or plasma creatinine measurement w ith calculation of estimated glomerular filtration rate 58 NRG Serum or plasma glucose measurement (mass/volume) 149 mg/dL 70-105 Serum or plasma calcium measurement (mass/volume) 8.1 mg/dL 8.5-10.1 Serum or plasma total bilirubin measurement (mass/volu me) 0.3 mg/dL 0.1-1.0 Serum or plasma alkaline phosphatase shin surement (enzymatic activity/volume) 65 U/L 40-136 Serum or plasma aspartate aminotransfera se measurement (enzymatic activity/volume) 19 U/L 5-34 Serum or plasma alanine aminotransferase measurement (enzymatic activity/volume) 23 U/L 0-55 Serum or plasma protein measurement (mass/volume) 6.7 g/dL 6.4-8.2 Serum or plasma albumin measurement (mass/volume) 3.7 g/dL 3.2-4.5 CALCIUM CORRECTED 8.3 mg/dL 8.5-10.1 Capillary blood glucose measurement by g lucometer (mass/volume) - 02/02/20 11:46 Capillary blood glucose measurement by glucometer (mas s/volume) 163 mg/dL 70-110 Capillary blood glucose measurement by g lucometer (mass/volume) - 02/02/20 17:23 Capillary blood glucose measurement by glucometer (mas s/volume) 136 mg/dL 70-110 Capillary blood glucose measurement by g lucometer (mass/volume) - 02/03/20 00:02 Capillary blood glucose measurement by glucometer (mas s/volume) 167 mg/dL 70-110 Complete blood count (CBC) with automate d white blood cell (WBC) differential - 02/03/20 04:50 Blood leukocytes automated count (number/volume) 13.8 10*3/uL 4.3-11.0 Blood erythrocytes automated count (number/volume) 4.33 10*6/uL 4.35-5.85 Venous blood hemoglobin measurement (mass/volume) 13.0 g/dL 11.5-16.0 Blood hematocrit (volume fraction) 39 % 35-52 Automated erythrocyte mean corpuscular volume 89 [ foz_us] 80-99 Automated erythrocyte mean corpuscular h emoglobin (mass per erythrocyte) 30 pg 25-34 Automated erythrocyte mean corpuscular h emoglobin concentration measurement (mass/volume) 34 g/dL 32-36 Automated erythrocyte distribution width ratio 13. 2 % 10.0- 14.5 Automated blood platelet count (count/volume) 392 10*3/uL 130-400 Automated blood platelet mean volume measurement 9.5 [foz_us] 7.4-10.4 Automated blood neutrophils/100 leukocytes 65 % 42-75 Automated blood lymphocytes/100 leukocytes 20 % 12-44 Blood monocytes/100 leukocytes 13 % 0-12 Automated blood eosinophils/100 leukocytes 2 % 0-10 Automated blood basophils/100 leukocytes 0 % 0-10 Blood neutrophils automated count (number/volume) 9.0 10*3 1.8-7.8 Blood lymphocytes automated count (number/volume) 2.7 10*3 1.0-4.0 Blood monocytes automated count (number/volume) 1. 8 10*3 0.0-1.0 Automated eosinophil count 0.3 10*3/uL 0 .0-0.3 Automated blood basophil count (count/volume) 0.0 10*3/uL 0.0-0.1 Whole blood basic metabolic panel - 01/19 03/09 04:50 Serum or plasma sodium measurement (moles/volume) 135 mmol/L 135-145 Serum or plasma potassium measurement (moles/volume) 3.7 mmol/L 3.6-5.0 Serum or plasma chloride measurement (moles/volume) 99 mmol/L 98-107 Carbon dioxide 22 mmol/L 21-32 Serum or plasma anion gap determination (moles/volume) 14 mmol/L 5-14 Serum or plasma urea nitrogen measurement (mass/volume ) 8 mg/dL 7-18 Serum or plasma creatinine measurement (mass/volume) 0.79 mg/dL 0.60-1.30 Serum or plasma urea nitrogen/creatinine mass ratio 10 NRG Serum or plasma creatinine measurement w ith calculation of estimated glomerular filtration rate > NRG Serum or plasma glucose measurement (mass/volume) 164 mg/dL 70-105 Serum or plasma calcium measurement (mass/volume) 8.6 mg/dL 8.5-10.1 Capillary blood glucose measurement by g lucometer (mass/volume) - 02/03/20 05:31 Capillary blood glucose measurement by glucometer (mas s/volume) 189 mg/dL 70-110 Capillary blood glucose measurement by g lucometer (mass/volume) - 02/03/20 12:35 Capillary blood glucose measurement by glucometer (mas s/volume) 179 mg/dL 70-110 Capillary blood glucose measurement by g lucometer (mass/volume) - 02/03/20 17:29 Capillary blood glucose measurement by glucometer (mas s/volume) 205 mg/dL 70-110 Capillary blood glucose measurement by g lucometer (mass/volume) - 02/04/20 01:01 Capillary blood glucose measurement by glucometer (mas s/volume) 157 mg/dL 70-110 Capillary blood glucose measurement by g lucometer (mass/volume) - 02/04/20 05:15 Capillary blood glucose measurement by glucometer (mas s/volume) 157 mg/dL 70-110 Complete blood count (CBC) with automate d white blood cell (WBC) differential - 02/04/20 05:50 Blood leukocytes automated count (number/volume) 14.8 10*3/uL 4.3-11.0 Blood erythrocytes automated count (number/volume) 4.61 10*6/uL 4.35-5.85 Venous blood hemoglobin measurement (mass/volume) 13.6 g/dL 11.5-16.0 Blood hematocrit (volume fraction) 41 % 35-52 Automated erythrocyte mean corpuscular volume 89 [ foz_us] 80-99 Automated erythrocyte mean corpuscular h emoglobin (mass per erythrocyte) 30 pg 25-34 Automated erythrocyte mean corpuscular h emoglobin concentration measurement (mass/volume) 33 g/dL 32-36 Automated erythrocyte distribution width ratio 12. 9 % 10.0- 14.5 Automated blood platelet count (count/volume) 383 10*3/uL 130-400 Automated blood platelet mean volume measurement 8.9 [foz_us] 7.4-10.4 Automated blood neutrophils/100 leukocytes 66 % 42-75 Automated blood lymphocytes/100 leukocytes 20 % 12-44 Blood monocytes/100 leukocytes 13 % 0-12 Automated blood eosinophils/100 leukocytes 2 % 0-10 Automated blood basophils/100 leukocytes 0 % 0-10 Blood neutrophils automated count (number/volume) 9.7 10*3 1.8-7.8 Blood lymphocytes automated count (number/volume) 2.9 10*3 1.0-4.0 Blood monocytes automated count (number/volume) 1. 9 10*3 0.0-1.0 Automated eosinophil count 0.3 10*3/uL 0 .0-0.3 Automated blood basophil count (count/volume) 0.0 10*3/uL 0.0-0.1 Whole blood basic metabolic panel - 01/19 04/09 05:50 Serum or plasma sodium measurement (moles/volume) 131 mmol/L 135-145 Serum or plasma potassium measurement (moles/volume) 4.6 mmol/L 3.6-5.0 Serum or plasma chloride measurement (moles/volume) 94 mmol/L 98-107 Carbon dioxide 25 mmol/L 21-32 Serum or plasma anion gap determination (moles/volume) 12 mmol/L 5-14 Serum or plasma urea nitrogen measurement (mass/volume ) 6 mg/dL 7-18 Serum or plasma creatinine measurement (mass/volume) 0.83 mg/dL 0.60-1.30 Serum or plasma urea nitrogen/creatinine mass ratio 7 NRG Serum or plasma creatinine measurement w ith calculation of estimated glomerular filtration rate > NRG Serum or plasma glucose measurement (mass/volume) 155 mg/dL 70-105 Serum or plasma calcium measurement (mass/volume) 9.2 mg/dL 8.5-10.1 Capillary blood glucose measurement by g lucometer (mass/volume) - 02/04/20 11:20 Capillary blood glucose measurement by glucometer (mas s/volume) 193 mg/dL 70-110 Complete blood count (CBC) with automate d white blood cell (WBC) differential - 02/05/20 20:25 Blood leukocytes automated count (number/volume) 19.8 10*3/uL 4.3-11.0 Blood erythrocytes automated count (number/volume) 4.66 10*6/uL 4.35-5.85 Venous blood hemoglobin measurement (mass/volume) 13.8 g/dL 11.5-16.0 Blood hematocrit (volume fraction) 42 % 35-52 Automated erythrocyte mean corpuscular volume 89 [ foz_us] 80-99 Automated erythrocyte mean corpuscular h emoglobin (mass per erythrocyte) 30 pg 25-34 Automated erythrocyte mean corpuscular h emoglobin concentration measurement (mass/volume) 33 g/dL 32-36 Automated erythrocyte distribution width ratio 13. 1 % 10.0- 14.5 Automated blood platelet count (count/volume) 409 10*3/uL 130-400 Automated blood platelet mean volume measurement 9.1 [foz_us] 7.4-10.4 Automated blood neutrophils/100 leukocytes 74 % 42-75 Automated blood lymphocytes/100 leukocytes 16 % 12-44 Blood monocytes/100 leukocytes 9 % 0-12 Automated blood eosinophils/100 leukocytes 1 % 0-10 Automated blood basophils/100 leukocytes 0 % 0-10 Blood neutrophils automated count (number/volume) 14.6 10*3 1.8-7.8 Blood lymphocytes automated count (number/volume) 3.1 10*3 1.0-4.0 Blood monocytes automated count (number/volume) 1. 8 10*3 0.0-1.0 Automated eosinophil count 0.2 10*3/uL 0 .0-0.3 Automated blood basophil count (count/volume) 0.1 10*3/uL 0.0-0.1 Comprehensive metabolic panel - 02/05/20 20:25 Serum or plasma sodium measurement (moles/volume) 129 mmol/L 135-145 Serum or plasma potassium measurement (moles/volume) 4.1 mmol/L 3.6-5.0 Serum or plasma chloride measurement (moles/volume) 95 mmol/L 98-107 Carbon dioxide 19 mmol/L 21-32 Serum or plasma anion gap determination (moles/volume) 15 mmol/L 5-14 Serum or plasma urea nitrogen measurement (mass/volume ) 11 mg/dL 7-18 Serum or plasma creatinine measurement (mass/volume) 1.46 mg/dL 0.60-1.30 Serum or plasma urea nitrogen/creatinine mass ratio 8 NRG Serum or plasma creatinine measurement w ith calculation of estimated glomerular filtration rate 37 NRG Serum or plasma glucose measurement (mass/volume) 170 mg/dL 70-105 Serum or plasma calcium measurement (mass/volume) 9.6 mg/dL 8.5-10.1 Serum or plasma total bilirubin measurement (mass/volu me) 0.5 mg/dL 0.1-1.0 Serum or plasma alkaline phosphatase shin surement (enzymatic activity/volume) 63 U/L 40-136 Serum or plasma aspartate aminotransfera se measurement (enzymatic activity/volume) 27 U/L 5-34 Serum or plasma alanine aminotransferase measurement (enzymatic activity/volume) 32 U/L 0-55 Serum or plasma protein measurement (mass/volume) 7.2 g/dL 6.4-8.2 Serum or plasma albumin measurement (mass/volume) 3.9 g/dL 3.2-4.5 CALCIUM CORRECTED 9.7 mg/dL 8.5-10.1 Blood lactic acid measurement (moles/vol ume) - 02/05/20 20:25 Blood lactic acid measurement (moles/volume) 3.35 mmol/L 0.50-2.00 Serum or plasma troponin i.cardiac measu rement (mass/volume) - 02/05/20 20:25 Serum or plasma troponin i.cardiac measurement (mass/v olume) < ng/mL <0.028 Manual absolute plasma cell count - 01/19 05/09 20:25 Blood monocytes/100 leukocytes 10 % NRG Manual blood segmented neutrophils/100 leukocytes 69 % NRG Blood band neutrophils/100 leukocytes 19 % NRG Manual blood lymphocytes/100 leukocytes 2 % NRG Blood erythrocyte morphology finding identification NORMAL NRG Bacterial blood culture - 02/05/20 20:25 Bacterial blood culture NG NRG PROCALCITONIN (PCT) - 02/05/20 20:26 PROCALCITONIN (PCT) 0.14 ng/mL <0.10 Serum or plasma C reactive protein measu rement (mass/volume) - 02/05/20 20:26 Serum or plasma C reactive protein measurement (mass/v olume) 3.55 mg/dL 0.00-0.50 Bacterial blood culture - 02/05/20 20:36 Bacterial blood culture NG NRG Complete urinalysis with reflex to cultu re - 02/05/20 21:20 Urine color determination YELLOW NRG Urine clarity determination SL CLOUDY N RG Urine pH measurement by test strip 5.0 5-9 Specific gravity of urine by test strip 1.025 1.016-1.022 Urine protein assay by test strip, semi-quantitative 2+ NEGATIVE Urine glucose detection by automated test strip NE GATIVE NEGATIVE Erythrocytes detection in urine sediment by light micr oscopy 2+ NEGATIVE Urine ketones detection by automated test strip 1+ NEGATIVE Urine nitrite detection by test strip NEGATIVE NEGATIVE Urine total bilirubin detection by test strip 1+ NEGATIVE Urine urobilinogen measurement by automated test strip (mass/volume) 0.2 mg/dL < = 1.0 Urine leukocyte esterase detection by dipstick NEG ATIVE NEGATIVE Automated urine sediment erythrocyte cou nt by microscopy (number/high power field) [HPF] NRG Automated urine sediment leukocyte count by microscopy (number/high power field) NONE NRG Bacteria detection in urine sediment by light microsco py TRACE NRG Squamous epithelial cells detection in u rine sediment by light microscopy 2-5 NRG Crystals detection in urine sediment by light microsco py PRESENT NRG Casts detection in urine sediment by light microscopy NONE NRG Mucus detection in urine sediment by light microscopy SMALL NRG Complete urinalysis with reflex to culture NO NRG Amorphous sediment detection in urine sediment by lig t microscopy MOD NISHA URATES NRG Serum or plasma lactate measurement (mol es/volume) - 02/05/20 22:53 Serum or plasma lactate measurement (moles/volume) 0.91 mmol/L 0.50-2.00 Capillary blood glucose measurement by g lucometer (mass/volume) - 02/06/20 06:15 Capillary blood glucose measurement by glucometer (mas s/volume) 130 mg/dL 70-110 Complete blood count (CBC) with automate d white blood cell (WBC) differential - 02/06/20 06:16 Blood leukocytes automated count (number/volume) 22.8 10*3/uL 4.3-11.0 Blood erythrocytes automated count (number/volume) 4.35 10*6/uL 4.35-5.85 Venous blood hemoglobin measurement (mass/volume) 12.9 g/dL 11.5-16.0 Blood hematocrit (volume fraction) 39 % 35-52 Automated erythrocyte mean corpuscular volume 90 [ foz_us] 80-99 Automated erythrocyte mean corpuscular h emoglobin (mass per erythrocyte) 30 pg 25-34 Automated erythrocyte mean corpuscular h emoglobin concentration measurement (mass/volume) 33 g/dL 32-36 Automated erythrocyte distribution width ratio 13. 1 % 10.0- 14.5 Automated blood platelet count (count/volume) 378 10*3/uL 130-400 Automated blood platelet mean volume measurement 9.2 [foz_us] 7.4-10.4 Automated blood neutrophils/100 leukocytes 76 % 42-75 Automated blood lymphocytes/100 leukocytes 13 % 12-44 Blood monocytes/100 leukocytes 10 % 0-12 Automated blood eosinophils/100 leukocytes 1 % 0-10 Automated blood basophils/100 leukocytes 0 % 0-10 Blood neutrophils automated count (number/volume) 17.5 10*3 1.8-7.8 Blood lymphocytes automated count (number/volume) 2.9 10*3 1.0-4.0 Blood monocytes automated count (number/volume) 2. 3 10*3 0.0-1.0 Automated eosinophil count 0.2 10*3/uL 0 .0-0.3 Automated blood basophil count (count/volume) 0.0 10*3/uL 0.0-0.1 Comprehensive metabolic panel - 02/06/20 06:16 Serum or plasma sodium measurement (moles/volume) 127 mmol/L 135-145 Serum or plasma potassium measurement (moles/volume) 4.2 mmol/L 3.6-5.0 Serum or plasma chloride measurement (moles/volume) 96 mmol/L 98-107 Carbon dioxide 18 mmol/L 21-32 Serum or plasma anion gap determination (moles/volume) 13 mmol/L 5-14 Serum or plasma urea nitrogen measurement (mass/volume ) 13 mg/dL 7-18 Serum or plasma creatinine measurement (mass/volume) 1.25 mg/dL 0.60-1.30 Serum or plasma urea nitrogen/creatinine mass ratio 10 NRG Serum or plasma creatinine measurement w ith calculation of estimated glomerular filtration rate 44 NRG Serum or plasma glucose measurement (mass/volume) 131 mg/dL 70-105 Serum or plasma calcium measurement (mass/volume) 8.8 mg/dL 8.5-10.1 Serum or plasma total bilirubin measurement (mass/volu me) 0.6 mg/dL 0.1-1.0 Serum or plasma alkaline phosphatase shin surement (enzymatic activity/volume) 61 U/L 40-136 Serum or plasma aspartate aminotransfera se measurement (enzymatic activity/volume) 24 U/L 5-34 Serum or plasma alanine aminotransferase measurement (enzymatic activity/volume) 29 U/L 0-55 Serum or plasma protein measurement (mass/volume) 6.8 g/dL 6.4-8.2 Serum or plasma albumin measurement (mass/volume) 3.7 g/dL 3.2-4.5 CALCIUM CORRECTED 9.0 mg/dL 8.5-10.1 Manual absolute plasma cell count - 01/19 06/09 06:16 Blood monocytes/100 leukocytes 8 % NRG Manual blood segmented neutrophils/100 leukocytes 82 % NRG Blood band neutrophils/100 leukocytes 0 % NRG Manual blood lymphocytes/100 leukocytes 8 % NRG Manual eosinophils/100 leukocytes in nose 1 % NRG Manual blood basophils/100 leukocytes 1 % NRG Blood erythrocyte morphology finding identification NORMAL NRG Capillary blood glucose measurement by g lucometer (mass/volume) - 02/06/20 10:06 Capillary blood glucose measurement by glucometer (mas s/volume) 155 mg/dL 70-110 Capillary blood glucose measurement by g lucometer (mass/volume) - 02/06/20 11:21 Capillary blood glucose measurement by glucometer (mas s/volume) 140 mg/dL 70-110 Capillary blood glucose measurement by g lucometer (mass/volume) - 02/06/20 16:08 Capillary blood glucose measurement by glucometer (mas s/volume) 128 mg/dL 70-110 Capillary blood glucose measurement by g lucometer (mass/volume) - 02/06/20 19:12 Capillary blood glucose measurement by glucometer (mas s/volume) 200 mg/dL 70-110 Capillary blood glucose measurement by g lucometer (mass/volume) - 02/06/20 21:12 Capillary blood glucose measurement by glucometer (mas s/volume) 175 mg/dL 70-110 Capillary blood glucose measurement by g lucometer (mass/volume) - 02/07/20 05:25 Capillary blood glucose measurement by glucometer (mas s/volume) 175 mg/dL 70-110 Complete blood count (CBC) with automate d white blood cell (WBC) differential - 02/07/20 05:43 Blood leukocytes automated count (number/volume) 14.0 10*3/uL 4.3-11.0 Blood erythrocytes automated count (number/volume) 4.24 10*6/uL 4.35-5.85 Venous blood hemoglobin measurement (mass/volume) 12.6 g/dL 11.5-16.0 Blood hematocrit (volume fraction) 38 % 35-52 Automated erythrocyte mean corpuscular volume 89 [ foz_us] 80-99 Automated erythrocyte mean corpuscular h emoglobin (mass per erythrocyte) 30 pg 25-34 Automated erythrocyte mean corpuscular h emoglobin concentration measurement (mass/volume) 33 g/dL 32-36 Automated erythrocyte distribution width ratio 13. 2 % 10.0- 14.5 Automated blood platelet count (count/volume) 402 10*3/uL 130-400 Automated blood platelet mean volume measurement 9.1 [foz_us] 7.4-10.4 Automated blood neutrophils/100 leukocytes 68 % 42-75 Automated blood lymphocytes/100 leukocytes 18 % 12-44 Blood monocytes/100 leukocytes 12 % 0-12 Automated blood eosinophils/100 leukocytes 2 % 0-10 Automated blood basophils/100 leukocytes 0 % 0-10 Blood neutrophils automated count (number/volume) 9.5 10*3 1.8-7.8 Blood lymphocytes automated count (number/volume) 2.6 10*3 1.0-4.0 Blood monocytes automated count (number/volume) 1. 7 10*3 0.0-1.0 Automated eosinophil count 0.2 10*3/uL 0 .0-0.3 Automated blood basophil count (count/volume) 0.0 10*3/uL 0.0-0.1 Comprehensive metabolic panel - 02/07/20 05:43 Serum or plasma sodium measurement (moles/volume) 132 mmol/L 135-145 Serum or plasma potassium measurement (moles/volume) 4.2 mmol/L 3.6-5.0 Serum or plasma chloride measurement (moles/volume) 100 mmol/L 98-107 Carbon dioxide 20 mmol/L 21-32 Serum or plasma anion gap determination (moles/volume) 12 mmol/L 5-14 Serum or plasma urea nitrogen measurement (mass/volume ) 8 mg/dL 7-18 Serum or plasma creatinine measurement (mass/volume) 0.88 mg/dL 0.60-1.30 Serum or plasma urea nitrogen/creatinine mass ratio 9 NRG Serum or plasma creatinine measurement w ith calculation of estimated glomerular filtration rate > NRG Serum or plasma glucose measurement (mass/volume) 171 mg/dL 70-105 Serum or plasma calcium measurement (mass/volume) 8.6 mg/dL 8.5-10.1 Serum or plasma total bilirubin measurement (mass/volu me) 0.6 mg/dL 0.1-1.0 Serum or plasma alkaline phosphatase shin surement (enzymatic activity/volume) 58 U/L 40-136 Serum or plasma aspartate aminotransfera se measurement (enzymatic activity/volume) 18 U/L 5-34 Serum or plasma alanine aminotransferase measurement (enzymatic activity/volume) 24 U/L 0-55 Serum or plasma protein measurement (mass/volume) 6.7 g/dL 6.4-8.2 Serum or plasma albumin measurement (mass/volume) 3.6 g/dL 3.2-4.5 CALCIUM CORRECTED 8.9 mg/dL 8.5-10.1 Capillary blood glucose measurement by g lucometer (mass/volume) - 02/07/20 11:05 Capillary blood glucose measurement by glucometer (mas s/volume) 137 mg/dL 70-110 Capillary blood glucose measurement by g lucometer (mass/volume) - 02/07/20 15:22 Capillary blood glucose measurement by glucometer (mas s/volume) 144 mg/dL 70-110 Capillary blood glucose measurement by g lucometer (mass/volume) - 02/07/20 20:29 Capillary blood glucose measurement by glucometer (mas s/volume) 197 mg/dL 70-110 Complete blood count (CBC) with automate d white blood cell (WBC) differential - 02/08/20 05:15 Blood leukocytes automated count (number/volume) 12.0 10*3/uL 4.3-11.0 Blood erythrocytes automated count (number/volume) 3.85 10*6/uL 4.35-5.85 Venous blood hemoglobin measurement (mass/volume) 11.5 g/dL 11.5-16.0 Blood hematocrit (volume fraction) 35 % 35-52 Automated erythrocyte mean corpuscular volume 91 [ foz_us] 80-99 Automated erythrocyte mean corpuscular h emoglobin (mass per erythrocyte) 30 pg 25-34 Automated erythrocyte mean corpuscular h emoglobin concentration measurement (mass/volume) 33 g/dL 32-36 Automated erythrocyte distribution width ratio 13. 2 % 10.0- 14.5 Automated blood platelet count (count/volume) 360 10*3/uL 130-400 Automated blood platelet mean volume measurement 8.9 [foz_us] 7.4-10.4 Automated blood neutrophils/100 leukocytes 55 % 42-75 Automated blood lymphocytes/100 leukocytes 28 % 12-44 Blood monocytes/100 leukocytes 13 % 0-12 Automated blood eosinophils/100 leukocytes 4 % 0-10 Automated blood basophils/100 leukocytes 0 % 0-10 Blood neutrophils automated count (number/volume) 6.6 10*3 1.8-7.8 Blood lymphocytes automated count (number/volume) 3.3 10*3 1.0-4.0 Blood monocytes automated count (number/volume) 1. 6 10*3 0.0-1.0 Automated eosinophil count 0.4 10*3/uL 0 .0-0.3 Automated blood basophil count (count/volume) 0.1 10*3/uL 0.0-0.1 Comprehensive metabolic panel - 02/08/20 05:15 Serum or plasma sodium measurement (moles/volume) 135 mmol/L 135-145 Serum or plasma potassium measurement (moles/volume) 4.7 mmol/L 3.6-5.0 Serum or plasma chloride measurement (moles/volume) 102 mmol/L 98-107 Carbon dioxide 24 mmol/L 21-32 Serum or plasma anion gap determination (moles/volume) 9 mmol/L 5-14 Serum or plasma urea nitrogen measurement (mass/volume ) 5 mg/dL 7-18 Serum or plasma creatinine measurement (mass/volume) 0.94 mg/dL 0.60-1.30 Serum or plasma urea nitrogen/creatinine mass ratio 5 NRG Serum or plasma creatinine measurement w ith calculation of estimated glomerular filtration rate > NRG Serum or plasma glucose measurement (mass/volume) 148 mg/dL 70-105 Serum or plasma calcium measurement (mass/volume) 8.1 mg/dL 8.5-10.1 Serum or plasma total bilirubin measurement (mass/volu me) 0.5 mg/dL 0.1-1.0 Serum or plasma alkaline phosphatase shin surement (enzymatic activity/volume) 55 U/L 40-136 Serum or plasma aspartate aminotransfera se measurement (enzymatic activity/volume) 15 U/L 5-34 Serum or plasma alanine aminotransferase measurement (enzymatic activity/volume) 20 U/L 0-55 Serum or plasma protein measurement (mass/volume) 6.1 g/dL 6.4-8.2 Serum or plasma albumin measurement (mass/volume) 3.3 g/dL 3.2-4.5 CALCIUM CORRECTED 8.7 mg/dL 8.5-10.1 Capillary blood glucose measurement by g lucometer (mass/volume) - 02/08/20 11:32 Capillary blood glucose measurement by glucometer (mas s/volume) 158 mg/dL 70-110 Capillary blood glucose measurement by g lucometer (mass/volume) - 02/08/20 15:28 Capillary blood glucose measurement by glucometer (mas s/volume) 219 mg/dL 70-110 Capillary blood glucose measurement by g lucometer (mass/volume) - 02/08/20 20:38 Capillary blood glucose measurement by glucometer (mas s/volume) 207 mg/dL 70-110 Complete blood count (CBC) with automate d white blood cell (WBC) differential - 02/09/20 04:47 Blood leukocytes automated count (number/volume) 17.7 10*3/uL 4.3-11.0 Blood erythrocytes automated count (number/volume) 4.00 10*6/uL 4.35-5.85 Venous blood hemoglobin measurement (mass/volume) 12.1 g/dL 11.5-16.0 Blood hematocrit (volume fraction) 36 % 35-52 Automated erythrocyte mean corpuscular volume 89 [ foz_us] 80-99 Automated erythrocyte mean corpuscular h emoglobin (mass per erythrocyte) 30 pg 25-34 Automated erythrocyte mean corpuscular h emoglobin concentration measurement (mass/volume) 34 g/dL 32-36 Automated erythrocyte distribution width ratio 13. 1 % 10.0- 14.5 Automated blood platelet count (count/volume) 369 10*3/uL 130-400 Automated blood platelet mean volume measurement 8.9 [foz_us] 7.4-10.4 Automated blood neutrophils/100 leukocytes 77 % 42-75 Automated blood lymphocytes/100 leukocytes 15 % 12-44 Blood monocytes/100 leukocytes 9 % 0-12 Automated blood eosinophils/100 leukocytes 0 % 0-10 Automated blood basophils/100 leukocytes 0 % 0-10 Blood neutrophils automated count (number/volume) 13.6 10*3 1.8-7.8 Blood lymphocytes automated count (number/volume) 2.6 10*3 1.0-4.0 Blood monocytes automated count (number/volume) 1. 5 10*3 0.0-1.0 Automated eosinophil count 0.0 10*3/uL 0 .0-0.3 Automated blood basophil count (count/volume) 0.0 10*3/uL 0.0-0.1 Comprehensive metabolic panel - 02/09/20 04:47 Serum or plasma sodium measurement (moles/volume) 134 mmol/L 135-145 Serum or plasma potassium measurement (moles/volume) 3.9 mmol/L 3.6-5.0 Serum or plasma chloride measurement (moles/volume) 102 mmol/L 98-107 Carbon dioxide 19 mmol/L 21-32 Serum or plasma anion gap determination (moles/volume) 13 mmol/L 5-14 Serum or plasma urea nitrogen measurement (mass/volume ) 6 mg/dL 7-18 Serum or plasma creatinine measurement (mass/volume) 0.83 mg/dL 0.60-1.30 Serum or plasma urea nitrogen/creatinine mass ratio 7 NRG Serum or plasma creatinine measurement w ith calculation of estimated glomerular filtration rate > NRG Serum or plasma glucose measurement (mass/volume) 128 mg/dL 70-105 Serum or plasma calcium measurement (mass/volume) 8.3 mg/dL 8.5-10.1 Serum or plasma total bilirubin measurement (mass/volu me) 0.4 mg/dL 0.1-1.0 Serum or plasma alkaline phosphatase shin surement (enzymatic activity/volume) 52 U/L 40-136 Serum or plasma aspartate aminotransfera se measurement (enzymatic activity/volume) 14 U/L 5-34 Serum or plasma alanine aminotransferase measurement (enzymatic activity/volume) 18 U/L 0-55 Serum or plasma protein measurement (mass/volume) 6.5 g/dL 6.4-8.2 Serum or plasma albumin measurement (mass/volume) 3.4 g/dL 3.2-4.5 CALCIUM CORRECTED 8.8 mg/dL 8.5-10.1 Capillary blood glucose measurement by g lucometer (mass/volume) - 02/09/20 11:13 Capillary blood glucose measurement by glucometer (mas s/volume) 106 mg/dL 70-110 Capillary blood glucose measurement by g lucometer (mass/volume) - 02/09/20 15:53 Capillary blood glucose measurement by glucometer (mas s/volume) 206 mg/dL 70-110 Capillary blood glucose measurement by g lucometer (mass/volume) - 02/09/20 20:14 Capillary blood glucose measurement by glucometer (mas s/volume) 171 mg/dL 70-110 Complete blood count (CBC) with automate d white blood cell (WBC) differential - 02/10/20 05:05 Blood leukocytes automated count (number/volume) 17.0 10*3/uL 4.3-11.0 Blood erythrocytes automated count (number/volume) 3.68 10*6/uL 4.35-5.85 Venous blood hemoglobin measurement (mass/volume) 10.9 g/dL 11.5-16.0 Blood hematocrit (volume fraction) 33 % 35-52 Automated erythrocyte mean corpuscular volume 91 [ foz_us] 80-99 Automated erythrocyte mean corpuscular h emoglobin (mass per erythrocyte) 30 pg 25-34 Automated erythrocyte mean corpuscular h emoglobin concentration measurement (mass/volume) 33 g/dL 32-36 Automated erythrocyte distribution width ratio 13. 1 % 10.0- 14.5 Automated blood platelet count (count/volume) 408 10*3/uL 130-400 Automated blood platelet mean volume measurement 8.9 [foz_us] 7.4-10.4 Automated blood neutrophils/100 leukocytes 76 % 42-75 Automated blood lymphocytes/100 leukocytes 17 % 12-44 Blood monocytes/100 leukocytes 7 % 0-12 Automated blood eosinophils/100 leukocytes 0 % 0-10 Automated blood basophils/100 leukocytes 0 % 0-10 Blood neutrophils automated count (number/volume) 13.0 10*3 1.8-7.8 Blood lymphocytes automated count (number/volume) 2.8 10*3 1.0-4.0 Blood monocytes automated count (number/volume) 1. 2 10*3 0.0-1.0 Automated eosinophil count 0.0 10*3/uL 0 .0-0.3 Automated blood basophil count (count/volume) 0.0 10*3/uL 0.0-0.1 Comprehensive metabolic panel - 02/10/20 05:05 Serum or plasma sodium measurement (moles/volume) 136 mmol/L 135-145 Serum or plasma potassium measurement (moles/volume) 4.1 mmol/L 3.6-5.0 Serum or plasma chloride measurement (moles/volume) 102 mmol/L 98-107 Carbon dioxide 24 mmol/L 21-32 Serum or plasma anion gap determination (moles/volume) 10 mmol/L 5-14 Serum or plasma urea nitrogen measurement (mass/volume ) 6 mg/dL 7-18 Serum or plasma creatinine measurement (mass/volume) 0.79 mg/dL 0.60-1.30 Serum or plasma urea nitrogen/creatinine mass ratio 8 NRG Serum or plasma creatinine measurement w ith calculation of estimated glomerular filtration rate > NRG Serum or plasma glucose measurement (mass/volume) 110 mg/dL 70-105 Serum or plasma calcium measurement (mass/volume) 8.5 mg/dL 8.5-10.1 Serum or plasma total bilirubin measurement (mass/volu me) 0.3 mg/dL 0.1-1.0 Serum or plasma alkaline phosphatase shin surement (enzymatic activity/volume) 50 U/L 40-136 Serum or plasma aspartate aminotransfera se measurement (enzymatic activity/volume) 15 U/L 5-34 Serum or plasma alanine aminotransferase measurement (enzymatic activity/volume) 18 U/L 0-55 Serum or plasma protein measurement (mass/volume) 6.3 g/dL 6.4-8.2 Serum or plasma albumin measurement (mass/volume) 3.4 g/dL 3.2-4.5 CALCIUM CORRECTED 9.0 mg/dL 8.5-10.1 Serum or plasma amylase measurement (enz ymatic activity/volume) - 02/10/20 05:05 Serum or plasma amylase measurement (enzymatic activit y/volume) 28 U/L 25-125 Lipase - 02/10/20 05:05 Lipase 12 U/L 8-78 Capillary blood glucose measurement by g lucometer (mass/volume) - 02/10/20 10:33 Capillary blood glucose measurement by glucometer (mas s/volume) 103 mg/dL 70-110 Capillary blood glucose measurement by g lucometer (mass/volume) - 02/10/20 16:18 Capillary blood glucose measurement by glucometer (mas s/volume) 261 mg/dL 70-110 Capillary blood glucose measurement by g lucometer (mass/volume) - 02/10/20 20:58 Capillary blood glucose measurement by glucometer (mas s/volume) 154 mg/dL 70-110 Capillary blood glucose measurement by g lucometer (mass/volume) - 02/11/20 05:19 Capillary blood glucose measurement by glucometer (mas s/volume) 119 mg/dL 70-110 Complete blood count (CBC) with automate d white blood cell (WBC) differential - 02/11/20 06:00 Blood leukocytes automated count (number/volume) 15.7 10*3/uL 4.3-11.0 Blood erythrocytes automated count (number/volume) 3.60 10*6/uL 4.35-5.85 Venous blood hemoglobin measurement (mass/volume) 10.8 g/dL 11.5-16.0 Blood hematocrit (volume fraction) 33 % 35-52 Automated erythrocyte mean corpuscular volume 91 [ foz_us] 80-99 Automated erythrocyte mean corpuscular h emoglobin (mass per erythrocyte) 30 pg 25-34 Automated erythrocyte mean corpuscular h emoglobin concentration measurement (mass/volume) 33 g/dL 32-36 Automated erythrocyte distribution width ratio 13. 6 % 10.0- 14.5 Automated blood platelet count (count/volume) 430 10*3/uL 130-400 Automated blood platelet mean volume measurement 9.1 [foz_us] 7.4-10.4 Automated blood neutrophils/100 leukocytes 68 % 42-75 Automated blood lymphocytes/100 leukocytes 22 % 12-44 Blood monocytes/100 leukocytes 10 % 0-12 Automated blood eosinophils/100 leukocytes 0 % 0-10 Automated blood basophils/100 leukocytes 0 % 0-10 Blood neutrophils automated count (number/volume) 10.7 10*3 1.8-7.8 Blood lymphocytes automated count (number/volume) 3.4 10*3 1.0-4.0 Blood monocytes automated count (number/volume) 1. 5 10*3 0.0-1.0 Automated eosinophil count 0.0 10*3/uL 0 .0-0.3 Automated blood basophil count (count/volume) 0.0 10*3/uL 0.0-0.1 Comprehensive metabolic panel - 02/11/20 06:00 Serum or plasma sodium measurement (moles/volume) 136 mmol/L 135-145 Serum or plasma potassium measurement (moles/volume) 3.3 mmol/L 3.6-5.0 Serum or plasma chloride measurement (moles/volume) 103 mmol/L 98-107 Carbon dioxide 21 mmol/L 21-32 Serum or plasma anion gap determination (moles/volume) 12 mmol/L 5-14 Serum or plasma urea nitrogen measurement (mass/volume ) 9 mg/dL 7-18 Serum or plasma creatinine measurement (mass/volume) 0.81 mg/dL 0.60-1.30 Serum or plasma urea nitrogen/creatinine mass ratio 11 NRG Serum or plasma creatinine measurement w ith calculation of estimated glomerular filtration rate > NRG Serum or plasma glucose measurement (mass/volume) 137 mg/dL 70-105 Serum or plasma calcium measurement (mass/volume) 8.0 mg/dL 8.5-10.1 Serum or plasma total bilirubin measurement (mass/volu me) 0.2 mg/dL 0.1-1.0 Serum or plasma alkaline phosphatase shin surement (enzymatic activity/volume) 52 U/L 40-136 Serum or plasma aspartate aminotransfera se measurement (enzymatic activity/volume) 14 U/L 5-34 Serum or plasma alanine aminotransferase measurement (enzymatic activity/volume) 19 U/L 0-55 Serum or plasma protein measurement (mass/volume) 6.2 g/dL 6.4-8.2 Serum or plasma albumin measurement (mass/volume) 3.4 g/dL 3.2-4.5 CALCIUM CORRECTED 8.5 mg/dL 8.5-10.1 Capillary blood glucose measurement by g lucometer (mass/volume) - 02/11/20 11:03 Capillary blood glucose measurement by glucometer (mas s/volume) 195 mg/dL 70-110 Complete blood count (CBC) with automate d white blood cell (WBC) differential - 02/20/20 08:50 Blood leukocytes automated count (number/volume) 17.1 10*3/uL 4.3-11.0 Blood erythrocytes automated count (number/volume) 4.45 10*6/uL 4.35-5.85 Venous blood hemoglobin measurement (mass/volume) 13.2 g/dL 11.5-16.0 Blood hematocrit (volume fraction) 40 % 35-52 Automated erythrocyte mean corpuscular volume 90 [ foz_us] 80-99 Automated erythrocyte mean corpuscular h emoglobin (mass per erythrocyte) 30 pg 25-34 Automated erythrocyte mean corpuscular h emoglobin concentration measurement (mass/volume) 33 g/dL 32-36 Automated erythrocyte distribution width ratio 13. 7 % 10.0- 14.5 Automated blood platelet count (count/volume) 411 10*3/uL 130-400 Automated blood platelet mean volume measurement 8.4 [foz_us] 7.4-10.4 Automated blood neutrophils/100 leukocytes 86 % 42-75 Automated blood lymphocytes/100 leukocytes 8 % 12-44 Blood monocytes/100 leukocytes 5 % 0-12 Automated blood eosinophils/100 leukocytes 1 % 0-10 Automated blood basophils/100 leukocytes 0 % 0-10 Blood neutrophils automated count (number/volume) 14.7 10*3 1.8-7.8 Blood lymphocytes automated count (number/volume) 1.4 10*3 1.0-4.0 Blood monocytes automated count (number/volume) 0. 8 10*3 0.0-1.0 Automated eosinophil count 0.1 10*3/uL 0 .0-0.3 Automated blood basophil count (count/volume) 0.0 10*3/uL 0.0-0.1 Serum or plasma ethanol measurement (mas s/volume) - 02/20/20 08:50 Serum or plasma ethanol measurement (mass/volume) < mg/dL <10 Comprehensive metabolic panel - 02/20/20 08:50 Serum or plasma sodium measurement (moles/volume) 136 mmol/L 135-145 Serum or plasma potassium measurement (moles/volume) 4.2 mmol/L 3.6-5.0 Serum or plasma chloride measurement (moles/volume) 102 mmol/L 98-107 Carbon dioxide 20 mmol/L 21-32 Serum or plasma anion gap determination (moles/volume) 14 mmol/L 5-14 Serum or plasma urea nitrogen measurement (mass/volume ) 13 mg/dL 7-18 Serum or plasma creatinine measurement (mass/volume) 0.88 mg/dL 0.60-1.30 Serum or plasma urea nitrogen/creatinine mass ratio 15 NRG Serum or plasma creatinine measurement w ith calculation of estimated glomerular filtration rate > NRG Serum or plasma glucose measurement (mass/volume) 218 mg/dL 70-105 Serum or plasma calcium measurement (mass/volume) 9.4 mg/dL 8.5-10.1 Serum or plasma total bilirubin measurement (mass/volu me) 0.3 mg/dL 0.1-1.0 Serum or plasma alkaline phosphatase shin surement (enzymatic activity/volume) 79 U/L 40-136 Serum or plasma aspartate aminotransfera se measurement (enzymatic activity/volume) 15 U/L 5-34 Serum or plasma alanine aminotransferase measurement (enzymatic activity/volume) 17 U/L 0-55 Serum or plasma protein measurement (mass/volume) 7.4 g/dL 6.4-8.2 Serum or plasma albumin measurement (mass/volume) 3.9 g/dL 3.2-4.5 CALCIUM CORRECTED 9.5 mg/dL 8.5-10.1 Magnesium - 02/20/20 08:50 Magnesium 1.3 mg/dL 1.6-2.4 Serum or plasma amylase measurement (enz ymatic activity/volume) - 02/20/20 08:50 Serum or plasma amylase measurement (enzymatic activit y/volume) 68 U/L 25-125 Lipase - 02/20/20 08:50 Lipase 20 U/L 8-78 Manual absolute plasma cell count - 12/10 08:50 Blood monocytes/100 leukocytes 10 % NRG Manual blood segmented neutrophils/100 leukocytes 82 % NRG Blood band neutrophils/100 leukocytes 1 % NRG Manual blood lymphocytes/100 leukocytes 7 % NRG Blood erythrocyte morphology finding identification NORMAL NRG Capillary blood glucose measurement by g lucometer (mass/volume) - 02/20/20 08:51 Capillary blood glucose measurement by glucometer (mas s/volume) 216 mg/dL 70-110 Urine drug screening test - 02/20/20 10: 30 Urine phencyclidine detection by screening method NEGATIVE NEGATIVE Urine benzodiazepines detection by screening method NEGATIVE NEGATIVE Urine cocaine detection NEGATIVE NEGATI VE Urine amphetamines detection by screening method N EGATIVE NEGATIVE Urine methamphetamine detection by screening method NEGATIVE NEGATIVE Urine cannabinoids detection by screening method N EGATIVE NEGATIVE Urine opiates detection by screening method NEGATI VE NEGATIVE Urine barbiturates detection NEGATIVE N EGATIVE Screening urine tricyclic antidepressants detection NEGATIVE NEGATIVE Urine methadone detection by screening method NEGA TIVE NEGATIVE Urine oxycodone detection NEGATIVE NEGA TIVE Urine propoxyphene detection NEGATIVE N EGATIVE Complete urinalysis with reflex to cultu re - 02/20/20 10:30 Urine color determination YELLOW NRG Urine clarity determination CLEAR NR G Urine pH measurement by test strip 7.0 5-9 Specific gravity of urine by test strip 1.010 1.016-1.022 Urine protein assay by test strip, semi-quantitative NEGATIVE NEGATIVE Urine glucose detection by automated test strip 1+ NEGATIVE Erythrocytes detection in urine sediment by light micr oscopy TRACE-I NEGATIVE Urine ketones detection by automated test strip NE GATIVE NEGATIVE Urine nitrite detection by test strip NEGATIVE NEGATIVE Urine total bilirubin detection by test strip NEGA TIVE NEGATIVE Urine urobilinogen measurement by automated test strip (mass/volume) 0.2 mg/dL < = 1.0 Urine leukocyte esterase detection by dipstick NEG ATIVE NEGATIVE Automated urine sediment erythrocyte cou nt by microscopy (number/high power field) [HPF] NRG Automated urine sediment leukocyte count by microscopy (number/high power field) NONE NRG Bacteria detection in urine sediment by light microsco py NEGATIVE NRG Squamous epithelial cells detection in u rine sediment by light microscopy 0-2 NRG Crystals detection in urine sediment by light microsco py NONE NRG Casts detection in urine sediment by light microscopy NONE NRG Mucus detection in urine sediment by light microscopy NEGATIVE NRG Complete urinalysis with reflex to culture NO NRG OCCULT BLOOD STOOL - 02/20/20 11:30 Stool gastrointestinal hemoglobin detection POSITI VE NEGATIVE C DIFFICILE AG + TOXIN A/B. - 02/20/20 1 1:30 RESULTS NEGATIVE FOR ANTIGEN AND TOXIN A/B NRG [id number] - 02/20/20 11:30 Stool bacteria identification by culture - 02/20/20 11:30 FREE TEXT EXTERNAL NO AEROBIC GRAM NEGATIVE RODS P RESENT NRG QUANTITY OF GROWTH . NRG Stool bacteria identification by culture PRES USUA L NRG PARASITE COMPLETE EXAM STOOL - 02/20/20 11:30 PARASITE COMPLETE EXAM STOOL TNP N RG Encounters ACCT No. Visit Date/Time Discharge Status Pt. Type Provider Facility Loc./Unit Complaint [id number] 09/20/2014 09:20:00 09/20/2014 23:59: 59 CLS Outpatient JOANNE CHUA APRN [id number] 04/21/2014 12:59:00 04/21/2014 23:59: 59 CLS Outpatient JOANNE CHUA APRN [id number] 11/17/2013 08:58:00 11/17/2013 23:59: 59 CLS Outpatient JOANNE CHUA APRN [id number] 08/25/2013 12:36:00 08/25/2013 23:59: 59 CLS Outpatient CK TOBAR DDS [id number] 07/27/2013 10:53:00 07/27/2013 23:59: 59 CLS Outpatient JOANNE CHUA APRN [id number] 06/26/2013 00:00:00 06/26/2013 23:59: 59 CLS Outpatient JOANNE CHUA APRN [id number] 04/10/2013 12:53:00 04/10/2013 23:59: 59 CLS Outpatient CHILANGO GREENBERG DDS [id number] 08/05/2012 08:55:00 08/05/2012 23:59:5 9 CLS Outpatient ZHANG DURAN DO [id number] 08/05/2012 08:55:00 08/05/2012 23:59: 59 CLS Outpatient ZHANG DURAN DO [id number] 03/18/2013 12:50:00 Document Registration [id number] 03/03/2013 11:59:00 Document Registration [id number] 02/20/2013 13:56:00 Document Registration [id number] 02/20/2020 08:13:00 11:50:00 DIS Emergency MARIVEL CHOI DO [facility] ER VOMITING / DIARRHEA [id number] 02/05/2020 21:22:00 020 15:05:00 DIS Inpatient FRANSISCO ALVAREZ DO [facility] 4TH MAXIMILIAN,GENERAL WEAKNESS,NE AR SYNCOPE [id number] 02/01/2020 10:52:00 020 13:36:00 DIS Inpatient RASHEEDA COLEMAN MD [facility] 4TH EPIGASTRIC ABD PAIN,N/V,LEUKOCYTOSIS [id number] 12/20/2019 22:13:00 020 04:06:00 DIS Emergency LENNY GREEN MD [facility] ER N/V [id number] 05/14/2019 09:59:00 019 23:59:59 CLS Outpatient DONNAARIC CHAUHAN ISRRAEL [facility] RAD DDU [id number] 11/27/2016 16:56:00 017 19:38:00 DIS Emergency DEBRA ARGUELLO MD [facility] ER SOA [id number] 06/13/2016 21:55:00 016 23:47:00 DIS Emergency JIMBO MARIVEL [facility] ER BLOOD SUGAR PROBLEMS [id number] 05/30/2016 14:19:00 016 17:59:00 DIS Emergency LENNY GREEN MD [facility] ER MIGRAINE ELEV B LOOD SUGAR [id number] 09/24/2013 16:16:00 013 23:59:59 CLS Outpatient [id number] 03/14/2020 16:18:[address] Emergency MARIVEL CHOI DO [facility] ER MULTIPLE FALLS, L LEG PAIN/S ORENESS [id number] 08/29/2012 08:08:00 Document Registration [id number] 03/03/2011 23:15:00 Document Registration [id number] 03/03/2020 12:20:00 03/03/2020 23:59:5 9 CLS Outpatient KEV RASMUSSEN [facility] [id number] 12/11/2019 10:00:00 Document Registration [id number] 07/28/2018 09:00:00 Document Registration [id number] 01/27/2018 13:00:00 Document Registration
--- NOTE | 2020-03-14 16:56 | ED Lower Extremity ---
General Chief Complaint: Lower Extremity Stated Complaint: MULTIPLE FALLS, L LEG PAIN/SORENESS Nursing Triage Note: PT TO ROOM 03 VIA W/C WITH C/O LEFT LEG PAIN, SWELLING, TINGLING. PT REPORTS STARTING LASIX X4 DAYS AGO. Nursing Sepsis Screen: No Definite Risk Source: patient History of Present Illness Date Seen by Provider: March 14, 2020 Time Seen by Provider: 16:30 Initial Comments PT ARRIVES VIA POV FROM HOME C/O LEFT KNEE AND LOWER LEG AND FOOT PAIN STATES SHE HAS "FALLEN 10 TIMES IN THE LAST 3 WEEKS" "AND EVERY TIME I LANDED ON MY LEFT KNEE" --HAS NOT FALLEN TODAY. LAST TIME SHE FELL WAS OVER A WEEK AGO--03/04/20 C/O PAIN FROM HER LEFT KNEE DOWN TO HER TOES STATE PAIN IS "15" / 10. STATES PAIN IS "SHARP, BURNING, PAIN, NEEDLES--LIKE A HOT KNIFE IF I MOVE IT JUST RIGHT AND THEN SOMEONE IS TWISTING IT" C/O "EXCRUCIATING PAIN" HAS NOT SOUGHT CARE UNTIL TODAY SYMPTOMS NO DIFFERENT TODAY STATES THEY "WERE DRIVING AROUND THE CEMETERIES AND THE VIBRATIONS OF THE CAR CAUSED EXCRUCIATING PAIN" TOOK 600 MG IBUPROFEN AN HOUR AGO, WITHOUT RELIEF. HAS CHRONIC LEFT KNEE PAIN --STATES SHE HAS BEEN TOLD SHE NEEDS SURGERY, BUT WOULD NEED TO LOSE A SIGNIFICANT AMOUNT OF WEIGHT BEFORE SURGEON WOULD CONSIDER IT, AND SHE HAS NOT LOST THE WEIGHT. THE LAST TIME SHE SAW AN ORTHOPEDIC SURGEON WAS 2006 OR 2007 IN [place]. PT WITH MULTIPLE VISITS--5 VISITS SINCE 12/20/19--VARIUS COMPLAINTS Allergies and Home Medications Allergies Coded Allergies: Penicillins (Unverified Allergy, Mild, 03/03/11) Sulfa (Sulfonamide Antibiotics) (Unverified Allergy, Mild, 03/03/11) fentanyl (Unverified Allergy, Mild, SZ, 03/03/11) latex (Unverified Allergy, Mild, 03/04/11) unsure/thinks a rash Home Medications Amlodipine Besylate 5 Mg Tablet, 5 MG PO DAILY Prescribed by: FRANSISCO ALVAREZ on 02/11/20 1218 Aspirin/Acetaminophen/Caffeine 1 Each Tablet, 2 EACH PO Q6-8HR PRN for Headache, (Reported) Ciprofloxacin HCl 500 Mg Tablet, 500 MG PO BID Prescribed by: MARIVEL CHOI on 02/20/20 1126 Duloxetine HCl 60 Mg Capsule.dr, 60 MG PO BID, (Reported) Fluticasone/Salmeterol 1 Each Blst.w.dev, 1 EACH IH BID, (Reported) Hyoscyamine Sulfate 0.125 Mg Tab.subl, 0.125 MG SL Q4H PRN for abdominal pain Prescribed by: FRANSISCO ALVAREZ on 02/11/20 121 Hyoscyamine Sulfate 0.125 Mg Tab.subl, 0.25 MG SL Q4H Prescribed by: MARIVEL CHOI on 02/20/20 112 Insulin Determir 1,000 Units/10 Ml Soln, 20 UNITS SQ BID, (Reported) Insulin Lispro 100 Unit/1 Ml Vial, 20 UNIT SQ TID PRN for HYPERGLYCEMIA, (Reported) L. Acidophilus/Pectin, [place] 1 Each Capsule, 2 EACH PO QID Prescribed by: MARIVEL CHOI on 02/20/201126 Lamotrigine 150 Mg Tablet, 150 MG PO DAILY, (Reported) Levofloxacin 500 Mg Tablet, 500 MG PO DAILY Prescribed by: FRANSISCO ALVAREZ on 02/11/201217 Lisinopril/Hydrochlorothiazide 1 Each Tablet, 1 EACH PO DAILY, (Reported) Loratadine 10 Mg Tablet, 10 MG PO DAILY, (Reported) Lorazepam 0.5 Mg Tablet, 0.5 MG PO DAILY PRN for ANXIETY, (Reported) MED WAS GIVEN THRU A VOUCHER PROGRAM Metformin HCl 500 Mg Tab.er.24, 1,000 MG PO BID, (Reported) Metronidazole 500 Mg Tablet, 500 MG PO QID Prescribed by: MARIVEL CHOI on 02/20/20 112 Olanzapine 5 Mg Tablet, 5 MG PO HS, (Reported) WAS GIVEN THRU A VOUCHER PROGRAM Ondansetron 8 Mg Tab.rapdis, 8 MG PO Q4H PRN for NAUSEA/VOMITING Prescribed by: MARIVEL CHOI on 02/20/20 112 Ondansetron HCl 8 Mg Tablet, 8 MG PO TID Prescribed by: RASHEEDA COLEMAN on 02/04/20 1148 Pantoprazole Sodium 40 Mg Tablet.dr, 40 MG PO DAILY, (Reported) Polyethylene Glycol 3350 17 Gm Powd.pack, 17 GM PO TID Prescribed by: RASHEEDA COLEMAN on 02/04/20 1148 Prednisone 10 Mg Tab.ds.pk, 10 MG PO DAILY Prescribed by: FRANSISCO ALVAREZ on 02/11/20 1218 Promethazine HCl 25 Mg Tablet, 25 MG PO Q6H PRN for NAUSEA/VOMITING Prescribed by: FRANSISCO ALVAREZ on 02/11/20 1219 Scopolamine 1 Each Patch.td72, 1 EACH TD Q72H Prescribed by: MARIVEL CHOI on 02/20/20 1127 Tramadol HCl 50 Mg Tablet, 50 MG PO Q4H Prescribed by: MARIVEL CHOI on 03/14/20 180 Tramadol HCl 50 Mg Tablet, 50 MG PO Q4H Prescribed by: MARIVEL CHOI on 03/14/20 180 Patient Home Medication List Home Medication List Reviewed: Yes Review of Systems Constitutional: no symptoms reported Musculoskeletal: see HPI Skin: no symptoms reported Psychiatric/Neurological: No Symptoms Reported Past Atwszmu-Locpwl-Tdhtmv Hx Past Med/Social Hx: Reviewed and Corrections made Patient Social History Alcohol Use: Denies Use Recreational Drug Use: Yes (THC) Drug of Choice: MARIJUANA Smoking Status: Current Everyday Smoker (1 PPD) Type Used: Cigarettes 2nd Hand Smoke Exposure: Yes Recent Foreign Travel: No Contact w/Someone Who Travel: No Recent Infectious Disease Expo: No Recent Hopitalizations: Yes Physical Abuse: No Sexual Abuse: No Mistreated: No Fear: No Immunizations Up To Date Date of Pneumonia Vaccine: Jan 31, 2017 Date of Influenza Vaccine: Jun 22, 2019 Past Medical History Surgeries: Yes Gallbladder, Tonsillectomy Respiratory: Yes Asthma Cardiac: Yes Chronic Edema/Swelling, Hypertension Neurological: Yes Headaches /Migraines 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 Genitourinary: No Gastrointestinal: Yes Gastrointestinal Bleed, Chronic Constipation, Diverticulosis, Gall Bladder Disease Musculoskeletal: Yes (CHRONIC KNEE PAIN ) Arthritis Endocrine: Yes (MORBID OBESITY) Diabetes, Insulin dep HEENT: Yes (POOR DENTITION) Cancer: No Psychosocial: Yes (EXTENSIVE PSYCH ISSUES) Anxiety, Bipolar, Depression Integumentary: No Blood Disorders: No Physical Exam Vital Signs Vital Signs - First Documented 03/14/20 16:35 Temp 36.7 Pulse 106 Resp 18 B/P (MAP) 142/69 (93) O2 Delivery Room Air Capillary Refill : Less Than 3 Seconds Height, Weight, BMI Height: 5'3" Weight: 170lbs. oz. 77.857482eb; 52.00 BMI Method:Estimated General Appearance: no apparent distress, obese (MORBIDLY OBESE), other (VERY DRAMATIC, TALKS NON-STOP AT LENGTH. ) Hips: bilateral hip normal inspection Legs: left leg no evidence of injury, left leg bone tenderness, left leg limited range of motion, left leg pain, left leg soft tissue tenderness Knees: left knee no evidence of injury, left knee bone tenderness, left knee pain, left knee soft tissue tenderness Ankles: left ankle no evidence of injury, left ankle bone tenderness, left ankle limited range of motion, left ankle pain, left ankle soft tissue tenderness Feet: left foot no evidence of injury, left foot bone tenderness, left foot limited range of motion, left foot pain, left foot soft tissue tenderness Neurologic/Tendon: normal sensation, normal motor functions, normal tendon functions Neurologic/Psychiatric: reliner II-XII nml as tested, no motor/sensory deficits, alert, oriented x 3 Skin: normal color, warm/dry; No ecchymosis Progress/Results/Core Measures Results/Orders My Orders Orders - JIMBO,MARIVEL K DO Tibia/Fibula, Left, 2 Views (03/14/20 16:36) Knee, Left, 3 Views (03/14/20 16:36) Foot, Left, 3 Views (03/14/20 16:36) Vital Signs/I&O 03/14/20 16:35 Temp 36.7 Pulse 106 Resp 18 B/P (MAP) 142/69 (93) O2 Delivery Room Air Blood Pressure Mean: 93 Progress Progress Note : Progress Note BODY HABITUS WILL NOT ACCOMMODATE KNEE IMMOBILIZER Diagnostic Imaging Comments XRAYS--PER RADIOLOGIST REPORTS AT 1753 LEFT KNEE--There is a subacute fracture with some periosteal new bone formation and early callus about the proximal fibula at the level of its neck consistent with recent fracture, nondisplaced. The proximal tibia is nonacute. The distal femur and patella nonacute. There is severe background tricompartmental osteoarthritis. No appreciable joint effusion. IMPRESSION: Recent but healing fracture of the proximal fibular neck is noted. No other acute or subacute injury with severe osteoarthritis noted, chronic. LEFT TIB-FIB-- IMPRESSION: Recent likely subacute proximal fibular fracture, nondisplaced. Severe arthritis to the knee. Swelling about the medial ankle. No other fracture evident. LEFT FOOT-- IMPRESSION: No acute appearing abnormality apparent. Reviewed: Reviewed by Me Departure Impression Primary Impression: SUBACUTE FRACTURE LEFT PROXIMAL FIBULA Disposition: 01 HOME, SELF-CARE Condition: Stable Departure-Patient Inst. Referrals: REBECCA PITT MD, SARAH D APRN (PCP) Primary Care Physician YADIRA BROWN MD Patient Instructions: Fibula Fracture (DC) Add. Discharge Instructions: RUMA WRAP TO KNEE USE YOUR WALKER AT ALL TIMES FOLLOW UP WITH ORTHOPEDIC SURGEON OF CHOICE NEXT WEEK FOR FURTHER CARFE All discharge instructions reviewed with patient and/or family. Voiced understanding. Scripts Tramadol HCl (Ultram) 50 Mg Tablet 50 MG PO Q4H for Pain, #20 TAB Prov: BALJINDER CHOIA Vargas DO 03/14/20 Tramadol HCl (Ultram) 50 Mg Tablet 50 MG PO Q4H for Pain, #20 TAB Prov: BALJINDER CHOIA K DO 03/14/20 MARIVEL CHOI DO March 14, 2020 16:56
--- NOTE | 2020-03-14 17:26 | Diagnostic Imaging Report ---
INDICATION: Pain began 4 days ago. There is a subacute fracture with some periosteal new bone formation and early callus about the proximal fibula at the level of its neck consistent with recent fracture, nondisplaced. The proximal tibia is nonacute. The distal femur and patella nonacute. There is severe background tricompartmental osteoarthritis. No appreciable joint effusion. IMPRESSION: Recent but healing fracture of the proximal fibular neck is noted. No other acute or subacute injury with severe osteoarthritis noted, chronic. Dictated by: Dictated on workstation # [id number]
--- NOTE | 2020-03-14 17:37 | Diagnostic Imaging Report ---
INDICATION: Fall with pain FINDINGS: Subacute healing fracture of the proximal fibular neck is present with some periosteal new bone formation and early callus. No significant displacement. There is severe tricompartmental osteoarthritic changes to the knee. Medial, lateral and posterior malleoli appeared intact and the shafts of the tibia and fibula intact. There does appear to be some soft tissue swelling about the ankle medially. IMPRESSION: Recent likely subacute proximal fibular fracture, nondisplaced. Severe arthritis to the knee. Swelling about the medial ankle. No other fracture evident. Dictated by: Dictated on workstation # [id number]
--- NOTE | 2020-03-14 17:37 | Diagnostic Imaging Report ---
INDICATION: Pain and swelling, recurrent falls. FINDINGS: Three views of the left foot reveal prominent plantar calcaneal spur, chronic. No abnormal periosteal reaction. No fracture or dislocation identified. IMPRESSION: No acute appearing abnormality apparent. Dictated by: Dictated on workstation # [id number]
[2020-03-14] MEDS ORDERED: TRAM-42 PO ×2 (18:03→18:07)
[2020-03-14 18:29] VITALS: BP 149/89
== END 2020-03-14 18:27 | disposition home or self-care (01) ==
LOC: EDUNIT# 16:15 → ER 16:18
DX: S82.832A Other fracture of upper and lower end of left fibula, initial encounter for closed fracture (principal); J45.909 Unspecified asthma, uncomplicated; I10 Essential (primary) hypertension; G43.909 Migraine, unspecified, not intractable, without status migrainosus; K59.09 Other constipation; M25.561 Pain in right knee; G89.29 Other chronic pain; E11.9 Type 2 diabetes mellitus without complications; E66.01 Morbid (severe) obesity due to excess calories; F31.9 Bipolar disorder, unspecified; F41.9 Anxiety disorder, unspecified; F17.210 Nicotine dependence, cigarettes, uncomplicated; Z88.0 Allergy status to penicillin; Z88.2 Allergy status to sulfonamides; Z91.040 Latex allergy status; Z88.5 Allergy status to narcotic agent; Z79.82 Long term (current) use of aspirin; Z79.51 Long term (current) use of inhaled steroids; Z79.4 Long term (current) use of insulin; Z79.52 Long term (current) use of systemic steroids; W19.XXXA Unspecified fall, initial encounter; X50.0XXA Overexertion from strenuous movement or load, initial encounter
CPT/HCPCS: 73562; 73590; 73630

== ENCOUNTER → 2020-03-29 | Outpatient (CLI) | payer MEDICAID ==
[~2020-03-29] MED LIST changes: +GABA-486 PO; +NALT50TA PO; +OXYB5TAB13 PO; +RT-ALBUINH INH; +TRAM-42 PO
--- NOTE | 2020-03-29 15:23 | Diagnostic Imaging Report ---
INDICATION: Postmenopausal female. History of fracture as an adult. Rheumatoid arthritis. Current smoker. COMPARISON: None. FINDINGS: AP Spine L2-L4: [BMD (g/cm2): 1.157] [T-Score: -0.4] [Z-Score: -0.3] [BMD Previous: NA] [BMD % Change: NA] LT Hip Neck: [BMD (g/cm2): 0.698] [T-Score: -2.4] [Z-Score: -1.9] LT Hip Total: [BMD (g/cm2):0.796] [T-Score:-1.7] [Z-Score: -1.5] [BMD Previous: NA] [BMD % Change: NA] RT Hip Neck: [BMD (g/cm2):0.751] [T-Score:-2.1] [Z-Score:-1.6] RT Hip Total: [BMD (g/cm2):0.866] [T-score:-1.1] [Z-Score:-1.0] [BMD Previous:NA] [BMD % Change:NA] *Indicates significant change from prior examination based on 95% confidence level. World Health Organization criteria for BMD interpretation classify patients as Normal (T-score at or above -1.0), Osteopenic (T-score between -1.0 and -2.5) or Osteoporotic (T-score at or below -2.5). LIMITATIONS AND MODIFICATION: None. FRACTURE RISK (FRAX SCORE): The ten year probability of (%): Major Osteoporotic Fracture: [21.1] Hip Fracture: [6.2] IMPRESSION: 1. Osteopenia (Low bone mass). 2. Baseline examination. 3. See below National Osteoporosis Foundation guidelines on when to potentially initiate pharmacologic therapy. Based on the National Osteoporosis Foundation Guidelines, pharmacologic treatment should be initiated in any of the following, unless clinical conditions suggest otherwise: * Any patient with prior fragility fracture of the hip or vertebrae. A spine fracture indicates 5X risk for subsequent spine fracture and 2X risk for subsequent hip fracture. * Osteoporosis (T-score <-2.5). * Postmenopausal women and men age 50 and older with low bone mass/osteopenia (T-score between -1.0 and -2.5) by DXA and 10-year major osteoporotic fracture greater than 20% or a 10-year probability of hip fracture greater than 3%. These fracture risks are supplied above in the FRAX score, if applicable. * Clinician judgement and/or patient preferences may indicate treatment for people with 10-year fracture probabilities above or below these levels. Dictated by: Dictated on workstation # [id number]
== END ==
LOC: RAD 11:09
PROVIDERS: ATTEND Nurse Practitioner Family
DX: Z01.419 Encounter for gynecological examination (general) (routine) without abnormal findings (principal); M85.89 Other specified disorders of bone density and structure, multiple sites; M06.9 Rheumatoid arthritis, unspecified; F17.200 Nicotine dependence, unspecified, uncomplicated; Z78.0 Asymptomatic menopausal state; Z87.81 Personal history of (healed) traumatic fracture
CPT/HCPCS: 77080

== ENCOUNTER → 2020-04-01 | Outpatient (CLI) | payer MEDICAID ==
--- NOTE | 2020-04-01 11:44 | Diagnostic Imaging Report ---
INDICATION: Routine screening. No prior mammograms are available for comparison. 2-D and 3-D bilateral screening mammography was performed with CAD. Scattered fibroglandular densities are identified bilaterally. No mass or malignant appearing microcalcifications are seen. Axillae are unremarkable. IMPRESSION: BI-RADS Category 1 No mammographic features suspicious for malignancy are identified. ACR BI-RADS Category 1: Negative. Result letter will be mailed to the patient. Note: At least 10% of breast cancer is not imaged by mammography. Dictated by: Dictated on workstation # [id number]
== END ==
LOC: RAD 09:11
PROVIDERS: ATTEND Nurse Practitioner Family
DX: Z12.31 Encounter for screening mammogram for malignant neoplasm of breast (principal)
CPT/HCPCS: 77063; 77067

== ENCOUNTER 2020-04-04 05:49 | Outpatient (RCR) | payer MEDICAID ==
[~2020-04-04] VITALS: Ht 162 cm; Wt 140.0 kg
== END 2020-06-28 | disposition home or self-care (01) ==
LOC: PREOP 05:49
PROVIDERS: ATTEND Surgery
DX: Z01.818 Encounter for other preprocedural examination (principal); Z20.828 Contact with and (suspected) exposure to other viral communicable diseases
CPT/HCPCS: 87635

== ENCOUNTER 2020-04-08 10:01 | Day surgery (SDC) | payer MEDICAID ==
[~2020-04-08] VITALS: Ht 162 cm; Wt 140.0 kg
[2020-04-08] MEDS ORDERED: LACTATED RINGERS 1,000 ML IV STA (10:14)
[2020-04-08] MEDS ORDERED: HURRICAINE EXT TUBE (BENZOCAINE) XX PRN (10:15)
[2020-04-08] MEDS ORDERED: LIDOCAINE JELLY 2% 6 ML SYRINGE MM PRN (10:15)
[2020-04-08] MEDS ORDERED: LACTATED RINGERS 1,000 ML IV ONE (10:21)
[2020-04-08] MEDS ORDERED: PROPOFOL INJECTION 50 ML IV ONE (10:43)
[2020-04-08] MEDS ORDERED: MIDAZOLAM 2 MG/2 ML (VERSED) VIAL ONE (10:43)
[2020-04-08 10:48] VITALS: BP 115/63
--- NOTE | 2020-04-08 10:54 | Progress Note-Pre Operative ---
Pre-Operative Progress Note H&P Reviewed The H&P was reviewed, patient examined and no changes noted. Date Seen by Provider: Apr 08, 2020 Time Seen by Provider: 10: Date H&P Reviewed: Apr 08, 2020 Time H&P Reviewed: 10:30 Pre-Operative Diagnosis: GERD, screening o KASI ELLISON MD Apr 08, 2020 10:54
[2020-04-08] MEDS ORDERED: LIDOCAINE JELLY 2% 6 ML SYRINGE ONE (10:56)
[2020-04-08] MEDS ORDERED: HURRICAINE EXT TUBE (BENZOCAINE) ONE (10:56)
--- NOTE | 2020-04-08 10:56 | Discharge Inst-Surgical ---
D/C Lap Instructions-TERRA Follow Up Appt in 2 weeks Activity as tolerated High Fiber Diet 25g or more per day Avoid Alcohol, Caffeine, Spicy [place] and Acid foods. Drink 64 fluid oz or more of fluids per day. Symptoms to Report: Fever over 101 degree F, Nausea/Vomiting If any problems/questions: Contact your physician or go to Emergency Room KASI ELLISON MD Apr 08, 2020 10:56
--- OUTSIDE RECORDS SUMMARY | 2020-04-08 10:56 | XMS REPORT | Clinical Summary ---
Author Author [facility] Organization [facility] Address Unknown Phone Unavailable Care Team Providers Care E Learning Coordinator Name Role Phone Juanis Fontenot RN Unavailable Unavailable Brittany Resendez RN Unavailable Unavailable Supriya Flores ELDERLY COMPANION Unavailable Self, Referral PCP Unavailable Jairon Martinez MD Unavailable Source Comments Some departments are not documenting in the electronic medical record. If you d o not see the information that you expected, contact Release of Information in [facility] Information Management department at [phone] for further assistan ce in locating additional records.[facility] Allergies Comments Active Allergy Reactions Severity [...]
--- OUTSIDE RECORDS SUMMARY | 2020-04-08 10:56 | XMS REPORT | Clinical Summary ---
Author Author [facility] Organization [facility] Address Unknown Phone Unavailable Care Team Providers Care Insurance Specialist Name Role Phone PCP Unavailable Allergies Not [...]
--- OUTSIDE RECORDS SUMMARY | 2020-04-08 10:56 | XMS REPORT | Encounter Summary ---
Author Author [facility] Address Unknown Phone Unavailable Care Team Providers Care Chore Worker Name Role Phone PCP Unavailable Encounter Details Care Team Description Date Type Department Lawrence Izaguirre DO [address] [place] [address] [phone] 01/18/2003 [facility] [...]
[2020-04-08] MEDS ORDERED: morphine INJ 10 MG/ML 1ML (SYR OR VIAL) IVP PRN ×2 (11:00)
[2020-04-08] MEDS ORDERED: ONDANSETRON 4 MG/2 ML (SDV) Z0FRAN IVP PRN (11:00)
[2020-04-08] MEDS ORDERED: ACETAMINOPHEN 325 MG TABLET PO PRN (11:00)
[2020-04-08] MEDS ORDERED: HYDROcodone/APAP 5 MG/325 MG (LORTAB) TAB PO PRN (11:00)
--- OUTSIDE RECORDS SUMMARY | 2020-04-08 11:01 | XMS REPORT | Continuity of Care Document ---
[...] 04/06/2010 Yes Latex OA 04/06/2010 Yes fentanyl [id number] Drug Allergy Mild SZ 03/03/2011 Yes Penicillins [id number] Drug Aller gy Mild N/A 03/03/2011 Yes Sulfa (Sulfonamide Antibiotics) [id number] Drug Allergy Mild N/A 1 Yes latex [id number] Drug Allergy Mild N/A 03/04/2011 Yes fentanyl Drug Allergy N/A N/A 04/12/2011 Yes fentanyl Drug Allergy 04/12/2011 Yes fentanyl [id number] Drug Allergy Severe SEIZURE 03/30/2020 Yes Penicillins [id number] Drug Aller gy Severe ANAPHYLAXIS 03/30/2020 Yes latex [id number] Drug Allergy Mild RASH/BLISTERS 03/30/2020 Yes Sulfa (Sulfonamide Antibiotics) [id number] 0491 Drug Allergy Mild RASH 0 Medications There is no data. Problems Date [...] B 401 .1 BENIGN ESSENTIAL HYPERTENSION 04/12/2009 [facility] DDS, CHILANGO B V18 .0 FAMILY HISTORY OF DIABETES MELLITUS 04/12/2009 JESSICA CHUA APRNA S 296.80 BIPOLAR DISORDER UNSPECIFIED 04/12/2009 JESSICA CHUA APRNA S 401.1 BENIGN ESSENTIAL HYPERTENSION 04/12/2009 BETHANY CHUA APRNNDA S V18.0 FAMILY HISTORY OF DIABETES MELLITUS 04/12/2009 BETHANY CHUA APRNNDA S 296.80 BIPOLAR DISORDER UNSPECIFIED 04/12/2009 JESSICA CHUA APRNA S 401.1 BENIGN ESSENTIAL HYPERTENSION 04/12/2009 BETHANY [...] V18.0 FAMILY HISTORY OF DIABETES MELLITUS 04/12/2009 JOANNE CHUA APRN S 296.80 BIPOLAR DISORDER UNSPECIFIED 04/12/2009 JOANNE CHUA APRN S 401.1 BENIGN ESSENTIAL HYPERTENSION 04/12/2009 JOANNE CHUA APRN S V18.0 FAMILY HISTORY OF DIABETES MELLITUS 05/09/2009 DURAN DOZHANG K 296.90 MO MOOD DIS NOS 05/09/2009 DURAN DOBRANDYNA K 296.90 MO MOOD DIS NOS 05/09/2009 296.90 MO MOOD DIS NOS 05/09/2009 296.90 MO MOOD DIS NOS 05/09/2009 296.90 MO MOOD DIS NOS 05/09/2009 CHILANGO GREENBERG DDS B 296 .90 MO MOOD DIS NOS 05/09/2009 JOANNE CHUA APRN S 296.90 MO MOOD DIS NOS 05/09/2009 JOANNE CHUA APRN S 296.90 MO MOOD DIS NOS 05/09/2009 [facility] DDS 296.90 MO MOOD DIS NOS 05/09/2009 JOANNE CHUA APRN S 296.90 MO MOOD DIS NOS 05/09/2009 JOANNE CHUA APRN S 296.90 MO MOOD DIS NOS 05/09/2009 JOANNE CHUA APRN S 296.90 MO MOOD DIS NOS 05/12/2009 DURAN BRANDYN CHAUHANA K 300.00 AN ANXIETY UNSPEC 05/12/2009 DURAN DOZHANG K 307.47 SI DYSSOMNIA NOS 05/12/2009 DURAN BRANDYN CHAUHANA K 300.00 AN ANXIETY UNSPEC 05/12/2009 DURAN DOBRANDYNA K 307.47 SI DYSSOMNIA NOS 05/12/2009 300.00 AN ANXIETY UNSPEC 05/12/2009 307.47 SI DYSSOMNIA NOS 05/12/2009 300.00 AN ANXIETY UNSPEC 05/12/2009 307.47 SI DYSSOMNIA NOS 05/12/2009 300.00 AN ANXIETY UNSPEC 05/12/2009 307.47 SI DYSSOMNIA NOS 05/12/2009 [facility] DDS, CHILANGO B 300 .00 AN ANXIETY UNSPEC 05/12/2009 [facility] DDS, CHILANGO B 307 .47 SI DYSSOMNIA NOS 05/12/2009 [facility], JOANNE S 300.00 AN ANXIETY UNSPEC 05/12/2009 [facility]OMA [facility] DROPPER, JOANNE S 307.47 SI DYSSOMNIA NOS 05/12/2009 TOMA H[employer] DROPPER, JOANNE S 300.00 AN ANXIETY UNSPEC 05/12/2009 [facility], JOANEN S 307.47 SI DYSSOMNIA NOS 05/12/2009 [facility] DDS, CK J 300.00 AN ANXIETY UNSPEC 05/12/2009 [facility] DDS, CK J 307.47 SI DYSSOMNIA NOS 05/12/2009 TOMA H[employer] DROPPER, JOANNE S 300.00 AN ANXIETY UNSPEC 05/12/2009 [facility]OMA H[employer] DROPPER, JOANNE S 307.47 SI DYSSOMNIA NOS 05/12/2009 TOMA H[employer] DROPPER, JOANNE S 300.00 AN ANXIETY UNSPEC 05/12/2009 [facility]OPPER, JOANNE S 307.47 SI DYSSOMNIA NOS 05/12/2009 [facility]OPPER, JOANNE S 300.00 AN ANXIETY UNSPEC 05/12/2009 [facility] [employer], JOANNE S 307.47 SI DYSSOMNIA NOS 04/06/2010 DURAN DOZHANG K V72.31 CARDIOPULMONARY SPECIALIST EXAM, ROUTINE 04/06/2010 ZHANG DURAN DO K V72.31 CARDIOPULMONARY SPECIALIST EXAM, ROUTINE 04/06/2010 V72.31 CARDIOPULMONARY SPECIALIST EXAM, ROUTINE 04/06/2010 V72.31 CARDIOPULMONARY SPECIALIST EXAM, ROUTINE 04/06/2010 V72.31 CARDIOPULMONARY SPECIALIST EXAM, ROUTINE 04/06/2010 YARI MATHEWSCHILANGO B V72 .31 CARDIOPULMONARY SPECIALIST EXAM, ROUTINE 04/06/2010 TOMA HIDE DROPPER, JOANNE S V72.31 CARDIOPULMONARY SPECIALIST EXAM, ROUTINE 04/06/2010 TOMA H[employer] DROPPER, JOANNE S V72.31 CARDIOPULMONARY SPECIALIST EXAM, ROUTINE 04/06/2010 WHITE DDS, CK J V72.31 CARDIOPULMONARY SPECIALIST EXAM, ROUTINE 04/06/2010 TOMA HIDE DROPPER, JOANNE S V72.31 CARDIOPULMONARY SPECIALIST EXAM, ROUTINE 04/06/2010 TOMA HIDE DROPPER, JOANNE S V72.31 CARDIOPULMONARY SPECIALIST EXAM, ROUTINE 04/06/2010 TOMA HIDE DROPPER, JOANNE S V72.31 CARDIOPULMONARY SPECIALIST EXAM, ROUTINE 03/06/2011 Ot 112.9 CAND IDIASIS [...] ADV EFF ANTIBIOTICS NEC 03/06/2011 Ot V58.69 OTH MED,LT,CURRENT USE 04/12/2011 ZHANG DURAN DO 250.02 DIABETES II UNCONTROLLED (UNCOMPLICATED) 04/12/2011 ZHANG DURAN DO 493.00 EXTRINSIC ASTHMA UNSPECIFIED 04/12/2011 ZHANG DRUAN DO 250.02 DIABETES II UNCONTROLLED (UNCOMPLICATED) 04/12/2011 ZHANG DURAN DO 493.00 EXTRINSIC ASTHMA UNSPECIFIED 04/12/2011 250.02 PAULY BETES II UNCONTROLLED (UNCOMPLICATED) 04/12/2011 493.00 EXT RINSIC ASTHMA UNSPECIFIED 04/12/2011 250.02 PAULY BETES II UNCONTROLLED (UNCOMPLICATED) 04/12/2011 493.00 EXT RINSIC ASTHMA UNSPECIFIED 04/12/2011 250.02 PAULY BETES II UNCONTROLLED (UNCOMPLICATED) 04/12/2011 493.00 EXT RINSIC ASTHMA UNSPECIFIED 04/12/2011 CHILANGO GREENBERG DDS 250 .02 DIABETES II UNCONTROLLED (UNCOMPLICATED) 04/12/2011 [facility] GREEN[facility]G DDS 493 .00 EXTRINSIC ASTHMA UNSPECIFIED 04/12/2011 JOANNE CHUA APRN S 250.02 DIABETES II UNCONTROLLED (UNCOMPLICATED) 04/12/2011 JOANNE CHUA APRN S 493.00 EXTRINSIC ASTHMA UNSPECIFIED 04/12/2011 JOANNE CHUA APRN S 250.02 DIABETES II UNCONTROLLED (UNCOMPLICATED) 04/12/2011 BETHANY CHUA APRNNDA S 493.00 EXTRINSIC ASTHMA UNSPECIFIED 04/12/2011 [facility] TOBAR DDS 250.02 DIABETES II UNCONTROLLED (UNCOMPLICATED) 04/12/2011 [facility] DDS 493.00 EXTRINSIC ASTHMA UNSPECIFIED 04/12/2011 TOMA HIDE DROPPER, JOANNE S 250.02 DIABETES II UNCONTROLLED (UNCOMPLICATED) 04/12/2011 [employer]OMA H[employer] DROPPER, JOANNE S 493.00 EXTRINSIC ASTHMA UNSPECIFIED 04/12/2011 TOMA HIDE DROPPER, JOANNE S 250.02 DIABETES II UNCONTROLLED (UNCOMPLICATED) 04/12/2011 [employer] H[employer] DROPPER, JOANNE S 493.00 EXTRINSIC ASTHMA UNSPECIFIED 04/12/2011 TOMA MONTANON, JOANNE S 250.02 DIABETES II UNCONTROLLED (UNCOMPLICATED) 04/12/2011 TOMA BUTTERFIELD, JOANNE S 493.00 EXTRINSIC ASTHMA UNSPECIFIED 05/15/2011 DURAN DO ZHANG K 250.00 DIABETES MELLITUS WITHOUT MENTION OF COMPLICATION TYPE II OR UNSPECIFIED TYPE NOT STATED UNCONTROLLED 05/15/2011 DURAN DO ZHANG K 250.00 DIABETES MELLITUS WITHOUT MENTION OF COMPLICATION [...] UNSPECIFIED TYPE NOT STATED UNCONTROLLED 05/15/2011 TOMA H[employer] DROPPER, JOANNE S 250.00 DIABETES MELLITUS WITHOUT MENTION [...] DIVERTICULITIS OF COLON (WITHOUT HEMORRHAGE) 04/08/2012 TOMA HIDE DROPPER, JOANNE S 562.11 DIVERTICULITIS OF COLON (WITHOUT HEMORRHAGE) 04/08/2012 TOMA HIDE DROPPER, JOANNE S 562.11 DIVERTICULITIS OF COLON (WITHOUT HEMORRHAGE) 04/08/2012 EKATERINA MATHEWS, CK Parham 562.11 DIVERTICULITIS OF COLON (WITHOUT HEMORRHAGE) 04/08/2012 TOMA H[employer] DROPPER, JOANNE S 562.11 DIVERTICULITIS OF COLON (WITHOUT HEMORRHAGE) 04/08/2012 TOMA HIDE DROPPER, JOANNE S 562.11 DIVERTICULITIS OF COLON (WITHOUT HEMORRHAGE) 04/08/2012 TOMA H[employer] DROPPER, JOANNE S 562.11 DIVERTICULITIS OF COLON (WITHOUT HEMORRHAGE) 08/05/2012 ZHANG DURAN DO V03.82 PCV-13 (PREVNAR) DX 08/05/2012 ZHANG DURAN DO V04.81 FLU DX (3 YRS AND ABOVE, IM) 08/05/2012 ZHANG DURAN DO V03.82 PCV-13 (PREVNAR) DX 08/05/2012 ZHANG DURAN DO V04.81 FLU DX (3 YRS AND ABOVE, IM) 08/05/2012 V03.82 PCV -13 (PREVNAR) DX 08/05/2012 V04.81 FLU DX (3 YRS AND ABOVE, IM) 08/05/2012 V03.82 PCV -13 (PREVNAR) DX 08/05/2012 V04.81 FLU DX (3 YRS AND ABOVE, IM) 08/05/2012 V03.82 PCV -13 (PREVNAR) DX 08/05/2012 V04.81 FLU DX (3 YRS AND ABOVE, IM) 08/05/2012 YARI DDS, CHILANGO B V03 .82 PCV-13 (PREVNAR) DX 08/05/2012 YARI DDS, CHILANGO B V04 .81 FLU DX (3 YRS AND ABOVE, IM) 08/05/2012 T[facility] H[facility] DROPPER, JOANNE S V03.82 PCV-13 (PREVNAR) DX 08/05/2012 TOMA MONTANON, JOANNE S V04.81 FLU DX (3 YRS AND ABOVE, IM) 08/05/2012 TOMA HIDE DROPPER, JOANNE S V03.82 PCV-13 (PREVNAR) DX 08/05/2012 TOMA HIDE DROPPER, JOANNE S V04.81 FLU DX (3 YRS AND ABOVE, IM) 08/05/2012 WHITE DDS, CK J V03.82 PCV-13 (PREVNAR) DX 08/05/2012 WHITE DDS, CK J V04.81 FLU DX (3 YRS AND ABOVE, IM) 08/05/2012 TOMA MONTANON, JOANNE S V03.82 PCV-13 (PREVNAR) DX 08/05/2012 TOMA HIDE DROPPER, JOANNE S V04.81 FLU DX (3 YRS AND ABOVE, IM) 08/05/2012 TOMA HIDE DROPPER, JOANNE S V03.82 PCV-13 (PREVNAR) DX 08/05/2012 TOMA HIDE DROPPER, JOANNE S V04.81 FLU DX (3 YRS AND ABOVE, IM) 08/05/2012 TOMA BUTTERFIELD, JOANNE S V03.82 PCV-13 (PREVNAR) DX 08/05/2012 TOMA MONTANON, JOANNE S V04.81 FLU DX (3 YRS AND ABOVE, IM) 04/21/2014 [facility]OMA H[employer] DROPPER, JOANNE S 729.82 CRAMP OF LIMB 04/21/2014 [employer]OMA H[employer] DROPPER, JOANNE S 729.82 CRAMP OF LIMB 09/20/2014 TOMA BUTTERFIELD, JOANNE S 530.81 GERD 05/30/2016 Ot V72.84 EXA M PRE- OPERATIVE NOS 05/30/2016 NORMA RENE, LENNY Carroll Ot E11.9 TYPE 2 DIABETES MELLITUS WITHOUT COMPLIC 05/30/2016 LENNY GREEN MD Ot G43.909 MIGRAINE, UNSP, NOT INTRACTABLE, WITHOUT 05/30/2016 LENNY GREEN MD Ot N39.0 URINARY TRACT INFECTION, SITE NOT SPECIF 05/30/2016 LENNY GREEN MD Ot Z79.899 OTHER PLATER HOT DIP (CURRENT) DRUG THERAPY 05/30/2016 Ot V72.84 EXA M PRE- OPERATIVE NOS 06/05/2016 LENNY GREEN MD Ot E11.9 TYPE 2 DIABETES MELLITUS WITHOUT COMPLIC 06/05/2016 LENNY GREEN MD, Ot G43.909 MIGRAINE, UNSP, NOT INTRACTABLE, WITHOUT 06/05/2016 LENNY GREEN MD Ot N39.0 URINARY TRACT INFECTION, SITE NOT SPECIF 06/05/2016 LENNY GREEN MD, Ot Z79.899 OTHER SKILLED NURSING (CURRENT) DRUG THERAPY 06/13/2016 Ot V72.84 EXA [...] OF OTHER SERUM ENZYMES 06/15/2016 JIMBO DO, MARVIEL K Ot E11.9 TYPE 2 DIABETES MELLITUS WITHOUT COMPLIC 06/15/2016 JIMBO DO, MARIVEL K Ot N39.0 URINARY TRACT INFECTION, SITE NOT SPECIF 06/15/2016 JIMBO DO, MARIVEL K Ot R74.8 ABNORMAL LEVELS OF OTHER SERUM ENZYMES 06/18/2016 Ot V72.84 EXA M PRE- OPERATIVE NOS 11/27/2016 SAUNDRA RENE, DEBRA T Ot D72.829 ELEVATED WHITE BLOOD CELL COUNT, UNSPECI 11/27/2016 DEBRA ARGUELLO MD Ot E11.9 TYPE 2 DIABETES MELLITUS WITHOUT COMPLIC 11/27/2016 DEBRA ARGUELLO MD Ot H10.32 UNSPECIFIED ACUTE CONJUNCTIVITIS, LEFT E 11/27/2016 DEBRA ARGUELLO MD Ot I10 ESSENTIAL (PRIMARY) HYPERTENSION 11/27/2016 DEBRA ARGUELLO MD Ot J20.9 ACUTE BRONCHITIS, UNSPECIFIED 11/27/2016 DEBRA ARGUELLO MD Ot J45.901 UNSPECIFIED ASTHMA WITH (ACUTE) EXACERBA 11/27/2016 DEBRA ARGUELLO MD Ot R06.02 SHORTNESS OF BREATH 11/27/2016 DEBRA ARGUELLO MD Ot R07.89 OTHER CHEST PAIN 11/27/2016 Ot [...] SHORTNESS OF BREATH 11/28/2016 DEBRA ARGUELLO MD T Ot R07.89 OTHER CHEST PAIN 12/05/2016 DEBRA ARGUELLO MD Ot D72.829 ELEVATED WHITE BLOOD CELL COUNT, UNSPECI 12/05/2016 DEBRA ARGUELLO MD Ot E11.9 TYPE 2 DIABETES MELLITUS WITHOUT COMPLIC 12/05/2016 DEBRA ARGUELLO MD Ot H10.32 UNSPECIFIED ACUTE CONJUNCTIVITIS, LEFT E 12/05/2016 DEBRA ARGUELLO MD Ot I10 ESSENTIAL (PRIMARY) HYPERTENSION 12/05/2016 DEBRA ARGUELLO MD Ot J20.9 ACUTE BRONCHITIS, UNSPECIFIED 12/05/2016 DEBRA ARGUELLO MD Ot J45.901 UNSPECIFIED ASTHMA WITH (ACUTE) EXACERBA 12/05/2016 DEBRA ARGUELLO MD Ot R06.02 SHORTNESS OF BREATH 12/05/2016 DEBRA ARGUELLO MD Ot R07.89 OTHER CHEST PAIN 05/18/2019 ISRRAEL ALBERTO DO Ot M17.1 2 UNILATERAL PRIMARY OSTEOARTHRITIS, LEFT 05/18/2019 ISRRAEL ALBERTO DO Ot 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 05/18/2019 ISRRAEL ALBERTO DO Ot 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, 12/21/2019 ISRRAEL ALBERTO DO Ot M17.1 2 UNILATERAL PRIMARY OSTEOARTHRITIS, LEFT 12/21/2019 ISRRAEL ALBERTO DO Ot 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 12/21/2019 ISRRAEL ALBERTO DO Ot M51.3 6 OTHER [...] Ot R10.13 EPIGASTRIC PAIN 12/21/2019 LENNY GREEN MD Ot R11.2 NAUSEA WITH VOMITING, UNSPECIFIED 12/21/2019 LENNY GREEN MD, Ot Z68.43 BODY MASS INDEX (BMI) 50.0-59.9, ADULT 12/21/2019 LENNY GREEN MD, Ot Z79.52 PLATER HOT DIP (CURRENT) USE OF SYSTEMIC STER 12/21/2019 LENNY [...] ADULT 12/23/2019 LENNY GREEN MD Ot Z79.52 SKILLED NURSING (CURRENT) USE OF SYSTEMIC STER 12/23/2019 LENNY [...] NICOTINE DEPENDENCE, UNSPECIFIED, UNCOMP 12/26/2019 LENNY GREEN MD, Ot J45.909 UNSPECIFIED ASTHMA, UNCOMPLICATED 12/26/2019 LENNY GREEN MD, Ot R10.13 EPIGASTRIC PAIN 12/26/2019 LENNY GREEN MD, Ot R11.2 NAUSEA WITH VOMITING, UNSPECIFIED 12/26/2019 LENNY GREEN MD, Ot Z68.43 BODY MASS INDEX (BMI) 50.0-59.9, ADULT 12/26/2019 LENNY GREEN MD, Ot Z79.52 SKILLED NURSING (CURRENT) USE OF SYSTEMIC STER 12/26/2019 LENNY [...] Ot F41.9 ANXIETY DISORDER, UNSPECIFIED 02/04/2020 RASHEEDA CLOEMAN MD Ot G43.9 09 MIGRAINE, UNSP, NOT [...] ADULT 02/04/2020 RASHEEDA COLEMAN MD Ot Z79.4 SKILLED NURSING (CURRENT) USE OF INSULIN 02/04/2020 RASHEEAD COLEMAN MD Ot Z79.8 99 OTHER SKILLED NURSING (CURRENT) DRUG THERAPY 02/04/2020 RASHEEDA COLEMAN MD [...] MD Ot F41.9 ANXIETY DISORDER, UNSPECIFIED 02/04/2020 GAULT MD, RASHEEDA R Ot G43.9 09 MIGRAINE, UNSP, NOT INTRACTABLE, [...] INDEX (BMI) 50.0-59.9, ADULT 02/04/2020 RASHEEDA COLEMAN MD, Ot Z79.4 SKILLED NURSING (CURRENT) USE OF INSULIN 02/04/2020 RASHEEDA COLEMAN MD Ot Z79.8 99 OTHER PLATER HOT DIP (CURRENT) DRUG THERAPY 02/04/2020 RASHEEDA COLEMAN MD Ot Z88.0 ALLERGY STATUS TO PENICILLIN 02/04/2020 RASHEEDA COLEMAN MD Ot Z88.2 ALLERGY STATUS TO SULFONAMIDES STATUS 02/04/2020 RASHEEDA COLEMAN MD Ot Z88.8 ALLERGY STATUS TO OTH DRUG/MEDS/BIOL SUB 02/04/2020 RASHEEDA COLEMAN MD Ot Z90.8 9 ACQUIRED ABSENCE OF OTHER ORGANS 02/04/2020 RASHEEDA COLEMAN MD Ot Z91.0 40 LATEX ALLERGY STATUS 02/10/2020 KIM CHAUHAN FRANSISCO Ot A41.9 SEPSIS, UNSPECIFIED ORGANISM 02/10/2020 KIM CHAUHAN FRANSISCO Ot E11.9 TYPE 2 DIABETES MELLITUS WITHOUT COMPLIC 02/10/2020 KIM CHAUHAN FRANSISCO Ot E66.01 MORBID (SEVERE) OBESITY DUE TO EXCESS CA 02/10/2020 KIM DO FRANSISCO Ot F31.9 BIPOLAR DISORDER, UNSPECIFIED 02/10/2020 KIM CHAUHAN FRANSISCO Ot F41.9 ANXIETY DISORDER, UNSPECIFIED 02/10/2020 KIM CHAUHAN FRANSISCO Ot G43.90 9 MIGRAINE, UNSP, NOT INTRACTABLE, WITHOUT 02/10/2020 KIM CHAUHAN FRANSISCO Ot I10 ESSENTIAL (PRIMARY) HYPERTENSION 02/10/2020 ALVAREZ DO, FRANSISCO Ot I95.9 HYPOTENSION, UNSPECIFIED 02/10/2020 ALVAREZ DO, FRANSISCO Ot J45.90 9 UNSPECIFIED ASTHMA, UNCOMPLICATED 02/10/2020 ALVAREZ DO, FRANSISCO Ot K57.32 DVTRCLI OF LG INT W/O PERFORATION OR ABS 02/10/2020 ALVAREZ DO, FRANSISCO Ot K59.00 CONSTIPATION, UNSPECIFIED 02/10/2020 ALVAREZ DO, FRANSISCO Ot M19.91 PRIMARY OSTEOARTHRITIS, UNSPECIFIED SITE 02/10/2020 ALVAREZ DO, FRANSISCO Ot N17.9 ACUTE KIDNEY FAILURE, UNSPECIFIED 02/10/2020 ALVAREZ DO, FRANSISCO Ot R53.1 WEAKNESS 02/10/2020 ALVAREZ DO, FRANSISCO Ot W19.XX XA UNSPECIFIED FALL, INITIAL ENCOUNTER 02/10/2020 KIM CHAUHAN FRANSISCO Ot Z68.43 BODY MASS INDEX (BMI) 50.0-59.9, ADULT 02/10/2020 ALVAREZ DO, FRANSISCO Ot Z79.84 SKILLED NURSING (CURRENT) USE OF ORAL HYPOGLYC 02/10/2020 ALVAREZ [...] ADULT 02/11/2020 ALVAREZ DO, FRANSISCO Ot Z79.84 SKILLED NURSING (CURRENT) USE OF ORAL HYPOGLYC 02/11/2020 ALVAREZ DO, FRANSISCO Ot Z87.89 1 PERSONAL HISTORY OF NICOTINE DEPENDENCE 02/11/2020 ALVAREZ DO, FRANSISCO Ot Z90.49 ACQUIRED ABSENCE OF OTHER SPECIFIED PART 02/11/2020 ALVAREZ DO, FRANSISCO Ot A41.9 SEPSIS, UNSPECIFIED ORGANISM 02/11/2020 ALVAREZ DO, FRANSSICO Ot E11.9 TYPE 2 DIABETES MELLITUS WITHOUT [...] OF) LIVER, NOT ELSEWHERE C 02/11/2020 ALVAREZ DO FRANSISCO Ot M10.9 GOUT, UNSPECIFIED 02/11/2020 ALVAREZ DO, FRANSISCO Ot M19.91 PRIMARY OSTEOARTHRITIS, UNSPECIFIED SITE 02/11/2020 ALVAREZ DO FRANSISCO Ot N17.9 ACUTE KIDNEY FAILURE, UNSPECIFIED 02/11/2020 ALVAREZ DO, FRANSISCO Ot R53.1 WEAKNESS 02/11/2020 ALVAREZ DO FRANSISCO Ot R74.0 NONSPEC ELEV OF LEVELS OF TRANSAMNS LA 02/11/2020 ALVAREZ DO FRANSISCO Ot W19.XX XA UNSPECIFIED FALL, INITIAL ENCOUNTER 02/11/2020 ALVAREZLEANDRO CHAUHAN FRANSISCO Ot Z68.43 BODY MASS INDEX (BMI) 50.0-59.9, ADULT 02/11/2020 KIM CHAUHAN FRANSISCO Ot Z79.84 PLATER HOT DIP (CURRENT) USE OF ORAL HYPOGLYC 02/11/2020 ALVAREZLEANDRO CHAUHAN FRANSISCO Ot Z87.89 1 PERSONAL HISTORY OF NICOTINE DEPENDENCE 02/11/2020 KIM CHAUHAN FRANSISCO Ot Z90.49 ACQUIRED ABSENCE OF OTHER SPECIFIED PART 02/20/2020 BALJINDER CHOI DOA Vargas Ot D72.829 ELEVATED WHITE BLOOD CELL COUNT, UNSPECI 02/20/2020 JIMBO CHAUHAN MARIVEL K Ot E11.9 TYPE 2 DIABETES MELLITUS WITHOUT COMPLIC 02/20/2020 JIMBO CHAUHAN MARIVEL K Ot E66.01 MORBID (SEVERE) OBESITY DUE TO EXCESS CA 02/20/2020 JIMBO CHAUHAN MARIVEL K Ot F17.210 NICOTINE DEPENDENCE, CIGARETTES, UNCOMPL 02/20/2020 JIMBO CHAUHAN MARIVEL K Ot F31.9 BIPOLAR DISORDER, UNSPECIFIED 02/20/2020 JIMBO CHAUHAN MARIVEL K Ot F41.9 ANXIETY DISORDER, UNSPECIFIED 02/20/2020 JIMBO CHAUHAN MARIVEL K Ot G43.909 MIGRAINE, UNSP, NOT INTRACTABLE, WITHOUT 02/20/2020 JIMBO DO MARIVEL K Ot I10 ESSENTIAL (PRIMARY) HYPERTENSION 02/20/2020 JIMBO CHAUHAN MARIVEL K Ot J45.909 UNSPECIFIED ASTHMA, UNCOMPLICATED [...] 02/20/2020 JIMBO DO, MARIVEL K Ot Z79.4 PLATER HOT DIP (CURRENT) USE OF INSULIN 02/20/2020 JIMBO DO, MARIVEL K Ot Z79.82 SKILLED NURSING (CURRENT) USE OF ASPIRIN 02/20/2020 JIMBO DO, [...] K Ot R19.7 DIARRHEA, UNSPECIFIED 02/22/2020 JIMBO DO, MARIVEL K Ot Z68.43 BODY MASS INDEX (BMI) 50.0-59.9, ADULT 02/22/2020 JIMBO DO, MARIVEL K Ot Z79.4 PLATER HOT DIP (CURRENT) USE OF INSULIN 02/22/2020 JIMBO DO, MARIVEL K Ot Z79.82 PLATER HOT DIP (CURRENT) USE OF ASPIRIN 02/22/2020 JIMBO DO, MARIVEL K Ot Z88.0 ALLERGY STATUS TO PENICILLIN 02/22/2020 JIMBO DO, MARIVEL K Ot Z88.2 ALLERGY STATUS TO SULFONAMIDES STATUS 02/22/2020 JIMBO DO, MARIVEL K Ot Z88.5 ALLERGY STATUS TO NARCOTIC AGENT STATUS 02/22/2020 JIMBO DO, MARIVEL K Ot Z91.040 LATEX ALLERGY STATUS 03/01/2020 [facility], ISRRAEL Ot M17.1 2 UNILATERAL PRIMARY OSTEOARTHRITIS, LEFT 03/01/2020 [facility], ISRRAEL Ot 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 03/01/2020 [facility], ISRRAEL Ot 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, 03/14/2020 JIMBO DO, MARIVEL K Ot E11.9 TYPE 2 DIABETES MELLITUS WITHOUT COMPLIC 03/14/2020 JIMBO DO, MARIVEL K Ot E66.01 MORBID (SEVERE) OBESITY DUE TO EXCESS CA 03/14/2020 JIMBO DO, MARIVEL K Ot F17.210 NICOTINE DEPENDENCE, CIGARETTES, UNCOMPL 03/14/2020 JIMBO DO, MARIVEL K Ot F31.9 BIPOLAR DISORDER, UNSPECIFIED 03/14/2020 JIMBO DO, MARIVEL K Ot F41.9 ANXIETY DISORDER, UNSPECIFIED 03/14/2020 JIMBO DO, MARIVEL K Ot G43.909 MIGRAINE, UNSP, NOT INTRACTABLE, WITHOUT 03/14/2020 JIMBO DO, MARIVEL K Ot G89.29 OTHER CHRONIC PAIN 03/14/2020 JIMBO DO, MARIVEL K Ot I10 ESSENTIAL (PRIMARY) HYPERTENSION 03/14/2020 JIMBO DO, MARIVEL K Ot J45.909 UNSPECIFIED ASTHMA, UNCOMPLICATED 03/14/2020 JIMBO DO, MARIVEL Vargas Ot K59.09 OTHER CONSTIPATION 03/14/2020 JIMBO DO, MARIVEL Vargas Ot M25.561 PAIN IN RIGHT KNEE 03/14/2020 JIMBO DO, MARIVEL Vargas Ot M79.662 PAIN IN LEFT LOWER LEG 03/14/2020 JIMBO DO, MARIVEL Vargas Ot S82.832 A OTH FRACTURE OF UPPER AND LOWER END OF L 03/14/2020 JIMBO DO, MARIVEL Kaye Ot W19.XXX A UNSPECIFIED FALL, INITIAL ENCOUNTER 03/14/2020 [place] DO, MARIVEL Kaye Ot X50.0XX A OVEREXERTION FROM STRENUOUS MOVEMENT OR 03/14/2020 JIMBO DO, MARIVEL Vargas Ot Z79.4 PLATER HOT DIP (CURRENT) USE OF INSULIN 03/14/2020 [place] DOBALJINDERA K Ot Z79.51 PLATER HOT DIP (CURRENT) USE OF INHALED STERO 03/14/2020 [place] DO, MARIVEL Vargas Ot Z79.52 PLATER HOT DIP (CURRENT) USE OF SYSTEMIC STER 03/14/2020 [place] DO, MARIVEL K Ot Z79.82 SKILLED NURSING (CURRENT) USE OF ASPIRIN 03/14/2020 [place] DO, MARIEVL K Ot Z88.0 ALLERGY STATUS TO PENICILLIN 03/14/2020 [place] DO, MARIVEL K Ot Z88.2 ALLERGY STATUS TO SULFONAMIDES STATUS 03/14/2020 [place] DOBALJINDERA K Ot Z88.5 ALLERGY STATUS TO NARCOTIC AGENT STATUS 03/14/2020 [place] DO, MARIVEL K Ot Z91.040 LATEX ALLERGY STATUS 03/17/2020 [place] DO, MARIVEL K Ot E11.9 TYPE 2 DIABETES MELLITUS WITHOUT COMPLIC 03/17/2020 [place] DOBALJINDERA K Ot E66.01 MORBID (SEVERE) OBESITY DUE TO EXCESS CA 03/17/2020 [place] DOBALJINDERA K Ot F17.210 NICOTINE DEPENDENCE, CIGARETTES, UNCOMPL 03/17/2020 [place] DO MARIVEL K Ot F31.9 BIPOLAR DISORDER, UNSPECIFIED 03/17/2020 JIMBO DO MARIVEL K Ot F41.9 ANXIETY DISORDER, UNSPECIFIED 03/17/2020 [place] DO, MARIVEL K Ot G43.909 MIGRAINE, UNSP, NOT INTRACTABLE, WITHOUT 03/17/2020 JIMBO DO, MARIVEL K Ot G89.29 OTHER CHRONIC PAIN 03/17/2020 JIMBO DO, MARIVEL K Ot I10 ESSENTIAL (PRIMARY) HYPERTENSION 03/17/2020 JIMBO DO, MARIVEL K Ot J45.909 UNSPECIFIED ASTHMA, UNCOMPLICATED 03/17/2020 JIMBO DO, MARIVEL K Ot K59.09 OTHER CONSTIPATION 03/17/2020 JIMBO DO, MARIVEL K Ot M25.561 PAIN IN RIGHT KNEE 03/17/2020 JIMBO DO, MARIVEL K Ot M79.662 PAIN IN LEFT LOWER LEG 03/17/2020 JIMBO DO, MARIVEL K Ot S82.832 A OTH FRACTURE OF UPPER AND LOWER END OF L 03/17/2020 [place] DO, MARIVEL Vargas Ot W19.XXX A UNSPECIFIED FALL, INITIAL ENCOUNTER 03/17/2020 [place] DO, MARIVEL K Ot X50.0XX A OVEREXERTION FROM STRENUOUS MOVEMENT OR 03/17/2020 JIMBO DO, MARIVEL K Ot Z79.4 SKILLED NURSING (CURRENT) USE OF INSULIN 03/17/2020 [place] DO, MARIVEL K Ot Z79.51 PLATER HOT DIP (CURRENT) USE OF INHALED STERO 03/17/2020 [place] DO, MARIVEL K Ot Z79.52 SKILLED NURSING (CURRENT) USE OF SYSTEMIC STER 03/17/2020 [place] DO, MARIVEL K Ot Z79.82 PLATER HOT DIP (CURRENT) USE OF ASPIRIN 03/17/2020 [place] DO, MARIVEL K Ot Z88.0 ALLERGY STATUS TO PENICILLIN 03/17/2020 [place] DO, MARIVEL K Ot Z88.2 ALLERGY STATUS TO SULFONAMIDES STATUS 03/17/2020 [place] DO, MARIVEL K Ot Z88.5 ALLERGY STATUS TO NARCOTIC AGENT STATUS 03/17/2020 [place] DO, MARIVEL K Ot Z91.040 LATEX ALLERGY STATUS 03/31/2020 ISRRAEL ALBERTO DO Ot M17.1 2 UNILATERAL PRIMARY OSTEOARTHRITIS, LEFT 03/31/2020 DOLLY CHAUHAN ISRRAEL Ot 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 03/31/2020 ISRRAEL ALBERTO DO Ot 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, 04/01/2020 STINEBAUGH, KEV D HIDE DROPPER Ot F17.200 NICOTINE DEPENDENCE, UNSPECIFIED, UNCOMP 04/01/2020 ANTHONYBENNETTKEV PENDLETON [place] Ot M06.9 RHEUMATOID ARTHRITIS, UNSPECIFIED 04/01/2020 SEYMOURMICA KEV [place] Ot M85.89 OTH DISRD OF BONE DENSITY AND STRUCTURE, 04/01/2020 SEYMOUREDUARDKEV PENDLETON [place] Ot Z01.419 ENCNTR FOR CARDIOPULMONARY SPECIALIST EXAM (GENERAL) (ROUTINE) 04/01/2020 VALERY KEV [place] Ot Z78.0 ASYMPTOMATIC MENOPAUSAL STATE 04/01/2020 VALERY KEVRITESH Carroll APRN Ot Z87.81 PERSONAL HISTORY OF (HEALED) TRAUMATIC F 04/06/2020 VALERY KEV D HIDE DROPPER Ot Z12.31 ENCNTR SCREEN MAMMOGRAM FOR MALIGNANT NE 04/07/2020 VALERY KEVRITESH Carroll APRN Ot Z12.31 ENCNTR SCREEN MAMMOGRAM FOR MALIGNANT NE Procedures Code Description [place] [address] ROUT INE VENIPUNCTURE 08/05/2012 03271 A1C (IN-HOUSE) 08/05/2012 91925 MICR O ALBUMIN-IN HOUSE 08/05/2012 17091 CMP 08/05/2012 25029 LIPI D PANEL 08/05/2012 [id number] GF R CALC (RESULT ONLY) 08/05/2012 04461 MICR OALBUMIN 08/06/2012 31632 A1C (IN-HOUSE) 03/18/2013 43941 MICR O ALBUMIN-IN HOUSE 03/18/2013 31191 ROUT INE VENIPUNCTURE 07/27/2013 70308 MICR O ALBUMIN-IN HOUSE 07/27/2013 39855 A1C (IN-HOUSE) 07/27/2013 73304 CBC 07/27/2013 49012 MICR OALBUMIN 07/27/2013 96245 CMP 07/27/2013 88461 LIPI D PANEL 07/27/2013 [id number] GF R CALC (RESULT ONLY) 07/27/2013 59009 A1C (IN-HOUSE) 11/17/2013 19755 ROUT INE VENIPUNCTURE 04/21/2014 61097 A1C (IN-HOUSE) 04/21/2014 40240 CBC 04/21/2014 2944574 GF R CALC (RESULT ONLY) 04/21/2014 56730 BMP 04/21/2014 55339 MAGNESIUM 04/21/2014 57726 ROUT INE VENIPUNCTURE 09/20/2014 59203 A1C (IN-HOUSE) 09/20/2014 2333880 GF R CALC (RESULT ONLY) 09/20/2014 06664 CMP 09/20/2014 11210 LIPI D PANEL 09/20/2014 [id number] SPTYPE 09/20/2014 Results Test Result Range Complete [...] Reactive Serum hepatitis C virus antibody detection Non-[place] ctive Non-Reactive Capillary blood glucose measurement by [...] NRG Blood erythrocyte morphology finding identification NORMAL NR LIPID PANEL - 01/27/18 14:05 CHOLESTEROL, TOTAL 203 mg/dL <200 HDL CHOLESTEROL 40 mg/dL >50 TRIGLYCERIDES 151 mg/dL <150 LDL-CHOLESTEROL 135 mg/dL (calc) NRG CHOL/HDLC RATIO 5.1 (calc) <5.0 NON HDL CHOLESTEROL 163 mg/dL (calc) <13 0 CMP - 01/27/18 14:05 GLUCOSE 122 mg/dL 65-139 UREA NITROGEN (BUN) 20 mg/dL 7-25 CREATININE 0.72 mg/dL 0.50-1.05 eGFR NON-AFR. [place] 92 mL/min/1.73m2 > OR = 60 eGFR [...] identification NORMAL NRG Comprehensive metabolic panel - 12/20/19 22:22 Serum [...] in urine sediment by ligh t microscopy MOD NISHA URATES NRG Serum [...] NEGATIVE FOR ANTIGEN AND TOXIN A/B NRG [id number] - 02/20/20 11:30 Stool bacteria identification by culture - 02/20/20 11:30 FREE TEXT EXTERNAL NO AEROBIC GRAM NEGATIVE RODS P RESENT NRG QUANTITY OF GROWTH . NRG Stool bacteria identification by culture PRES USUA L NRG PARASITE COMPLETE EXAM STOOL - 02/20/20 11:30 PARASITE COMPLETE EXAM STOOL TNP N RG SUREPATH PAP AND HPV mRNA E6/E7 - 12:26 CLINICAL INFORMATION: NRG LMP: NRG PREV. PAP: UNKNOWN NRG PREV. 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 Visit Date/Time Discharge Status Pt. Type Provider Facility Loc./Unit Complaint [id number] 09/20/2014 09:20:00 09/20/2014 23:59: 59 CLS Outpatient JOANNE CHUA APRN [id number] 04/21/2014 12:59:00 04/21/2014 23:59: 59 CLS Outpatient JOANNE CHUA APRN [id number] 11/17/2013 08:58:00 11/17/2013 23:59: 59 CLS Outpatient JOANNE CHUA APRN [id number] 08/25/2013 12:36:00 08/25/2013 23:59: 59 CLS Outpatient CK TOBAR DDS [id number] 07/27/2013 10:53:00 07/27/2013 23:59: 59 CLS Outpatient JOANNE CHUA APRN [id number] 06/26/2013 00:00:00 06/26/2013 23:59: 59 CLS Outpatient JOANNE CHUA APRN [id number] 04/10/2013 12:53:00 04/10/2013 23:59: 59 CLS Outpatient CHILANGO GREENBERG DDS [id number] 08/05/2012 08:55:00 08/05/2012 23:59:5 9 CLS Outpatient ZHANG DURAN DO [id number] 08/05/2012 08:55:00 08/05/2012 23:59: 59 CLS Outpatient ZHANG DURAN DO [id number] 03/18/2013 12:50:00 Document Registration [id number] 03/03/2013 11:59:00 Document Registration [id number] 02/20/2013 13:56:00 Document Registration [id number] 04/04/2020 05:49:00 23:59:59 CLS Outpatient KASI ELLISON MD [facility] PREOP COLONOSCOPY/EGD [id number] 04/01/2020 09:11:00 23:59:59 CLS Outpatient KEV RASMUSSEN APRN [facility] RAD SCREENING [id number] 03/29/2020 11:09:00 23:59:59 CLS Outpatient KEV RASMUSSEN HIDE DROPPER [facility] RAD WELL WOMAN EXAM [id number] 03/14/2020 16:18:00 18:27:00 DIS Emergency JIMBO MARIVEL CHAUHAN [facility] ER MULTIPLE FALLS, L LEG P AIN/SORENESS [id number] 02/20/2020 08:13:00 11:50:00 DIS Emergency JIMBO MARIVEL CHAUHAN [facility] ER VOMITING / DIARRHEA [id number] 02/05/2020 21:22:00 15:05:00 DIS Inpatient KIM CHAUHAN FRANSISCO Vanessa ia [facility] 4TH MAXIMILIAN,GENERAL WEAKNESS,NE AR SYNCOPE [id number] 02/01/2020 10:52:00 13:36:00 DIS Inpatient RASHEEDA COLEMAN MD [facility] 4TH EPIGASTRIC ABD PAIN,N/V,LEUKOCYTOSIS [id number] 12/20/2019 22:13:00 04:06:00 DIS Emergency LENNY GREEN MD [facility] ER N/V [id number] 05/14/2019 09:59:00 07/25/2 019 23:59:59 CLS Outpatient GRIFFETH DO, ISRRAEL [facility] RAD DDU [id number] 11/27/2016 16:56:00 017 19:38:00 DIS Emergency SAUNDRA RENE, DEBRA Bustamante [facility] ER SOA [id number] 06/13/2016 21:55:00 016 23:47:00 DIS Emergency JIMBO DO, MARIVEL K Vi a [facility] ER BLOOD SUGAR PROBLEMS [id number] 05/30/2016 14:19:00 016 17:59:00 DIS Emergency NORMA RENE, LENNY Carroll [facility] ER MIGRAINE ELEV B LOOD SUGAR [id number] 09/24/2013 16:16:00 013 23:59:59 CLS Outpatient [id number] 04/08/2020 13:00:00 P EN Preadmit KASI ELLISON MD [facility] [place] ENDO SCREENING/HX POLYPS/REFLUX [id number] 08/29/2012 08:08:00 Document Registration [id number] 03/03/2011 23:15:00 Document Registration [id number] 03/29/2020 13:20:00 03/29/2020 23:59:5 9 CLS Outpatient KEV RASMUSSEN [facility] [id number] 03/21/2020 11:00:00 Document Registration [id number] 12/11/2019 10:00:00 Document Registration [id number] 07/28/2018 09:00:00 Document Registration [id number] 01/27/2018 13:00:00 Document Registration
[2020-04-08 11:25] VITALS: BP 136/80
[2020-04-08 11:30] VITALS: BP 136/72
--- NOTE | 2020-04-08 11:31 | Progress Note-Post Operative ---
Post-Operative Progess Note Surgeon (s)/Parts Cataloguer (s) Surgeon KASI ELLISON MD Parts Cataloguer: none Pre-Operative Diagnosis GERD, screening colo Post-Operative Diagnosis reflux esophagitis(stage 2), small HH(1.5cm), mild-moderate gastritis. chronic stage 2 ext and int hemorrhoids. Procedure & Operative Findings Date of Procedure 04/08/20 Procedure Performed/Findings EGD with bx. colonoscopy. Anesthesia Type mac Estimated Blood Loss Estimated blood loss (mL): minimal Specimens/Packing Specimens Removed ge jxn, antrum KASI ELLISON MD Apr 08, 2020 11:30
[2020-04-08 12:00] VITALS: BP 142/74
--- NOTE | 2020-04-08 12:05 | Anesthesia-General Post-Op ---
MAC Patient Condition Mental Status/LOC: Same as Preop Cardiovascular: Satisfactory Nausea/Vomiting: Absent Respiratory: Satisfactory Pain: Controlled Complications: Absent Post Op Complications Complications None Follow Up Care/Instructions Patient Instructions None needed. Anesthesiology Discharge Order Discharge Order Patient is doing well, no complaints, stable vital signs, no apparent adverse anesthesia problems. No complications reported per nursing. ANTONY SNYDER CRNA Apr 08, 2020 12:05
[2020-04-08 12:10] VITALS: BP 136/72
--- NOTE | 2020-04-08 15:38 | OPERATIVE REPORT ---
DATE OF SERVICE: 04/08/2020 ATTENDING INSPECTOR SCALES: [facility] PREOPERATIVE DIAGNOSES: Gastroesophageal reflux disease, screening colonoscopy. POSTOPERATIVE DIAGNOSES: Reflux esophagitis stage II, small hiatal hernia 1.5 to 2 cm in size. Mild to moderate gastritis. No distal obstructions. Mild chronic stage II external and internal hemorrhoids. Remainder of the rectum and colon were normal. PROCEDURE: EGD with biopsy, colonoscopy. SURGEON: Kasi Ellison MD. ANESTHESIA: Monitored anesthesia care. ESTIMATED BLOOD LOSS: Minimal. FINDINGS: Same as postoperative diagnosis. DISPOSITION: The patient tolerated the procedure well. INDICATIONS: The patient is a 59-year-old female referred over to us for a screening colonoscopy. She has also had worsening issues with gastroesophageal reflux disease. She states that she has had heartburn for a significant amount of time; however, takes Protonix and states that for the most part this does help with her symptoms. She states that she has gained weight over the years, which has made her reflux worse as well. She does not report any red blood per rectum nor any dark tarry stools. She also does not report any family history of colon cancer. DESCRIPTION OF PROCEDURE: The patient was brought to the endoscopy suite, laid in the left lateral decubitus position. After adequate IV pain and sedative medications and monitored anesthesia care, the mouthpiece was applied. The endoscope was then placed in the mouth, visualizing the pharynx and hypopharyngeal region. Vocal cords, epiglottis and vallecula identified and appeared to be normal. The endoscope was then gently intubated at the esophageal opening and esophagus insufflated. The endoscope was then advanced to the first, second and third portion of the esophagus. At the level of the GE junction, a reflux esophagitis stage II identified. There were no ulcers or strictures identified in this region. A biopsy was taken with forceps with visualization of good hemostasis. The endoscope was then advanced in the stomach and endoscope retroflexed, visualizing a small hiatal hernia approximately 1.5 cm in size. There was a mild to moderate gastritis towards the stomach antrum. No formal ulcerations, polyps, or any neoplasms identified. A biopsy was taken of the antrum to rule out H. pylori with visualization of good hemostasis. The endoscope was then advanced to the pylorus and the first and second portion of the duodenum, which appeared normal with no distal obstructions. The endoscope was then slowly withdrawn while taking a second look and suctioning of residual air with no additional findings. Under the same anesthesia, we then proceeded with colonoscopy portion of the procedure. A digital rectal examination was performed, which revealed mild chronic stage II external and internal hemorrhoids, not actively edematous nor inflamed and no bleeding. Normal sphincter tone was felt and there were no palpable masses. The endoscope was then intubated to the anus and rectum gently insufflated. The endoscope was then advanced through the valves of Allen of the rectum with no polyps or any neoplasms identified. We then proceeded through the sigmoid colon where no diverticulosis identified. The endoscope was then advanced to the remainder of the descending, transverse and ascending colon to the cecum. These segments were normal. There were no polyps or any neoplasms identified throughout the colon or rectum. The endoscope was then slowly withdrawn while taking a second look and suctioning of residual air with no additional findings. The patient tolerated the procedure well. For her reflux esophagitis and gastritis as well as a small hiatal hernia, we will recommend the necessary lifestyle and diet accommodation including small and more frequent meals, avoidance of eating at night as well as head elevation while lying supine. She also needs to avoid caffeinated beverages, spicy, greasy and acidic foods as well as proceed with any form of diet and exercise regimen for weight loss and maintenance, which would help with her reflux type of symptoms tremendously. We will also recommend a high fiber diet with 25 grams of fiber daily as well as significant amounts of water to promote soft stools on a daily basis. She does not need another colonoscopy for another 10 years if asymptomatic. Job ID: [id number] DocumentID: [id number] Dictated Date: 04/08/2020 11:32:47 Manager Nuclear Date: 04/08/2020 15:36:37 Dictated By: KASI ELLISON MD
== END 2020-04-08 12:10 | disposition home or self-care (01) ==
LOC: ENDO 10:01
PROVIDERS: ATTEND Surgery
DX: Z12.11 Encounter for screening for malignant neoplasm of colon (principal); K21.0 Gastro-esophageal reflux disease with esophagitis; K44.9 Diaphragmatic hernia without obstruction or gangrene; K29.50 Unspecified chronic gastritis without bleeding; K64.1 Second degree hemorrhoids; Z86.010 Personal history of colon polyps; J45.909 Unspecified asthma, uncomplicated; I10 Essential (primary) hypertension; E11.9 Type 2 diabetes mellitus without complications; E66.01 Morbid (severe) obesity due to excess calories; F41.9 Anxiety disorder, unspecified; K59.00 Constipation, unspecified; F31.9 Bipolar disorder, unspecified; G47.33 Obstructive sleep apnea (adult) (pediatric); Z79.4 Long term (current) use of insulin; Z79.899 Other long term (current) drug therapy; Z91.040 Latex allergy status; Z88.0 Allergy status to penicillin; Z88.2 Allergy status to sulfonamides; Z88.5 Allergy status to narcotic agent; Z87.19 Personal history of other diseases of the digestive system; F17.200 Nicotine dependence, unspecified, uncomplicated; Z68.43 Body mass index [BMI] 50.0-59.9, adult
CPT/HCPCS: 82962; 88305

== ENCOUNTER → 2021-04-07 | Outpatient (CLI) | payer MEDICARE, MEDICAID ==
[~2021-04-07] MED LIST changes: +AMLO-250 PO; -AMLO5TAB9 PO; -CIPR500T4 PO; +CIPR500T5 PO; -CLIN300C11 PO; +CLIN300C12 PO; -LISI-552 PO; +LISI20TA26 PO; -POLY17PO31 PO; +POLY17PO54 PO
--- NOTE | 2021-04-07 13:19 | Diagnostic Imaging Report ---
INDICATION: Routine screening. Comparison is made with prior mammogram from 04/01/2020. 2-D and 3-D bilateral screening mammography was performed with CAD. Both breasts are primarily involutional. No spiculated mass or malignant appearing microcalcifications are seen. Axillae are unremarkable. Small circumscribed nodules in central left breast are noted. IMPRESSION: BI-RADS Category 2 No mammographic features suspicious for malignancy are identified. ACR BI-RADS Category 2: Benign findings. Result letter will be mailed to the patient. Note: At least 10% of breast cancer is not imaged by mammography. Dictated by: Dictated on workstation # [id number]
== END ==
LOC: RAD 10:19
PROVIDERS: ATTEND Physician Assistant Surgical
DX: Z12.31 Encounter for screening mammogram for malignant neoplasm of breast (principal); N64.9 Disorder of breast, unspecified
CPT/HCPCS: 77063; 77067

== ENCOUNTER → 2021-08-14 | Outpatient (CLI) | payer MEDICARE, MEDICAID ==
[~2021-08-14] MED LIST changes: +SCOP1PAT10 TD; -SCOP1PAT11 TD
== END ==
LOC: LABNPT 06:34
PROVIDERS: ATTEND Pediatrics
DX: G47.30 Sleep apnea, unspecified (principal); Z20.822 Contact with and (suspected) exposure to COVID-19
CPT/HCPCS: 87635

== ENCOUNTER 2021-08-16 20:34 | Outpatient (CLI) | payer MEDICARE, MEDICAID ==
[~2021-08-16 20:34] MED LIST changes: +CLIN-144 PO; -CLIN300C12 PO; +DULO60CA7 PO
== END 2021-08-17 07:10 | disposition home or self-care (01) ==
LOC: SLEEP 20:34
PROVIDERS: ATTEND Physician Assistant
DX: G47.31 Primary central sleep apnea (principal)
CPT/HCPCS: 95810

== ENCOUNTER → 2021-10-31 | Outpatient (CLI) | payer MEDICARE, MEDICAID ==
[~2021-10-31] MED LIST changes: -LISI1TAB26 PO; +LISI1TAB48 PO; +REGADENOSON 0.4 MG/5 ML SYR (LEXISCAN) IV ONE
[2021-10-31] MEDS: CATHETER FLUSH 10 ML SYR IV PRN ×2 (08:31→09:23)
[2021-10-31 09:15] VITALS: BP 219/86
--- NOTE | 2021-11-01 09:53 | STRESS TEST ---
DATE OF SERVICE: 10/31/2021 RESTING AND POST REGADENOSON TECHNETIUM-99M TETROFOSMIN SPECT CT IMAGING ORDERING PHYSICIAN: Dr. Giovani Quinteros. OTHER PHYSICIAN: JAZMIN Roberson. CLINICAL DIAGNOSIS: Shortness of breath. Baseline images were carried out after injection of 10.6 mCi of technetium-99m Tetrofosmin. This was followed by 0.4 mg regadenoson and 30.2 mCi of technetium-99m Tetrofosmin for stress imaging. The electrocardiogram showed sinus rhythm at baseline. It did not change significantly with regadenoson infusion. Review of images at rest and following stress does not indicate any distinct perfusion defects consistent with significant myocardial ischemia or infarction. Gated images show normal global left ventricular systolic function with normal regional wall motion. Left ventricular ejection fraction is calculated to be 62%. Left ventricular end-diastolic volume is 68 mL. TID is absent (0.97). CONCLUSIONS: 1. No evidence of significant myocardial ischemia or infarction on this study. 2. Normal regional wall motion. 3. Normal global left ventricular systolic function with a calculated ejection fraction of 62%. Job ID: [id number] DocumentID: [id number] Dictated Date: 11/01/2021 09:24:32 Mosaicist Date: 11/01/2021 09:51:58 Dictated By: ANCELMO GOMEZ MD, MA, FACP, FACC,
== END ==
LOC: CARD 08:30
PROVIDERS: ATTEND Pediatrics
DX: R06.02 Shortness of breath (principal)
CPT/HCPCS: 78452; 93017; A9502

== ENCOUNTER 2023-03-27 11:26 | Emergency (ER) | payer OTHER, MEDICAID ==
[~2023-03-27] VITALS: Ht 160 cm; Wt 127.9 kg
[~2023-03-27 11:26] MED LIST changes: -ASPI-789 PO; +ASPI1TAB23 PO; -REGADENOSON 0.4 MG/5 ML SYR (LEXISCAN) IV ONE
[2023-03-27 11:41] VITALS: BP 136/76
--- NOTE | 2023-03-27 12:23 | ED Lower Extremity ---
General Chief Complaint: Lower Extremity Stated Complaint: RT KNEE PAIN Nursing Triage Note: PT TO TRIAGE VIA W/C WITH C/O RIGHT KNEE PAIN SINCE YESTERDAY. PT FROM [facility] Source: patient Exam Limitations: no limitations History of Present Illness Date Seen by Provider: Mar 27, 2023 Time Seen by Provider: 12:23 Initial Comments Patient is a 62-year-old who presents to the emergency room with a chief complaint of right knee pain. She states she woke up with it yesterday. She denies any trauma. No twisting injury no stumble no direct blow. She denies any pain that radiates down into the anterior or posterior calf. No numbness, weakness or tingling. She has taken ibuprofen for the pain. She points to the medial joint line of the right knee as the source of her pain. Painful range of motion. Difficulty weightbearing. It was swollen yesterday but has gone down today. Tells me that she has a history of arthritis in her knees. Onset: yesterday Severity: moderate Pain/Injury Location: right knee Method of Injury: unknown Modifying Factors: Improves With Immobilization; Worse With Movement Allergies and Home Medications Allergies Coded Allergies: Penicillins (Unverified Allergy, Severe, ANAPHYLAXIS, 03/30/20) fentanyl (Unverified Allergy, Severe, SEIZURE, 03/30/20) Sulfa (Sulfonamide Antibiotics) (Unverified Allergy, Mild, RASH, 03/30/20) latex (Unverified Allergy, Mild, RASH/BLISTERS, 03/30/20) Patient Home Medication List Home Medication List Reviewed: Yes Albuterol Sulfate (Proventil Hfa) 6.7 Gm Hfa.aer.ad, 2 PUFF INH QID, (Reported) Entered as Reported by: MOODY MODI on 03/30/20 1303 Aspirin/Acetaminophen/Caffeine (Excedrin Migraine Caplet) 1 Each Tablet, 2 EACH PO Q6-8HR PRN for Headache, (Reported) Entered as Reported by: DORA ROJO on 02/01/20 1651 Duloxetine HCl (Cymbalta) 60 Mg Capsule.dr, 60 MG PO BID, (Reported) Entered as Reported by: DORA ROJO on 02/01/20 1647 Fluticasone/Salmeterol (Advair 250-50 Diskus) 1 Each Blst.w.dev, 1 EACH IH BID, (Reported) Entered as Reported by: DORA ROJO on 02/01/20 164 Gabapentin (Gabapentin) 100 Mg Capsule, 100 MG PO TID, (Reported) Entered as Reported by: MOODY MODI on 03/30/20 1302 Hyoscyamine Sulfate (Levsin-Sl) 0.125 Mg Tab.subl, 0.125 MG SL Q4H PRN for abdominal pain Prescribed by: FRANSISCO ALVAREZ on 02/11/20 1219 Hyoscyamine Sulfate (Levsin-Sl) 0.125 Mg Tab.subl, 0.25 MG SL Q4H Prescribed by: MARIVEL CHOI on 02/20/20 1127 Insulin Determir (Levemir) 1,000 Units/10 Ml Soln, 20 UNITS SQ BID, (Reported) Entered as Reported by: DORA ROJO on 02/01/20 140 Insulin Lispro (Humalog) 100 Unit/1 Ml Vial, 20 UNIT SQ TID PRN for HYPERGLYCEMIA, (Reported) Entered as Reported by: DORA ROJO on 02/01/20 165 L. Acidophilus/Pectin, [place] (Acidophilus Capsule) 1 Each Capsule, 2 EACH PO QID Prescribed by: MARIVEL CHOI on 02/20/20 112 Lamotrigine (Lamictal) 150 Mg Tablet, 150 MG PO DAILY, (Reported) Entered as Reported by: DORA ROJO on 02/01/201646 Lisinopril/Hydrochlorothiazide (Lisinopril-Hctz 20-25 mg Tab) 1 Each Tablet, 1 EACH PO DAILY, (Reported) Entered as Reported by: DORA ROJO on 02/01/201646 Loratadine (Claritin) 10 Mg Tablet, 10 MG PO DAILY, (Reported) Entered as Reported by: DORA ROJO on 02/01/20 164 Lorazepam (Ativan) 0.5 Mg Tablet, 0.5 MG PO DAILY PRN for ANXIETY, (Reported) Entered as Reported by: DORA ROJO on 02/01/201650 Metformin HCl (Metformin HCl ER) 500 Mg Tab.er.24, 1,000 MG PO DAILY, (Reported) Entered as Reported by: DORA ROJO on 02/01/20 1651 Naltrexone HCl (Naltrexone HCl) 50 Mg Tablet, 50 MG PO HS, (Reported) Entered as Reported by: MOODY MODI on 03/30/20 1302 Olanzapine (Zyprexa) 5 Mg Tablet, 5 MG PO HS, (Reported) Entered as Reported by: DORA ROJO on 02/01/20 1651 Ondansetron (Ondansetron Odt) 8 Mg Tab.rapdis, 8 MG PO Q4H PRN for NAUSEA/VOMITING Prescribed by: MARIVEL CHOI on 02/20/20 1127 Oxybutynin Chloride (Oxybutynin Chloride) 5 Mg Tablet, 5 MG PO DAILY, (Reported) Entered as Reported by: MOODY MODI on 03/30/20 1302 Pantoprazole Sodium (Protonix) 40 Mg Tablet.dr, 40 MG PO DAILY, (Reported) Entered as Reported by: DORA ROJO on 02/01/20 1401 Polyethylene Glycol 3350 (Polyethylene Glycol 3350) 17 Gm Powd.pack, 17 GM PO TID Prescribed by: RASHEEDA COLEMAN on 02/04/20 1148 Promethazine HCl (Promethazine Tablet) 25 Mg Tablet, 25 MG PO Q6H PRN for NAUSEA/VOMITING Prescribed by: FRANSISCO ALVAREZ on 02/11/20 1219 Tramadol HCl (Tramadol HCl) 50 Mg Tablet, 50 MG PO Q6H PRN for PAIN Prescribed by: DAYANNA ELMORE on 03/27/23 1248 Review of Systems Constitutional: see HPI Respiratory: no symptoms reported Gastrointestinal: no symptoms reported Genitourinary: no symptoms reported Musculoskeletal: joint pain (right knee) Skin: no symptoms reported All Other Systems Reviewed Negative Unless Noted: Yes Past Qktlbyv-Lcydqg-Ccodne Hx Patient Social History Tobacco Use?: Yes Tobacco type used: Cigarettes Smoking Status: Current Everyday Smoker Smokeless Tobacco Frequency: Never a User Use of E-Cig and/or Vaping dev: No Use of E-Cig and/or Vaping [place]: Never a User Substance use?: No Alcohol Use?: No Pt feels they are or have been: No Seasonal Allergies Seasonal Allergies: Yes Past Medical History Surgeries: Yes Gallbladder, Tonsillectomy Respiratory: Yes Asthma Cardiac: Yes Chronic Edema/Swelling, Hypertension Neurological: Yes Headaches /Migraines Reproductive Disorders: No 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 Sexually Transmitted Disease: No HIV/AIDS: No Genitourinary: No Gastrointestinal: Yes Gastrointestinal Bleed, Chronic Constipation, Diverticulosis, Gall Bladder Disease Musculoskeletal: Yes (CHRONIC KNEE PAIN ) Arthritis Endocrine: Yes (MORBID OBESITY) Diabetes, Insulin dep HEENT: Yes (POOR DENTITION, GLASSES) Loss of Vision: Denies Hearing Impairment: Denies Cancer: No Psychosocial: Yes (EXTENSIVE PSYCH ISSUES) Anxiety, Bipolar, Depression Integumentary: No Blood Disorders: No Adverse Reaction/Blood Tranf: No (N/A) Physical Exam Vital Signs Vital Signs - First Documented 03/27/23 11:41 Temp 36.8 Pulse 82 Resp 17 B/P (MAP) 136/76 (96) O2 Delivery Room Air Capillary Refill : Less Than 3 Seconds Height, Weight, BMI Height: 5'3" Weight: 170lbs. oz. 77.259397nl; 49.00 BMI Method:Estimated General Appearance: WD/WN, no apparent distress Cardiovascular: regular rate, rhythm, other (distal pulses intact) Respiratory: no respiratory distress, no accessory muscle use Knees: right knee bone tenderness (medial joint line. No effusion. Tenderness over the patellar tendon insertion. no overlying redness or swelling. mild crepitance. Able to range with some discomfort. No joint instability. Patient would not tolerate varus/valgus stress due to discomfort) Ankles: bilateral ankle non-tender, bilateral ankle normal inspection, bilateral ankle normal range of motion, bilateral ankle no evidence of injury Feet: bilateral foot non-tender, bilateral foot normal inspection, bilateral foot normal range of motion, bilateral foot no evidence of injury Neurologic/Psychiatric: no motor/sensory deficits, alert, normal mood/affect, oriented x 3 Skin: normal color, warm/dry Progress/Results/Core Measures Results/Orders My Orders Orders - DAYANNA ELMORE MD Knee, Right, 3 Views (03/27/23 12:28) Vital Signs/I&O 03/27/23 11:41 Temp 36.8 Pulse 82 Resp 17 B/P (MAP) 136/76 (96) O2 Delivery Room Air Blood Pressure Mean: 96 Diagnostic Imaging Diagonstic Imaging: Xray Comments [facility], [place] NAME: MOODY DE LEÓN MED REC#: [id number] PT STATUS: REG ER : 1960 PHYSICIAN: DAYANNA ELMROE MD ADMIT DATE: 03/27/23/ER Draft Date of Exam:03/27/23 KNEE, RIGHT, 3 VIEWS EXAMINATION: Right knee radiograph EXAM DATE: 03/27/2023 12:54 PM COMPARISON: None available. HISTORY: Right knee pain, swelling TECHNIQUE: 3 views FINDINGS: There is no acute fracture, dislocation, or destructive osseous process. There is mild medial compartment joint space narrowing. There are small osteophytes within the knee within both compartments. No joint effusion. The soft tissues are normal. IMPRESSION: 1. Degenerative changes of the right knee without acute osseous abnormality. Dictated on workstation # [id number] Dict: 03/27/23 1255 Trans: 03/27/23 1256 [facility] [id number] Interpreted by: EARL LAURENT DO Electronically signed by: Departure Impression Primary Impression: Internal derangement of right knee Disposition: 01 HOME, SELF-CARE Condition: Stable Departure-Patient Inst. Decision time for Depature: 12:45 Referrals: DORA SAUER DO (PCP/Family) Primary Care Physician ANTONY MUELLER MD Patient Instructions: Internal Derangement of the Knee Add. Discharge Instructions: Continue Ibuprofen 600mg every 6-8 hours with food as needed for pain. You can also apply Icy Hot or Biofreeze over the knee joint for relief. Please follow packaging instructions. I have given you a few Tramadol pain pills which will help over the next [address] Sauer's office for a follow up appointment. Return to the Emergency Department for any new, concerning or emergent complaints. All discharge instructions reviewed with patient and/or family. Voiced understanding. Scripts Tramadol HCl (Tramadol HCl) 50 Mg Tablet 50 MG PO Q6H PRN for PAIN, #6 TAB 0 Refills Prov: DAYANNA ELMORE MD 03/27/23 Copy Copies To 1: DORA SAUER DO Copies To 2: ANTONY MUELLER MD, KATHRYN M MD Mar 27, 2023 12:23
[2023-03-27] MEDS ORDERED: TRM50T PO ×2 (12:47→14:37)
--- NOTE | 2023-03-27 12:57 | Diagnostic Imaging Report ---
EXAMINATION: Right knee radiograph EXAM DATE: 03/27/2023 12:54 PM COMPARISON: None available. HISTORY: Right knee pain, swelling TECHNIQUE: 3 views FINDINGS: There is no acute fracture, dislocation, or destructive osseous process. There is mild medial compartment joint space narrowing. There are small osteophytes within the knee within both compartments. No joint effusion. The soft tissues are normal. IMPRESSION: 1. Degenerative changes of the right knee without acute osseous abnormality. Dictated by: Dictated on workstation # [id number]
== END 2023-03-27 13:17 | disposition home or self-care (01) ==
LOC: EDUNIT# 11:26 → ER 11:28
DX: M23.91 Unspecified internal derangement of right knee (principal); E11.9 Type 2 diabetes mellitus without complications; E66.01 Morbid (severe) obesity due to excess calories; F17.210 Nicotine dependence, cigarettes, uncomplicated; Z87.39 Personal history of other diseases of the musculoskeletal system and connective tissue; Z68.42 Body mass index [BMI] 45.0-49.9, adult; Z91.040 Latex allergy status; Z79.4 Long term (current) use of insulin; Z88.5 Allergy status to narcotic agent
CPT/HCPCS: 73562

== ENCOUNTER 2023-04-11 05:28 | Outpatient (CLI) | payer OTHER, MEDICAID ==
[~2023-04-11] VITALS: Ht 162.6 cm; Wt 128.2 kg
[~2023-04-11 05:28] MED LIST changes: +TRM50T PO
--- NOTE | 2023-04-11 12:27 | HISTORY AND PHYSICAL ---
DATE OF SERVICE: 04/11/2023 ATTENDING PRIMARY CARE PHYSICIAN: Dr. Giovani Quinteros at [facility]. HISTORY OF PRESENT ILLNESS: The patient is a 62-year-old female, who is known to us. She has a history of morbid obesity and is interested in the laparoscopic gastric sleeve resection and does meet the medical criteria for bariatric surgery. She reports that she gained the majority of her adult weight in her late 20s to early 30s. She reports that at her heaviest, she was 412 pounds and reports with her diet as well as exercises that she has been able to lose a little over 100 pounds in the last 10 years. She reports that she has tried diet, such as Weight Watchers, Nutrisystem, Jessica Brady, Atkins, SlimFast, high protein, low carbohydrate and portion control. She reports that she has lost her weight by doing a high protein, low carbohydrate diet as well as portion control and that this has been her most successful. She reports that she has tried exercises by walking as well as stretches in the past and reports that this has helped her a little to lose some weight as well. She reports that she has tried emck-bba-bncmpso weight loss medications in the past with no success. Her medical comorbidities related to obesity include asthma, hypertension, gastroesophageal reflux disease, type 2 diabetes mellitus, depression, anxiety, obstructive sleep apnea, hypercholesterolemia and degenerative joint disease of the knees and shoulders. PAST MEDICAL HISTORY: Asthma, hypertension, migraine headaches, gastroesophageal reflux disease, peptic ulcer disease, diabetes mellitus type 2, morbid obesity, depression, anxiety, constipation, obstructive sleep apnea, bipolar disorder, degenerative joint disease, diverticulosis with diverticulitis, irritable bowel syndrome, PTSD, hypercholesterolemia. SURGICAL HISTORY: Laparoscopic cholecystectomy in 1993, tonsillectomy in 1979. ALLERGIES: LATEX, FENTANYL, PENICILLIN, SULFA. MEDICATIONS: Voltaren 1% gel as directed, probiotic, sumatriptan 50 mg 1 tablet twice a day as needed, glucagon, hyoscyamine sulfate 0.125 mg p.r.n., metformin ER 500 mg daily, Zofran 8 mg p.r.n., Protonix 40 mg daily, Proventil HFA 2 puffs every 4 hours as needed, promethazine 12.5 mg 1 tablet daily p.r.n., MiraLax 17 grams t.i.d., Lamictal 200 mg daily, Cymbalta 60 mg 2 capsules daily, ibuprofen 800 mg p.r.n., oxybutynin ER 5 mg daily, Trelegy Ellipta 200/62.5/25 mcg, Latuda 60 mg, famotidine 20 mg, gabapentin 300 mg, Ozempic 2 mg weekly, amlodipine 10 mg, nystatin 100,000 units, Symbicort 160/4.5 mcg, benztropine mesylate 1 mg, atorvastatin 20 mg daily, Allergy Relief, nasal decongestant daily as needed. SOCIAL HISTORY: Positive for smoke, one-third pack per day for 50 years. Negative for alcohol. FAMILY HISTORY: Father, diabetes, hypertension, stroke, myocardial infarction. Mother, hypertension. Paternal grandfather, hypertension. Paternal grandmother, hypertension. Maternal grandfather, hypertension, myocardial infarction. Maternal grandmother, hypertension. VITAL SIGNS: Blood pressure is 150/90, current weight is 297.5 pounds at 5 feet 4 inches with a body mass index of 51.0. REVIEW OF SYSTEMS: This is a well-nourished female, in no acute distress. She is not experiencing any shortness of breath or difficulty breathing. No chest pain, palpitations or diaphoresis. No nausea, vomiting or abdominal pain. No diarrhea or constipation. No red blood per rectum. No dark tarry stools. No fever or chills. No recent inadvertent weight loss. All other review of systems negative. PHYSICAL EXAMINATION: CHEST: Clear. Good breath sounds bilaterally. HEART: Regular, no murmurs. EXTREMITIES: No lower extremity edema. Negative Homans sign. HEENT: No scleral icterus. No cervical lymphadenopathy. ABDOMEN: Soft, nontender, nondistended. SKIN: Warm, dry and pink. NEUROLOGIC: Awake, alert and oriented x3. ASSESSMENT AND PLAN: A 62-year-old female with morbid obesity and medical comorbidities related to obesity including asthma, hypertension, gastroesophageal reflux disease, type 2 diabetes mellitus, depression, anxiety, obstructive sleep apnea, hypercholesterolemia, degenerative joint disease of the knees and shoulders. At this time, she has completed all the necessary tests and evaluations including upper GI contrast study, nutritional and psychology consult as well as clearance from her primary care physician. Risks and benefits of the procedure as well as the procedure and home care instructions were explained to the patient. It was also discussed with her in depth about proper diet and exercise preoperatively as well as postoperatively. She verbalized understanding of instructions and agrees to proceed as planned. At this time, we will proceed with scheduling her for the laparoscopic gastric sleeve resection. Job ID: [id number] DocumentID: [id number] Dictated Date: 04/11/2023 08:50:10 [employer] Fe[employer] Date: 04/11/2023 12:25:00 Dictated By: SAMANTHA SPRINGER APRN
[2023-04-11] MEDS ORDERED: MULT-1136 PO (14:10)
[2023-04-11] MEDS ORDERED: PROM12.511 PO (14:10)
[2023-04-11] MEDS ORDERED: ACET-93 PO (14:10)
[2023-04-11] MEDS ORDERED: BIOT5TAB PO (14:10)
[2023-04-11] MEDS ORDERED: LAMO200T5 PO (14:10)
[2023-04-11] MEDS ORDERED: AMLO-251 PO (14:10)
[2023-04-11] MEDS ORDERED: PRAS25CA PO (14:10)
[2023-04-11] MEDS ORDERED: LOPE2TAB34 PO (14:10)
[2023-04-11] MEDS ORDERED: LURA40TA2 PO (14:10)
[2023-04-11] MEDS ORDERED: IBUP-1780 PO (14:10)
[2023-04-11] MEDS ORDERED: FLUT1BLS3 IH (14:10)
[2023-04-11] MEDS ORDERED: SEMA2PEN SQ (14:10)
[2023-04-11] MEDS ORDERED: MV,I66.7 PO (14:10)
[2023-04-11] MEDS ORDERED: [UNRECOGNIZED DRUG - CODE] PO (14:10)
[2023-04-11] MEDS ORDERED: FAMO20TA3 PO (14:10)
== END 2023-04-11 14:12 | disposition home or self-care (01) ==
LOC: PREOP 05:28
PROVIDERS: ATTEND Surgery
DX: Z01.818 Encounter for other preprocedural examination (principal)

== ENCOUNTER → 2023-04-16 | Outpatient (CLI) | payer MEDICARE, MEDICAID ==
[~2023-04-16] MED LIST changes: +ACET-93 PO; +AMLO-251 PO; +BIOT5TAB PO; +FAMO20TA3 PO; +FLUT1BLS3 IH; +IBUP-1780 PO; +LAMO200T5 PO; +LOPE2TAB34 PO; +LURA40TA2 PO; +MULT-1136 PO; +MV,I66.7 PO; +PRAS25CA PO; +PROM12.511 PO; +SEMA2PEN SQ; +[UNRECOGNIZED DRUG - CODE] PO
--- NOTE | 2023-04-16 16:53 | Diagnostic Imaging Report ---
INDICATION: Postmenopausal state. COMPARISON: 03/29/2020. FINDINGS: AP Spine L1-L4: [BMD (g/cm2): 1.272] [T-Score: 0.6] [Z-Score: 0.9] [BMD Previous: 1.157] [BMD % Change: 9.9*] LT Hip Neck: [BMD (g/cm2): 0.650] [T-Score: -2.8] [Z-Score: -2.1] LT Hip Total: [BMD (g/cm2):0.743] [T-Score:-2.1] [Z-Score: -1.8] [BMD Previous: 0.796] [BMD % Change: -6.7*] RT Hip Neck: [BMD (g/cm2):0.624] [T-Score:-3.0] [Z-Score:-2.3] RT Hip Total: [BMD (g/cm2):0.792] [T-score:-1.7] [Z-Score:-1.4] [BMD Previous:0.866] [BMD % Change:-8.5*] *Indicates significant change from prior examination based on 95% confidence level. World Health Organization criteria for BMD interpretation classify patients as Normal (T-score at or above -1.0), Osteopenic (T-score between -1.0 and -2.5) or Osteoporotic (T-score at or below -2.5). LIMITATIONS AND MODIFICATION: None. FRACTURE RISK (FRAX SCORE): The ten year probability of (%): Major Osteoporotic Fracture: [30.3] Hip Fracture: [13.0] IMPRESSION: 1. Osteoporosis. 2. Bone mineral density within the bilateral hips has significantly decreased since the prior examination. Bone mineral density within the lumbar spine has significantly increased since the prior examination, though some of this apparent increase may be artifactual in nature secondary to degenerative hypertrophic changes. 3. See below National Osteoporosis Foundation guidelines on when to potentially initiate pharmacologic therapy. Based on the National Osteoporosis Foundation Guidelines, pharmacologic treatment should be initiated in any of the following, unless clinical conditions suggest otherwise: * Any patient with prior fragility fracture of the hip or vertebrae. A spine fracture indicates 5X risk for subsequent spine fracture and 2X risk for subsequent hip fracture. * Osteoporosis (T-score <-2.5). * Postmenopausal women and men age 50 and older with low bone mass/osteopenia (T-score between -1.0 and -2.5) by DXA and 10-year major osteoporotic fracture greater than 20% or a 10-year probability of hip fracture greater than 3%. These fracture risks are supplied above in the FRAX score, if applicable. * Clinician judgement and/or patient preferences may indicate treatment for people with 10-year fracture probabilities above or below these levels. Dictated by: Dictated on workstation # [id number]
== END ==
LOC: RAD 13:03
PROVIDERS: ATTEND Pediatrics
DX: M85.89 Other specified disorders of bone density and structure, multiple sites (principal); M81.0 Age-related osteoporosis without current pathological fracture; Z78.0 Asymptomatic menopausal state
CPT/HCPCS: 77080

== ENCOUNTER 2023-04-18 11:15 | Inpatient (IN) | payer MEDICARE, MEDICAID ==
[2023-04-18] VITALS (8 sets, daily range): BP systolic 147–198; BP diastolic 74–95
[~2023-04-18] VITALS: Ht 162.6 cm; Wt 128.2 kg
--- OUTSIDE RECORDS SUMMARY | 2023-04-18 13:26 | XMS REPORT | Clinical Summary ---
Author Author [facility] Organization [facility] Address Unknown Phone Unavailable Care Team Providers Care Supervisor Whipped Topping Name Role Phone PCP Unavailable Allergies Not on File Medications Not on file Active Problems Not on file Social History Date Tobacco Use Types Packs/Day Years Used Smoking Tobacco: Never Assessed Date Recorded Sex and Gender Information Value Sex Assigned at Not on file Gender Identity Not on file Sexual Orientation Not on file Last Filed Vital Signs Not on file Plan of Treatment Not on file Results Not on filefrom Last 3 Months
--- OUTSIDE RECORDS SUMMARY | 2023-04-18 13:26 | XMS REPORT | Clinical Summary ---
Author Author [facility] Organization [facility] Address Unknown Phone Unavailable Care Team Providers Care Securities Underwriter Name Role Phone Juanis Fontenot RN Unavailable Unavailable Brittany Resendez RN Unavailable Unavailable Supriya Flores DIRECTOR SOFTWARE-NUCLEAR CHEMISTRY TECHNICIAN Unavailable [phone] Self, Referral PCP Unavailable Jairon Martinez MD Unavailable Source Comments Some departments are not documenting in the electronic medical record. 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 Active Problems Problem Noted Date Diagnosed Date Asthma 02/09/2012 DM (diabetes mellitus) 02/09/2012 Depression 02/09/2012 Bipolar disorder 02/09/2012 HTN (hypertension) 02/09/2012 GERD (gastroesophageal reflux disease) 02/09/2012 Diverticulitis 02/09/2012 Immunizations Name Administration Dates Next Due Tdap Vaccine 02/27/2012 Surgical History Surgery Date Site/Laterality Comments OK CHOLECYSTECTOMY HX TONSILLECTOMY HX CHOLECYSTECTOMY Medical History Medical History Date Comments Bipolar affective (HCC) Depression Asthma DM (diabetes mellitus) (HCC) 02/09/2012 HTN (hypertension) 02/09/2012 Allergy Anxiety disorder Arthritis GERD (gastroesophageal reflux disease) Family History Medical History Relation Name Comments Cancer Father Diabetes Father Heart Disease Father Hypertension Father Stroke Father COPD Maternal Grandfather Hypertension Maternal Grandfather Arthritis Maternal Grandmother Heart Disease Maternal Grandmother Hypertension Maternal Grandmother Stroke Maternal Grandmother Arthritis Mother Vision Loss Mother Relation Name Status Comments Father Maternal Grandfather Maternal Grandmother Mother Social History Date Tobacco Use Types Packs/Day Years Used Smoking Tobacco: Every Cigarettes 0.5 28 Day Smokeless Tobacco: Never Comments Alcohol Use Standard Drinks/Week No 0 (1 standard drink = 0.6 o z pure alcohol) Date Recorded Sex and Gender Information Value Sex Assigned at Not on file Gender Identity Not on file Sexual Orientation Not on file Obstetrics History Last Filed Vital Signs Reading Time Taken [...] Health Maintenance Due Date Last Done Comments COVID-19 VACCINE (#1) 1959 HIV SCREENING 1974 HEPATITIS C SCREENING 1977 CERVICAL CANCER SCREENING 1980 BREAST CANCER SCREENING 1999 COLORECTAL CANCER 2004 SCREENING SHINGLES RECOMBINANT 2009 VACCINE (1 of 2) PHYSICAL (COMPREHENSIVE) 02/26/2013 02/27/2012 EXAM DTAP/TDAP VACCINES (2 - 02/26/2022 02/27/2012 Td or Tdap) INFLUENZA VACCINE (Season 07/21/2023 Ended) PNEUMOCOCCAL VACCINE 0-64 Aged Out No longer el igible based on patient's age to YRS complete this topic Results Not on filefrom Last 3 Months Advance Directives Date Inactivated Comments Code Status Date Activated 02/11/2012 11:27 PM Full Code 02/09/2012 8:57 PM Comments Question Answer Provider has Yes discussed Code Status w/Patient or Family? Care Teams Start Date End Date Securities Underwriter Relationship Specialty 02/09/12 Self, Referral PCP - General 08/21/10 Juanis Fontenot, RN 08/21/10 Brittany Resendez RN 02/09/12 Supriya Flores APRN-NUCLEAR CHEMISTRY TECHNICIAN [address] [place] [id number] 02/27/12 Jairon Martinez MD Family [address] [address]
--- OUTSIDE RECORDS SUMMARY | 2023-04-18 13:26 | XMS REPORT ---
Author Author [facility] Address Unknown Phone Unavailable Care Team Providers Care New Patient Escort Name Role Phone MICHAEL GRACE Unavailable PROBLEMS Type Condition ICD9-CM Code LVP93-WS Code Onset Dates Condition S tatus W/U Status Risk SNOMED Code Notes Problem Type 2 diabetes mellitus without complications E11.9 confirmed 339876124 Problem Body mass index (BMI) of 50-59.9 in adult Z68.43 confirmed 665483040 Problem Arthritis of knee M17.10 confirmed 37 0475036 Problem Sleep apnea in adult G47.30 confirmed 21696931 Problem Mild intermittent asthma, unspecified whether complicated J45.20 confirmed 071880245 Problem Compulsive skin picking L98.1 confirmed 077950932 Problem Psychophysiological insomnia F51.04 confirme d 275962224 Problem Seasonal allergic rhinitis due to pollen J30.1 confirmed 03902858 Problem Chronic post-traumatic stress disorder (PTSD) F43.12 confirmed 008014000 Problem Gastroesophageal reflux disease, esophagitis pre sence not specified K21.9 confirmed 257150487 Problem Mixed hyperlipidemia E78.2 confirmed 149300043 Problem Primary osteoarthritis of both knees M17.0 confirmed 125656842 Problem Mixed stress and urge urinary incontinence N39.46 confirmed 088027659 Problem Smoking greater than 20 pack years F17.210 c onfirmed 78295849 Problem Sleep disturbance G47.9 confirmed 44 268879 Problem Stage 3a chronic kidney disease N18.31 confi rmed 645647427 Problem Bipolar I disorder, most recent episode mixed, moderate F31.62 confirmed 389347904 Problem Essential hypertension I10 confirmed 01333308 Problem Obesity, morbid E66.01 confirmed 9093 85802 Problem Bipolar disorder with depression F31.30 conf irmed 26166226 Problem Migraine without aura and without status migrain osus, not intractable G43.009 confirmed 308827605 Problem Skin lesion of breast N64.9 confirmed 54047266 Problem 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 co nfirmed 911403748 Problem Osteoarthritis of knee, unilateral M17.10 co nfirmed 162983865 Problem Leukocytosis, unspecified type D72.829 confi rmed [id number] ALLERGIES Allergen (clinical drug ingredient) Drug/Non Drug Allergy do cumented on EMR Reaction Allergy Type Onset Date Status Latex Gloves([facility] Code:34458-95721) rash Drug Allergy Active fentanyl Fentanyl([place] Code:[address]-99) seizure Drug Allergy Active penicillin V Penicillin V Potassium([facility] Code:[address]-71) SEVERE Drug Allergy Active sulfamethoxazole / trimethoprim Sulfamethoxazole-Trime thoprim([facility] Code:[address]-07) rash, swelling Drug Allergy Active ENCOUNTERS from 1960 to 2023-03-03 Encounter Location Date Provider Diagnosis [facility] [address] [facility] [id number] [place] [address] February, MICHAEL GRACE Type 2 diabetes joyce itus without complications E11.9 ; Morbid obesity E66.01 ; Mixed hyperlipidemia E78.2 ; Essential hypertension I10 and Stage 3a chronic kidney disease N18.31 IMMUNIZATIONS Vaccine Route Administration Date Status PRIVATE PCV 13 (PREVNAR) Unknown Aug 05, 2012 Adminis tered PRIVATE SHINGRIX (HERPES ZOSTER-2 DOSE) IM Intramuscular Jun 16, 2021 Administered PRIVATE SHINGRIX (HERPES ZOSTER-2 DOSE) IM Intramuscular Nov 22, 2020 Administered influenza IIV3 (history) Unknown Aug 05, 2012 Pending influenza IIV3 (history) Unknown Jul 27, 2013 Adminis tered PRIVATE FLULAVAL QUAD 0.5ML (6 MO AND UP) 2019 IM Intramuscular Jul 02, 2020 Administered 2nd Booster MODERNA COVID-19, mRNA, 0.25mL IM Intramuscular March 20, 2022 Administered 1st Booster MODERNA COVID-19, mRNA, 0.25mL IM Intramuscular Nov 14, 2021 Administered PRIVATE FLULAVAL QUAD 0.5ML (6 MO AND UP) 2020 IM Intramuscular Aug 04, 2021 Administered 2nd Dose HRSA MODERNA, COVID-19, 0.5mL IM Intramuscular May 17, 2021 Administered 1st Dose HRSA MODERNA, COVID-19, 0.5mL IM Intramuscular April 19, 2021 Administered PRIVATE FLULAVAL QUAD 0.5ML (6 MO AND UP) 2018 IM Intramuscular Jul 14, 2019 Administered PRIVATE TDAP (BOOSTRIX) IM Intramuscular April 18, 2019 Adminis tered SOCIAL HISTORY Sex Assigned At : Social History Observation Description Sex Assigned At Unknown Alcohol Screen (Audit-C) Question Answer Notes Did you have a drink containing alcohol in the past year? No Points 0 Interpretation Negative Cessation Question Answer Notes Date Tobacco Cessation Provided: 09/28/2020 PHQ2 Question Answer Notes In the last 2 weeks, how often have you had little interest or pleasure in doing things? Several days In the last 2 weeks, how often have you been feeling down, depressed, or hopeless? Several days Total PHQ2 Score 2 Tobacco use other than smoking: Question Answer Notes Are you an other tobacco user? 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 VITAL SIGNS Height 64 in February, Height-cm 162.56 cm February, Weight 334.3 lbs February, Weight-kg 151.64 kg February, Temperature 96 degrees Fahrenheit February, Heart Rate 114 bpm February, Respiratory Rate 20 bpm February, Oximetry 95 % February, BMI 57.38 kg/m2 February, Blood pressure systolic 154 mmHg February, Blood pressure diastolic 70 mmHg February, MEDICATIONS Medication SIG (Take, Route, Frequency, Duration) Notes Start Da te End Date Status Oxybutynin Chloride ER 5 MG TAKE ONE (1) TABLET BY MOUTH ONC E DAILY for 90 days Active Gabapentin 300 MG TAKE ONE (1) CAPSULE BY MOUT H THREE (3) TIMES DAILY for 90 days Active Proventil HFA 108 (90 base) mcg/act 2 puffs as needed Inhalation every 4 hrs as needed for 17 days Active Gvoke HypoPen 2-Pack 1 MG/0.2ML Inject 1mg Subcutaneou s as needed for severe hypoglycemia. May repeat in 15 minutes if no response. for 30 days prn Jan, Active amLODIPine Besylate 10 MG TAKE ONE (1) TABLET BY MOUTH ONCE DAILY for 90 Active Voltaren 1 % 4g Externally four times a day as needed for pain for 30 days NEEDS REFILL May, Active Fluconazole 150 MG TAKE ONE (1) TABLET BY MOUTH NOW for 1 prn Active Cymbalta 60 MG 2 capsule Orally Once a day for 30 days Active FreeStyle Wilder 2 Sensor - Apply sensor to check Blood sugar with and change every 14 days for 28 days February, Active lamoTRIgine 200 MG 1 tablet Orally Once a day for 30 days Active Blood Glucose Monitor System w/Device as directed Active Latuda 60 MG 1 tablet with food Orally Once a day for 30 days Active Claritin 10 MG 1 tablet Orally Once a day for 30 day(s) Jan, Active guaiFENesin ER 600 MG 1 tablet as needed Orally every 12 hrs for 30 days Jan, Active Famotidine 20 MG TAKE ONE (1) TABLET BY MOUTH TWICE DAILY for 30 Active Polyethylene Glycol 3350 - 17gm Orally 3 times a day for 14 days prn Jan, Active Ibuprofen 800 MG TAKE ONE (1) TABLET BY MOUTH THREE (3) TIMES DAILY NEEDED for 30 Active Biotin Active BD Insulin Syringe Ultrafine 31G X 1564 as directed Samples LOT# [id number] February, Not-Taking isocket Wilder 2 [place] - To use with sensor to check blood sugar with for 99 days February, Active Trelegy Ellipta 200-62.5-25 MCG/ACT INHALE ONE (1) PUF F(S) BY MOUTH ONCE DAILY for 30 Active Test strips Test Strips one twice a day for [address] strips Dec, Active Pantoprazole Sodium 40 MG TAKE ONE (1) TABLET BY MOUTH ONCE DAILY for 30 Active Ozempic (2 MG/DOSE) 8 MG/3ML 2 mg Subcutaneous once a week for 30 day s Active SUMAtriptan Succinate 50 MG 1 tablet as needed for tiffany christopher (not to exceed 2 tabs over 2 hours) Orally Twice a day G43.009 for 30 day(s) NEEDS REFILLS Oct, Active Promethazine HCl 12.5 MG TAKE ONE (1) TABLET BY MOUTH ONCE DAILY NEEDED for 30 Active Probiotic - as directed Orally pre and probiotic Active Nystatin 324808 UNIT/GM APPLY TOPICALLY TO AFFECTED AREA TWICE D AILY for 10 prn Active metFORMIN HCl ER 500 MG 1 tablet Orally 1 times a day for 90 days Active OneTouch Verio - 1 strip subcutaneously twice daily for 90 days Active Levsin/SL 0.125 MG 1 tablet under the tongue an d allow to dissolve as needed Sublingual Three times a day PRN for 30 day(s) prn Active PROCEDURES No Information RESULTS No Results REASON FOR VISIT A1C F/U. PT states that she is here for a diabetic check. H Kamran LAWLER, A1C, micro DT MEDICAL (GENERAL) HISTORY Type Description Date Medical [...] History Diverticulitis / Diverticulosis Medical History PTSD Medical History Fibula fracture -02/2020 Surgical History tonsillectomy Surgical History cholecystectomy Surgical History colonoscopy 04/2020 Hospitalization History Hospitalization for surgery only Hospitalization History ER visit for headache. She had a 40 0 blood sugar. 05/2016 Hospitalization History [facility] 01/25/2020-2019 Hospitalization History Via January 2020 Hospitalization History via February 2020 Hospitalization History sleep study 2020 Goals Section No Information Health Concerns No Information MEDICAL EQUIPMENT No Information MENTAL STATUS No Information FUNCTIONAL STATUS No Information ASSESSMENTS Encounter Date Diagnosis Assessment Notes Treatment Notes Treatm ent Clinical Notes February, Type 2 diabetes mellitus without complications ( ICD-10 - E11.9) Continue current meds and rcheck A1C in 3 months. Your a1c which is done every 3-6 months should be less than 7.0 . Your fasting glucose should run less t castorena 100 and your post prandial blood sugars which are 2 hours after meals needs to be less than 180 . You should have yearly dental cleaning s, diabetic foot exams and a dilated eye exam once per year. You should have your thyroid lab checked once a year . Your cholesterol LDL needs to run belo w 100 but ideally at 70 to prevent cardiovascular disease associated with diabetes . Your b/p should be less than 140/80 an d if you have renal or kidney disease you b/p needs to run at 130/80 or less . We recommended that you maintain a bod y mass index (BMI) between 19-24, if your BMI is 25 or greater than you are considered overweight, if it is greater than 30 that you are considered obese placing you at risk for complications associated with your diabetes as well as heart disease . Do not smoke or use tobacco . We recommend that you meet with a diab etic educator once per year . Check you blood sugars as your medical provider recommends as well as if you are feeling ill . Get 30-45 minutes of moderate exercise 5 days per week. Follow a recommended ADA diet We will check your urine for protein at least once per year because this is en early sign of kidney disease related to diabetes or high blood pressure . We recommend the flu shot yearly and a pneumonia vaccine before age 65 and once after age 65 with a booster as well . We recommend vaccinations for shingles on or after age 55 as well as hepatitis a and b vaccines If you are an uncontrolled diabeteic with an a1c greater than 7 it is recommended that you meet with your medical provider a mininimum of every 3 months, Counting Carbohydrates for Diabetes: Care Instructions material was published February, Morbid obesity (ICD-10 - E66.01) Starting a Weight Loss Plan: Care Instructions material was published, Learning About Weight-Loss (Bariatric) Surgery material was published February, Mixed hyperlipidemia (ICD-10 - E78.2) February, Essential hypertension (ICD-10 - I10) February, Stage 3a chronic kidney disease (ICD-10 - N18.31) PLAN OF TREATMENT Medication Medication Name Sig Start Date Stop Date guaiFENesin ER 600 MG 1 tablet as needed Orally every 12 hrs for 30 days Jan, Famotidine 20 MG TAKE ONE (1) TABLET BY MOUTH TWICE DAILY for 30 Ibuprofen 800 MG TAKE ONE (1) TABLET BY MOUTH THREE (3) TIMES DAILY NEEDED for 30 FreeStyle Wilder 2 [place] - To use with sensor to check blood sugar with for 99 days February, amLODIPine Besylate 10 MG TAKE ONE (1) TABLET BY MOUTH ONCE JACKSON Y for 90 FreeStyle Wilder 2 Sensor - Apply sensor to check Blood sugar with and change every 14 days for 28 days February, Oxybutynin Chloride ER 5 MG TAKE ONE (1) TABLET BY MOUTH ONC E DAILY for 90 days Pantoprazole Sodium 40 MG TAKE ONE (1) TABLET BY MOUTH ONCE JACKSON Y for 30 Claritin 10 MG 1 tablet Orally Once a day for 30 day(s) Jan, Treatment Notes Assessment Notes Clinical Notes Type 2 diabetes mellitus without complications Continu e current meds and rcheck A1C in 3 months. Your a1c which is done every 3-6 months should be less than 7.0 . Your fasting glucose should run less t castorena 100 and your post prandial blood sugars which are 2 hours after meals needs to be less than 180 . You should have yearly dental cleaning s, diabetic foot exams and a dilated eye exam once per year. You should have your thyroid lab checked once a year . Your cholesterol LDL needs to run belo w 100 but ideally at 70 to prevent cardiovascular disease associated with diabetes . Your b/p should be less than 140/80 an d if you have renal or kidney disease you b/p needs to run at 130/80 or less . We recommended that you maintain a bod y mass index (BMI) between 19-24, if your BMI is 25 or greater than you are considered overweight, if it is greater than 30 that you are considered obese placing you at risk for complications associated with your diabetes as well as heart disease . Do not smoke or use tobacco . We recommend that you meet with a diab etic educator once per year . Check you blood sugars as your medical provider recommends as well as if you are feeling ill . Get 30-45 minutes of moderate exercise 5 days per week. Follow a recommended ADA diet We will check your urine for protein at least once per year because this is en early sign of kidney disease related to diabetes or high blood pressure . We recommend the flu shot yearly and a pneumonia vaccine before age 65 and once after age 65 with a booster as well . We recommend vaccinations for shingles on or after age 55 as well as hepatitis a and b vaccines If you are an uncontrolled diabeteic with an a1c greater than 7 it is recommended that you meet with your medical provider a mininimum of every 3 months, Counting Carbohydrates for Diabetes: Care Instructions material was published Morbid obesity Starting a Weight Loss Plan: Care Instructions material was published, Learning About Weight-Loss (Bariatric) Surgery material was published Referrals Referral Date Details 2021-03-31 2021-03-31, Patient is inter ested in Bariatric Surgery, ELVIN NAVAS, [address] [place] [address], [phone], Next Appt Details 3 Months Reason:A1C Provider Name:DORA SAUER, 2023-03-06 0 9:00:00 AM, [address] [place] [address], [id number], [place], [phone], Provider Name:DORA SAUER, 2023-03-25 1 1:00:00 AM, [address] [place] [address], [id number], [place], [phone], Provider Name:MENDOZA [place], 2023-04-03 01:00:00 PM, [address] [place] [address], [id number], [place], [address], Provider Name:DORA SAUER, 2023-05-06 1 1:00:00 AM, [address] [place] [address], [id number], [address], Follow Up:3 [id number] Insurance Providers Payer Name Payer Address Payer Phone Insured Name Patient Relati onship to Insured Coverage Start Date Coverage End Date Subscriber Number Group Nu mber [facility] Dual Complete [address] [place] [address] Estefani Rios Self - patient is the insured 2022 [id number] Aet [employer] 19 [address] [address] [facility] [address] Estefani Rios Self - patient is the insured [id number] [employer] MEDICARE Part A [address] [facility] [address] Estefani Rios Self - patient is the insured [id number] DILCIAON [place] 19 [employer] [address] [facility] [address] Estefani Rios Self - patient is the insured [id number] MEDICATIONS ADMINISTERED Medication Instructions Date of Administration Dosage DEPO MEDROL 40 MG/ML Nov, 40 mg DEXAMETHASONE 4MG/ML (PER 1 ML) Nov, 4 mg PHENERGAN 50MG/ML Dec, 50 mg
--- OUTSIDE RECORDS SUMMARY | 2023-04-18 13:26 | XMS REPORT ---
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 Role Phone DORA SAUER Unavailable PROBLEMS Type Condition ICD9-CM Code [id number] Code Onset Dates Condition S tatus W/U Status Risk SNOMED Code Notes Problem Osteoarthritis of right knee M17.9 confirme d [id number] Problem Body mass index (BMI) of 50-59.9 in adult Z68.43 confirmed 770362883 Problem Arthritis of knee M17.10 confirmed 37 9147498 Problem Essential hypertension I10 confirmed 80460833 Problem Bipolar disorder with depression F31.30 conf irmed 85718281 Problem Psychophysiological insomnia F51.04 confirme d 500521246 Problem Migraine without aura and without status migrain osus, not intractable G43.009 confirmed 208065270 Problem Skin lesion of breast N64.9 confirmed 39555673 Problem Stage 3a chronic kidney disease N18.31 confi rmed 620388756 Problem Osteopenia of multiple sites M85.89 confirme d 860592460 Problem Type 2 diabetes mellitus without complications E11.9 confirmed 435493257 Problem Gastroesophageal reflux disease, esophagitis pre sence not specified K21.9 confirmed 533540850 Problem Mixed hyperlipidemia E78.2 confirmed 911866752 Problem Primary osteoarthritis of both knees M17.0 confirmed 082701195 Problem Mixed stress and urge urinary incontinence N39.46 confirmed 669445986 Problem Smoking greater than 20 pack years F17.210 c onfirmed 93160893 Problem Mild intermittent asthma, unspecified whether complicated J45.20 confirmed 574451333 Problem Sleep disturbance G47.9 confirmed 44 572523 Problem Sleep apnea in adult G47.30 confirmed 32375945 Problem exterminator termite (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) use of 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 Z79.4 co nfirmed 211621144 Problem Osteoarthritis of knee, unilateral M17.10 co nfirmed 392870877 Problem Leukocytosis, unspecified type D72.829 confi rmed 180670072 Problem Arthritis of knee, left M19.90 confirmed 1060302681022337 Problem Chronic post-traumatic stress disorder (PTSD) F43.12 confirmed 140213954 Problem Arthritis of both knees M19.90 confirmed 8191009094316809 Problem Compulsive skin picking L98.1 confirmed 273315506 Problem Seasonal allergic rhinitis due to pollen J30.1 confirmed 18367045 Problem Bipolar I disorder, most recent episode mixed, moderate F31.62 confirmed 689189334 Problem Cigarette nicotine dependence in remission F17.211 confirmed 986112961 Problem Obesity, morbid E66.01 confirmed 2381 70619 Problem Arthritis of knee, right M19.90 confirmed 6714076144850640 ALLERGIES Allergen (clinical drug ingredient) Drug/Non Drug Allergy do cumented on EMR Reaction Allergy Type Onset Date Status Latex Gloves([facility] Code:95908-97195) rash Drug Allergy Active fentanyl Fentanyl(ND Code:[address]-54) seizure Drug Allergy Active penicillin V Penicillin V Potassium(ND Code:[address]-95) SEVERE Drug Allergy Active sulfamethoxazole / trimethoprim Sulfamethoxazole-Trime thoprim(ND Code:[address]-05) rash, swelling Drug Allergy Active ENCOUNTERS from 1960 to 2023-04-02 Encounter Location Date Provider Diagnosis [facility] [address] [facility] [id number] [place] [address] Mar, DORA SAUER Type 2 diabetes joyce itus without complications E11.9 ; exterminator termite (current) use of insulin Z79.4 ; Yeast dermatitis B37.2 and Encounter for immunization Z23 IMMUNIZATIONS Vaccine Route Administration Date Status 2nd Booster MODERNA COVID-19, mRNA, 0.25mL IM Intramuscular March 20, 2022 Administered 1st Booster MODERNA COVID-19, mRNA, 0.25mL IM Intramuscular Nov 14, 2021 Administered 2nd Dose HRSA MODERNA, COVID-19, 0.5mL IM Intramuscular May 17, 2021 Administered 1st Dose HRSA MODERNA, COVID-19, 0.5mL IM Intramuscular April 19, 2021 Administered PRIVATE FLULAVAL QUAD 0.5ML (6 MO AND UP) 2019 IM Intramuscular Jul 02, 2020 Administered PRIVATE FLULAVAL QUAD 0.5ML (6 MO AND UP) 2018 IM Intramuscular Jul 14, 2019 Administered PRIVATE FLULAVAL QUAD 0.5ML (6 MO AND UP) 2020 IM Intramuscular Aug 04, 2021 Administered PRIVATE SHINGRIX (HERPES ZOSTER-2 DOSE) IM Intramuscular Jun 16, 2021 Administered PRIVATE SHINGRIX (HERPES ZOSTER-2 DOSE) IM Intramuscular Nov 22, 2020 Administered PRIVATE TDAP (BOOSTRIX) IM Intramuscular April 18, 2019 Adminis tered PRIVATE PCV 13 (PREVNAR) Unknown Aug 05, 2012 Adminis tered influenza IIV3 (history) Unknown Jul 27, 2013 Adminis tered SOCIAL HISTORY Sex Assigned At [...] little interest or pleasure in doing things? Not at all In the last 2 weeks, how often have you been feeling down, depressed, or hopeless? Not at all Total PHQ2 Score 0 Tobacco use other than smoking: Question Answer Notes Are you an other tobacco user? No REASON FOR REFERRAL No Information VITAL SIGNS Height 64 in Mar, Height-cm 162.56 cm Mar, Weight 334.6 lbs Mar, Weight-kg 151.77 kg Mar, Temperature 97.1 degrees Fahrenheit Mar, Heart Rate 89 bpm Mar, Respiratory Rate 20 bpm Mar, Oximetry 96 % Mar, BMI 57.43 kg/m2 Mar, Blood pressure systolic 112 mmHg Mar, Blood pressure diastolic 60 mmHg Mar, MEDICATIONS Medication SIG (Take, Route, Frequency, Duration) Notes Start Da te End Date Status Claritin-D 24 Hour 10-240 MG 1 tablet as needed Orally Once a day Active amLODIPine Besylate 10 MG TAKE ONE (1) TABLET BY MOUTH ONCE DAILY for 90 Active Promethazine HCl 12.5 MG TAKE ONE (1) TABLET BY MOUTH ONCE DAILY NEEDED for 30 Active Biotin Active lamoTRIgine 200 MG 1 tablet Orally Once a day for 30 days Active Probiotic - as directed Orally pre and probiotic Active Ibuprofen 800 MG TAKE ONE (1) TABLET BY MOUTH THREE (3) TIMES DAILY NEEDED for 30 Active Blood Glucose Monitor System w/Device as directed Active Ozempic (2 MG/DOSE) 8 MG/3ML INJECT 2MG SUBCUTANEOUSLY (UNDER THE SKIN) ONCE EVERY WEEK for 28 Active Loratadine 10 MG TAKE ONE (1) TABLET BY MOUTH ONCE DAILY for 30 Active Oxybutynin Chloride ER 5 MG TAKE ONE (1) TABLET BY MOUTH ONC E DAILY for 90 days Active SUMAtriptan Succinate 50 MG 1 tablet as needed for tiffany christopher (not to exceed 2 tabs over 2 hours) Orally Twice a day G43.009 for 30 day(s) NEEDS REFILLS Oct, Active Levsin/SL 0.125 MG 1 tablet under the tongue an d allow to dissolve as needed Sublingual Three times a day PRN for 30 day(s) prn Active Pantoprazole Sodium 40 MG TAKE ONE (1) TABLET BY MOUTH ONCE DAILY for 30 Active Polyethylene Glycol 3350 - 17gm Orally 3 times a day for 14 days prn Jan, Active Test strips Test Strips one twice a day for [address] strips Dec, Active Proventil HFA 108 (90 base) mcg/act 2 puffs as needed Inhalation every 4 hrs as needed for 17 days Active Nystatin 350152 UNIT/GM APPLY TOPICALLY TO AFFECTED AREA TWI CE DAILY for 10 NEEDS REFILL Active Gvoke HypoPen 2-Pack 1 MG/0.2ML Inject 1mg Subcutaneou s as needed for severe hypoglycemia. May repeat in 15 minutes if no response. for 30 days prn Jan, Active Famotidine 20 MG TAKE ONE (1) TABLET BY MOUTH TWICE DAILY for 30 Active OneTouch Verio - 1 strip subcutaneously twice daily for 90 days Active metFORMIN HCl ER 500 MG 1 tablet Orally 1 times a day for 90 days Active Latuda 60 MG 1 tablet with food Orally Once a day for 30 days Active Fluconazole 150 MG TAKE ONE (1) TABLET BY MOUTH NOW for 1 prn Active Cymbalta 60 MG 2 capsule Orally Once a day for 30 days Active guaiFENesin ER 600 MG 1 tablet as needed Orally every 12 hrs for 30 days Jan, Active FreeStyle Wilder 2 [place] - To use with sensor to check blood sugar with for 99 days February, Active FreeStyle Wilder 2 Sensor - Apply sensor to check Blood sugar with and change every 14 days for 28 days February, Active Trelegy Ellipta 200-62.5-25 MCG/ACT INHALE ONE (1) PUF F(S) BY MOUTH ONCE DAILY for 30 Active Voltaren 1 % 4g Externally four times a day as needed for pain for 30 days NEEDS REFILL May, Active Gabapentin 300 MG TAKE ONE (1) CAPSULE BY MOUT H THREE (3) TIMES DAILY for 90 days Active PROCEDURES No Information RESULTS No Results REASON FOR VISIT Establish Care- Pt c/o skin breakage on hips to genital area, irritated and some times bleeds. Also believes she has a yeast infection. -[facility] MEDICAL (GENERAL) HISTORY Type Description Date Medical [...] History tonsillectomy Surgical History cholecystectomy Surgical History colonoscopy/EGD 04/2020 Hospitalization History Hospitalization for surgery only Hospitalization History ER visit for headache. She had a 40 0 blood sugar. 05/2016 Hospitalization History [facility] 01/25/2020-2019 Hospitalization History [facility] January 2020 Hospitalization History [facility] Hospitalization History sleep study 2020 Goals Section No Information Health Concerns No Information MEDICAL EQUIPMENT No Information MENTAL STATUS No Information FUNCTIONAL STATUS No Information ASSESSMENTS Encounter Date Diagnosis Assessment Notes Treatment Notes Treatm ent Clinical Notes Mar, Type 2 diabetes mellitus without complic ations (ICD-10 - E11.9) Patient with fairly controlled diabetes but on high dose insulin which is likely hindering any weight loss efforts. Is an excellent candidate for ozempic. Has failed victoza previously as had no improvement in sugar control or weight. No contraindications to ozempic. Patient to continue monitoring sugars and call with any lows (< 70). Follow up for DM in 1 month Mar, exterminator termite (current) use of insulin (ICD-10 - Z79 .4) see above Mar, Yeast dermatitis (ICD-10 - B37.2) Symptoms and exam findings consistent with yeast dermatitis. Will treat with oral fluconazole and nystatin . Mar, Encounter for immunization (ICD-10 - Z23 ) PLAN OF TREATMENT Medication Medication Name Sig Start Date Stop Date SUMAtriptan Succinate 50 MG 1 tablet as needed for tiffany christopher (not to exceed 2 tabs over 2 hours) Orally Twice a day G43.009 for 30 day(s) Oct, Treatment Notes Assessment Notes Clinical Notes Type 2 diabetes mellitus without complications Patie nt with fairly controlled diabetes but on high dose insulin which is likely hindering any weight loss efforts. Is an excellent candidate for ozempic. Has failed victoza previously as had no improvement in sugar control or weight. No contraindications to ozempic. Patient to continue monitoring sugars and call with any lows (< 70). Follow up for DM in 1 month exterminator termite (current) use of insulin see above Yeast dermatitis Symptoms and exam findings c onsistent with yeast dermatitis. Will treat with oral fluconazole and nystatin . Next Appt Details 4 Weeks Reason: Provider Name:MENDOZA [place], 2023-04-03 01:00:00 PM, [address] [facility], [id number], [address], Provider Name:DORA SAUER, 2023-04-09 1 0:00:00 AM, [address] [place], [address], Provider Name:BREANNA HERNANDEZ, 2023-04-29 0 9:30:00 AM, [address] [facility], [id number], [address], Provider Name:DORA SAUER, 2023-05-06 1 1:00:00 AM, [address] [facility], [id number], [place], [address], Provider Name:DORA SAUER, 2023-06-26 0 9:20:00 AM, [address] [facility], [id number], [place], [address], Provider Name:DORA SAUER, 2023-09-25 1 0:20:00 AM, [address] [facility], [id number], [place], [address], Insurance Providers Payer Name Payer Address Payer Phone Insured Name Patient Relati onship to Insured Coverage Start Date Coverage End Date Subscriber Number Group Nu mber CESAR SCION SKYGEN 19 [employer] [address] [place] [facility] [address] BalwinderEstefani palmer Arnie Self - patient is the insured [id number] [facility] Complete [address] [facility] [phone] Estefani Rios Arnie Self - patient is the insured 2022 [id number] [employer]etDrAvailable 19 [address] [address] [facility] [address] Estefani Rios Arnie Self - patient is the insured [id number] [employer] MEDICARE Part A [address] [facility] [address] BalwinderEstefani palmer Arnie Self - patient is the insured [id number] MEDICATIONS ADMINISTERED Medication Instructions Date of Administration Dosage DEPO MEDROL 40 MG/ML Nov, 40 mg DEXAMETHASONE 4MG/ML (PER 1 ML) Nov, 4 mg PHENERGAN 50MG/ML Dec, 50 mg
--- OUTSIDE RECORDS SUMMARY | 2023-04-18 13:26 | XMS REPORT | Clinical Summary ---
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 Not on file Active Problems Not on file Social History Date Tobacco Use Types Packs/Day Years Used Smoking Tobacco: Never Assessed Sex Assigned at Date Recorded Not on file Last Filed Vital Signs Not on file Plan of Treatment Health Maintenance Due Date Last Done Comments CT Colonography 1960 DNA-based stool test 1959 (Cologuard) Mammogram 1960 Sigmoidoscopy 1960 gFOBT or FIT 1960 COVID-19 Vaccine (#1) 1960 Colonoscopy 2004 Colorectal Cancer 2004 Screening Influenza Vaccine (Season 07/21/2023 Ended) HPV Vaccine Aged Out No longer eligible based on patient's age to complete this topic Hepatitis A Vaccine Aged Out No longer eligible based on patient's age to complete this topic Hepatitis B Vaccine Aged Out No longer eligible based on patient's age to complete this topic Hib Vaccine Aged Out No longer eligible based on patient's age to complete this topic IPV Vaccine Aged Out No longer eligible based on patient's age to complete this topic Meningococcal Vaccine Aged Out No longer eligib le based on patient's age to (MCV4) complete this topic Pneumococcal Vaccine: Aged Out No longer eligib le based on patient's age to Pediatrics (0 to 5 Years) complete this topic and At-Risk Patients (6 to 64 Years) Rotavirus Vaccine Aged Out No longer eligible based on patient's age to complete this topic Results Not on filefrom Last 3 Months
--- OUTSIDE RECORDS SUMMARY | 2023-04-18 13:27 | XMS REPORT ---
Author Author [facility] Address Unknown Phone Unavailable Care Team Providers Care Event Set Up Specialist Name Role Phone SAMANTA Gold Unavailable PROBLEMS Type Condition ICD9-CM Code LQU86-TA Code Onset Dates Condition S tatus W/U Status Risk SNOMED Code Notes Problem Type 2 diabetes mellitus without complications E11.9 confirmed 487840949 Problem Body mass index (BMI) of 50-59.9 in adult Z68.43 confirmed 585708715 Problem Arthritis of knee M17.10 confirmed 37 4823583 Problem Sleep apnea in adult G47.30 confirmed 26311604 Problem Mild intermittent asthma, unspecified whether complicated J45.20 confirmed 838394690 Problem Compulsive skin picking L98.1 confirmed 580100734 Problem Psychophysiological insomnia F51.04 confirme d 781050805 Problem Seasonal allergic rhinitis due to pollen J30.1 confirmed 81306753 Problem Chronic post-traumatic stress disorder (PTSD) F43.12 confirmed 777755697 Problem Gastroesophageal reflux disease, esophagitis pre sence not specified K21.9 confirmed 837253448 Problem Mixed hyperlipidemia E78.2 confirmed 611809756 Problem Primary osteoarthritis of both knees M17.0 confirmed 423050421 Problem Mixed stress and urge urinary incontinence N39.46 confirmed 830377404 Problem Smoking greater than 20 pack years F17.210 c onfirmed 43696449 Problem Sleep disturbance G47.9 confirmed 44 424709 Problem Stage 3a chronic kidney disease N18.31 confi rmed 748555511 Problem Bipolar I disorder, most recent episode mixed, moderate F31.62 confirmed 728166573 Problem Essential hypertension I10 confirmed 82683143 Problem Obesity, morbid E66.01 confirmed 2381 33436 Problem Bipolar disorder with depression F31.30 conf irmed 17510452 Problem Migraine without aura and without status migrain osus, not intractable G43.009 confirmed 130290787 Problem Skin lesion of breast N64.9 confirmed 52421857 Problem assisted (current) use of insulin Z79.4 co nfirmed 639431717 Problem Osteoarthritis of knee, unilateral M17.10 co nfirmed 529836909 Problem Leukocytosis, unspecified type D72.829 confi rmed 841376682 ALLERGIES Allergen (clinical drug ingredient) Drug/Non Drug Allergy do cumented on EMR Reaction Allergy Type Onset Date Status Latex Gloves([facility] Code:76514-29680) rash Drug Allergy Active fentanyl Fentanyl(ND Code:[address]-20) seizure Drug Allergy Active penicillin V Penicillin V Potassium(ND Code:[address]-47) SEVERE Drug Allergy Active sulfamethoxazole / trimethoprim Sulfamethoxazole-Trime thoprim(ND Code:[address]-38) rash, swelling Drug Allergy Active ENCOUNTERS from 1960 to 2023-02-18 Encounter Location Date Provider Diagnosis [facility] [address] [facility] [id number] [place] [address] February, SAMANTA Gold Bipolar disorder wit h depression F31.30 ; Psychophysiological insomnia F51.04 ; Chronic post-traumatic stress disorder (PTSD) F43.12 ; Sleep disturbance G47.9 and Migraine without aura and without st atus migrainosus, not intractable G43.009 IMMUNIZATIONS Vaccine Route Administration Date Status 2nd Booster MODERNA COVID-19, mRNA, 0.25mL IM Intramuscular March 20, 2022 Administered 2nd Dose HRSA MODERNA, COVID-19, 0.5mL IM Intramuscular May 17, 2021 Administered PRIVATE FLULAVAL QUAD 0.5ML (6 MO AND UP) 2020 IM Intramuscular Aug 04, 2021 Administered 1st Booster MODERNA COVID-19, mRNA, 0.25mL IM Intramuscular Nov 14, 2021 Administered PRIVATE PCV 13 (PREVNAR) Unknown Aug 05, 2012 Adminis tered 1st Dose HRSA MODERNA, COVID-19, 0.5mL IM Intramuscular April 19, 2021 Administered PRIVATE FLULAVAL QUAD 0.5ML (6 MO AND UP) 2019 IM Intramuscular Jul 02, 2020 Administered PRIVATE FLULAVAL QUAD 0.5ML (6 MO AND UP) 2018 IM Intramuscular Jul 14, 2019 Administered PRIVATE SHINGRIX (HERPES ZOSTER-2 DOSE) IM Intramuscular Jun 16, 2021 Administered PRIVATE SHINGRIX (HERPES ZOSTER-2 DOSE) IM Intramuscular Nov 22, 2020 Administered PRIVATE TDAP (BOOSTRIX) IM Intramuscular April 18, 2019 Adminis tered influenza IIV3 (history) Unknown Jul 27, 2013 Adminis tered influenza IIV3 (history) Unknown Aug 05, 2012 Pending SOCIAL HISTORY Sex Assigned At : Social [...] No Information VITAL SIGNS Height 64 in February, Height-cm 162.56 cm February, Weight 336.4 lbs February, Weight-kg 152.59 kg February, Temperature 97.4 degrees Fahrenheit February, Heart Rate 107 bpm February, Respiratory Rate 18 bpm February, Oximetry 94 % February, BMI 57.74 kg/m2 February, Blood pressure systolic 138 mmHg February, Blood pressure diastolic 70 mmHg February, MEDICATIONS Medication SIG (Take, Route, Frequency, Duration) Notes Start Da te End Date Status Cymbalta 60 MG 2 capsule Orally Once a day for 30 days Active Fluconazole 150 MG TAKE ONE (1) TABLET BY MOUTH NOW for 1 prn Active Proventil HFA 108 (90 base) mcg/act 2 puffs as needed Inhalation every 4 hrs as needed for 17 days Active Gabapentin 300 MG TAKE ONE (1) CAPSULE BY MOUT H THREE (3) TIMES DAILY for 90 days Active Blood Glucose Monitor System w/Device as directed Active lamoTRIgine 200 MG 1 tablet Orally Once a day for 30 days Active Voltaren 1 % 4g Externally four times a day as needed for pain for 30 days NEEDS REFILL May, Active Latuda 60 MG 1 tablet with food Orally Once a day for 30 days Active Pantoprazole Sodium 40 MG TAKE ONE (1) TABLET BY MOUTH ONCE DAILY for 30 Active Trelegy Ellipta 200-62.5-25 MCG/ACT INHALE ONE (1) PUF F(S) BY MOUTH ONCE DAILY for 30 Active Claritin 10 MG 1 tablet Orally Once a day for 30 day(s) Jan, Active amLODIPine Besylate 10 MG TAKE ONE (1) TABLET BY MOUTH ONCE DAILY for 90 Active Famotidine 20 MG TAKE ONE (1) TABLET BY MOUTH TWICE DAILY for 30 Active Promethazine HCl 12.5 MG TAKE ONE (1) TABLET BY MOUTH ONCE DAILY NEEDED for 30 Active Probiotic - as directed Orally pre and probiotic Active Ibuprofen 800 MG TAKE ONE (1) TABLET BY MOUTH THREE (3) TIMES DAILY NEEDED for 30 Active Test strips Test Strips one twice a day for [address] strips Dec, Active Ozempic (2 MG/DOSE) 8 MG/3ML 2 mg Subcutaneous once a week for 30 day s Active guaiFENesin ER 600 MG 1 tablet as needed Orally every 12 hrs for 30 days Jan, Active Biotin Active Gvoke HypoPen 2-Pack 1 MG/0.2ML Inject 1mg Subcutaneou s as needed for severe hypoglycemia. May repeat in 15 minutes if no response. for 30 days prn Jan, Active Polyethylene Glycol 3350 - 17gm Orally 3 times a day for 14 days prn 16 Jan, 2020 Active SUMAtriptan Succinate 50 MG 1 tablet as needed for tiffany christopher (not to exceed 2 tabs over 2 hours) Orally Twice a day G43.009 for 30 day(s) NEEDS REFILLS Oct, Active BD Insulin Syringe Ultrafine 31G X 15/64 as directed Samples LOT# [id number] February, Not-Taking metFORMIN HCl ER 500 MG 1 tablet Orally 1 times a day for 90 days Active OneTouch Verio - 1 strip subcutaneously twice daily for 90 days Active Nystatin 963931 UNIT/GM APPLY TOPICALLY TO AFFECTED AREA TWICE D AILY for 10 prn Active Oxybutynin Chloride ER 5 MG TAKE ONE (1) TABLET BY MOUTH ONC E DAILY for 90 days Active Levsin/SL 0.125 MG 1 tablet under the tongue an d allow to dissolve as needed Sublingual Three times a day PRN for 30 day(s) prn Active PROCEDURES No Information RESULTS No Results REASON FOR VISIT Psychiatric f/u/transport - [facility] MEDICAL (GENERAL) HISTORY Type Description Date Medical [...] 0 blood sugar. 05/2016 Hospitalization History [facility] 01/25/2020-2019 Hospitalization History [facility] January 2020 Hospitalization History via [facility] february 2020 Hospitalization History sleep study 2020 Goals Section No Information Health Concerns No Information MEDICAL EQUIPMENT No Information MENTAL STATUS No Information FUNCTIONAL STATUS No Information ASSESSMENTS Encounter Date Diagnosis Assessment Notes Treatment Notes Treatm ent Clinical Notes February, Bipolar disorder with depression (ICD-10 - F31.30) February, Psychophysiological insomnia (ICD-10 - F 51.04) February, Chronic post-traumatic stress disorder ( PTSD) (ICD-10 - F43.12) February, Sleep disturbance (ICD-10 - G47.9) February, Migraine without aura and wi thout status migrainosus, not intractable (ICD-10 - G43.009) PLAN OF TREATMENT Medication Medication Name Sig Start Date Stop Date guaiFENesin ER 600 MG 1 tablet as needed Orally every 12 hrs for 30 days Jan, Famotidine 20 MG TAKE ONE (1) TABLET BY MOUTH TWICE DAILY for 30 Claritin 10 MG 1 tablet Orally Once a day for 30 day(s) Jan, Ibuprofen 800 MG TAKE ONE (1) TABLET BY MOUTH THREE (3) TIMES DAILY NEEDED for 30 amLODIPine Besylate 10 MG TAKE ONE (1) TABLET BY MOUTH ONCE JACKSON Y for 90 Pantoprazole Sodium 40 MG TAKE ONE (1) TABLET BY MOUTH ONCE JACKSON Y for 30 Next Appt Details 3 Months Reason: Provider Name:DORA SAUER, 2023-03-06 0 9:00:00 AM, [address] [place] [address], [id number], [place], [address], Provider Name:DORA SAUER, 2023-03-25 1 1:00:00 AM, [address] [place] [address], [id number], [place], [address], Provider Name:EMNDOZA NY, 2023-04-03 01:00:00 PM, [address] [place] [address], [id number], [place], [address], Provider Name:DORA BUSTILLOSSON, 2023-05-06 1 1:00:00 AM, [address] [place] [address], [id number], [place], [address], Insurance Providers Payer Name Payer Address Payer Phone Insured Name Patient Relati onship to Insured Coverage Start Date Coverage End Date Subscriber Number [facility] Magy GUERRERO [place] [address] [address] [facility] [address] Estefani Rios Self - patient is the insured [id number] N[employer] MEDICARE Part A [address] [facility] [address] Estefani Rios Self - patient is the insured [id number] [facility] 19 t Divshot [facility] [address] [facility] [address] Estefani Rios Self - patient is the insured [id number] [facility] Complete [address] [place] [address] Estefani Rios Self - patient is the insured 2022 [id number] MEDICATIONS ADMINISTERED Medication Instructions Date of Administration Dosage PHENERGAN 50MG/ML Dec, 50 mg DEXAMETHASONE 4MG/ML (PER 1 ML) Nov, 4 mg DEPO MEDROL 40 MG/ML Nov, 40 mg
[2023-04-18] MEDS ORDERED: CLINDAMYCIN 600 MG/50 ML IVPB 50 ML IV ONE (13:30)
[2023-04-18] MEDS: LACTATED RINGERS 1,000 ML IV PRN ×2 (13:55→16:16)
--- NOTE | 2023-04-18 13:57 | Progress Note-Pre Operative ---
Pre-Operative Progress Note Date H&P Reviewed: Apr 18, 2023 Time H&P Reviewed: 13:55 History & Physical: H&P Reviewed, Patient Examed, No changes noted Pre-Operative Diagnosis: Morbid obesity, DM II, HTN, PARISH, GERD, Asthma SAMANTHA SPRINGER APRN Apr 18, 2023 13:57
--- NOTE | 2023-04-18 13:59 | Discharge Inst-Surgical ---
D/C Lap Instructions-VASUO Reconcile Patient Problems Problems Reviewed?: Yes Follow Up Appt in 2 weeks Activity as tolerated No driving for 24 hours No driving while on pain medications Incentive Spirometry use every 2 hours while awake Clear liquid diet for 2 weeks Symptoms to Report: Fever over 101 degree F, Nausea/Vomiting Infection Signs and Symptoms to report: Increased redness, Foul odor of wound, Increased drainage Bathing instructions: May shower Operative Area Clean/Dry; Keep incision clean/dry If any problems/questions: Contact your physician or go to Emergency Room SAMANTHA SPRINGER VOLTAGE REGULATOR ASSEMBLER Apr 18, 2023 13:59
[2023-04-18] MEDS ORDERED: diphenhydrAMINE 50 MG/ML INJ (BENADRYL) IVP PRN (14:15)
[2023-04-18] MEDS ORDERED: morphine PCA 100 MG/100 ML BAG IV PRN (14:15)
[2023-04-18] MEDS ORDERED: BUPIVACAINE 0.25% 10 ML (SENSORCAINE) VIAL ONE (14:28)
[2023-04-18] MEDS ORDERED: fentaNYL INJ 100 MCG/2 ML AMP ONE (14:46)
[2023-04-18] MEDS ORDERED: MIDAZOLAM 2 MG/2 ML (VERSED) VIAL ONE (15:09)
[2023-04-18] MEDS ORDERED: HYDROmorphone 2 MG/ML VIAL (DILAUDID) ONE (15:25)
[2023-04-18] MEDS ORDERED: NEOSTIGMINE (BLOXIVERZ ) 1 MG/1ML 10 ML VIAL ONE (17:15)
[2023-04-18] MEDS ORDERED: GLYCOPYRROLATE 0.2 MG/ML (ROBINUL) 2 ML VIAL ONE (17:15)
[2023-04-18] MEDS ORDERED: proPOfol 200 MG/20 ML (DIPRIVAN) VIAL IV ONE (17:17)
[2023-04-18] MEDS ORDERED: LIDOCAINE PF 2% 5 ML (XYLOCAINE) VIAL ONE (17:17)
[2023-04-18] MEDS ORDERED: ROCURONIUM 50 MG/5 ML (ZEMURON) VIAL IV ONE (17:17)
--- NOTE | 2023-04-18 17:27 | Progress Note-Post Operative ---
Post-Operative Progess Note Surgeon (s)/Water Quality Analyst (s) Surgeon KASI ELLISON MD Water Quality Analyst: magnus liz DOLPHIN RESEARCHER Pre-Operative Diagnosis Morbid obesity, DM II, HTN, PARISH, GERD, Asthma Post-Operative Diagnosis same Procedure & Operative Findings Date of Procedure 04/18/23 Procedure Performed/Findings laparoscopic gastric sleeve resection. Anesthesia Type get Estimated Blood Loss Estimated blood loss (mL): minimal Specimens/Packing Specimens Removed stomach KASI ELLISON MD Apr 18, 2023 17:27
[2023-04-18] MEDS ORDERED: ONDANSETRON 4 MG/2 ML (SDV) Z0FRAN IVP PRN (17:45)
[2023-04-18] MEDS ORDERED: morphine INJ 10 MG/ML 1ML (SYR OR VIAL) IVP ONE (17:45)
[2023-04-18] MEDS ORDERED: SEVOFLURANE (ULTANE) 15 ML INHAL SOLN ONE (19:39)
[2023-04-18] MEDS: metroNIDAZOLE 500MG/100ML IVPB 100 ML IV SCH (19:57)
[2023-04-18] MEDS: 1/2 NS W/KCL 20 MEQ/L 1,000 ML IV SCH ×2 (19:57→22:29)
[2023-04-18] MEDS: ONDANSETRON 4 MG/2 ML (SDV) Z0FRAN IVP SCH (19:58)
[2023-04-18] MEDS: ENOXAPARIN 40 MG/0.4 ML (LOVENOX) SYR SC SCH (19:58)
[2023-04-18] MEDS: METOCLOPRAMIDE INJ 10 MG/2 ML (REGLAN) IVP SCH (19:58)
[2023-04-18] MEDS: RT-ALBUTEROL SULF 2.5 MG/3 ML PRE-MIX VIAL INH SCH (20:58)
[2023-04-18] MEDS ORDERED: ceFAZolin INJECTION 2,000 MG in NS (IVPB) 50 ML IV SCH (22:00)
[2023-04-18] MEDS: CLINDAMYCIN 600 MG/50 ML IVPB 50 ML IV SCH (22:19)
[2023-04-19] VITALS (7 sets, daily range): BP systolic 133–180; BP diastolic 63–87
[2023-04-19] MEDS: METOCLOPRAMIDE INJ 10 MG/2 ML (REGLAN) IVP SCH ×3 (00:01→11:38)
[2023-04-19] MEDS: ONDANSETRON 4 MG/2 ML (SDV) Z0FRAN IVP SCH ×3 (00:01→11:38)
[2023-04-19] MEDS: metroNIDAZOLE 500MG/100ML IVPB 100 ML IV SCH ×2 (03:01→11:38)
--- NOTE | 2023-04-19 03:54 | OPERATIVE REPORT ---
DATE OF SERVICE: 04/18/2023 ATTENDING PRIMARY CARE PHYSICIAN: Giovani Quinteros M.D. PREOPERATIVE DIAGNOSES: Morbid obesity, hypertension, hypercholesterolemia, diabetes. POSTOPERATIVE DIAGNOSES: Morbid obesity, hypertension, hypercholesterolemia, diabetes. PROCEDURE: Laparoscopic gastric sleeve resection. SURGEON: Sean Richards MD REPRODUCTION SPECIALIST: Nakul Hayden APRN ANESTHESIA: General endotracheal. ESTIMATED BLOOD LOSS: Minimal. FINDINGS: Surgically absent gallbladder, hepatomegaly with liver steatosis. No hiatal hernia. DISPOSITION: The patient tolerated the procedure well. INDICATIONS: The patient is a 62-year-old female known to us. She has a history of morbid obesity and is in our surgical weight loss program for the laparoscopic gastric sleeve resection and meets the medical criteria for bariatric surgery. She reports that she gained the majority of her adult weight in her late 20s and early 30s. She reports that at her heaviest, she was at 412 pounds. Over time, she was able to do some things related to diet and exercise and was able to lose some weight on her own over the past 10 years; however, has not been able to lose any more weight despite her best efforts. She reports many different diet attempts including Weight Watchers, Nutrisystem, Jessica Brady, SlimFast, high protein, low carbohydrate diets as well as juárez diet and again has been stagnant with weight loss. She has also tried exercise regimen, including walking, stretching, treadmill, stationary bike and again has been unable to lose any more weight. She has tried wiav-rab-chybivo weight loss medications with no success. Her medical comorbidities related to her obesity include asthma, hypertension, gastroesophageal reflux disease, diabetes, depression, anxiety, sleep apnea, hypercholesterolemia and degenerative joint disease. DESCRIPTION OF PROCEDURE: The patient was brought to the operating room, laid supine on the table. After adequate IV pain and sedative medications and general endotracheal intubation, the abdomen was prepped and draped in standard surgical fashion. A 0.5% Marcaine with epinephrine was then used to anesthetize the overlying skin in the left upper abdominal quadrant and a transverse skin incision made using a #15 blade. An 0 silk suture was applied to the medial aspect of the incision for retraction and a Veress needle inserted with a low opening pressure of 0 mmHg. The abdomen was then insufflated to 15 mmHg pressure. The Veress needle removed and a 5 mm trocar placed followed by a 5 mm 45-degree angle laparoscope visualized the peritoneal cavity. A 4-quadrant abdominal exploration was performed. There was hepatomegaly with significant liver steatosis as a surgically absent gallbladder. Under direct visualization, we then proceeded to place a mid abdominal left of midline 10 mm port after the skin and peritoneal lining were anesthetized using 0.5% Marcaine with epinephrine and a transverse skin incision made using a #15 blade. In a similar manner, a midabdominal right of midline 15 mm port was placed followed by a right upper abdominal quadrant 5 mm port. The epigastric region was then anesthetized and a transverse skin incision made using 11 blade. A tract was then created through the abdominal wall layers using a trocar to a 5 mm port and through this opening, a medium-sized Ottoniel liver retractor was placed and the left lobe of the liver retracted anteriorly and superiorly. The patient was then placed in steep reverse Trendelenburg position. We then measured 6 cm from the pylorus along the greater curvature and marked this area with a marking pen. The gastrocolic ligament next to the stomach was opened entering the lesser sac. This was done using a Sonicision. We then proceeded with inferior dissection until we were approximately 2 cm below our marking. We then proceeded cephalad taking the short gastric vessels as well as the angle of His connective tissue fibers and dissected medially until the left alex of the diaphragm was identified with visualization of good hemostasis. A 38 Latvian ViSiGi was then placed under direct visualization into the stomach and directed into the pylorus. Using this as our staple line guide, we first proceeded with a polyglycolic acid VERENA 45 mm black load. We then proceeded with two 60 mm black loads, followed by 3 purple loads leaving approximately 2 cm at the gastroesophageal junction and completing our gastric sleeve resection with visualization of good hemostasis. The staple line corners were then clipped with 5 mm clips. A leak test was then performed with no leak identified. The fibrin glue was then placed onto the staple line and the omentum placed onto the staple line. ViSiGi was then removed. The stomach was then removed through the 15 mm port site. The fascia and peritoneum to the 10 and 15 mm port sites were then closed under direct visualization using a Tj-Krissy device and 0 Vicryl suture. The abdomen was then desufflated and the remaining ports were removed. All skin incisions were closed using 4-0 Monocryl running subcuticular sutures. Wounds were then cleaned and covered with Dermabond. The patient tolerated the procedure well. We will admit her 23-hour observation and proceed with DVT prophylaxis with early ambulation, calf SCDs as well as Lovenox injections. We will also proceed with pain control with a PROFESSIONAL ARCHITECT pump. Tomorrow morning, we will start a phase 1 clear liquid diet and once she is tolerating at least 60 mL every 30 minutes has adequate pain control with oral pain medication is ambulating well, we will discharge her home where she will be instructed to follow a phase 1 clear liquid diet for the next 2 weeks. Job ID: [id number] DocumentID: [id number] Dictated Date: 04/18/2023 17:38:40 Teleradiologist Date: 04/19/2023 03:52:00 Dictated By: SEAN RICHARDS MD MTDD
[2023-04-19] MEDS: CLINDAMYCIN 600 MG/50 ML IVPB 50 ML IV SCH ×2 (05:09→13:02)
[2023-04-19] MEDS: 1/2 NS W/KCL 20 MEQ/L 1,000 ML IV SCH ×2 (05:09→11:38)
[2023-04-19 06:01] LABS: HEMATOCRIT 40 % (35-52); HEMOGLOBIN 13.5 g/dL (11.5-16.0); MEAN CORPUSCULAR HEMOGLOBIN 31 pg (25-34); MEAN CORPUSCULAR HGB CONC 34 g/dL (32-36); MEAN CORPUSCULAR VOLUME 91 fL (80-99); MEAN PLATELET VOLUME 9.1 fL (9.0-12.2); PLATELET COUNT 385 10^3/uL (130-400); WHITE BLOOD COUNT 19.7 10^3/uL (4.3-11.0)
[2023-04-19 06:21] LABS: POTASSIUM 3.2 MMOL/L (3.6-5.0)
[2023-04-19 06:22] LABS: CALCIUM 8.3 MG/DL (8.5-10.1)
[2023-04-19 06:26] LABS: CREATININE SERUM 0.75 MG/DL (0.60-1.30)
[2023-04-19] MEDS: RT-ALBUTEROL SULF 2.5 MG/3 ML PRE-MIX VIAL INH SCH ×2 (07:09→21:10)
[2023-04-19] MEDS: PANTOPRAZOLE 40 MG (PROTONIX) TAB PO SCH (08:48)
[2023-04-19] MEDS: ENOXAPARIN 40 MG/0.4 ML (LOVENOX) SYR SC SCH ×2 (08:48→19:37)
[2023-04-19] MEDS: PANTOPRAZOLE 40 MG (PROTONIX) VIAL IV SCH (08:49)
--- NOTE | 2023-04-19 10:28 | Progress Note ---
Subjective Date Seen by a Provider: Apr 19, 2023 Time Seen by a Provider: 10:20 Subjective/Events-last exam doing ok. pain controlled. starting clears now. no fever/chills. will need to start ambulating. Objective Exam Vital Signs Date Time Temp Pulse Resp B/P (MAP) Pulse Ox O2 Delivery O2 Flow Rate FiO2 04/19/23 07:48 37.2 109 20 166/74 (104) 94 Nasal Cannula 3.00 04/19/23 07:09 95 Nasal Cannula 3.00 04/19/23 05:22 18 04/19/23 04:00 37.0 104 18 145/66 (92) 95 Nasal Cannula 3.00 3.00 04/19/23 00:00 37.0 109 16 133/63 (86) 91 Nasal Cannula 3.00 3.00 04/18/23 20:58 96 Nasal Cannula 3.00 04/18/23 20:02 37.6 87 18 169/74 (105) 96 Nasal Cannula 3.00 04/18/23 20:00 Nasal Cannula 3.00 04/18/23 19:55 Nasal Cannula 3.00 04/18/23 18:25 Nasal Cannula 3.00 04/18/23 18:20 36.7 14 188/91 (123) 93 Nasal Cannula 3.00 04/18/23 18:15 OxyMask 3.00 04/18/23 18:10 14 194/93 (126) 93 OxyMask 3.00 04/18/23 18:00 12 186/86 (119) 95 OxyMask 8 04/18/23 18:00 OxyMask 8 04/18/23 17:50 16 191/95 (127) 95 OxyMask 8 04/18/23 17:45 OxyMask 8 04/18/23 17:40 15 198/93 (128) 94 OxyMask 8 04/18/23 17:29 OxyMask 8 04/18/23 17:29 37.0 17 180/94 (122) 93 OxyMask 8 04/18/23 13:55 Room Air 04/18/23 13:55 36.0 85 22 147/75 (99) 95 Room Air I & O 04/19/23 07:00 Intake Total 2900 ml Output Total 385 ml Balance 2515 ml Capillary Refill : General Appearance: No Apparent Distress HEENT: PERRL/EOMI Neck: Full Range of Motion Respiratory: Chest Non Tender, Lungs Clear, Decreased Breath Sounds Cardiovascular: Regular Rate, Rhythm Gastrointestinal: soft, tenderness, other (wounds clean/dry) Extremity: Normal Capillary Refill Neurologic/Psychiatric: Alert, Oriented x3 Skin: Normal Color Lymphatic: No Adenopathy Results Lab Laboratory Tests 04/18/23 13:38: Glucometer 123H 04/18/23 20:12: Glucometer 157H 04/19/23 00:55: Glucometer 123H 04/19/23 04:13: Glucometer 111H 04/19/23 05:48: White Blood Count 19.7H, Red Blood Count 4.41, Hemoglobin 13.5, Hematocrit 40, Mean Corpuscular Volume 91, Mean Corpuscular Hemoglobin 31, Mean Corpuscular Hemoglobin Concent 34, Red Cell Distribution Width 13.5, Platelet Count 385, Mean Platelet Volume 9.1, Sodium Level 140, Potassium Level 3.2L, Chloride Level 105, Carbon Dioxide Level 23, Anion Gap 12, Blood Urea Nitrogen 9, Creatinine 0.75, Estimat Glomerular Filtration Rate 89, BUN/Creatinine Ratio 12, Glucose Level 129H, Calcium Level 8.3L 04/19/23 07:54: Glucometer 134H Assessment/Plan Assessment/Plan Assess & Plan/Chief Complaint s/p laparoscopic gastric sleeve resection. start and maintain clear liquid diet at a rate of about 60ml/30min. continue clear liquid diet for next 2 weeks. increase ambulation. KASI ELLISON MD Apr 19, 2023 10:28
[2023-04-19] MEDS: morphine INJ 4 MG/ML 1 ML (VIAL/SYRINGE) IVP PRN (12:08)
[2023-04-19] MEDS: amLODIPine 10 MG (NORVASC) TAB PO SCH (13:02)
[2023-04-19] MEDS ORDERED: METOCLOPRAMIDE INJ 10 MG/2 ML (REGLAN) IVP PRN (14:15)
--- NOTE | 2023-04-19 14:26 | Anesthesia-General Post-Op ---
General Patient Condition Mental Status/LOC: Same as Preop Cardiovascular: Satisfactory Nausea/Vomiting: Absent Respiratory: Satisfactory Pain: Controlled Complications: Absent Post Op Complications Complications None Follow Up Care/Instructions Patient Instructions None needed. Anesthesia/Patient Condition Patient Condition Patient is doing well, no complaints, stable vital signs, no apparent adverse anesthesia problems. No complications reported per nursing. BREANNA HARRY CRNA Apr 19, 2023 14:25
[2023-04-19] MEDS ORDERED: FUROSEMIDE 40 MG/4 ML INJ (LASIX) IVP NR (14:30)
[2023-04-19] MEDS: ONDANSETRON 4 MG/2 ML (SDV) Z0FRAN IVP PRN (19:37)
[2023-04-19] MEDS: meTOprolol 5 MG/5 ML (LOPRESSOR) VIAL IV SCH (23:17)
[2023-04-20] MEDS: ONDANSETRON 4 MG/2 ML (SDV) Z0FRAN IVP PRN (01:39)
[2023-04-20] MEDS: 1/2 NS W/KCL 20 MEQ/L 1,000 ML IV SCH (01:39)
[2023-04-20] MEDS: HYDROcodone/APAP 7.5MG-325 MG/15 ML (LORTAB) UDC PO PRN ×2 (01:49→12:48)
[2023-04-20 04:34] VITALS: BP 188/86
[2023-04-20] MEDS: meTOprolol 5 MG/5 ML (LOPRESSOR) VIAL IV SCH ×2 (04:39→13:12)
[2023-04-20 05:44] LABS: BASOPHILS # (AUTO) 0.1 10^3/uL (0.0-0.1); BASOPHILS % (AUTO) 0 % (0-10); EOSINOPHILS # (AUTO) 0.1 10^3/uL (0.0-0.3); EOSINOPHILS % (AUTO) 0 % (0-10); HEMATOCRIT 40 % (35-52); HEMOGLOBIN 13.2 g/dL (11.5-16.0); LYMPHOCYTES # (AUTO) 2.1 10^3/uL (1.0-4.0); LYMPHOCYTES % (AUTO) 10 % (12-44); MEAN CORPUSCULAR HEMOGLOBIN 30 pg (25-34); MEAN CORPUSCULAR HGB CONC 33 g/dL (32-36); MEAN CORPUSCULAR VOLUME 91 fL (80-99); MEAN PLATELET VOLUME 9.5 fL (9.0-12.2); MONOCYTES # (AUTO) 1.8 10^3/uL (0.0-1.0); MONOCYTES % (AUTO) 9 % (0-12); NEUTROPHILS # (AUTO) 17.4 10^3/uL (1.8-7.8); NEUTROPHILS % (AUTO) 81 % (42-75); PLATELET COUNT 361 10^3/uL (130-400); WHITE BLOOD COUNT 21.5 10^3/uL (4.3-11.0)
[2023-04-20 05:45] VITALS: BP 171/72
[2023-04-20] MEDS: morphine INJ 4 MG/ML 1 ML (VIAL/SYRINGE) IVP PRN (05:50)
[2023-04-20 06:07] LABS: POTASSIUM 3.2 MMOL/L (3.6-5.0)
[2023-04-20 06:08] LABS: CALCIUM 8.4 MG/DL (8.5-10.1)
[2023-04-20 06:12] LABS: ATYPICAL LYMPHOCYTES 1 %; CREATININE SERUM 0.63 MG/DL (0.60-1.30); LYMPHOCYTES % (MANUAL) 8 %; MONOCYTES % (MANUAL) 7 %; NEUTROPHILS % (MANUAL) 84 %; RBC MORPH NORMAL
[2023-04-20] MEDS: RT-ALBUTEROL SULF 2.5 MG/3 ML PRE-MIX VIAL INH SCH (06:39)
[2023-04-20 07:10] VITALS: BP 145/67
[2023-04-20] MEDS: ENOXAPARIN 40 MG/0.4 ML (LOVENOX) SYR SC SCH (07:52)
[2023-04-20] MEDS: amLODIPine 10 MG (NORVASC) TAB PO SCH (07:52)
[2023-04-20] MEDS: PANTOPRAZOLE 40 MG (PROTONIX) TAB PO SCH (07:52)
[2023-04-20] MEDS: PANTOPRAZOLE 40 MG (PROTONIX) VIAL IV SCH (07:53)
[2023-04-20] MEDS ORDERED: amLODIPine 10 MG (NORVASC) TAB PO SCH (09:00)
[2023-04-20 11:36] VITALS: BP 176/77
--- NOTE | 2023-04-20 12:16 | Consultation - Hospitalist ---
HPI History of Present Illness: HPI/Chief Complaint Chief complaint: Medical management following gastric sleeve HPI: This is a 62-year-old female with history of hypertension and morbid obesity who underwent gastric sleeve procedure by Dr. Richards. I have been consulted for hypertension. I did restart amlodipine and gave dose of hydralazine. Currently she is without any issues and her pain is controlled. She is set for discharge. Source: patient, RN/MD, old records Exam Limitations: no limitations Date Seen 04/20/23 Attending Physician Giovani Quinteros DO PCP Admitting Physician: Sean Richards MD Attending Physician: Sean Richards MD Referring Physician Date of Admission Apr 18, 2023 at 13:21 Home Medications & Allergies Home Medications Reviewed patient Home Medication Reconciliation performed by pharmacy medication reconciliations optical manufacturing technician and/or nursing. Patients Allergies have been reviewed. Allergies Allergies Coded Allergies Penicillins (Unverified Allergy, Severe, ANAPHYLAXIS, 04/11/23) fentanyl (Unverified Allergy, Severe, SEIZURE, 04/11/23) Sulfa (Sulfonamide Antibiotics) (Unverified Allergy, Mild, RASH, 04/11/23) latex (Unverified Allergy, Mild, RASH/BLISTERS, 04/11/23) Past Blpnwhx-Fdbnpd-Hjjnbp Hx Patient Social History Marrital Status: single Employed/Student: unemployed Tobacco Use?: Yes Tobacco type used: Cigarettes Smoking Status: Current Everyday Smoker Use of E-Cig and/or Vaping dev: No Substance use?: No Alcohol Use?: No Pt feels they are or have been: No Immunizations Up To Date Date of Influenza Vaccine: Jun 22, 2019 First/Initial COVID19 Vaccinat: 2020 Second COVID19 Vaccination Jeanmarie: 2020 Date of Pneumonia Vaccine: Jan 31, 2017 Seasonal Allergies Seasonal Allergies: Yes Current Status status: No Advance Directives: No Communicates: Verbally Primary Language: [place] Preferred Spoken Language: [place] Is interpretation needed?: No Past Medical History Surgeries: Gallbladder, Tonsillectomy Asthma, Sleep Apnea Currently Using CPAP: Yes Chronic Edema/Swelling, Hypertension Headaches /Migraines 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 oz. 77.366445ev; 48.48 BMI Method:Estimated General Appearance: No Apparent Distress, Chronically ill, Obese HEENT: PERRL/EOMI Neck: Full Range of Motion Respiratory: Chest Non Tender, Lungs Clear, Decreased Breath Sounds Cardiovascular: Regular Rate, Rhythm Extremity: Normal Capillary Refill Neurologic/Psychiatric: Alert, Oriented x3 Skin: Normal Color Lymphatic: No Adenopathy Results Results/Procedures Labs Laboratory Tests 04/19/23 05:48 04/20/23 05:17 Patient resulted labs reviewed. Assessment/Plan Assessment and Plan Assess & Plan/Chief Complaint Assessment: Status post gastric sleeve procedure Hypertension [place] Hyperlipidemia Plan: Restart home meds Hydralazine FRANSISCO ALVAREZ DO Apr 20, 2023 12:16
[2023-04-20] MEDS ORDERED: ONDANSETRON 4 MG (ZOFRAN) ORAL DISSOLVE TAB PO NR (12:30)
[2023-04-20] MEDS ORDERED: hydrALAZINE (APRESOLINE) 25 MG TAB PO NR (12:30)
[2023-04-20 13:30] VITALS: BP 163/72
== END 2023-04-20 13:40 | disposition home or self-care (01) | DRG 621 ==
LOC: EDSTATUS 11:15 → 4TH 13:21 → SURG 13:22 → 4TH 18:30
PROVIDERS: ADMIT Surgery; ATTEND Surgery
PROC: 0DB64Z3 Excision of Stomach, Percutaneous Endoscopic Approach, Vertical (ICD-10-PCS; principal; 2023-04-18 15:24)
DX: E66.01 Morbid (severe) obesity due to excess calories (principal); E11.9 Type 2 diabetes mellitus without complications; I10 Essential (primary) hypertension; G47.33 Obstructive sleep apnea (adult) (pediatric); K21.9 Gastro-esophageal reflux disease without esophagitis; J45.909 Unspecified asthma, uncomplicated
CPT/HCPCS: 36415; 80048; 82947; 85007; 85027; 87081; 94640; 94664; 94760; 94761

== ENCOUNTER 2023-07-03 09:41 | Outpatient (CLI) | payer MEDICARE, MEDICAID ==
[~2023-07-03] VITALS: Ht 162.6 cm; Wt 109.5 kg
[~2023-07-03 09:41] MED LIST changes: +FAMO-356 PO; -FAMO20TA3 PO
[2023-07-03] MEDS ORDERED: POLY17PO6 PO (14:26)
[2023-07-03] MEDS ORDERED: ATOR20TA66 PO (14:26)
[2023-07-03] MEDS ORDERED: BUDE10.2 IH (14:26)
[2023-07-03] MEDS ORDERED: NYST15PO4 TP (14:26)
[2023-07-03] MEDS ORDERED: DICL20GE TP (14:26)
[2023-07-03] MEDS ORDERED: ALBU6.7H13 INH (14:26)
[2023-07-03] MEDS ORDERED: ONDA-106 PO (14:26)
[2023-07-03] MEDS ORDERED: BENZ1TAB74 PO (14:26)
[2023-07-03] MEDS ORDERED: SUMA50TA2 PO (14:26)
== END 2023-07-03 14:28 | disposition home or self-care (01) ==
LOC: PREOP 09:41
PROVIDERS: ATTEND Surgery
DX: Z01.818 Encounter for other preprocedural examination (principal)

== ENCOUNTER 2023-07-10 11:53 | Day surgery (SDC) | payer MEDICARE, MEDICAID ==
[~2023-07-10] VITALS: Ht 162.6 cm; Wt 109.5 kg
[~2023-07-10 11:53] MED LIST changes: +ALBU6.7H13 INH; +ATOR20TA66 PO; +BENZ1TAB74 PO; +BUDE10.2 IH; +DICL20GE TP; +NYST15PO4 TP; +ONDA-106 PO; +POLY17PO6 PO; +SUMA50TA2 PO
[2023-07-10] MEDS ORDERED: LIDOCAINE JELLY 2% 6 ML SYRINGE MM PRN (12:15)
[2023-07-10] MEDS ORDERED: HURRICAINE EXT TUBE (BENZOCAINE) XX PRN (12:15)
[2023-07-10] MEDS ORDERED: LACTATED RINGERS 1,000 ML 1,000 ML IV STA (12:15)
--- NOTE | 2023-07-10 12:34 | Progress Note-Pre Operative ---
Pre-Operative Progress Note Date of Available H&P: Jul 10, 2023 Date H&P Reviewed: Jul 10, 2023 Time H&P Reviewed: 12:30 History & Physical: No changes noted Pre-Operative Diagnosis: dysphagia s/p gastric sleeve resection. KASI ELLISON MD Jul 10, 2023 12:33
[2023-07-10 12:35] VITALS: BP 139/67
--- NOTE | 2023-07-10 12:35 | Discharge Inst-Surgical ---
D/C Lap Instructions-TERRA Follow Up Activity as tolerated High Fiber Diet 25g or more per day Avoid Alcohol, Caffeine, Spicy [place] and Acid foods. Drink 64 fluid oz or more of fluids per day. Symptoms to Report: Fever over 101 degree F, Nausea/Vomiting If any problems/questions: Contact your physician or go to Emergency Room KASI ELLISON MD Jul 10, 2023 12:35
[2023-07-10] MEDS ORDERED: ONDANSETRON INJECTION 4 MG/2 ML (SDV) IVP PRN (12:45)
[2023-07-10] MEDS ORDERED: ONDANSETRON 4 MG ORAL DISSOLVE TABLET PO PRN (12:45)
[2023-07-10] MEDS ORDERED: LIDOCAINE JELLY 2% 6 ML SYRINGE ONE (12:48)
[2023-07-10] MEDS ORDERED: MIDAZOLAM INJ 2 MG/2 ML VIAL ONE (12:59)
[2023-07-10 13:39] VITALS: BP 141/62
[2023-07-10 13:44] VITALS: BP 121/58
[2023-07-10 13:50] VITALS: BP 113/50
--- NOTE | 2023-07-10 13:57 | Progress Note-Post Operative ---
Post-Operative Progess Note Surgeon (s)/Business Liaison Manager (s) Surgeon KASI ELLISON MD Business Liaison Manager: none Pre-Operative Diagnosis dysphagia s/p gastric sleeve resection. Post-Operative Diagnosis reflux esophagitis(grade B), small-mod HH(2.5cm), retained food substance stomach, mild distal gastric stricture. Procedure & Operative Findings Date of Procedure 07/10/23 Procedure Performed/Findings EGD with bx and balloon dilatation. Anesthesia Type mac Estimated Blood Loss Estimated blood loss (mL): minimal Specimens/Packing Specimens Removed ge jxn, antrum KASI ELLISON MD Jul 10, 2023 13:57
[2023-07-10] MEDS ORDERED: METO5TAB75 PO (14:03)
[2023-07-10 14:20] VITALS: BP 123/72
[2023-07-10 14:35] VITALS: BP 123/72
--- NOTE | 2023-07-10 14:49 | Anesthesia-General Post-Op ---
MAC Patient Condition Mental Status/LOC: Same as Preop Cardiovascular: Satisfactory Nausea/Vomiting: Absent Respiratory: Satisfactory Pain: Controlled Complications: Absent Post Op Complications Complications None Follow Up Care/Instructions Patient Instructions None needed. Anesthesiology Discharge Order Discharge Order Patient is doing well, no complaints, stable vital signs, no apparent adverse anesthesia problems. No complications reported per nursing. BREANNA HARRY CRNA Jul 10, 2023 14:49
--- NOTE | 2023-07-10 20:16 | OPERATIVE REPORT ---
DATE OF SERVICE: 07/10/2023 ATTENDING PRIMARY CARE PHYSICIAN: Dr. Giovani Quinteros. PREOPERATIVE DIAGNOSES: Dysphagia, gastroesophageal reflux disease. POSTOPERATIVE DIAGNOSES: Reflux esophagitis, [place] grade B retained food substance within the stomach. Mild gastric stricture at the incisura angularis. No distal obstructions. PROCEDURE: EGD with biopsy and balloon dilatation. SURGEON: Kasi Ellison MD ANESTHESIA: Monitored anesthesia care. ESTIMATED BLOOD LOSS: Minimal. FINDINGS: Reflux esophagitis, [place] grade B retained food substance within the stomach. Mild gastric stricture at the incisura angularis. No distal obstructions. Some level of gastroparesis. DISPOSITION: The patient tolerated the procedure well. INDICATIONS: The patient is a 63-year-old female known to us. She has a history of morbid obesity and multiple medical comorbidities including asthma, hypertension, gastroesophageal reflux disease, diabetes, depression, anxiety, sleep apnea, hypercholesterolemia as well as degenerative joint disease. She is status post laparoscopic gastric sleeve resection on 04/18/2023. She states that initially she had done well and had transitioned herself to phase 3 high protein regular diet; however, states that she has had some issues with dysphagia. She states that at times she is only able to eat only a few bites and then feels fullness and a pressure sensation in the epigastric region. She does not report any nausea, no vomiting. She also does have reflux with epigastric burning sensation as well. DESCRIPTION OF PROCEDURE: The patient was brought to the endoscopy suite and laid in the left lateral decubitus position. After adequate IV pain and sedative medications and monitored anesthesia care, the mouthpiece was applied. The endoscope was placed in the mouth, visualized the pharynx and hypopharyngeal region. Vocal cords, epiglottis and vallecula identified and appeared to be normal. The endoscope was then gently intubated in the esophageal opening and esophagus insufflated. The endoscope was then advanced through the first, second and third portion of esophagus at the level of the GE junction, reflux esophagitis, [place] grade B identified. No ulcers or strictures identified in this region and a biopsy was taken with forceps with visualization of good hemostasis. The endoscope was then advanced into the stomach where immediately a significant amount of retained food substance was identified within the stomach. This in and of itself was abnormal, likely indicating some level of functional gastroparesis. The endoscope was then retroflexed, visualizing a small to moderate size hiatal hernia approximately 2-2.5 cm in size. The retained food substance was irrigated and suctioned out as well as possible. There may have been a mild stricture at the incisura angularis. A biopsy was taken of the antrum to rule out H. pylori with visualization of good hemostasis. The endoscope was then advanced to the pylorus and the first and second portion of the duodenum, which appeared normal with no distal obstructions. We then proceeded with dilatation of the distal stomach. The balloon was placed in the stomach and pulled back to the area of the stricture. We then proceeded with graded dilatation from 2, 3 and eventually 4 atmospheres of pressure until we had moderate resistance and with 60 seconds in between each level. This was equal to approximately 19 mm in luminal diameter. This was left in place for 120 seconds. The balloon was then desufflated and removed with visualization of good hemostasis as well as no mucosal tears. The endoscope was then slowly withdrawn while taking a second look and suctioning of residual air with no additional findings. The patient tolerated the procedure well. We feel that her dysphagia is a combination of gastroparesis as well as the mild distal esophageal stricture. We were able to dilate to 19 mm. However, our goal would be 20 mm or greater. We will start her on medical regimen of Reglan 5 mg 6 hours p.r.n. as well as the necessary lifestyle and dietary accommodation including small and more frequent meals and avoidance of eating at night as well as avoidance of caffeinated beverages, spicy, greasy and acidic foods. She also needs to chew thoroughly and she slowly. We will also schedule her for another repeat dilatation in approximately 6 weeks, again to a goal of 20 mm or greater. Hopefully, over time, with a combination, she does not have any dysphagia. Job ID: [id number] DocumentID: [id number] Dictated Date: 07/10/2023 13:51:01 Speeder Machine Operator Date: 07/10/2023 20:14:00 Dictated By: KASI ELLISON MD
== END 2023-07-10 14:35 | disposition home or self-care (01) ==
LOC: ENDO 11:53
PROVIDERS: ATTEND Surgery
DX: K21.00 Gastro-esophageal reflux disease with esophagitis, without bleeding (principal); K44.9 Diaphragmatic hernia without obstruction or gangrene; K31.89 Other diseases of stomach and duodenum; G47.33 Obstructive sleep apnea (adult) (pediatric); E11.9 Type 2 diabetes mellitus without complications; E66.01 Morbid (severe) obesity due to excess calories; Z99.81 Dependence on supplemental oxygen; Z67.41 Type O blood, Rh negative; Z79.84 Long term (current) use of oral hypoglycemic drugs; Z68.41 Body mass index [BMI] 40.0-44.9, adult

== ENCOUNTER 2023-08-14 05:43 | Outpatient (CLI) | payer MEDICARE, MEDICAID ==
[~2023-08-14] VITALS: Ht 162.6 cm; Wt 107.0 kg
[~2023-08-14 05:43] MED LIST changes: +METO5TAB75 PO
== END 2023-08-14 10:15 | disposition home or self-care (01) ==
LOC: PREOP 05:43
PROVIDERS: ATTEND Surgery
DX: Z01.818 Encounter for other preprocedural examination (principal)

== ENCOUNTER 2023-08-21 10:29 | Day surgery (SDC) | payer MEDICARE, MEDICAID ==
[~2023-08-21] VITALS: Ht 162.6 cm; Wt 107.0 kg
[~2023-08-21 10:29] MED LIST changes: -OXYB5TAB13 PO; +OXYB5TAB14 PO
[2023-08-21] MEDS ORDERED: LACTATED RINGERS 1,000 ML 1,000 ML IV STA (10:41)
[2023-08-21] MEDS ORDERED: HURRICAINE EXT TUBE (BENZOCAINE) XX PRN (10:45)
[2023-08-21] MEDS ORDERED: LIDOCAINE JELLY 2% 6 ML SYRINGE MM PRN (10:45)
--- NOTE | 2023-08-21 10:58 | Progress Note-Pre Operative ---
Pre-Operative Progress Note Date of Available H&P: Aug 21, 2023 Date H&P Reviewed: Aug 21, 2023 Time H&P Reviewed: 10:45 History & Physical: No changes noted Pre-Operative Diagnosis: dysphagia KASI ELLISON MD Aug 21, 2023 10:58
--- NOTE | 2023-08-21 10:59 | Discharge Inst-Surgical ---
D/C Lap Instructions-TERRA Follow Up Activity as tolerated High Fiber Diet 25g or more per day Avoid Alcohol, Caffeine, Spicy [place] and Acid foods. Drink 64 fluid oz or more of fluids per day. Symptoms to Report: Fever over 101 degree F, Nausea/Vomiting If any problems/questions: Contact your physician or go to Emergency Room KASI ELLISON MD Aug 21, 2023 10:59
[2023-08-21] MEDS ORDERED: ONDANSETRON INJECTION 4 MG/2 ML (SDV) IVP PRN (11:00)
[2023-08-21] MEDS ORDERED: ONDANSETRON 4 MG ORAL DISSOLVE TABLET PO PRN (11:00)
[2023-08-21 11:28] VITALS: BP 140/73
[2023-08-21] MEDS ORDERED: LIDOCAINE JELLY 2% 6 ML SYRINGE ONE (12:50)
[2023-08-21] MEDS ORDERED: proPOfol INJECTION 200 MG/20 ML VIAL IV ONE (13:04)
[2023-08-21 13:40] VITALS: BP 165/79
--- NOTE | 2023-08-21 13:54 | Progress Note-Post Operative ---
Post-Operative Progess Note Surgeon (s)/[employer] Advisor (s) Surgeon KASI ELLISON MD [employer] Advisor: none Pre-Operative Diagnosis dysphagia Post-Operative Diagnosis reflux esophagitis(grade B-C), mild dist esoph stricture, moderate gastritis, mild dist gastric stricture. Procedure & Operative Findings Date of Procedure 08/21/23 Procedure Performed/Findings EGD with bx and balloon dilatation GE jxn and gastric outlet obstruction. Anesthesia Type mac Estimated Blood Loss Estimated blood loss (mL): minimal Specimens/Packing Specimens Removed ge jxn, antrum KASI ELLISON MD Aug 21, 2023 13:54
[2023-08-21 14:15] VITALS: BP 165/79
--- NOTE | 2023-08-21 22:14 | OPERATIVE REPORT ---
DATE OF SERVICE: 08/21/2023 ATTENDING PRIMARY CARE PHYSICIAN: Dr. Giovani Quinteros. PREOPERATIVE DIAGNOSES: Gastroesophageal reflux disease, dysphagia. POSTOPERATIVE DIAGNOSES: Reflux esophagitis between [place] grade B and C with a mild distal esophageal stricture, small hiatal hernia approximately 1.5 cm in size. Moderate gastritis with a mild distal gastric stricture at the incisura angularis. INDICATIONS: She did have similar symptoms earlier on and on 07/18/2023, she underwent an EGD as well as a dilatation to 19 mm in luminal diameter. She reports that she still does have some issues with dysphagia as well as reflux. DESCRIPTION OF PROCEDURE: The patient was brought to the endoscopy suite and laid in the left lateral decubitus position. After adequate IV pain and sedating medications and monitored anesthesia care, the mouthpiece was applied. The endoscope was then placed in the mouth, visualizing the pharynx and hypopharyngeal region. Vocal cords, epiglottis and vallecula identified and appeared to be normal. The endoscope was then gently intubated in the esophageal opening and esophagus insufflated. The endoscope was then advanced through the first, second, third portions of esophagus; at the level of the GE junction, reflux esophagitis between [place] grade B to C identified with a mild distal esophageal stricture. A biopsy was taken with forceps with visualization of good hemostasis. The endoscope was then advanced into the stomach where there was a moderate severity gastritis. There also did appear to be a mild distal gastric stricture again near the incisura angularis. The endoscope was able to pass through this region without any difficulty again with moderate gastritis noted. A biopsy was taken of the antrum to rule out H. pylori with visualization of good hemostasis. The endoscope was then advanced through the pylorus and the first and second portion of the duodenum, which appeared normal with no distal obstructions. The balloon was then placed into the antrum and pulled back to the area of the distal gastric stricture. We then proceeded with a stepwise dilatation in a graded fashion from 2, 4 then eventually 6 atmospheres of pressure until we had moderate resistance or approximately 20 mm in luminal diameter and left this in place for 120 seconds. In between the previous pressure levels, we waited 60 seconds in between. The balloon was then desufflated and removed with visualization of good hemostasis as well as no mucosal tears. The endoscope was then withdrawn and the balloon placed in the area of the esophageal stricture. We then proceeded with graded dilatation from 2, 4 then eventually 6 atmospheres of pressure with 60 seconds in between. Once we had 6 atmospheres or 20 mm in luminal diameter, we left this in place for approximately 120 seconds. The balloon was desufflated and removed with visualization of good hemostasis as well as no mucosal tears. The endoscope was then slowly withdrawn while taking a second look and suctioning of residual air with no additional findings. The patient tolerated the procedure well. We will recommend the necessary lifestyle and dietary accommodation including small and more frequent meals and avoidance of caffeinated beverages, spicy, greasy and acidic foods. We will also recommend a high protein diet with lean meat protein sources and to chew thoroughly. If she is able to eat approximately a half cup of brown fluid volume per sitting that would be the goal after gastric sleeve resection and she needs to continue with this amount of food to continue to lose weight and maintain weight loss. If she continues to have dysphagia and much less volumes of food, we will have her follow up for repeat dilatation. We will also have her continue with her PPI acid knockout man. Job ID: [id number] DocumentID: [id number] Dictated Date: 08/21/2023 13:44:59 Lamination Machine Operator Date: 08/21/2023 22:12:00 Dictated By: KASI ELLISON MD
== END 2023-08-21 14:15 | disposition home or self-care (01) ==
LOC: ENDO 10:29
PROVIDERS: ATTEND Surgery
DX: K21.00 Gastro-esophageal reflux disease with esophagitis, without bleeding (principal); K22.2 Esophageal obstruction; K44.9 Diaphragmatic hernia without obstruction or gangrene; K29.70 Gastritis, unspecified, without bleeding; K31.89 Other diseases of stomach and duodenum; G47.33 Obstructive sleep apnea (adult) (pediatric); E66.01 Morbid (severe) obesity due to excess calories; F17.210 Nicotine dependence, cigarettes, uncomplicated; Z68.41 Body mass index [BMI] 40.0-44.9, adult; Z79.899 Other long term (current) drug therapy
CPT/HCPCS: 88305